=== PATIENT | female | born 1975 | race Caucasian/White ===

== ENCOUNTER → 2018-09-01 15:48 | Outpatient (CLI) | payer BC, SELFPAY ==
--- NOTE | 2018-09-01 15:56 | US_ITS ---
US thyroid HISTORY: ITS.REASON: ELEVATED PARATHYROID HORMONE ORDERING PHYSICIAN: Rober Marshall MD PATIENT AGE: 43 years Comparison: None FINDINGS: The right lobe is 4.5 x 1.5 x 1.7 cm. There is a heterogeneous slightly hypoechoic nodule involving the lower pole the right lobe of the thyroid gland measuring 10 x 9 mm. This is peripheral in nature. This could represent an enlarged parathyroid gland as well. The left lobe is 4.7 x 1.3 x 1.5 cm. A 4 mm cyst is present in the upper pole and a 3 mm cyst is present in the lower pole. A 6 mm mixed nodule is present in the lower pole and an additional 4 mm hypoechoic nodule present in the lower pole as well as an additional 3 mm cyst in the lower pole. IMPRESSION: Mildly enlarged thyroid gland with bilateral nodules. The largest nodule is in the lower pole on the right posteriorly measuring 10 x 9 mm and could represent an enlarged parathyroid gland. However, usually parathyroid glands are somewhat more homogeneous appearance. Six-month Follow-up suggested to confirm stability
== END ==
PROVIDERS: PCP Family Medicine; Visit Provider Family Medicine
DX: E34.9 Endocrine disorder, unspecified (principal)
CPT/HCPCS: 76536

== ENCOUNTER → 2019-10-25 08:09 | Outpatient (CLI) | payer BC, SELFPAY ==
[2019-10-25 08:55] LABS: Basophils % 0.8 % (0.1-2.0); Eosinophils # 0.2 K/mm3 (0.0-0.4); Eosinophils % 4.1 % (0.1-12.0); Hematocrit 45.1 % (37.0-47.0); Hemoglobin 15.5 g/dL (12.2-16.2); Lymphocytes # 1.5 K/mm3 (0.7-4.5); Lymphocytes % 35.9 % (10-50); Mean Corpuscular HGB Conc 34.4 g/dL (31.8-35.4); Mean Corpuscular Hemoglobin 32.4 pg (27.0-31.2); Mean Corpuscular Volume 94.1 fl (81-99); Mean Platelet Volume 8.8 fl (7.4-10.4); Monocytes # 0.2 K/mm3 (0.1-1.0); Monocytes % 3.9 % (1.7-9.3); Neutrophils # 2.3 K/mm3 (1.8-7.8); Neutrophils % 55.3 % (37.0-80.0); Platelet Count 174 K/mm3 (142-424); Red Blood Count 4.79 M/mm3 (4.20-5.40); Red Cell Distribution Width 13.2 % (11.5-17.5); White Blood Count 4.1 K/mm3 (4.8-10.8)
[2019-10-25 09:54] LABS: Chloride 105 mmol/L (98-107); Sodium 141 mmol/L (136-145)
[2019-10-25 09:56] LABS: Alanine Aminotransferase 15 U/L (12-78); Aspartate Amino Transferase 23 U/L (14-36); Bilirubin,Total 0.8 mg/dl (0.2-1.3); Blood Urea Nitrogen 21 mg/dl (7-17); Estimated Glomerular Filt Rate 108 ml/min (>60); GFR (African American) 131 ML/MIN (>60)
[2019-10-25 09:57] LABS: Albumin Level 4.3 g/dl (3.5-5.0); Albumin/Globulin Ratio 1.7 (1.1-1.8); Alkaline Phosphatase 57 U/L (38-126); Calcium 9.1 mg/dl (8.4-10.2); Carbon Dioxide 32 mmol/L (22.0-30.0); Chol/HDL Ratio 2.4 (1-3.5); Cholesterol 166 mg/dl (140-200); Globulin 2.5 g/dL (1.3-3.2); Glucose 82 mg/dl (74-100); HDL Cholesterol 70 mg/dl (40-60); Iron 129 ug/dL (37-170); Total Protein,Serum 6.8 g/dl (6.3-8.2); Triglycerides 67 mg/dl (30-150); VLDL Cholesterol 13 mg/dL (0-40)
[2019-10-25 10:08] LABS: Direct LDL Cholesterol 90.49 mg/dL (100-129)
[2019-10-25 10:12] LABS: T4 (Thyroxine) 10.2 ug/dl (5.53-11.0)
[2019-10-25 10:13] LABS: Total Iron Binding Capacity 367 ug/dL (265-497)
[2019-10-25 10:26] LABS: Thyroid Stimulating Hormone 1.55 uIU/mL (0.465-4.68)
[2019-10-25 10:50] LABS: 25-OH Vitamin D, Total 60.1 ng/mL (30-100)
[2019-10-25 11:02] LABS: Intact Parathyroid Hormone 92.6 pg/mL (7.5-53.5)
[2019-10-26 10:11] LABS: Vitamin B12 604 pg/mL (232-1245)
[2019-10-26 16:14] LABS: Calcium, Ionized 5.2 mg/dL (4.5-5.6)
== END ==
PROVIDERS: Visit Provider Family Medicine
DX: D50.9 Iron deficiency anemia, unspecified (principal); R63.4 Abnormal weight loss; E83.52 Hypercalcemia
CPT/HCPCS: 36415; 80053; 80061; 82306; 82330; 82607; 83540; 83550; 83970; 84436; 84443; 85025

== ENCOUNTER 2019-11-11 19:47 | Emergency (ER) | payer BC, SELFPAY ==
[2019-11-11 19:47] VITALS: BP 102/70; PULSE 73; RESP 20; TEMP 36.7; O2SAT 100; BMI 23.8
[2019-11-11 20:07] LABS: UTC Strep Screen (Rapid) Negative (Negative)
--- NOTE | 2019-11-11 20:15 | HMH.EDUTC ---
[facility] [place]: Otitis media Qualifiers: Otitis media type: unspecified Laterality: right Qualified Code(s): H66.91 - Otitis media, unspecified, right ear Disposition: Home, Self-Care Condition on Discharge: Good Instructions: Middle Ear Infections (Alternative Therapy), Sore Throat, Middle Ear Infection, Amoxicillin Additional Instructions: *Monitor Temp, Over the counter Motrin or Tylenol as directed/as needed Tylenol every 4 hours and Motrin every 6 hours (as long as your family doctor has told you that you can take it) for fever or pain. and straight to ER if unable to lower temp less than 101.0 after medication given *Warm salt water gargles may help to soothe the throat *Throat Lozenges *Warm fluids like tea with honey may help to soothe the throat *Sleep elevated *Humidifier/Vaporizer *Flonase 2 sprays in each nostril daily but be aware that it may take 2-3 days before you notice improvement Take your allergy medication as advised Take antibiotics as prescribed Your throat swab was sent for culture. Those results are typically sent to your primary care. Be sure to follow up in 2-3 days with your family doctor/primary care physician if no improvement so they can review those result and treat if necessary. If you don?t have a primary care doctor, I recommend you get one but in the mean time, you will have to return to a walk in clinic Follow up IMMEDIATELY for new or worsening symptoms or no Noticeable improvement over the next 48-72 hours. 911 for difficulty breathing or swallowing Prescriptions: Amoxicillin [Amoxicillin 500mg Cap] 500 mg PO TID #30 cap [id number] Referrals: Rober Marshall MD [Primary Care Provider] - As needed Time of Disposition: 20:24 Medical Decision Making - Misbah Inquiry Pt receiving controlled substance: No Misbah was queried for this patient: No Vital Signs: 11/11/19 19:47 Temperature 98.0 F Temperature Source Oral Pulse Rate [Radial] 73 Respiratory Rate 20 Blood Pressure [Right Arm] 102/70 L Blood Pressure Mean [Right Arm] 80 Blood Pressure Source [Right Arm] Automatic Cuff Blood Pressure Position [Right Arm] Sitting 02 Sat by Pulse Oximetry 100 Oxygen Delivery Method Room Air - Lab Data Lab results reviewed: Yes: I reviewed the patient's lab results. Lab Results 11/11/19 20:00: Strep Scn Rapid Clinic Negative Orders (Tests/Meds): ED MEDICATIONS Discontinued Medications Generic Name Dose Route Start Last Admin Trade Name Latosha PRN Reason Stop Dose Admin Amoxicillin 500 mg 11/11/19 20:21 Amoxicillin 500mg Capsule PO 11/11/19 20:22 ONCE ONE Protocol Methylprednisolone Sodium Succinate 125 mg 11/11/19 20:21 Solu-Medrol 125mg/2ml Vial IM 11/11/19 20:22 ONCE ONE ORDERS Category Date Time Status Strep Screen Confirmation Stat Micro 11/11/19 20:00 Received - Reevaluation(s) Time: 20:22 Reevaluation #1: Patient states that she has a local reaction to Ceftriaxone but has taken amoxicillin and solumedrol before without reaction or complications [facility] [place] - General Stated complaint: Ear pain Time Seen by Provider: 11/11/19 20:15 Mode of Arrival: Ambulatory Source of Information: Patient Limitations: No Limitations Description of Symptoms (Recalled from Triage Doc. by RN): right ear ache, sore throat x 2 days HEENT Symptoms (Recalled from RN notes): Yes Resp Symptoms (Recalled from RN notes): No Skin Symptoms (Recalled from RN notes): No MS Symptoms (Recalled from RN notes): No Functional Status (Recalled from RN notes): wnl - History of Present Illness Provider Complaint: Patient states that she has been having worsening ear pain in her right ear over the last three days and this evening it was worse States that she feels like it is ready to pop State that she is having pressure like feeling in her ear and it is going down into her j
[2019-11-11 20:34] VITALS: BP 102/70; PULSE 73; RESP 20; TEMP 36.7; O2SAT 100
== END 2019-11-11 20:35 | disposition home or self-care (01) ==
PROVIDERS: Emergency Provider Nurse Practitioner; PCP Family Medicine
DX: H66.91 Otitis media, unspecified, right ear (principal); G43.709 Chronic migraine without aura, not intractable, without status migrainosus
CPT/HCPCS: 87880; 96372; 99202

== ENCOUNTER → 2019-11-15 10:48 | Outpatient (CLI) | payer BC, SELFPAY ==
--- NOTE | 2019-11-15 10:52 | US_ITS ---
PROCEDURE: US KIDNEY CLINICAL INDICATION: PRIMARY HYPERPARATHYROIDISM Low vitamin-D COMPARISON: CT ABDOMEN PELVIS W CON from 06/16/2019 FINDINGS: The right kidney is [id number]. No hydronephrosis, cortical thinning, or renal mass or perinephric fluid collection is evident.. There is mild prominence of right pelvis versus parapelvic cyst The left kidney is [id number]. No hydronephrosis, cortical thinning, or renal mass or perinephric fluid collection is evident. IMPRESSION: Mild prominence of the right renal pelvis versus parapelvic renal cyst otherwise negative bilateral renal ultrasound. Dictated by: Kalpesh Orozco MD 11/15/2019 15:01 Electronically signed by Kalpesh Orozco MD in [place] 11/15/2019 15:01
--- NOTE | 2019-11-15 10:53 | XR_ITS ---
PROCEDURE: XR DEXA AXIAL SKELETON CLINICAL HISTORY: PRIMARY HYPERPARATHYROIDISM COMPARISON: No exams were available for comparison FINDINGS: The right hip BMD is 0.824 with a t-score of -1.0. The left hip BMD is 0.822 with a t-score of -1.0. The lumbar spine BMD is 0.989 with a t-score of -0.5. IMPRESSION: Normal bone density. Recommend follow-up exam in 2 years Dictated by: Kalpesh Orozco MD 11/16/2019 11:20 Electronically signed by Kalpesh Orozco MD in [place] 11/16/2019 11:20
== END ==
PROVIDERS: PCP Family Medicine; Visit Provider Family Medicine
DX: E21.0 Primary hyperparathyroidism (principal)
CPT/HCPCS: 76770; 77080

== ENCOUNTER 2019-12-13 08:00 | Outpatient (RCR) | payer BC, SELFPAY | END 2019-12-13 09:10 | disposition home or self-care (01) | LOC: PT 08:00 | PROVIDERS: PCP Family Medicine; Visit Provider Family Medicine | DX: M54.5 Low back pain (principal) | CPT/HCPCS: 97010; 97014; 97035; 97110; 97140; 97163; 97164; G0283 ==

== ENCOUNTER → 2021-02-07 09:58 | Outpatient (CLI) | payer BC, SELFPAY ==
[2021-02-07 10:14] LABS: Basophils # 0.1 K/mm3 (0-0.2); Basophils % 1.5 % (0.1-2.0); Eosinophils # 0.1 K/mm3 (0.0-0.4); Hematocrit 48.3 % (37.0-47.0); Hemoglobin 15.2 g/dL (12.2-16.2); Lymphocytes # 1.4 K/mm3 (0.7-4.5); Lymphocytes % 41.1 % (10-50); Mean Corpuscular HGB Conc 31.5 g/dL (31.8-35.4); Mean Corpuscular Hemoglobin 31.8 pg (27.0-31.2); Mean Corpuscular Volume 100.9 fl (81-99); Mean Platelet Volume 8.9 fl (7.4-10.4); Monocytes # 0.2 K/mm3 (0.1-1.0); Monocytes % 4.4 % (1.7-9.3); Neutrophils # 1.7 K/mm3 (1.8-7.8); Neutrophils % 48.9 % (37.0-80.0); Platelet Count 180 K/mm3 (142-424); Red Blood Count 4.79 M/mm3 (4.20-5.40); Red Cell Distribution Width 12.5 % (11.5-17.5); White Blood Count 3.4 K/mm3 (4.8-10.8)
[2021-02-07 11:28] LABS: Chloride 104 mmol/L (98-107); Sodium 145 mmol/L (136-145)
[2021-02-07 11:30] LABS: Blood Urea Nitrogen 14 mg/dl (7-17)
[2021-02-07 11:31] LABS: Alanine Aminotransferase 16 U/L (12-78); Albumin Level 4.2 g/dl (3.5-5.0); Albumin/Globulin Ratio 1.8 (1.1-1.8); Alkaline Phosphatase 68 U/L (38-126); Aspartate Amino Transferase 29 U/L (14-36); Bilirubin,Total 0.7 mg/dl (0.2-1.3); Calcium 9.6 mg/dl (8.4-10.2); Carbon Dioxide 33 mmol/L (22.0-30.0); Chol/HDL Ratio 2.2 (1-3.5); Cholesterol 179 mg/dl (140-200); Estimated Glomerular Filt Rate 133 ml/min (>60); GFR (African American) 161 ML/MIN (>60); Globulin 2.3 g/dL (1.3-3.2); Glucose 84 mg/dl (74-100); HDL Cholesterol 81 mg/dl (40-60); Iron 185 ug/dL (37-170); Total Protein,Serum 6.5 g/dl (6.3-8.2); Triglycerides 69 mg/dl (30-150); VLDL Cholesterol 14 mg/dL (0-40)
[2021-02-07 11:42] LABS: Direct LDL Cholesterol 84.63 mg/dL (100-129)
[2021-02-07 12:02] LABS: Thyroid Stimulating Hormone 1.19 uIU/mL (0.465-4.68)
== END ==
PROVIDERS: Visit Provider Family Medicine
DX: F41.9 Anxiety disorder, unspecified (principal); E83.52 Hypercalcemia; D50.9 Iron deficiency anemia, unspecified
CPT/HCPCS: 36415; 80053; 80061; 83540; 84443; 85025

== ENCOUNTER → 2021-05-16 16:23 | Outpatient (CLI) | payer BC, SELFPAY | PROVIDERS: Visit Provider Nurse Practitioner Family | DX: Z20.822 Contact with and (suspected) exposure to COVID-19 (principal) | CPT/HCPCS: C9803; U0003; U0005 ==

== ENCOUNTER → 2021-05-22 15:59 | Outpatient (CLI) | payer BC, SELFPAY | PROVIDERS: Visit Provider Nurse Practitioner | DX: U07.1 COVID-19 (principal) | CPT/HCPCS: C9803; U0003; U0005 ==

== ENCOUNTER 2021-06-07 08:58 | Emergency (ER) | payer BC, SELFPAY ==
[2021-06-07 09:05] VITALS: BP 113/64; PULSE 89; RESP 19; TEMP 37.2; O2SAT 99; BMI 20.3
--- NOTE | 2021-06-07 09:30 | HMH.EDUTC ---
[facility] [place] Clinical Impression: Otitis media Qualifiers: Otitis media type: unspecified Laterality: right Qualified Code(s): H66.91 - Otitis media, unspecified, right ear Disposition: Home, Self-Care Condition on Discharge: Good Instructions: Middle Ear Infection, DI for Sinusitis Additional Instructions: *Monitor Temp, Over the counter Motrin or Tylenol as directed/as needed Tylenol every 4 hours and Motrin every 6 hours (as long as your family doctor has told you that you can take it) for fever or pain. and straight to ER if unable to lower temp less than 101.0 after medication given *Warm salt water gargles may help to soothe the throat *Throat Lozenges *Warm fluids like tea with honey may help to soothe the throat *Sleep elevated *Humidifier/Vaporizer Take medication as prescribed Your throat swab was sent for culture. Those results are typically sent to your primary care. Be sure to follow up in 2-3 days with your family doctor/primary care physician if no improvement so they can review those result and treat if necessary. If you don?t have a primary care doctor, I recommend you get one but in the mean time, you will have to return to a walk in clinic Follow up IMMEDIATELY for new or worsening symptoms or no Noticeable improvement over the next 48-72 hours. 911 for difficulty breathing or swallowing Prescriptions: Amoxicillin [Amoxicillin 875MG Tab] 875 mg PO Q12H #20 tab Transmission Status: Received by [id number] methylPREDNISolone [Medrol 4mg tab] 4 mg PO DIRECTED #21 tab Transmission Status: Received by [id number] Referrals: Rober Marshall MD [Primary Care Provider] - As needed Forms: Work/School Release Time of Disposition: 10:25 Medical Decision Making - Misbah Inquiry Pt receiving controlled substance: No Misbah was queried for this patient: No Vital Signs: 06/07/21 09:05 06/07/21 09:51 Temperature 99.0 F 99.0 F Temperature Source Oral Pulse Rate 89 Pulse Rate [Left Brachial] 89 Respiratory Rate 19 19 Blood Pressure 113/64 Blood Pressure [Left Arm] 113/64 Blood Pressure Mean [Left Arm] 80 Blood Pressure Source [Left Arm] Automatic Cuff Blood Pressure Position [Left Arm] Sitting 02 Sat by Pulse Oximetry 99 Oxygen Delivery Method Room Air - Lab Data Lab results reviewed: Yes: I reviewed the patient's lab results. Lab Results 06/07/21 09:19: Influenza Type A Ag Negative, Influenza Type B Ag Negative 06/07/21 09:20: Group A Strep Rapid Negative Orders (Tests/Meds): ED MEDICATIONS Discontinued Medications Generic Name Dose Route Start Last Admin Trade Name Latosha PRN Reason Stop Dose Admin Methylprednisolone Sodium Succinate 125 mg 06/07/21 10:07 06/07/21 10:20 Methylprednisolone Sod Succ 125mg Vial IM 06/07/21 10:08 125 mg ONCE ONE Administration ORDERS Category Date Time Status Strep Screen Confirmation Stat Micro 06/07/21 09:20 Received Medical Decision Narrative: Patient states that she is allergic to Ceftriaxone but has taken amoxicillin in the past without reactions or complications [facility] [place] - General Stated complaint: sore throat, cough, right ear pain, h/a Time Seen by Provider: 06/07/21 09:30 Mode of Arrival: Ambulatory Source of Information: Patient Limitations: No Limitations Description of Symptoms (Recalled from Triage Doc. by RN): PATIENT C/O RIGHT EAR PAIN, BODY ACHES, HEAD/CHEST CONGESTION, ECZEMA, HEADACHE, AND SORE THROAT SINCE TUESDAY HEENT Symptoms (Recalled from RN notes): Yes Resp Symptoms (Recalled from RN notes): No Skin Symptoms (Recalled from RN notes): No MS Symptoms (Recalled from RN notes): No Functional Status (Recalled from RN notes): WNL - History of Present Illness Provider Complaint: Patient states that she had COVID a couple weeks ago States that since then she has started having sore throat, sinus pain and pressure pain in her right ear, cough and body aches
[2021-06-07 09:50] LABS: UTC Influenza A Antigen Negative (Negative); UTC Influenza B Antigen Negative (Negative)
[2021-06-07 09:51] VITALS: BP 113/64; PULSE 89; RESP 19; TEMP 37.2; O2SAT 99
[2021-06-07 09:54] LABS: Strep Scrn Group A (Rapid) Negative (Negative)
== END 2021-06-07 10:33 | disposition home or self-care (01) ==
PROVIDERS: Emergency Provider Nurse Practitioner; PCP Family Medicine
DX: H66.91 Otitis media, unspecified, right ear (principal); Z88.2 Allergy status to sulfonamides
CPT/HCPCS: 87430; 87804; 96372; 99202; G0463

== ENCOUNTER 2021-09-20 12:00 | Emergency (ER) | payer BC, SELFPAY ==
[2021-09-20 12:11] VITALS: BP 116/68; PULSE 69; RESP 19; TEMP 36.8; O2SAT 100; BMI 21.6
--- NOTE | 2021-09-20 12:51 | PC.NURSE ---
pt was given tdap vaccination. 09/20/21 LOT# [id number] EXP Right deltoid. pt signed paperwork
--- NOTE | 2021-09-20 12:58 | HMH.EDUTC ---
[facility] [place]: Need for Tdap vaccination Laceration of left leg Qualifiers: Encounter type: initial encounter Qualified Code(s): S81.812A - Laceration without foreign body, left lower leg, initial encounter Disposition: Home, Self-Care Condition on Discharge: Good Instructions: DI for Laceration Repair-Skin Closure Strips Additional Instructions: Keep the wound clean and dry. Keep a dressing on it if you are going to be getting it dirty. Watch the for signs of infection, such as redness, swelling, drainage, fever. etc. take tylenol or ibuprofen for pain. Follow up with your regular doctor. GO TO THE ER FOR ANY WORSENING SYMPTOMS OR CONCERNS. Prescriptions: Mupirocin [Bactroban 2% Ointment 22gm tube] 1 applicatio TP TID 7 Days #1 gm Transmission Status: Received by [facility] clindamycin HCL [Cleocin HCl] 300 mg PO Q8H 7 Days #21 cap Transmission Status: Received by [facility] levoFLOXacin [Levaquin 500mg tab] 500 mg PO DAILY 5 Days #5 tab Transmission Status: Received by [facility] Referrals: Rober Marshall MD [Primary Care Provider] - Time of Disposition: 13:05 Medical Decision Making - Medical Records Medical records reviewed: No: I reviewed the patient's medical records. - Misbah Inquiry Pt receiving controlled substance: No Vital Signs: 09/20/21 12:11 09/20/21 13:14 Temperature 98.3 F 98.3 F Temperature Source Oral Pulse Rate 69 Pulse Rate [Left Radial] 69 Respiratory Rate 19 19 Blood Pressure 116/68 Blood Pressure [Right Arm] 116/68 Blood Pressure Mean [Right Arm] 84 02 Sat by Pulse Oximetry 100 Orders (Tests/Meds): ED MEDICATIONS Discontinued Medications Generic Name Dose Route Start Last Admin Trade Name Freq PRN Reason Stop Dose Admin Tetanus/Diphtheria Toxoids 0.5 ml 09/20/21 12:37 09/20/21 12:46 Tetanus-Diphth Toxoid, Adult 0.5ml Syr IM 09/20/21 12:38 Not Given .ONCE ONE Tetanus/Diphtheria Toxoids 0.5 ml 09/20/21 12:50 Tetanus-Diphth Toxoid, Adult 0.5ml Syr IM 09/20/21 12:51 .ONCE ONE [facility] [place] General Stated complaint: AO 09/19 lt leg laceration Time Seen by Provider: 09/20/21 12:25 Mode of Arrival: Ambulatory Source of Information: Patient Limitations: No Limitations Description of Symptoms (Recalled from Triage Doc. by RN): pt here because she got a cut on her foot. she was at the [employer] and unable to get to stitches. her and friends attempted to clean it up. pt would also like a tetanus shot HEENT Symptoms (Recalled from RN notes): No Resp Symptoms (Recalled from RN notes): No Skin Symptoms (Recalled from RN notes): Yes MS Symptoms (Recalled from RN notes): No Functional Status (Recalled from RN notes): wnl - History of Present Illness Provider Complaint: She fell while [place]. She recieved a laceration on her left lower leg. She did not seek medical treatment then. Since then she has got worried about infection so she came in today to be seen. She denies any other injury. - Related Data Home Medications Medication Instructions Recorded Confirmed alprazolam 0.5 mg tablet 0.5 mg PO DAILYP PRN tab 05/16/21 06/07/21 Previous Rx's Medication Instructions Recorded methylPREDNISolone [Medrol 4mg 4 mg PO DIRECTED #21 tab 06/07/21 tab] Mupirocin [Bactroban 2% Ointment 1 applicatio TP TID 7 Days #1 gm 09/20/21 22gm tube] clindamycin HCL [Cleocin HCl] 300 mg PO Q8H 7 Days #21 cap 09/20/21 levoFLOXacin [Levaquin 500mg 500 mg PO DAILY 5 Days #5 tab 09/20/21 tab] Allergies Allergy/AdvReac Type Severity Reaction Status Date / Time ceftriaxone [From ROCEPHIN] Allergy Intermediate Verified 05/16/21 16:41 hydrocodone [HYDROCODONE] Allergy Intermediate Verified 05/16/21 16:41 Sulfa (Sulfonamide Allergy Intermediate Verified 05/16/21 16:41 Antibiotics) [SULFA (SULFONAMIDE
[2021-09-20 13:14] VITALS: BP 116/68; PULSE 69; RESP 19; TEMP 36.8
== END 2021-09-20 13:17 | disposition home or self-care (01) ==
PROVIDERS: Emergency Provider Nurse Practitioner Family; PCP Family Medicine
DX: S81.812A Laceration without foreign body, left lower leg, initial encounter (principal); Z23 Encounter for immunization; Z88.1 Allergy status to other antibiotic agents; Z88.2 Allergy status to sulfonamides; Z88.6 Allergy status to analgesic agent
CPT/HCPCS: 90471; 99212; G0463

== ENCOUNTER 2021-10-28 16:35 | Emergency (ER) | payer BC, SELFPAY ==
[2021-10-28 16:40] VITALS: BP 103/70; PULSE 72; RESP 16; TEMP 37.1; O2SAT 98; BMI 21.4
--- NOTE | 2021-10-28 16:54 | HMH.EDUTC ---
[facility] – [place] Clinical Impression: Otitis media Qualifiers: Otitis media type: unspecified Laterality: right Qualified Code(s): H66.91 - Otitis media, unspecified, right ear Disposition: Home, Self-Care Condition on Discharge: Good Instructions: Middle Ear Infection, Amoxicillin Additional Instructions: *Monitor Temp, Over the counter Motrin or Tylenol as directed/as needed Tylenol every 4 hours and Motrin every 6 hours (as long as your family doctor has told you that you can take it) for fever or pain. and straight to ER if unable to lower temp less than 101.0 after medication given Take medication as prescribed Start oral steriods tomorrow *Sleep elevated *Humidifier/Vaporizer *Flonase 2 sprays in each nostril daily but be aware that it may take 2-3 days before you notice improvement Follow up IMMEDIATELY for new or worsening symptoms or no Noticeable improvement over the next 48-72 hours. 911 for difficulty breathing or swallowing Prescriptions: Amoxicillin [Amoxicillin 875MG Tab] 875 mg PO Q12H #20 tab Transmission Status: Received by [facility] Fluticasone Propionate [Flonase 50mcg nasal spray 16gm] 1 spr NS DAILY #1 each Transmission Status: Received by [facility] methylPREDNISolone [Medrol 4mg tab] 4 mg PO DIRECTED #21 tab Transmission Status: Received by [facility] Referrals: Rober Marshall MD [Primary Care Provider] - As needed Time of Disposition: 17:05 Medical Decision Making - Misbah Inquiry Pt receiving controlled substance: No Misbah was queried for this patient: No Vital Signs: 10/28/21 16:40 10/28/21 17:03 Temperature 98.8 F 98.8 F Temperature Source Oral Pulse Rate 72 Pulse Rate [Right Brachial] 72 Respiratory Rate 16 16 Blood Pressure 103/70 L Blood Pressure [Right Arm] 103/70 L Blood Pressure Mean [Right Arm] 81 Blood Pressure Source [Right Arm] Automatic Cuff Blood Pressure Position [Right Arm] Sitting 02 Sat by Pulse Oximetry 98 Oxygen Delivery Method Room Air Orders (Tests/Meds): ED MEDICATIONS Discontinued Medications Generic Name Dose Route Start Last Admin Trade Name Freq PRN Reason Stop Dose Admin Methylprednisolone Sodium Succinate 125 mg 10/28/21 16:57 10/28/21 17:00 Methylprednisolone Sod Succ 125mg Vial IM 10/28/21 16:58 125 mg ONCE ONE Administration Medical Decision Narrative: Patient states that she is allergic to Ceftriaxone but has taken amoxicillin in the past without reactions or complications [facility] [place] - General Stated complaint: RIGHT EAR PAIN Time Seen by Provider: 10/28/21 16:54 Mode of Arrival: Ambulatory Source of Information: Patient Limitations: No Limitations Description of Symptoms (Recalled from Triage Doc. by RN): PATIENT C/O EAR PAIN AND PRESSURE HEENT Symptoms (Recalled from RN notes): Yes Resp Symptoms (Recalled from RN notes): No Skin Symptoms (Recalled from RN notes): No MS Symptoms (Recalled from RN notes): No Functional Status (Recalled from RN notes): WNL - History of Present Illness Provider Complaint: Patient states that she has been having pain and pressure in her right ear for several days and has continued to get worse States that she feels like she may have an ear infection again so she came in to get it checked - Related Data Home Medications Medication Instructions Recorded Confirmed alprazolam 0.5 mg tablet 0.5 mg PO DAILYP PRN tab 05/16/21 06/07/21 Previous Rx's Medication Instructions Recorded methylPREDNISolone [Medrol 4mg 4 mg PO DIRECTED #21 tab 06/07/21 tab] Mupirocin [Bactroban 2% Ointment 1 applicatio TP TID 7 Days #1 gm 09/20/21 22gm tube] clindamycin HCL [Cleocin HCl] 300 mg PO Q8H 7 Days #21 cap 09/20/21 levoFLOXacin [Levaquin 500mg 500 mg PO DAILY 5 Days #5 tab 09/20/21 tab] Amoxicillin [Amoxicillin 875MG 875 mg PO Q12H #20 tab 10/28/21 Tab] Fluticasone Propionate [Flonase 1 spr NS FARHAN
[2021-10-28 17:03] VITALS: BP 103/70; PULSE 72; RESP 16; TEMP 37.1; O2SAT 98
== END 2021-10-28 17:14 | disposition home or self-care (01) ==
PROVIDERS: Emergency Provider Nurse Practitioner; PCP Family Medicine
DX: H66.91 Otitis media, unspecified, right ear (principal); Z88.2 Allergy status to sulfonamides; Z88.6 Allergy status to analgesic agent
CPT/HCPCS: 96372; 99212; G0463

== ENCOUNTER → 2022-01-09 09:04 | Outpatient (CLI) | payer BC, SELFPAY ==
[2022-01-09 10:15] LABS: Alanine Aminotransferase 16 U/L (12-78); Albumin Level 3.9 g/dl (3.5-5.0); Albumin/Globulin Ratio 1.9 (1.1-1.8); Alkaline Phosphatase 65 U/L (38-126); Anion Gap 7.3 mEq/L (5-15); Aspartate Amino Transferase 29 U/L (14-36); Bilirubin,Total 0.5 mg/dl (0.2-1.3); Blood Urea Nitrogen 17 mg/dl (7-17); Calcium 9.2 mg/dl (8.4-10.2); Carbon Dioxide 34 mmol/L (22.0-30.0); Chloride 106 mmol/L (98-107); Cholesterol 177 mg/dl (140-200); Estimated Glomerular Filt Rate 90 ml/min (>60); GFR (African American) 109 ML/MIN (>60); Globulin 2.1 g/dL (1.3-3.2); Glucose 84 mg/dl (74-100); HDL Cholesterol 59 mg/dl (40-60); Potassium 4.3 mmoL/L (3.5-5.1); Sodium 143 mmol/L (136-145); Triglycerides 65 mg/dl (30-150); VLDL Cholesterol 13 mg/dL (0-40)
[2022-01-09 10:26] LABS: Direct LDL Cholesterol 96.32 mg/dL (100-129)
== END ==
PROVIDERS: PCP Family Medicine; Visit Provider Family Medicine
DX: F32.9 Major depressive disorder, single episode, unspecified (principal); F41.9 Anxiety disorder, unspecified; E78.5 Hyperlipidemia, unspecified
CPT/HCPCS: 36415; 80053; 80061

== ENCOUNTER 2022-03-03 08:17 | Day surgery (SDC) | payer BC, SELFPAY ==
[2022-01-25 12:34] VITALS: BMI 22.1
[2022-03-02 08:33] VITALS: BMI 22.8
[2022-03-03] VITALS (7 sets, daily range): BP systolic 95–115; BP diastolic 60–69; PULSE 57–92; RESP 18; TEMP 36.1–36.3; O2SAT 96–100
[2022-03-03 08:35] LABS: Urine Pregnancy, HCG Qual. Negative (Negative)
--- NOTE | 2022-03-03 09:43 | EXP.ANES.CKL ---
[facility] PFS Medical History (Updated 03/03/22 @ 08:54 by Neyda Pa RN) Allergies Anxiety Gallbladder disease Hemorrhoid History of anemia History of COVID-19 History of gastroesophageal reflux (GERD) Palpitations Polycystic ovarian disease Surgical History H/O gastric sleeve History of appendectomy History of cholecystectomy History of endometrial ablation History of tonsillectomy and adenoidectomy Hx of dilation and curettage Family History (Updated 03/03/22 @ 08:54 by Neyda Pa RN) Other Diabetes Family history of acute heart failure Family history of hypertension Family history of stroke Social History (Updated 03/03/22 @ 08:55 by Neyda Pa RN) Smoking Status: Never smoker alcohol intake: current substance use type: denies use current occupational status: employed and other Travel in the last 8 weeks: None adopted: No caregiver/support person: No household members: family housing: house marital status: education level: high school caffeine: Yes special eva needs: No agree to transfusion: No do you feel safe at home: Yes victim of physical abuse: No victim of emotional abuse: No victim of sexual abuse: No would you like helpful sources: No [facility] Anesthesia Checklist Patient Identification Patient Identification: Arm Band Structural Data Admitted From: Home Planned Operative Procedure/s: colonoscopy Consent for Planned Operative Procedure(s) Verified: Yes Verified Documents: Surgical Consent and History and Physical NPO Status Verified Time NPO: 00:00 Additional verifications Anesthesia Reactions: No Airway Assessment C-Spine Mobility Assessed: Yes TMJ Mobility Assessed: Yes Dentition: Good Dentition Neurological Assessment Level of Consciousness: Awake and Alert Anesthesia Plan Anesthesia Risk discussed: Yes Anesthesia Plan: Verified ASA Class: II Anesthesia Type: MAC
--- NOTE | 2022-03-03 10:01 | HMH.SCOPE ---
Procedure: Date: 03/03/22 Patient Date of :: 1975 Procedure Performed:: Colonoscopy Indications:: Screening colonoscopy Performing Provider:: Robbie Nassar MD Referring Provider:: Rober Marshall MD Sedation:: See RN notes Procedure:: After placing the patient in the left lateral decubitus position, the colonoscopy was gently inserted into the rectum and under direct visualization advanced to the cecum which was identified by transillumination in the right lower quadrant, identification of the ileocecal valve, appendiceal orifice, and cecal strap. Color, texture, mucosa, and anatomy of the colon were carefully examined with the scope. Findings:: Anal canal: normal Rectum: internal hemorrhoids Sigmoid colon: fair bowel preparation Descending colon: fair bowel preparation Splenic flexure: normal Transverse colon: normal without polyps or inflammatory changes Hepatic flexure: normal Ascending colon: fair bowle preparation Cecum: fair bowel preparation Terminal ileum: not visualized Impression: Normal appearing colon Preparation of colon was fair in qaulity Recommendations:: Repeat colonoscopy in 5 years Complications:: none Estimated blood obtained (mL): 0
== END 2022-03-03 11:05 | disposition home or self-care (01) ==
PROVIDERS: PCP Family Medicine; Visit Provider Internal Medicine
PROC: 0DJD8ZZ Inspection of Lower Intestinal Tract, Via Natural or Artificial Opening Endoscopic (ICD-10-PCS; CPT 45378; principal; 2022-03-03 09:30)
DX: Z12.11 Encounter for screening for malignant neoplasm of colon (principal); K64.8 Other hemorrhoids; Z79.899 Other long term (current) drug therapy
CPT/HCPCS: 45378; 81025

== ENCOUNTER 2022-05-29 09:59 | Emergency (ER) | payer BC, SELFPAY ==
--- NOTE | 2022-05-29 10:35 | EXP.UTC ---
Discharge Plan Disposition Patient Disposition: Home, Self-Care Condition: Good Prescriptions Prescriptions: New methylprednisolone 4 mg Tablets,Dose Pack 4 mg PO DIRECTED Qty: 21 0RF amoxicillin-pot clavulanate 500-125 mg tablet 1 tab PO BID Qty: 20 0RF No Action alprazolam 0.5 mg tablet 0.5 mg PO DAILYP PRN (Reason: Anxiety) Label Comments: TAKE ONE TABLET BY MOUTH THREE TIMES DAILY NEEDED MAY CAUSE DROWSINESS Referrals Follow up/Referrals: Rober Marshall MD [Primary Care Provider] - See instructions Activity Restrictions/Add. Instructions Additional Instructions/Restrictions: Drink plenty of fluids. Take tylenol or ibuprofen for pain or fever. Take the medications as directed. Follow up with your regular doctor. GO TO THE ER FOR ANY WORSENING SYMPTOMS Don't start the oral steroids until tomorrow, since you had the shot here today. Go ahead and start the antibitiotics (augmentin) today. Stop the azithromycin pack that you are on. Clinical Impressions Clinical Impression: Otitis media Instructions Patient Instructions: Middle Ear Infection, Methylprednisolone Injection Discharge ED Provider: Chang Celis [facility] General Stated complaint: Ear infection Time Seen by Provider: 05/29/22 10:35 History of Present Illness Provider Complaint: She c/o right ear pain for the past 2 days. She has been having tannish discharge from that ear. She denies fever/chills/body aches. Related Data Home Medications Medication Instructions Recorded Confirmed alprazolam 0.5 mg tablet 0.5 mg PO DAILYP PRN Anxiety 05/16/21 05/29/22 Previous Rx's Medication Instructions Recorded amoxicillin 500 mg-potassium 1 tab PO BID #20 tabs 05/29/22 clavulanate 125 mg tablet methylprednisolone 4 mg tablets in 4 mg PO DIRECTED #21 tabs 05/29/22 a dose pack Allergies Allergy/AdvReac Type Severity Reaction Status Date / Time ceftriaxone [From ROCEPHIN] Allergy Intermediate Rash Verified 05/29/22 10:51 hydrocodone [HYDROCODONE] Allergy Intermediate Rash Verified 05/29/22 10:51 Sulfa (Sulfonamide Allergy Intermediate Other Verified 05/29/22 10:51 Antibiotics) [SULFA (SULFONAMIDE ANTIBIOTICS)] [facility] Disclaimer: The information contained in this section may have been updated after the patient was seen, as this information can be updated by other users. Medical History Allergies Anxiety Gallbladder disease Hemorrhoid History of anemia History of COVID-19 History of gastroesophageal reflux (GERD) Palpitations Polycystic ovarian disease Surgical History H/O gastric sleeve History of appendectomy History of cholecystectomy History of endometrial ablation History of tonsillectomy and adenoidectomy Hx of dilation and curettage Family History Other Diabetes Family history of acute heart failure Family history of hypertension Family history of stroke Social History Smoking Status: Never smoker alcohol intake: current substance use type: denies use current occupational status: employed and other Travel in the last 8 weeks: None adopted: No caregiver/support person: No household members: family housing: house marital status: education level: high school caffeine: Yes special eva needs: No agree to transfusion: No do you feel safe at home: Yes victim of physical abuse: No victim of emotional abuse: No victim of sexual abuse: No would you like helpful sources: No ROS Obtained: Yes All systems reviewed & no additional complaints except as documented Constitutional Constitutional: Denies chills, Reports fever(s) and Reports poor appetite Eyes Eyes: Denies eye discharge EN
[2022-05-29 10:47] VITALS: BP 111/69; PULSE 111; RESP 20; TEMP 36.7; O2SAT 98; BMI 22.3
[2022-05-29 11:22] VITALS: BP 111/69; PULSE 111; RESP 20; TEMP 36.7; O2SAT 98
== END 2022-05-29 11:23 | disposition home or self-care (01) ==
LOC: ER 10:04 → UTC 10:07
PROVIDERS: Emergency Provider Nurse Practitioner Family; PCP Family Medicine
DX: H66.90 Otitis media, unspecified, unspecified ear (principal)
CPT/HCPCS: 96372; 99212; 99213; G0463

== ENCOUNTER 2022-06-01 19:26 | Emergency (ER) | payer BC, SELFPAY ==
[2022-06-01 19:30] VITALS: BP 126/79; PULSE 60; RESP 18; TEMP 36.7; O2SAT 99; BMI 22.6
--- NOTE | 2022-06-01 19:41 | EXP.UTC ---
Discharge Plan Disposition Patient Disposition: Home, Self-Care Condition: Good Prescriptions Prescriptions: New meclizine 25 mg tablet 25 mg PO BID PRN (Reason: dizziness) Qty: 10 0RF No Action alprazolam 0.5 mg tablet 0.5 mg PO DAILYP PRN (Reason: Anxiety) Label Comments: TAKE ONE TABLET BY MOUTH THREE TIMES DAILY NEEDED MAY CAUSE DROWSINESS methylprednisolone 4 mg Tablets,Dose Pack 4 mg PO DIRECTED Qty: 21 0RF amoxicillin-pot clavulanate 500-125 mg tablet 1 tab PO BID Qty: 20 0RF Referrals Follow up/Referrals: Rober Marshall MD [Primary Care Provider] - See instructions Activity Restrictions/Add. Instructions Additional Instructions/Restrictions: Continue Augmentin as prescribed Stop using the Ciprodex drops and make sure to strip picker the Ofloxicin tomorrow at [facility] and use as directed Follow up with ENT if symptoms worsen call office and see if you can get in sooner Follow up with your Family Doctor if no improvement or any worsening of symptoms Straight to ER if any life threatening symptoms Clinical Impressions Clinical Impression: Dizziness Ear problem Qualifiers: Laterality: right Qualified Code(s): H93.91 - Unspecified disorder of right ear Stand Alone Forms Stand Alone Forms: Work/School Release Instructions Patient Instructions: DI for Vertigo, DI for Ear Pain-Adult, Ofloxacin Otic Discharge ED Provider: Alesha Thomas [facility] General Stated complaint: R ear pain Time Seen by Provider: 06/01/22 19:41 History of Present Illness Provider Complaint: Patient States that she has been having ear pain around the and seen someone at the clinic States that they started her on Oral antibiotics and ear drops but she didnt strip picker the drops due to cost States that it wasnt getting any better so she had some left over ear drops CiproDex that she started but her ear kept getting worse so she returned and her oral antibiotic was changed to Augmentin and she has been on it a couple days but she is still having pain in her ear States that she had stuck some cotton in her ear and a piece of it got stuck and she had a friend remove it and since then the pain has got worse and earlier it broke loose and started draining so she was scared and felt a little dizzy but she has vertigo and not sure if it is related Related Data Home Medications Medication Instructions Recorded Confirmed alprazolam 0.5 mg tablet 0.5 mg PO DAILYP PRN Anxiety 05/16/21 05/29/22 Previous Rx's Medication Instructions Recorded amoxicillin 500 mg-potassium 1 tab PO BID #20 tabs 05/29/22 clavulanate 125 mg tablet methylprednisolone 4 mg tablets in 4 mg PO DIRECTED #21 tabs 05/29/22 a dose pack meclizine 25 mg tablet 25 mg PO BID PRN dizziness #10 tabs 06/01/22 Allergies Allergy/AdvReac Type Severity Reaction Status Date / Time ceftriaxone [From ROCEPHIN] Allergy Intermediate Rash Verified 05/29/22 10:51 hydrocodone [HYDROCODONE] Allergy Intermediate Rash Verified 05/29/22 10:51 Sulfa (Sulfonamide Allergy Intermediate Other Verified 05/29/22 10:51 Antibiotics) [SULFA (SULFONAMIDE ANTIBIOTICS)] [facility] Disclaimer: The information contained in this section may have been updated after the patient was seen, as this information can be updated by other users. Medical History Allergies Anxiety Gallbladder disease Hemorrhoid History of anemia History of COVID-19 History of gastroesophageal reflux (GERD) Palpitations Polycystic ovarian disease Surgical History H/O gastric sleeve History of appendectomy History of cholecystectomy History of endometrial ablation History of tonsillectomy and adenoidectomy Hx of dilation and curettage Family History Other Diabetes Family history of acut
[2022-06-01 20:05] VITALS: BP 126/79; PULSE 60; RESP 18; TEMP 36.7; O2SAT 99
== END 2022-06-01 20:21 | disposition home or self-care (01) ==
PROVIDERS: Emergency Provider Nurse Practitioner; PCP Family Medicine
DX: H93.91 Unspecified disorder of right ear (principal); R42 Dizziness and giddiness
CPT/HCPCS: 99212; 99213; G0463

== ENCOUNTER 2022-08-09 18:40 | Emergency (ER) | payer BC, SELFPAY ==
[2022-08-09 19:30] VITALS: BP 0/0; PULSE 0; RESP 0; TEMP -17.7; TEMP 0
== END 2022-08-09 19:32 | disposition left against medical advice (07) ==
LOC: UTC 18:42
PROVIDERS: Emergency Provider Nurse Practitioner; PCP Family Medicine
DX: Z53.21 Procedure and treatment not carried out due to patient leaving prior to being seen by health care provider (principal)

== ENCOUNTER → 2022-08-10 23:35 | Outpatient (CLI) | payer BC, SELFPAY | PROVIDERS: PCP Student in an Organized Health Care Education/Training Program; Visit Provider Student in an Organized Health Care Education/Training Program | DX: R69 Illness, unspecified (principal); J02.9 Acute pharyngitis, unspecified; R51.9 Headache, unspecified; R05.9 Cough, unspecified | CPT/HCPCS: 87070 ==

== ENCOUNTER 2023-03-10 04:13 | Emergency (ER) | payer BC, SELFPAY ==
[2023-03-10 04:14] VITALS: BP 117/76; PULSE 75; RESP 16; TEMP 36.5; O2SAT 99; BMI 25.1
--- NOTE | 2023-03-10 04:43 | XR_ITS ---
PROCEDURE INFORMATION: Exam: XR Abdomen Exam date and time: 03/10/2023 4:49 AM Age: 47 years old Clinical indication: Constipation; Prior surgery; Surgery date: 6+ months; Surgery type: Appendectomy, gastric sleeve; Additional info: Abd pain, constipation TECHNIQUE: Imaging protocol: Radiologic exam of the abdomen. Views: Frontal supine view of the abdomen. 1 View. COMPARISON: CT ABDOMEN PELVIS W CON 06/16/2019 11:30 AM FINDINGS: Gastrointestinal tract: Normal. No bowel dilation. Moderate retained stool throughout the colon. Bones/joints: Unremarkable. IMPRESSION: No acute findings. Moderate retained stool throughout the colon.
[2023-03-10 04:53] LABS: Blood, Urine Negative (Negative); Color,Urine YELLOW (Yellow); Glucose,Urine (UA) Negative (Negative); Ketones,Urine Negative (Negative); Leukocyte Esterase,Urine Negative (Negative); Microscopic, Urine URINE MICROSCOPIC (MICROSCOPIC); Nitrate,Urine Negative (Negative); Protein,Urine Negative (Negative); Specific Gravity, Urine >= 1.030 (1.005-1.030)
[2023-03-10 04:55] LABS: Urine Pregnancy, HCG Qual. Negative (Negative)
[2023-03-10 04:58] LABS: Appearance,Urine Slightly Cloudy (Clear); Bilirubin,Urine Negative (Negative)
--- NOTE | 2023-03-10 05:32 | HMH.EDGENADL ---
Discharge Plan Disposition Patient Disposition: Home, Self-Care Prescriptions Prescriptions: No Action escitalopram oxalate [Lexapro] 5 mg tablet 5 mg PO DAILY methylprednisolone 4 mg tablets,dose pack See Rx Instructions PO PER PKG DIR Qty: 21 0RF Rx Instructions: PO PER PKG DIR amoxicillin-pot clavulanate 875-125 mg tablet 1 tab PO BID 10 Days Qty: 20 0RF fluticasone propionate 50 mcg/actuation spray,suspension 1 spray intranasal DAILY Qty: 16 2RF Rx Instructions: administer into each nostril alprazolam 0.5 mg tablet 0.5 mg PO DAILYP PRN (Reason: Anxiety) Patient Comments: TAKE ONE TABLET BY MOUTH THREE TIMES DAILY NEEDED MAY CAUSE DROWSINESS Referrals Follow up/Referrals: Rober Marshall MD [Primary Care Provider] - See instructions Activity Restrictions/Add. Instructions Additional Instructions/Restrictions: Please use over the counter miralax and enemas as discussed with goal of having daily soft stools. Please follow-up with your primary care provider. Please return to the emergency department if you develop any new or worsening symptoms or become concerned for your health. Clinical Impressions Clinical Impression: Constipation, Abdominal pain Stand Alone Forms Stand Alone Forms: Work/School Release Instructions Patient Instructions: DI for Acute Abdominal Pain Discharge ED Provider: Hipolito Gasca Adult HPI General Chief complaint: Abdominal Pain Stated complaint: constipation, nausea, stomach pain Time Seen by Provider: 03/10/23 04:25 Mode of Arrival: Ambulatory Source of Information: Patient Limitations: No Limitations Description of Symptoms (Recalled from ER Triage Doc. by RN): Pt reports bloating for a week and constipation, states woke up with lower abd pain, urgency with urination with burning. complains of nausea History of Present Illness HPI narrative: 39-year-old female, history of chronic constipation presents with abdominal pain. She reports that she was traveling [place] recently, developed a gastroenteritis and had large-volume diarrhea for a few days. Since that time the diarrhea stopped but she has been constipated. She reports has not had a normal bowel movement for at least 5 days. She has tried some laxatives at home without help. she reports onset of much more significant abdominal pain prompting her presentation to the ER today. She reports nausea without vomiting. Related Data Home Medications Medication Instructions Recorded Confirmed alprazolam 0.5 mg tablet 0.5 mg PO DAILYP PRN Anxiety 05/16/21 08/10/22 escitalopram oxalate 5 mg tablet 5 mg PO DAILY 08/10/22 08/10/22 (Lexapro) Previous Rx's Medication Instructions Recorded amoxicillin 875 mg-potassium 1 tab PO BID 10 days #20 tabs 08/10/22 clavulanate 125 mg tablet fluticasone propionate 50 1 spray intranasal DAILY #16 grams 08/10/22 mcg/actuation nasal spray,suspension methylprednisolone 4 mg tablets in See Rx Instructions PO PER PKG DIR 08/10/22 a dose pack #21 tabs Allergies Allergy/AdvReac Type Severity Reaction Status Date / Time ceftriaxone [From ROCEPHIN] Allergy Intermediate Rash Verified 08/10/22 15:39 hydrocodone [HYDROCODONE] Allergy Intermediate Rash Verified 08/10/22 15:39 Sulfa (Sulfonamide Allergy Intermediate Other Verified 08/10/22 15:39 Antibiotics) [SULFA (SULFONAMIDE ANTIBIOTICS)] [facility] Disclaimer: The information contained in this section may have been updated after the patient was seen, as this information can be updated by other users. Medical History Allergies Anxiety Gallbladder disease Hemorrhoid History of anemia History of COVID-19 History of gastroesophageal reflux (GERD) Palpitations Polycystic ovarian disease Surgical History H/O gastric sleeve History of appendectomy Hist
[2023-03-10 05:34] LABS: Bacteria,Urine 1+ /lpf; Calcium Oxalate Crystals,Urine 1+ /lpf; Mucus,Urine 1+ /lpf
[2023-03-10 05:40] VITALS: BP 104/72; PULSE 62; RESP 16; TEMP 36.6; O2SAT 99
== END 2023-03-10 05:41 | disposition home or self-care (01) ==
PROVIDERS: Emergency Provider Emergency Medicine; PCP Family Medicine
DX: R10.9 Unspecified abdominal pain (principal); K59.00 Constipation, unspecified; R11.0 Nausea; F41.9 Anxiety disorder, unspecified
CPT/HCPCS: 74018; 81001; 81025; 96374; 96375; 99284; J2405

== ENCOUNTER → 2023-03-10 06:56 | Outpatient (CLI) | payer BC, SELFPAY ==
[2023-03-10 07:30] LABS: Basophils % 0.6 % (0.1-2.0); Eosinophils # 0.1 K/mm3 (0.0-0.4); Eosinophils % 3.6 % (0.1-12.0); Hematocrit 38.5 % (37.0-47.0); Hemoglobin 13.2 g/dL (12.2-16.2); Lymphocytes # 1.6 K/mm3 (0.7-4.5); Lymphocytes % 42.5 % (10-50); Mean Corpuscular HGB Conc 34.3 g/dL (31.8-35.4); Mean Corpuscular Hemoglobin 33.3 pg (27.0-31.2); Monocytes # 0.2 K/mm3 (0.1-1.0); Monocytes % 6.2 % (1.7-9.3); Neutrophils # 1.8 K/mm3 (1.8-7.8); Neutrophils % 47.2 % (37.0-80.0); Platelet Count 185 K/mm3 (142-424); Red Blood Count 3.96 M/mm3 (4.20-5.40); Red Cell Distribution Width 13.6 % (11.5-17.5); White Blood Count 3.8 K/mm3 (4.8-10.8)
[2023-03-10 08:21] LABS: Alanine Aminotransferase 19 U/L (12-78); Albumin Level 3.8 g/dl (3.5-5.0); Albumin/Globulin Ratio 1.7 (1.1-1.8); Alkaline Phosphatase 58 U/L (38-126); Anion Gap 10.7 mEq/L (5-15); Aspartate Amino Transferase 30 U/L (14-36); Bilirubin,Total 0.5 mg/dl (0.2-1.3); Blood Urea Nitrogen 15 mg/dl (7-17); Calcium 9.3 mg/dl (8.4-10.2); Carbon Dioxide 31 mmol/L (22.0-30.0); Chloride 105 mmol/L (98-107); Chol/HDL Ratio 2.5 (1-3.5); Cholesterol 152 mg/dl (140-200); Estimated Glomerular Filt Rate 107 ml/min (>60); GFR (African American) 129 ML/MIN (>60); Globulin 2.2 g/dL (1.3-3.2); Glucose 84 mg/dl (74-100); HDL Cholesterol 62 mg/dl (40-60); Potassium 4.7 mmoL/L (3.5-5.1); Sodium 142 mmol/L (136-145); Triglycerides 60 mg/dl (30-150); VLDL Cholesterol 12 mg/dL (0-40)
[2023-03-10 08:37] LABS: 25-OH Vitamin D, Total 39.9 ng/mL (30-100)
[2023-03-10 08:38] LABS: T4 (Thyroxine) 9.1 ug/dl (5.53-11.0)
[2023-03-10 08:52] LABS: Thyroid Stimulating Hormone 2.06 uIU/mL (0.465-4.68)
[2023-03-10 09:11] LABS: Vitamin B12 792 pg/mL (239-931)
[2023-03-10 12:36] LABS: Hemoglobin A1C 4.7 % (4.0-6.0)
[2023-03-11 10:09] LABS: FSH 18.4 mIU/mL (.)
[2023-03-11 16:19] LABS: Deamidated Gliadin Abs, IgA 5 units (0-19); Deamidated Gliadin Abs, IgG 2 units (0-19); Endomysial IgA Antibody Negative (Negative); Tissue Transglutaminase IgA Ab <2 U/mL (0-3); Tissue Transglutaminase IgG Ab <2 U/mL (0-5)
[2023-03-16 03:43] LABS: F001-IgE Egg White <0.10 kU/L (Class 0); F002-IgE Milk <0.10 kU/L (Class 0); F003-IgE Codfish <0.10 kU/L (Class 0); F004-IgE Wheat <0.10 kU/L (Class 0); F010-IgE Sesame Seed <0.10 kU/L (Class 0); F013-IgE Peanut <0.10 kU/L (Class 0); F014-IgE Soybean <0.10 kU/L (Class 0); F024-IgE Shrimp <0.10 kU/L (Class 0); F256-IgE Walnut <0.10 kU/L (Class 0); F338-IgE Scallop <0.10 kU/L (Class 0)
[2023-03-16 13:44] LABS: Reticulin IgA Antibody Negative titer (Neg:<1:2.5)
== END ==
PROVIDERS: Physician Assistant; PCP Family Medicine; Visit Provider Obstetrics & Gynecology Gynecology
DX: Z00.00 Encounter for general adult medical examination without abnormal findings (principal); N95.1 Menopausal and female climacteric states; R53.83 Other fatigue; R14.0 Abdominal distension (gaseous)
CPT/HCPCS: 36415; 80053; 80061; 82306; 82607; 83001; 83036; 83516; 84436; 84443; 85025; 86003; 86008; 86255; 86256

== ENCOUNTER 2023-08-14 13:29 | Emergency (ER) | payer BC, SELFPAY ==
[2023-08-14 14:00] VITALS: BP 0/0; PULSE 0; RESP 0; TEMP -17.7; TEMP 0
== END 2023-08-14 14:02 | disposition home or self-care (01) ==
LOC: UTC 13:30
PROVIDERS: Emergency Provider Nurse Practitioner; PCP Family Medicine
DX: Z53.21 Procedure and treatment not carried out due to patient leaving prior to being seen by health care provider (principal)

== ENCOUNTER 2023-08-16 18:07 | Emergency (ER) | payer BC, SELFPAY ==
--- NOTE | 2023-08-16 18:18 | XR_ITS ---
PROCEDURE INFORMATION: Exam: XR Left Knee Exam date and time: 08/16/2023 6:49 PM Age: 48 years old Clinical indication: Injury or trauma; Blunt trauma; Patient HX: Fall , left knee pain TECHNIQUE: Imaging protocol: Radiologic exam of the left knee. Views: 3 views. COMPARISON: No relevant prior studies available. FINDINGS: Bones/joints: Normal. Soft tissues: Normal. IMPRESSION: No acute findings.
[2023-08-16 18:20] VITALS: BP 110/61; PULSE 70; RESP 18; TEMP 36.6; O2SAT 96; BMI 22.3
--- NOTE | 2023-08-16 18:27 | ED_ITS ---
Discharge Plan Disposition Patient Disposition: Home, Self-Care Condition: Good Prescriptions Prescriptions: New ibuprofen 600 mg tablet 600 mg PO Q6HP PRN (Reason: Mild Pain) Qty: 30 0RF No Action escitalopram oxalate [Lexapro] 5 mg tablet 5 mg PO DAILY alprazolam 0.5 mg tablet 0.5 mg PO DAILYP PRN (Reason: Anxiety) Patient Comments: TAKE ONE TABLET BY MOUTH THREE TIMES DAILY NEEDED MAY CAUSE DROWSINESS Referrals Follow up/Referrals: Franco Hylton DO [Staff Physician] - See instructions Rober Marshall MD [Primary Care Provider] - See instructions Activity Restrictions/Add. Instructions Additional Instructions/Restrictions: Rest the extremity, Wear the chuck wrap for compression, Elevate the extremity as tolerated while you are resting. Take ibuprofen for pain. Follow up with Dr. Hylton (orthopedics). I put in a referral but you need to call his office and schedule an appointment. Follow up with your regular doctor. GO TO THE ER FOR ANY WORSENING SYMPTOMS Clinical Impressions Clinical Impression: Left knee pain Instructions Patient Instructions: DI for Knee Pain, How to Apply an Elastic Wrap on Knee Discharge ED Provider: Chang Celis [facility] General Stated complaint: AO left knee pain swelling Time Seen by Provider: 08/16/23 18:27 History of Present Illness Provider Complaint: She states that for the past 2 weeks she has had left knee pain. Her symptoms began after she fell. She denies other complaints. Related Data Home Medications Medication Instructions Recorded Confirmed alprazolam 0.5 mg tablet 0.5 mg PO DAILYP PRN Anxiety 05/16/21 08/16/23 escitalopram oxalate 5 mg tablet 5 mg PO DAILY 08/10/22 08/16/23 (Lexapro) Previous Rx's Medication Instructions Recorded ibuprofen 600 mg tablet 600 mg PO Q6HP PRN Mild Pain #30 08/16/23 tabs Allergies Allergy/AdvReac Type Severity Reaction Status Date / Time ceftriaxone [From ROCEPHIN] Allergy Intermediate Rash Verified 08/16/23 18:28 hydrocodone [HYDROCODONE] Allergy Intermediate Rash Verified 08/16/23 18:28 Sulfa (Sulfonamide Allergy Intermediate Other Verified 08/16/23 18:28 Antibiotics) [SULFA (SULFONAMIDE ANTIBIOTICS)] [facility] Disclaimer: The information contained in this section may have been updated after the patient was seen, as this information can be updated by other users. Medical History Allergies Anxiety Gallbladder disease Hemorrhoid History of anemia History of COVID-19 History of gastroesophageal reflux (GERD) Palpitations Polycystic ovarian disease Surgical History H/O gastric sleeve History of appendectomy History of cholecystectomy History of endometrial ablation History of tonsillectomy and adenoidectomy Hx of dilation and curettage Family History Other Diabetes Family history of acute heart failure Family history of hypertension Family history of stroke Social History Smoking Status: Never smoker alcohol intake: current substance use type: denies use current occupational status: employed and other Travel in the last 8 weeks: None adopted: No caregiver/support person: No household members: family housing: house marital status: education level: high school caffeine: Yes special eva needs: No agree to transfusion: No do you feel safe at home: Yes victim of physical abuse: No victim of emotional abuse: No victim of sexual abuse: No would you like helpful sources: No ROS Obtained: Yes All systems reviewed & no additional complaints except as documented Constitutional Constitutional: Denies chills and Denies fever(s) Eyes Eyes: Denies eye discharge ENT Ears, Nose, Mouth, and Throat: Denies dizziness, Denies otalgia and Denies sore throat Cardiovascular Cardiovascular: Denies chest pain Respiratory Respiratory: Denies shortness of breath, Denies chest congestion, Denies cough, Denies stridor and Denies wheezing Gastrointestinal Gastrointestingal: Denies nausea or vomiting Musculoskeletal Musculoskeletal: Reports as per HPI Integumentary/Breasts Skin/Breast: Denies rash Neurologic Neurologic: Denies dizziness and Denies paresthesias Allergic/Immunologic Allergic/Immunologic: Denies wheezing Physical Exam General General appearance: alert and in no apparent distress Head Head exam: atraumatic, normocephalic and normal inspection Eye Eye exam: Present normal appearance, PERRL and EOMI ENT ENT exam: Present normal exam, normal oropharynx, mucous membranes moist, TM's normal bilaterally and normal external ear exam Neck Neck exam: Present normal inspection, full ROM and trachea midline; Absent meningismus or lymphadenopathy Chest Chest inspection: Present normal inspection and symmetric chest wall rise; Absent tenderness Respiratory Respiratory exam: Present normal lung sounds bilaterally; Absent respiratory distress Cardiovascular Cardiovascular exam: Present regular rate and normal rhythm; Absent JVD Abdominal Exam Abdominal exam: Present soft and normal bowel sounds; Absent distention, tenderness or guarding Extremities Exam Extremities exam: Present normal capillary refill; Absent calf tenderness Expanded Lower Extremity Exam Left: Hip/Pelvis exam: Present normal inspection and full ROM; Absent tenderness Upper leg exam: Present normal inspection and full ROM; Absent tenderness Knee exam: Present full ROM, tenderness, swelling and knee extension intact; Absent abrasion, laceration, ecchymosis, deformity, crepitus, dislocation, erythema, effusion, anterior drawer sign, posterior draw sign, pain with valgus, laxity with valgus, pain with varus or laxity with varus Lower leg exam: Present normal inspection, full ROM and Achilles tendon intact; Absent tenderness or Homans' sign Ankle exam: Present normal inspection and full ROM; Absent tenderness Foot/toe exam: Present normal inspection and full ROM; Absent tenderness Neurovascular/Tendon exam: Present normal capillary refill and normal 2- point discrimination; Absent pulse deficit, motor deficit, sensory deficit, tendon deficit, extremity cold to touch or pallor Gait: observed and normal Back Exam Back exam: Present normal inspection; Absent tenderness Neurological Exam Neurological exam: Present alert and oriented X3 Psychiatric Psychiatric exam: Present normal affect and normal mood Skin Skin exam: Present warm, dry, intact and normal color Lymphatic Lymphatic Findings: no adenopathy Medical Decision Making Medical Records Medical records reviewed: No I reviewed the patient's medical records. Misbah Inquiry Pt receiving controlled substance: No Orders (Tests/Meds): ORDERS Category Date Time Status Knee XR left 3 views [XR knee LT 3V] Stat Exams 08/16/23 18:18 Ordered Radiology Data #1: Image(s): Knee Image Reviewed: Yes I reviewed the patient's radiology image and Yes I have reviewed radiologist's interpretation Preliminary Findings: No Fracture Seen PROCEDURE INFORMATION: Exam: XR Left Knee Exam date and time: 08/16/2023 6:49 PM Age: 48 years old Clinical indication: Injury or trauma; Blunt trauma; Patient HX: Fall , left knee pain TECHNIQUE: Imaging protocol: Radiologic exam of the left knee. Views: 3 views. COMPARISON: No relevant prior studies available. FINDINGS: Bones/joints: Normal. Soft tissues: Normal. IMPRESSION: No acute findings. Procedures Risk/Benefits of Procedure(s) Were Explained: Yes Orthopedic Splinting/Casting Injury #1: Side: left Lower Extremity Injury Location: knee Lower Extremity Immobilizer: Chuck wrap and applied by nurse/dr sherman Post Cast/Splinting Neuro Status: intact and no change Post Cast/Splinting Vasc Status: intact and no change
[2023-08-16 19:48] VITALS: BP 110/61; PULSE 70; RESP 18; TEMP 36.6; O2SAT 96
== END 2023-08-16 19:48 | disposition home or self-care (01) ==
PROVIDERS: Emergency Provider Nurse Practitioner Family; PCP Family Medicine
DX: M25.562 Pain in left knee (principal); W19.XXXA Unspecified fall, initial encounter
CPT/HCPCS: 73562; 99212; 99214; G0463

== ENCOUNTER 2024-07-29 18:07 | Emergency (ER) | payer BC, SELFPAY ==
[2024-07-29 18:11] VITALS: BP 127/84; PULSE 74; RESP 18; TEMP 36.8; O2SAT 98; BMI 22.6
[2024-07-29 18:30] VITALS: BP 133/75; PULSE 71; RESP 18; O2SAT 100
--- NOTE | 2024-07-29 18:36 | ED_ITS ---
<Statement entered by Tony Hagan MD - 07/29/24 23:18> I was consulted by the SAMARA, and we discussed the complexity of the problems being addressed. I approved the treatment and management plan for this patient's care in the emergency department, thus performing a substantive portion of the medical decision making. Tony Hagan MD Discharge Plan Disposition Patient Disposition: Home, Self-Care Condition: Good Prescriptions Prescriptions: New doxycycline hyclate 100 mg capsule 100 mg PO BID 10 Days Qty: 20 0RF prednisone 50 mg tablet 50 mg PO DAILY 5 Days Qty: 5 0RF qabvymwwgnhiatt-zwneouocp-AT [Bromfed DM] 2-30-10 mg/5 mL syrup 5 ml PO Q4H PRN (Reason: sinus symptoms) Qty: 118 0RF No Action azelastine 137 mcg (0.1 %) spray,non-aerosol 1 spray intranasal BID Qty: 30 2RF Rx Instructions: administer into each nostril alprazolam 0.5 mg tablet 0.5 mg PO DAILYP PRN (Reason: Anxiety) Patient Comments: TAKE ONE TABLET BY MOUTH THREE TIMES DAILY NEEDED MAY CAUSE DROWSINESS methylprednisolone 4 mg tablets,dose pack See Rx Instructions PO PER PKG DIR Qty: 21 0RF Rx Instructions: PO PER PKG DIR ibuprofen 600 mg tablet 600 mg PO Q6HP PRN (Reason: Mild Pain) Qty: 30 0RF Referrals Follow up/Referrals: Rober Marshall MD [Primary Care Provider] - See instructions Activity Restrictions/Add. Instructions Additional Instructions/Restrictions: I have sent in a prescription for a cough medicine steroids and antibiotic to your pharmacy. Please take your antibiotic till it is all gone. If you have continued new or worsening signs or symptoms follow-up with your PCP or return to the ER as needed. Clinical Impressions Clinical Impression: Acute lower respiratory tract infection Stand Alone Forms Stand Alone Forms: Work/School Release Print Language Print Language: Greenlandic Discharge ED Provider: Tony Hagan General Adult HPI General Chief complaint: Upper Respiratory Infection Stated complaint: SOA,weakness,poor apptitie,light headed,cough Time Seen by Provider: 07/29/24 18:36 Mode of Arrival: Ambulatory Source of Information: Patient Description of Symptoms (Recalled from ER Triage Doc. by RN): Pt states she tested + for the flu 1 week ago. Pt is concerned becuase she is having increased fatigue, short of breath walking up steps, and has not been eating/drinking, and coughing up yellow phlem. History of Present Illness HPI narrative: Patient presents for evaluation shortness of breath malaise and persistent cough 8 days after being tested positive for flu A. Patient was diagnosed with flu a on 07/21/2024. Patient felt well enough to go back to work however she has continued to have fatigue malaise dyspnea on exertion with decreased appetite and a persistent cough with yellow productive sputum. She denies chest pain fever chills hemoptysis hematochezia melena nausea vomiting diarrhea. Related Data Home Medications ?Medication ?Instructions ?Recorded ?Confirmed alprazolam 0.5 mg tablet 0.5 mg PO DAILYP PRN Anxiety 05/16/21 07/21/24 Previous Rx's ?Medication ?Instructions ?Recorded ibuprofen 600 mg tablet 600 mg PO Q6HP PRN Mild Pain #30 08/16/23 tabs azelastine 137 mcg (0.1 %) nasal 1 spray intranasal BID #30 mL 05/08/24 spray methylprednisolone 4 mg tablets in See Rx Instructions PO PER PKG DIR 07/21/24 a dose pack #21 tabs khkrdloctpmiwxb-akmxrsdjjeokwlv-CY 5 ml PO Q4H PRN sinus symptoms 07/29/24 2 mg-30 mg-10 mg/5 mL oral syrup #118 mL (Bromfed DM) doxycycline hyclate 100 mg capsule 100 mg PO BID 10 days #20 caps 07/29/24 prednisone 50 mg tablet 50 mg PO DAILY 5 days #5 tabs 07/29/24 Allergies Allergy/AdvReac Type Severity Reaction Status Date / Time ceftriaxone (From ROCEPHIN) Allergy Intermediate Rash Verified 07/21/24 08:07 hydrocodone (HYDROCODONE) Allergy Intermediate Rash Verified 07/21/24 08:07 Sulfa (Sulfonamide Allergy Intermediate Other Verified 07/21/24 08:07 Antibiotics) (SULFA (SULFONAMIDE ANTIBIOTICS)) [facility] Disclaimer: The information contained in this section may have been updated after the patient was seen, as this information can be updated by other users. Medical History External otitis of right ear due to fungus Fluid level behind tympanic membrane of both ears Sinus pain Sinus pressure Ear drainage Otalgia, bilateral History of COVID-19 Polycystic ovarian disease Anxiety History of gastroesophageal reflux (GERD) Hemorrhoid Allergies Palpitations History of anemia Gallbladder disease Surgical History H/O gastric sleeve History of endometrial ablation History of tonsillectomy and adenoidectomy Hx of dilation and curettage History of cholecystectomy History of appendectomy Family History Other Diabetes Family history of acute heart failure Family history of hypertension Family history of stroke Social History Smoking Status: Never smoker alcohol intake: current substance use type: denies use current occupational status: employed and other Travel in the last 8 weeks: None adopted: No caregiver/support person: No household members: family housing: house marital status: education level: high school caffeine: Yes special eva needs: No agree to transfusion: No do you feel safe at home: Yes victim of physical abuse: No victim of emotional abuse: No victim of sexual abuse: No would you like helpful sources: No Have you lived/traveled outside US in past 30 days?: No Contact w/someone who lives/traveled outside US past 30 days?: No Exposure to someone with infectious disease in past 14 days?: No Do you have a fever (greater than 100.4 F or 38 C)?: Yes Have you tested positive for COVID-19: No Exposed to someone with COVID-19 in past 14 days?: No Do you have a sore throat?: Yes Do you have a cough?: Yes Do you have any weakness?: Yes Do you have any diarrhea?: No Are you experiencing any unusual bleeding?: No Do you have any muscle aches/pain?: No Do you have any abdominal pain?: No Are you experiencing loss of taste or smell?: No Other Medical History Have you received the Flu Vaccine for this season: No Have you received the Pneumonia Vaccine: No ROS Obtained: Yes Systems reviewed as appropriate & no additional complaints except as documented Physical Exam General General appearance: alert and in no apparent distress Respiratory Respiratory exam: Present normal lung sounds bilaterally; Absent respiratory distress, wheezes or accessory muscle use Cardiovascular Cardiovascular exam: Present regular rate Neurological Exam Neurological exam: Present alert and oriented X3 Medical Decision Making Medical Records Medical records reviewed: Yes I reviewed the patient's medical records. Screening: Per USPSTF and CDC recommendations, given the prevalence of disease in our region, it is our hospital?s policy to screen for HIV and viral Hepatitis for all patients aged 18 and over and those with ongoing risk factors. Misbah Inquiry Pt receiving controlled substance: No Vital Signs: 07/29/24 18:11 07/29/24 18:30 07/29/24 19:01 Temperature 98.2 F Temperature Source Oral Pulse Rate 71 70 Pulse Rate [Right] 74 Respiratory Rate 18 18 16 Blood Pressure 133/75 124/84 Blood Pressure [Right Arm] 127/84 Blood Pressure Mean 104 95 Blood Pressure Mean [Right Arm] 98 Blood Pressure Source [Right Arm] Automatic Cuff Blood Pressure Position [Right Arm] Sitting 02 Sat by Pulse Oximetry 98 100 98 07/29/24 19:30 07/29/24 20:30 Temperature Temperature Source Pulse Rate 62 72 Pulse Rate [Right] Respiratory Rate Blood Pressure 121/68 111/64 Blood Pressure [Right Arm] Blood Pressure Mean Blood Pressure Mean [Right Arm] Blood Pressure Source [Right Arm] Blood Pressure Position [Right Arm] 02 Sat by Pulse Oximetry 100 97 Lab Data Lab results reviewed: Yes I reviewed the patient's lab results. Lab Results 07/29/24 18:32: WBC 5.0, RBC 4.70, Hgb 14.5, Hct 43.3, MCV 92.1, MCH 30.9, MCHC 33.5, RDW 11.6, Plt Count 232, MPV 9.9, Neut % (Auto) 55.4, Lymph % (Auto) 33.6, [place] % (Auto) 8.0, Eos % (Auto) 2.8, Baso % (Auto) 0.2, Neut # (Auto) 2.8, Lymph # (Auto) 1.7, [place] # (Auto) 0.4, Eos # (Auto) 0.1, Baso # (Auto) 0.0, D-Dimer 0.39, Sodium 141, Potassium 3.5, Chloride 100, Carbon Dioxide 31 H, Anion Gap 13.5, BUN 20 H, Creatinine 0.70, Estimated Creat Clear 91, Estimated GFR 89, Est GFR ( Amer) 107, Glucose 88, Calcium 10.4 H, Magnesium 2.3, Total Bilirubin 0.5, AST 32, ALT 28, Alkaline Phosphatase 67, NT-Pro-B Natriuret Pep 82.4, Total Protein 7.2, Albumin 4.2, Globulin 3.0, Albumin/Globulin Ratio 1.4, Procalcitonin < 0.030, HCV Ab DENI w/Rflx PCR Qn Negative, HIV Ag/Ab Combo Qual Negative 07/29/24 18:32 07/29/24 18:32 Orders (Tests/Meds): ED MEDICATIONS Discontinued Medications Generic Name Dose Route Start Last Admin Trade Name Freq PRN Reason Stop Dose Admin Acetaminophen 1,000 mg 07/29/24 18:59 07/29/24 19:16 Acetaminophen 500mg Tab PO 07/29/24 19:00 1,000 mg ONCE ONE Administration Albuterol/Ipratropium 6 ml 07/29/24 18:59 07/29/24 19:16 Ipratropium/Albuterol 3 Ml Neb IH 07/29/24 19:00 6 ml ONCE ONE Administration Dexamethasone Sodium Phosphate 10 mg 07/29/24 18:59 07/29/24 19:16 Dexamethasone 4mg/Ml 5ml Mdv IV 07/29/24 19:00 10 mg ONCE ONE Administration Ketorolac Tromethamine 15 mg 07/29/24 18:59 07/29/24 19:16 Ketorolac 30mg/Ml Vial IV 07/29/24 19:00 15 mg ONCE ONE Administration ORDERS Category Date Time Status Chest XR 2 view (NOT portable) [XR chest 2V] Stat Exams 07/29/24 18:59 Completed BNP [NT Pro Brain Natriuretic Pep.] Stat Lab 07/29/24 18:32 Completed CBC w/Auto Diff [Complete Blood Count Auto Diff] Stat Lab 07/29/24 18:32 Completed CMP [Comprehensive Metabolic Panel] Stat Lab 07/29/24 18:32 Completed D-Dimer Stat Lab 07/29/24 18:32 Completed HIV Combo Stat Lab 07/29/24 18:32 Completed Hepatitis C Ab Qual. W/ RFX Stat Lab 07/29/24 18:32 Completed Magnesium Stat Lab 07/29/24 18:32 Completed Procalcitonin Stat Lab 07/29/24 18:32 Completed Medical Decision Narrative: In summary patient is a 49-year-old female who presents to the emergency department for evaluation of post influenza cough malaise and dyspnea on exertion. Patient is hemodynamically stable with a blood pressure 127/84 pulse 74 normal sinus rhythm on bedside monitor breathing 18 times a minute satting at 98% on room air upon arrival, with a temperature of 98.2. Physical exam is remarkable for clear breath sounds with no increased work of breathing adventitious sounds or accessory muscle use but she has a coarse wet cough at the time of my exam. There is no chest pain to palpation. Abdomen soft nontender no rebound or guarding or rigidity.. Differential diagnosis includes viral syndrome versus post influenza bacterial pneumonia versus bronchitis etc. Initial workup will be conducted with hematologic labs plain film chest x-ray. Initial interventions include Tylenol Toradol DuoNeb Decadron. Initial workup reviewed by me and her hematologic labs significant for a white count of 5.0 with no shift on differential normal H&H BMP of 82.4 procalcitonin less than 0.030 and my informal interpretation of her plain film chest x-ray shows parabronchial thickening but no acute infiltrates.. Upon repeat evaluation patient reports improvement after initial intervention. Given this patient is appropriate for discharge with prescription for Bromfed steroids and doxycycline to cover atypical infection and close follow-up with her PCP. Critical Care Critical Care Time Critical Care Time: No
--- NOTE | 2024-07-29 18:59 | XR_ITS ---
PROCEDURE INFORMATION: Exam: XR Chest Exam date and time: 07/29/2024 7:51 PM Age: 49 years old Clinical indication: Cough and shortness of breath; Additional info: 2 weeks of cough post flu TECHNIQUE: Imaging protocol: Radiologic exam of the chest. Views: 2 views. COMPARISON: CT ANGIO CHEST 06/16/2019 11:30 AM FINDINGS: Lungs: Unremarkable. No consolidation. Pleural spaces: Unremarkable. No pleural effusion. No pneumothorax. Heart/Mediastinum: Unremarkable. No cardiomegaly. Bones/joints: Unremarkable. IMPRESSION: No acute findings.
[2024-07-29 19:01] VITALS: BP 124/84; PULSE 70; RESP 16; O2SAT 98
[2024-07-29 19:05] LABS: Basophils % 0.2 % (0.1-2.0); Eosinophils # 0.1 K/mm3 (0.0-0.4); Eosinophils % 2.8 % (0.1-12.0); Hematocrit 43.3 % (37.0-47.0); Hemoglobin 14.5 g/dL (12.2-16.2); Lymphocytes # 1.7 K/mm3 (0.7-4.5); Lymphocytes % 33.6 % (10-50); Mean Corpuscular HGB Conc 33.5 g/dL (31.8-35.4); Mean Corpuscular Hemoglobin 30.9 pg (27.0-31.2); Mean Corpuscular Volume 92.1 fl (81-99); Mean Platelet Volume 9.9 fl (7.4-10.4); Monocytes # 0.4 K/mm3 (0.1-1.0); Neutrophils # 2.8 K/mm3 (1.8-7.8); Neutrophils % 55.4 % (37.0-80.0); Platelet Count 232 K/mm3 (142-424); Red Cell Distribution Width 11.6 % (11.5-17.5)
[2024-07-29 19:11] LABS: Alanine Aminotransferase 28 U/L (12-78); Albumin Level 4.2 g/dl (3.5-5.0); Albumin/Globulin Ratio 1.4 (1.1-1.8); Alkaline Phosphatase 67 U/L (38-126); Aspartate Amino Transferase 32 U/L (14-36); Bilirubin,Total 0.5 mg/dl (0.2-1.3); Blood Urea Nitrogen 20 mg/dl (7-17); Calcium 10.4 mg/dl (8.4-10.2); Carbon Dioxide 31 mmol/L (22.0-30.0); Chloride 100 mmol/L (98-107); Creatinine Clearance Estimated 91 mL/min (50-200); Estimated Glomerular Filt Rate 89 ml/min (>60); GFR (African American) 107 ML/MIN (>60); Glucose 88 mg/dl (74-100); Magnesium 2.3 mg/dl (1.6-2.3); Sodium 141 mmol/L (136-145); Total Protein,Serum 7.2 g/dl (6.3-8.2)
[2024-07-29 19:12] LABS: Anion Gap 13.5 mEq/L (5-15); Potassium 3.5 mmoL/L (3.5-5.1)
[2024-07-29 19:15] LABS: D-Dimer 0.39 ug/mL (0.0-0.5)
[2024-07-29] MEDS: IPRATROPIUM/ALBUTEROL 3 ML NEB 6 ML IH (19:16)
[2024-07-29] MEDS: DEXAMETHASONE 4MG/ML 5ML MDV 10 MG IV (19:16)
[2024-07-29] MEDS: KETOROLAC 30MG/ML VIAL 15 MG IV (19:16)
[2024-07-29] MEDS: ACETAMINOPHEN 500MG TAB 1000 MG PO (19:16)
[2024-07-29 19:21] LABS: NT Pro Brain Natriuretic Pep. 82.4 pg/mL (0-125)
[2024-07-29 19:30] VITALS: BP 121/68; PULSE 62; O2SAT 100
[2024-07-29 19:30] LABS: Procalcitonin < 0.030 ng/mL (0.0-2.0)
[2024-07-29 19:39] LABS: Hepatitis C Ab Qual. W/ RFX NEGATIVE (Negative)
[2024-07-29 19:42] LABS: HIV Combo NEGATIVE (Negative)
--- NOTE | 2024-07-29 20:03 | PC.NURSE ---
Pt given a glass of water. Pt denies any other needs at this time
[2024-07-29 20:30] VITALS: BP 111/64; PULSE 72; O2SAT 97
[2024-07-29 21:40] VITALS: BP 108/66; PULSE 66; RESP 16; TEMP 36.7; O2SAT 98
== END 2024-07-29 21:41 | disposition home or self-care (01) ==
PROVIDERS: Physician Assistant; Emergency Provider Emergency Medicine; PCP Family Medicine
DX: J22 Unspecified acute lower respiratory infection (principal); R06.09 Other forms of dyspnea; R53.83 Other fatigue; R09.3 Abnormal sputum; R63.8 Other symptoms and signs concerning food and fluid intake; R42 Dizziness and giddiness
CPT/HCPCS: 71046; 80053; 83735; 83880; 84145; 85025; 85378; 86803; 87389; 96374; 96375; 99283; J1100; J1885; J7620

== ENCOUNTER 2025-03-12 12:10 | Outpatient (CLI) | payer BC, SELFPAY ==
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
--- OUTSIDE RECORDS SUMMARY | 2024-02-08 04:00 | XMS_ITS ---
Author Organization Antonio Address [address]10 [facility] 36 [facility] [address] [place] [phone] Care Team Providers Care Front End Technician Name Role Phone Sumaya Marshall Primary Care Provider [phone] Gagan Andersen [phone] REASON FOR VISIT evaluate medications Encounters Encounter Location Date Provider Diagnosis [facility] [address] [place] [phone] 02/08/2024 Gagan Andersen Plan Of Treatment No Information Progress Notes * RENNY AHNDOB:1975 (49 yo F)Acc No.[id number]:02/08/2024 Progress Notes Patient: RENNY SERNA Provider: Steven Andersen M.D. :1975 A ge:48 Y S ex:Female Date:02/08/2024 Address:[address] [place] [address] [address] [id number] Pcp:Sumaya Marshall Subjective: * Chief Complaints: * 1 . Evaluate medications. * Medical History: Objective: * Vitals: Assessment: Plan: * Treatment: * Images: Billing Information: * Visit Code: * Procedure Codes: * Electronic signature of Maya Andersen MD on 03/13/2025 at 02:12 PM EST Sign off status: Pending * Provider: Steven Andersen M.D. Date: 1 Generated for Vandana ravi/Eulalia/Dellasmitting on: 1 05/13/2024 02:12 PM EST
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
--- OUTSIDE RECORDS SUMMARY | 2024-04-10 11:30 | XMS_ITS ---
Author Organization [place] Address [facility] [facility] [address] [place] [id number] Care Team Providers Care Rn Admit Name Role Phone Sumaya Marshall Primary Care Provider Gagan Andersen Unavailable [phone] Allergies Allergen (clinical drug ingredient) Drug/Non Drug [...] Provider Diagnosis [place] [address] [place] [id number] 04/10/2024 Sumaya Marshall Anxiety disorder, unspecified type [...] Months, Reason: Progress Notes * RENNY AHNDOB:1975 (49 yo F)Acc No.[id number]:04/10/2024 Progress Notes Patient: RENNY SERNA Provider: Sumaya Marshall M.D. :1975 A ge:48 Y S ex:Female Date:04/10/2024 Address:[address] [place], [place] [address] [place], [id number] Subjective: * Chief Complaints: * 1 . [...] Hospitalization/Major Diagno stic Procedure: H ER-anxiety 04/12/2014, [facility] 10/2019. * Family History: F ather: [...] * Images: Billing Information: * Visit Code: 65648 Office Visit, Est Pt., Level 3. * Procedure Codes: * Electronic signature of Sumaya Marshall MD on 03/13/2025 at 02:11 PM EST Sign off status: Pending * Provider: Sumaya Marshall M.D. Date: 06/11/2023 Generated for Vandana ravi/Eulalia/eTransmitting on: 05/13/2024 02:11 PM EST History and Physical Notes * [...]
--- OUTSIDE RECORDS SUMMARY | 2024-06-25 10:45 | XMS_ITS ---
Author Organization [facility] Address [address] [place] [id number] Care Team Providers Care Metallurgy Laboratory Technician Name Role Phone Sumaya Marshall Primary Care Provider Clifton Gagan Unavailable [phone] Allergies Allergen (clinical drug ingredient) Drug/Non Drug [...] 5.4 Performing Lab: Notes/Report: Test performed by [employer] [address] [place] [address] , [address], [place] [address] Jared Lvoe MD, Counter Server CLIA: [id number] Sodium 144 135-145 mmol/L Potassium 5.4 3.5-5.3 mmol/L Chloride 104 97-108 mmol/L CO2 28 22-32 mmol/L Glucose 82 65-99 mg/dL BUN 15 6-20 mg/dL Creatinine 0.65 0.50-1.00 mg/dL Calcium 10.3 8.6-10.4 mg/dL eGFR by Creatinine 107 >59 mL/min/1.73m2 P-Iron Reviewed date:06/28/2024 09:50:20 AM Interpretation:Normal Performing Lab: Notes/Report: Test performed by [employer] [facility] [address] [place] [address] , [place] [address] Jared Love MD, Counter Server CLIA: [id number] Iron 116 37-145 ug/dL P-Parathyroid Hormone (PTH) Intact Reviewed date:06/28/2024 09:50:20 AM Interpretation: Performing Lab: Notes/Report: Test Cancelled Test Cancelled Specimen be yond stability P-TSH reflex to FT4 Reviewed date:06/28/2024 09:50:20 AM Interpretation:Normal Performing Lab: Notes/Report: Test performed by [employer] [address] [place] [address] , [address], [place] [address] Jared Love MD, Counter Server CLIA: [id number] TSH reflex to FT4 1.36 0.43-5.25 mU/L [...] Status Risk Notes Problem Vitamin D deficiency (90980901) Vitamin D deficiency (E55.9) Active confirmed Vital Signs Blood pressure systolic 110 mm Hg 06/25/19 25 Blood pressure diastolic 72 mm Hg 025 Height 64 in 06/25/2024 Weight 145.4 lbs 06/25/2024 BMI 24.96 kg/m2 06/25/2024 Encounters Encounter Location Date Provider Diagnosis [facility] [address] [place], [place] [id number] 06/25/2024 Gagan Andersen Acute UTI N39.0 ; [...] test results, Reason: Progress Notes * RENNY SUGGSDOB:1975 (49 yo F)Acc No.[id number]:06/25/2024 Progress Notes Patient: RENNY SERNA Provider: Steven Andersen M.D. :1975 A ge:49 Y S ex:Female Date:06/25/2024 Address:[address] [place] [address] [address] [place], [id number] Pcp:Sumaya Marshall Subjective: * Chief Complaints: * [...] Hospitalization/Major Diagno stic Procedure: [place]-anxiety 04[place]12/2014, [facility]. * Family History: F ather: [...] T est Cancelled Test Cancelled - * CaterinaVilma morataya 06/28/2024 9:50: 11 AM >See phone encounter [...] Procedure Codes: 8 1002 Urinalysis, no micro, [address] CBC WITH AUTO DIFF, 3074F SYST BP LT 130 MM HG, 3078F DIAST BP < 80 MM HG * Follow Up: v ia phone to report test results * Images: Billing Information: * Visit Code: 57575 Office Visit, Est Pt., Level 4. * Procedure Codes: 05360 Urinalysis, [place] micro. 39510 CBC WITH AUTO DIFF. 3074F SYST BP LT 130 MM HG. 3078F DIAST BP < 80 MM HG. * Electronic signature of Maya Andersen MD on 03/13/2025 at 02:14 PM EST Sign off status: Pending * Provider: Steven Andersen M.D. Date: 0 06/25/2024 Generated for Vandana ravi/Eulalia/Jorge on: 1 05/13/2024 02:14 PM EST History and Physical Notes * [...]
--- OUTSIDE RECORDS SUMMARY | 2024-06-29 05:00 | XMS_ITS ---
Author Organization [facility] Address [address] [facility] [address] [place] [id number] Care Team Providers Care Longwall Shearer Operator Name Role Phone Sumaya Marshall Primary Care Provider Gagan Andersen Unavailable [phone] Results Component Value Reference Range Notes P-Potassium Reviewed date:07/03/2024 12:16:26 PM Interpretation:Normal Performing Lab: Notes/Report: Test performed by [email or web address] [address] [place] [address] , [address], [place] [address] Jared Love MD, Baffle Mounter CLIA: [id number] Potassium 5.0 3.5-5.3 mmol/L P-Magnesium Reviewed date:07/03/2024 12:16:26 PM Interpretation:Normal Performing Lab: Notes/Report: Test performed by [email or web address] [address] [place] [address] [address]on[address], [address], [place] [address] Jared Love MD, Baffle Mounter CLIA: [id number] Magnesium 2.2 1.6-2.4 mg/dL P-Parathyroid Hormone (PTH) Intact Reviewed date:07/03/2024 12:16:26 PM Interpretation:Normal Performing Lab: Notes/Report: Test performed by [email or web address] [address] [place] [address] [address], [address], [place] [address] Jared Love MD, Baffle Mounter CLIA: [id number] Parathyroid Hormone (PTH) Intact 44.1 15.0-65. 0 pg/mL REASON FOR VISIT recollect lab Encounters Encounter Location Date Provider Diagnosis [facility] [address] [place] [id number] 06/29/2024 Gagan Andersen Primary hyperparathy roidism E21.0 and Hyperkalemia E87.5 Assessments Encounter Date Diagnosis (ICD Code) Assessment Notes Treatment Notes Treatment Clinical Notes Section Notes 06/29/2024 Primary hyperparathyroidism (ICD-10 - E21.0) 06/29/2024 Hyperkalemia (ICD-10 - E87.5) Plan Of Treatment No Information Progress Notes * ROHINI AHNGENOVEVADOB:1975 (49 yo F)Acc No.[id number]:06/29/2024 Patient: RENNY SERNA Provider: Steven Andersen M.D. :1975 A ge:49 Y S ex:Female Date:06/29/2024 Address:[address] [place] [address], [place] [facility]AHNOR[facility]RID[facility] WAY [id number] Pcp:Sumaya Marshall Subjective: * Chief Complaints: * [...] message with results on pt's identified voicemail Kasie Villarreal 07/03/2024 12:15:52 PM > Pt informed * Images: Billing Information: * Visit Code: * Procedure Codes: * Electronic signature of Maya Andersen MD on 03/13/2025 at 02:10 PM EST Sign off status: Pending * Provider: Steven Andersen M.D. Date: 0 06/29/2024 Generated for Vandana ravi/Eulalia/Daviditting on: 1 05/13/2024 02:10 PM EST
--- OUTSIDE RECORDS SUMMARY | 2024-07-06 04:00 | XMS_ITS ---
Author Organization [facility] Address [address] [facility] [address] [place] [address] Care Team Providers Care Associate Curator Name Role Phone Lolita Milan Unavailable [phone] Results Component Value Reference Range Notes *US Pelvis Complete Transabd ominal/Vaginal (Non-OB) Reviewed date:07/09/2024 08:56:01 AM Interpretation: Performing Lab: Notes/Report: [facility] Women's Health Transvaginal Pelvic Study Report Name: RENNY AHN Accession/Encounter No:[id number] : 1975 Age: 49 Gender: F Study Date: Jul 06, 2024 Study Time: 09:13 AM Reading Group: Mavis Serrano MD Referring Group: Lolita Milan MD Ordering Phys: Lolita Milan MD Apprentice Jockey: Aniyah Husain RDMS Equipment: Affiniti 30 Study [...] 1 of 1 Imaging Center - , [facility] REASON FOR VISIT aub confirmed 07/05 .. Social History Sex Assigned At : Social History Observation Description Sex Assigned At Female Encounters Encounter Location Date Provider Diagnosis [facility] [address] [facility] [address] [place] [address] 07/06/2024 Lolita Milan Abnormal vaginal bleeding N93.9 Assessments Encounter Date Diagnosis (ICD Code) Assessment Notes Treatment Notes Treatment Clinical Notes Section Notes 07/06/2024 Abnormal vaginal bleeding (ICD-10 - N93.9) Plan Of Treatment Next Appt Details Provider Name:Lolitamelissa BonillaKayli, 11/27/2025 11:00:00 AM, [address], [place], [address], Progress Notes * Renny AHN BDOB: [birth year] (49 yo F)Acc No.[id number]:07/06/2024 Progress Note Patient: Renny Foy Provider: Sumaya Milan MD :1975 A ge:49 Y S ex:Female Date:07/06/2024 Address:[address] [place] [address] Subjective: * Chief Complaints: * A ub confirmed 07/05 .. Assessment: * Assessment: 1. A bnormal vaginal bleeding - N93.9 Plan: * Treatment: Billing Information: * Procedure Codes: * Electronic signature of Lolita Milan MD on 03/13/2025 at 02:12 PM EST Sign off status: Pending Visit Status: C HK (Check Out) * Provider: Sumaya Milan MD Date: 0 07/06/2024 Generated for Vandana ravi/Eulalia/Jorge on: 05/13/2024 02:12 PM EST
--- OUTSIDE RECORDS SUMMARY | 2024-07-11 04:00 | XMS_ITS ---
Author Organization [facility] Address [address] [facility] [address] [place] [address] Care Team Providers Care Crepe Maker Name Role Phone Lolita Milan Unavailable [phone] REASON FOR VISIT aub Social History Sex Assigned At : Social History Observation Description Sex Assigned At Female Encounters Encounter Location Date Provider Diagnosis [facility] [address] [facility] [address] [place] [address] 07/11/2024 Lolita Milan Plan Of Treatment Next Appt Details Provider Name:Lolita Milan, 11/27/2025 11:00:00 AM, [address] [facility] [address], [place], [address], Progress Notes * JIMYHeathercy BDOB: 4 (49 yo F)Acc No.[id number]:07/11/2024 Progress Note Patient: Mayela Foy Provider: Sumaya Milan MD :1975 A ge:49 Y S ex:Female Date:07/11/2024 Address:[address] [place], [place] [id number] Subjective: * Chief Complaints: * A ub * Electronic signature of Lolita Milan MD on 03/13/2025 at 02:13 PM EST Sign off status: Pending Visit Status: R /S (Rescheduled) * Provider: Sumaya Milan MD Date: 0 07/11/2024 Generated for Vandana ravi/Eulalia/Jorge on: 1 05/13/2024 02:13 PM EST
--- OUTSIDE RECORDS SUMMARY | 2024-07-11 04:45 | XMS_ITS ---
Author Organization [facility] [place] Address [address] [facility] [address] [place] [address] Care Team Providers Care Dish Technician Name Role Phone Lolita Milan Unavailable [phone] REASON FOR VISIT aub Social History Sex Assigned At : Social History Observation Description Sex Assigned At Female Encounters Encounter Location Date Provider Diagnosis [facility] [address] [facility] [address] [place] [address] 07/11/2024 Lolita Milan Plan Of Treatment Next Appt Details Provider Name:Lolita Milan, 11/27/2025 11:00:00 AM, [address] [facility] [address], [place], [address], Progress Notes * JIMYHeathercy BDOB: [birth year] (49 yo F)Acc No.[id number]:07/11/2024 Progress Note Patient: Mayela Foy Provider: Sumaya Milan MD :1975 A ge:49 Y S ex:Female Date:07/11/2024 Address:[address] [place], [place] [id number] Subjective: * Chief Complaints: * A ub * Electronic signature of Lolita Milan MD on 03/13/2025 at 02:11 PM EST Sign off status: Pending Visit Status: R /S (Rescheduled) * Provider: Sumaya Milan MD Date: 0 07/11/2024 Generated for Vandana ravi/Eulalia/Jorge on: 1 05/13/2024 02:11 PM EST
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
--- OUTSIDE RECORDS SUMMARY | 2024-09-28 10:00 | XMS_ITS ---
Author Organization [facility] Address [address] [facility] [address] [place] [address] Care Team Providers Care Sewing Supervisor Name Role Phone Lolita Milan Unavailable [phone] REASON FOR VISIT Annual Social History Sex Assigned At : Social History Observation Description Sex Assigned At Female Encounters Encounter Location Date Provider Diagnosis [facility] [address] [facility] [address] [place] [address] 09/28/2024 Lolita Milan Plan Of Treatment Next Appt Details Provider Name:Lolita Milan, 11/27/2025 11:00:00 AM, [address] [facility] [address], [place], [address], Progress Notes * JIMYHeather WYATTcy BDOB: 4 (49 yo F)Acc No.[id number]:09/28/2024 Progress Note Patient: Mayela Foy Provider: Sumaya Milan MD :1975 A ge:49 Y S ex:Female Date:09/28/2024 Address:[address] [place], [place] [phone] Subjective: * Chief Complaints: * A nnual * Electronic signature of Lolita Milan MD on 03/13/2025 at 02:11 PM EST Sign off status: Pending Visit Status: N /S (No-Show) * Provider: Sumaya Milan MD Date: 0 09/28/2024 Generated for Vandana ravi/Eulalia/Jorge on: 1 05/13/2024 02:11 PM EST
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
--- OUTSIDE RECORDS SUMMARY | 2024-11-19 10:15 | XMS_ITS ---
Author Organization [facility] Address [address] [facility] [address] [place] [address] Care Team Providers Care Medical Psychotherapist Name Role Phone Lolita Milan Unavailable [phone] REASON FOR VISIT Annual Social History Sex Assigned At : Social History Observation Description Sex Assigned At Female Encounters Encounter Location Date Provider Diagnosis [facility] [address] [facility] [address] [place] [address] 11/19/2024 Lolita Milan Plan Of Treatment Next Appt Details Provider Name:Lolita Milan, 11/27/2025 11:00:00 AM, [address] [facility] [address], [place], [address], Progress Notes * JIMYHeathercy BDOB: 4 (49 yo F)Acc No.[id number]:11/19/2024 Progress Note Patient: Mayela Foy Provider: Sumaya Milan MD :1975 A ge:49 Y S ex:Female Date:11/19/2024 Address:[address] [place], [place] [phone] Subjective: * Chief Complaints: * A nnual * Electronic signature of Lolita Milan MD on 03/13/2025 at 02:14 PM EST Sign off status: Pending Visit Status: R /S (Rescheduled) * Provider: Sumaya Milan MD Date: 0 11/19/2024 Generated for Vandana ravi/Eulalia/Jorge on: 1 05/13/2024 02:14 PM EST
--- OUTSIDE RECORDS SUMMARY | 2025-02-05 06:00 | XMS_ITS ---
Author Organization [facility] Address [address] [facility] [address] [place] [id number] Care Team Providers Care Valve Lapper Name Role Phone Sumaya Marshall Primary Care Provider Gagan Andersen Unavailable [phone] Sue Quezada Unavailable [phone] Allergies Allergen (clinical drug ingredient) Drug/Non Drug [...] Status W/U Status Risk Notes Problem Anxiety (74576342) Anxiety (F41.9) Active confirmed Vital Signs Blood pressure systolic 120 mm Hg 02/06/20 25 Blood pressure diastolic 70 mm Hg 025 Heart Rate 76 /min 02/05/2025 Height 64 in 02/05/2025 Weight 142.8 lbs 02/05/2025 BMI 24.51 kg/m2 02/05/2025 Encounters Encounter Location Date Provider Diagnosis [place] [address] [facility] [address] [place] [id number] 02/05/2025 Sue Quezada Adult general medica l [...] hormones; has a IUD and sees her VOLTAGE TESTER every year; encouraged her to discuss with [...] hormones; has a IUD and sees her VOLTAGE TESTER every year; encouraged her to discuss with this provider; She is not fasting today and will RTC fasting for the following Labs: CBC, CMP, LIpids, Vit D, Vit B12 Next Appt Details Follow Up: 1 Year,and Sumaya berman: Progress Notes * RENNY AHNDOB:1975 (49 yo F)Acc No.[id number]:02/05/2025 Progress Notes Patient: RENNY SERNA Provider: DARIUSZ Auguste :1975 A ge:49 Y S ex:Female Date:02/05/2025 Address:[address] [place], [id number] Pcp:Sumaya Marshall Subjective: * Chief Complaints: * [...] E NDOCRINOLOGY: Positive for h as 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 ? h as annual VOLTAGE TESTER exam. * Medical History: O besity, Hemorrhoids, [...] stic Procedure: H [facility]12[facility]2014[facility]. * Family History: F ather: [...] Temp: 98.4, BP: 120/70, HR: 76, Nurse: sunny, Ht: 64, BMI:24.51. * Examination: G eneral [...] H ypoglycemia - E16.[address] 24.0-24.9, adult - Z68.24? Plan: * Treatment: [...] hormones; has a IUD and sees her VOLTAGE TESTER every year; encouraged her to discuss with this provider; She is not fasting today and will RTC fasting for the following Labs: CBC, CMP, LIpids, Vit D, Vit B12 * Procedure Codes: 1 036F TOBACCO NON-USER, 3074F SYST BP LT 130 MM HG, 3078F DIAST BP < 80 MM HG * Follow Up: 1 Year,and prn * Images: Billing Information: * Visit Code: 97269 Office Visit, Est Pt., Level 4. * Procedure Codes: 1036F TOBACCO NON-USER. 3074F SYST BP LT 130 MM HG. 3078F DIAST BP < 80 MM HG. * Electronic signature of Regina Quezada APRN on 03/13/2025 at 02:12 PM EST Sign off status: Pending * Provider: DARIUSZ Auguste Date: Generated for Vandana ng/Fahiwotg/eTransmitting on: 05/13/2024 02:12 PM EST History and [...]
[2025-03-12 14:39] LABS: Coronavirus 19, PCR Not Detected (NotDetected); Influenza A, PCR Not Detected (NotDetected); Influenza B, PCR Not Detected (NotDetected)
--- OUTSIDE RECORDS SUMMARY | 2025-03-13 14:10 | XMS_ITS | Encounter Summary ---
Author Organization [employer] ([place], [place], [place], [place], [place]) Address [address] [place] [address] Care Team Providers Care Prior Authorization Nurse Name Role Phone Unavailable Primary Care Provider Unavailabl e Encounter Details Date Type Department Care Team (Late st Contact Info) Description 06/12/2019 Transcribed Document [facility] [place] [facility] [place] [address] ProviderCarmela MD [address] [place] [id number] Social History Tobacco Use Types Packs/Day Years Used Date Smoking Tobacco: Never Assessed Comments Unknown Sex and Gender Information Value Date Recorded Sex Assigned at Not on file Legal Sex Female 1:20 PM CDT Gender Identity Not on file Sexual Orientation Not on file documented as of this encounter Miscellaneous Notes * Cerner Conversion Note - Carmela ProviderMD - 06/12/2019 8:16 AM SKEIN BLEACHER ED Assessment Entered On: 06/12/2019 11:27 EST Performed On: 06/12/2019 11:25 EST by Marti Robb RN ED Quick Look Assessment Level of Consciousness : Alert Affect/Behavior : Appropriate Skin Temperature : Warm Skin Description : Normal for ethnicity, Delmar Marti Robb RN - 06/12/2019 11:25 EST ED General-Functional Assess Preferred Communication Mode : Verbal Communication Barrier : None Primary Language : Dutch Any Spiritual/Cultural Needs or Requests : No Currently in Unsafe Situation : No Marti Robb RN - 06/12/2019 11:42 EST Social Habits Smoking Status : Never (less than 100 in lifetime; none in last 30 days) Smokeless Tobacco Status : Never Desires Tobacco Cessation Calc : 0 Marti Robb RN - 06/12/2019 11:43 EST Social History (As Of: 06/12/2019 11:43:34 EST) Tobacco: Never (less than 100 in lifetime) Smoking Status. Never Smokeless Tobacco Status. (Last Updated: 05/10/2019 08:42:34 EST by RHONDA NEWBY, RN) Alcohol: Alcohol Use History Yes. Use in Last 12 Months: Yes. Alcohol Use Frequency Monthly. (Last Updated: 05/10/2019 08:42:54 EST by RHONDA NEWBY, RN) Substance Abuse: Drug Use Hx: No. Use in Last 12 Months: No. (Last Updated: 11/07/2017 10:38:38 EDT by ANJEL SANTANA RN) Nutrition/Health: Caffeine intake amount: 2 cups a day.. (Last Updated: 05/10/2019 08:43:12 EST by RHONDA NEWBY, ZAHRAA) Gastrointestinal ED Gastrointestinal Assessment WDL : WDL with exceptions Gastrointestinal Symptoms : Abdominal pain, Epigastric Pain Abdomen Description : Tender Stool Description : Formed, Hard Stool Color : Other: Dark Brown Marti Robb RN - 06/12/2019 11:44 EST Bowel Sounds Bowel Sounds All Quadrants : Active Marti Robb RN - 06/12/2019 11:44 EST Passing Flatus : Yes Abdomen Palpation : Tender Abdominal Tenderness Location : Epigastric Marti Robb RN - 06/12/2019 11:44 EST documented in this encounter Plan of Treatment Upcoming Encounters Date Type Department Care Team (Late st Contact Info) Description 03/20/2025 10:45 AM EST Office Visit [facility] Bariatric Services [address] [facility] [address] [place] [address] Stanislav Cruz MD [address] [facility] [address] [place] [address] documented as of this encounter Visit Diagnoses Not on filedocumented in this encounter
--- OUTSIDE RECORDS SUMMARY | 2025-03-13 14:10 | XMS_ITS | Encounter Summary ---
Author Organization [employer] ([place], [place], [place], [place], [place]) Address [address] [place] [address] Care Team Providers Care Cost Clerk Name Role Phone Unavailable Primary Care Provider Unavailabl e Encounter Details Date Type Department Care Team (Late st Contact Info) Description 06/12/2019 Transcribed Document [facility] [place] Family Medicine [address] [place] [address] ProviderCarmela MD [address] [place] [phone] Social History Tobacco Use Types Packs/Day Years Used Date Smoking Tobacco: Never Assessed Comments Unknown Sex and Gender Information Value Date Recorded Sex Assigned at Not on file Legal Sex Female 1:20 PM CDT Gender Identity Not on file Sexual Orientation Not on file documented as of this encounter Miscellaneous Notes * Cerner Conversion Note - Carmela ProviderMD - 06/12/2019 8:16 AM AGRICULTURE TEACHER [place] Suicide Severity Rating Scale (C-SSRS) Entered On: 06/12/2019 11:31 EST Performed On: 06/12/2019 11:29 EST by Marti Robb RN [place] Suicide Severity Rating Scale (C-SSRS) CSSRS Past Month Wish to be : No CSSRS Past Month Suicidal Thoughts : No CSSRS Lifetime Suicide Behavior : No Suicide Severity Rating Score : 0 Suicide Severity Rating : No Additional Care Required at this time Marti Robb RN - 06/12/2019 11:29 EST documented in this encounter Plan of Treatment Upcoming Encounters Date Type Department Care Team (Late st Contact Info) Description 03/20/2025 10:45 AM EST Office [facility] [address] [place] [address] Stanislav Cruz MD [address] [facility] [address] [place] [address] documented as of this encounter Visit Diagnoses Not on filedocumented in this encounter
--- OUTSIDE RECORDS SUMMARY | 2025-03-13 14:10 | XMS_ITS | Encounter Summary ---
Author Organization [employer] ([place], [place], [place], [place], [place]) Address [address] [place] [address] Care Team Providers Care Assistant Director Of Residence Life Name Role Phone Unavailable Primary Care Provider Unavailabl e Encounter Details Date Type Department Care Team (Late st Contact Info) Description 06/12/2019 Transcribed Document [facility] [place] [facility] [place] [address] ProviderCarmela MD [address] [place] [phone] Social History Tobacco Use Types Packs/Day Years Used Date Smoking Tobacco: Never Assessed Comments Unknown Sex and Gender Information Value Date Recorded Sex Assigned at Not on file Legal Sex Female 1:20 PM CDT Gender Identity Not on file Sexual Orientation Not on file documented as of this encounter Miscellaneous Notes * Cerner Conversion Note - Carmela ProviderMD - 06/12/2019 3:09 PM RUBBER TESTER [facility] Main OR PACU Summary Primary Physician: MELNIA JENSEN MD-SUR Finalized Date/Time: 06/14/19 15:02:05 Pt. Name: RENNY AHN/Sex: 1975 Female Med Rec #: [id number] Physician: MELINA JENSEN MD-SUR Financial #: [id number] Pt. Type: O Room/Bed: 506/1 Admit/Disch: 06/12/19 13:55:00 - 06/13/19 09:21:00 [place] [facility] [place] Case Times Entry 1 In PACU I 06/12/19 15:39:00 Ready for PACU 06/12/19 16:40:00 Discharge Discharge from PACU 06/12/19 17:30:00 I Last Modified By: JOSHUA MATHIS RN 06/12/19 17:53:38 [facility] Main OR PACU Acuity Entry 1 Start Time 06/12/19 16:41:00 Stop Time 06/12/19 17:30:00 Acuity Level [facility] PACU Acuity I Last Modified By: JOSHUA MATHIS RN 06/12/19 17:54:08 Finalized By: Danielle Lester, Telegraph Repeater Technician-Nursing Document Signatures Signed By: JOSHUA MATHIS RN 06/12/19 17:54 Danielle Lester, Telegraph Repeater Technician-Nursing 06/14/19 15:02 Unfinalized History Date/Time Username Reason for Unfinalizing Freetext Reason for Unfinalizing 06/14/19 15:01 [id number] Modify Pick List Electronically signed by Samy Freeman [facility] Conversion Syrup Shed Supervisor Cerner at 08/18/2022 11:33 AM CDT documented in this encounter Plan of Treatment Upcoming Encounters Date Type Department Care Team (Late st Contact Info) Description 03/20/2025 10:45 AM EST Office Visit [facility] Bariatric Services [address] [facility] [address] [place] [address] Stanislav Cruz MD [address] [facility] [address] [place] [address] documented as of this encounter Visit Diagnoses Not on filedocumented in this encounter
--- OUTSIDE RECORDS SUMMARY | 2025-03-13 14:10 | XMS_ITS | Encounter Summary ---
Author Organization [employer] ([place], [place], [place], [place], [place]) Address [address] [place] [address] Care Team Providers Care Drawer Upfitter Name Role Phone Unavailable Primary Care Provider Unavailabl e Encounter Details Date Type Department Care Team (Late st Contact Info) Description 06/12/2019 Transcribed Document [facility] [place] [address] [place] [address] ProviderCarmela MD [address] [place] [phone] Social History Tobacco Use Types Packs/Day Years Used Date Smoking Tobacco: Never Assessed Comments Unknown Sex and Gender Information Value Date Recorded Sex Assigned at Not on file Legal Sex Female 1:20 PM CDT Gender Identity Not on file Sexual Orientation Not on file documented as of this encounter Miscellaneous Notes * Cerner Conversion Note - Carmela ProviderMD - 06/12/2019 5:51 PM ASSISTANT PRESSMAN Education-(VTE) / (DVT) Entered On: 06/12/2019 20:54 EST Performed On: 06/12/2019 17:51 EST by JOSHUA BOSWELL RN Teaching/Learning Assessment Barriers To Learning : None evident Learning Style Preferences Patient : Verbal explanation Learning Style Preferences Family : Verbal explanation JOSHUA BOSWELL RN - 06/12/2019 20:54 EST documented in this encounter Plan of Treatment Upcoming Encounters Date Type Department Care Team (Late st Contact Info) Description 03/20/2025 10:45 AM EST Office Visit [facility] [address] [place] [address] Stanislav Cruz MD [address] [facility] [address] [place] [address] documented as of this encounter Visit Diagnoses Not on filedocumented in this encounter
--- OUTSIDE RECORDS SUMMARY | 2025-03-13 14:10 | XMS_ITS | Encounter Summary ---
Author Organization [employer] ([place], [place], [place], [place], [place]) Address [address] [place] [address] Care Team Providers Care Goring Cutter Name Role Phone Unavailable Primary Care Provider Unavailabl e Encounter Details Date Type Department Care Team (Late st Contact Info) Description 06/12/2019 Transcribed Document [facility] [place] Family Medicine [address] [place] [address] ProviderCarmela MD [address] [place] [phone] Social History Tobacco Use Types Packs/Day Years Used Date Smoking Tobacco: Never Assessed Comments Unknown Sex and Gender Information Value Date Recorded Sex Assigned at Not on file Legal Sex Female 1:20 PM CDT Gender Identity Not on file Sexual Orientation Not on file documented as of this encounter Miscellaneous Notes * Cerner Conversion Note - Carmela ProviderMD - 06/12/2019 5:00 PM LETTER SORTING MACHINE OPERATOR Chart Check - Review Order Profile Entered On: 06/12/2019 20:53 EST Performed On: 06/12/2019 17:00 EST by JOSHUA BOSWELL RN Chart Check Powerplans Initiated/Discontinued as Appropriate : Yes All Active Orders Reviewed : Yes JOSHUA BOSWELL RN - 06/12/2019 20:53 EST documented in this encounter Plan of Treatment Upcoming Encounters Date Type Department Care Team (Late st Contact Info) Description 03/20/2025 10:45 AM EST Office Visit [facility]ric Services [address] [facility] [address] [place] [address] Stanislav Cruz MD [address] [place] [address] documented as of this encounter Visit Diagnoses Not on filedocumented in this encounter
--- OUTSIDE RECORDS SUMMARY | 2025-03-13 14:10 | XMS_ITS | Encounter Summary ---
Author Organization [facility] ([place], [place], [place], [place], [place]) Address [address] [place] [address] Care Team Providers Care Partner Manager Name Role Phone Unavailable Primary Care Provider Unavailabl e Encounter Details Date Type Department Care Team (Late st Contact Info) Description 06/12/2019 Transcribed Document [facility] [place] Family Medicine [facility] [place] [address] ProviderCarmela MD [address] [place] [address] [id number] Social History Tobacco Use Types Packs/Day Years Used Date Smoking Tobacco: Never Assessed Comments Unknown Sex and Gender Information Value Date Recorded Sex Assigned at Not on file Legal Sex Female 1:20 PM CDT Gender Identity Not on file Sexual Orientation Not on file documented as of this encounter Miscellaneous Notes * Cerner Conversion Note - Carmela Feliciano MD - 06/12/2019 8:41 AM PELLET PRESS OPERATOR Patient: RENNY AHN Age: 44 years Sex: Female : 1975 Associated Diagnoses: None Author: DRISS GARY MD-EMR Basic Information Additional information: Chief Complaint from Nursing Triage Note : Chief Complaint 06/12/2019 8:19 EST Chief Complaint PT c/o sharp lower abdominal pain with nausea for past 24 hrs, pain rated 9/10, states she feels like she needs to have a bowel movement, has had several but pain is not relieved, resp even and unlabored . Health Status Allergies: Allergic Reactions (Selected) High Rocephin- Rash. Severity Not Documented Sulfa drugs- No reactions were documented.. Past Medical/ Family/ Social History Surgical history: hemorrhoidectomy. Tonsillectomy and adenoidectomy ([id number]). choleycystectomy. colonoscopy. Dilation and curettage ([id number]). cervical ablation. IUD implanted 2016. x 2. EGD. Gastric Sleeve.. Family history: No family history items have been selected or recorded.. Social history: Social & Psychosocial Habits Alcohol 05/10/2019 Alcohol Use History, Social Habits Yes Alcohol Use in Last Twelve Months Yes Alcohol Use Frequency Monthly Nutrition/Health 05/10/2019 Caffeine intake amount: 2 cups a day. Substance Abuse 11/07/2017 Recreational Drug Use History No Recreational Drug Use Last 12 Months No Tobacco 05/10/2019 Smoking Status Never (less than 100 in l Smokeless Tobacco Status Never . Physical Examination Vital Signs Vital Signs/Vital Measures 06/12/2019 8:19 EST Systolic Blood Pressure 130 mmHg Diastolic Blood Pressure 88 mmHg Temperature Source Tympanic Temperature Mode Fahrenheit Temperature, Fahrenheit 96.9 Deg F Clinical Temperature, C 36.1 Deg C Peripheral Pulse Rate 79 bpm Respiratory Rate 18 Breaths/Min Oxygen Saturation 100 % . Measurements 06/12/2019 8:19 EST Height Source Stated Height Entry Format [place] Height/Length, KINYARWANDA (ft) 5 ft Height/Length KINYARWANDA 5 Inch CLINICALHEIGHT 165.1 cm [place] Body Weight 56.59 kg Weight Source, ED Standing scale Weight Entry Format [place] Weight Turkish lb 145 lb CLINICALWEIGHT 65.91 kg Body Surface Area (BSA) 1.73 m2 Body Mass Index 24.2 kg/m2 HI . Oxygen Saturation 06/12/2019 8:19 EST Oxygen Saturation 100 % . Medical Decision Making Documents reviewed: Emergency department nurses' notes. Orders Place New Orders Laboratory: HCG Serum Quantitative (Order): Specimen Type: Blood, Stat collect, 06/12/2019 8:42 EST, 1-Time, Stop: 06/12/2019 8:42 EST, Nurse Collect Urinalysis w Microscopic if Indicated (Order): Specimen Type: Urine, Urine Type: U CleanCatch, Stat collect, 06/12/2019 8:42 EST, 1-Time, Stop: 06/12/2019 8:42 EST, Nurse Collect Lactic Acid Level with Reflex if Indicated (Order): Specimen Type: Blood, Stat collect, 06/12/2019 8:42 EST, 1-Time, Stop: 06/12/2019 8:42 EST, Nurse Collect Magnesium Level (Order): Specimen Type: Blood, Stat collect, 06/12/2019 8:42 EST, 1-Time, Stop: 06/12/2019 8:42 EST, Nurse Collect Lipase Level (Order): Specimen Type: Blood, Stat collect, 06/12/2019 8:42 EST, 1-Time, Stop: 06/12/2019 8:42 EST, Nurse Collect CMP Comprehensive Metabolic Panel (Order): Specimen Type: Blood, Stat collect, 06/12/2019 8:42 EST, 1-Time, Stop: 06/12/2019 8:42 EST, Nurse Collect Pharmacy: Normal Saline 1,000 mL (Order): 125 mL/Hr, IntraVENous. Results review: Lab results : Lab Results 06/12/2019 9:51 EST WBC 8.7 K/uL RBC 4.78 Million/uL Hgb 14.9 Gram/dL Hct 45.0 % HI MCV 94.1 fL MCH 31.2 pg MCHC 33.1 Gram/dL Platelet Count 195 K/uL MPV 10.5 fL RDW 13.0 % Neut % 86.4 % HI Neut # 7.48 K/uL HI Lymph % 8.1 % LOW Lymph # 0.70 K/uL LOW [place] % 4.8 % [place] # 0.42 K/uL Eos % 0.3 % LOW Eos # 0.03 K/uL LOW Baso % 0.2 % Baso # 0.02 K/uL Slide Review No IG# 0 x10(3)/uL IG% 0 % 06/12/2019 8:56 EST Sodium Level 141 mmol/L Potassium Level 4.2 mmol/L Chloride Level 110 mmol/L Carbon Dioxide Level 30 mmol/L Anion Gap 5 LOW Glucose Level 94 mg/dL Blood Urea Nitrogen 10 mg/dL Creatinine Level 0.59 mg/dL eGFR >60 mL/min/1.73m2 eGFR NonAfrican >60 mL/min/1.73m2 Bun/Creatinine 16.9 Calcium Level 9.8 mg/dL Protein Total 7.0 Gram/dL Albumin Level 3.8 Gram/dL Globulin 3.2 Gram/dL A/G Ratio 1.2 Bilirubin Total 0.8 mg/dL Alk Phos 78 Units/Liter AST 12 Units/Liter ALT 14 Units/Liter Magnesium Level 2.3 mg/dL Lipase Level 126 Units/Liter Lactic Acid Level 1.0 mmol/L Urine Type U CleanCatch Urine Color DK YELLOW Urine Appearance Cloudy Urine Specific [place] 1.030 Urine pH Dipstick 7.5 Urine Leukocyte Esterase Negative Urine Nitrite Negative Urine Protein Dipstick Trace Urine Glucose Dipstick Negative Urine Ketones Dipstick >=80 Urine Urobilinogen Dipstick 1.0 EU/dL Urine Bilirubin Dipstick Small Urine Blood Dipstick Negative Ur RBC 0-2 /HPF Ur WBC 2-5 /HPF Ur Bacteria 1+ Ur Mucous 3+ Ur Squamous Epithelial Cells 10-20 /HPF HCG Urine Qualitative Negative HCG Serum Quant <1.0 mIU/mL NA . Radiology results: Radiology Results (Last 48 hours) [id number] -- 06/12/2019 08:16 CT Abdomen Pelvis W (06/12/2019 12:20) Result: CT SCAN OF THE ABDOMEN AND PELVIS WITH CONTRAST. HISTORY: Low abdominal and pelvic pain, nausea.COMPARISON: None .PROCEDURE: The patient was injected with IV contrast. Axial images wereobtained from the lung bases to the pubic symphysis by computedtomography. This study was performed with techniques to keep radiationdoses as low as reasonably achievable, (ALARA). Individualized dosereduction techniques using automated exposure control or adjustment ofmA and/or kV according to the patient size were employed.FINDINGS: ABDOMEN: The lung bases are clear. The heart is normal in size. Theliver is normal. The patient is status post cholecystectomy. There arepostoperative changes of gastric sleeve. The spleen is unremarkable. Noadrenal mass is present. The pancreas is normal. The kidneysdemonstrate a 20 mm hypodense left renal lesion, probably a cyst. Theaorta is normal in caliber. PELVIS: The uterus is midline. There is an intrauterine device. Theurinary bladder is unremarkable. There is moderate free fluid.Mesenteric edema is identified in the pelvis. There is inflammationsurrounding the cecum. The appendix is not identified with certainty,but findings are highly worrisome for acute appendicitis.IMPRESSION: Moderate free fluid, mesenteric edema in the pelvis, andinflammation surrounding the cecum. The appendix is not identified withcertainty, but findings are highly worrisome for acute appendicitis.Films reviewed, interpreted, and dictated by Dr. Carranza.Transcribed by Genoveva Edwards PA-C.I have personally viewed, interpreted and dictated the examination. Prerna read and agree with the above final transcribed report. . Addendum VOID THIS CHART documented in this encounter Plan of Treatment Upcoming Encounters Date Type Department Care Team (Late st Contact Info) Description 03/20/2025 10:45 AM EST Office Visit [facility] Bariatric Services [address] [facility] [address] [place] [address] Stanislav Cruz MD [address] [facility] [address] [place] [address] documented as of this encounter Visit Diagnoses Not on filedocumented in this encounter
--- OUTSIDE RECORDS SUMMARY | 2025-03-13 14:11 | XMS_ITS | Encounter Summary ---
Author Organization [email or web address] ([place], [place], [place], [place], [place]) Address [address] [place] [address] Care Team Providers Care Wire Coating Machine Operator Name Role Phone Unavailable Primary Care Provider Unavailabl e Reason for Visit * Reason Onset Date Comments Nutrition Counseling 03/08/2025 Encounter Details Date Type Department Care Team (Late st Contact Info) Description 03/08/2025 Telephone [facility] Bariatric Services [address] [facility] [address] [place] [address] Stanislav Cruz MD [address] [place] [address] Nutrition Counseling Social History Tobacco Use Types Packs/Day Years Used Date Smoking Tobacco: Never Assessed Food Insecurity Answer Date Recorded Food run out past 12 months Not on file 10/2023 Food did not last past 12 months Not on file 09/06/2023 Employment Answer Date Recorded Help finding and keeping a job Not on file 0 09/06/2023 Family and Community Support Answer Rony e Recorded Help with Day to Day Activities Not on file 09/06/2023 Feeling Lonely or Isolated Not on file 09/05 Educational Attainment Answer Date Romel rded Speak language other than Romanian at home Not on file 09/06/2023 Want help with school or training Not on file 09/06/2023 Substance Use Answer Date Recorded Used prescription meds for non-medical reasons N ot on file 09/06/2023 Used illegal drugs past 12 months Not on file 09/06/2023 Comments Unknown Sex and Gender Information Value Date Recorded Sex Assigned at Not on file Legal Sex Female 1:20 PM CDT Gender Identity Not on file Sexual Orientation Not on file documented as of this encounter Miscellaneous Notes * Telephone Encounter - Lana Dozier RD - 03/08/2025 10:21 AM EST Nutrition Note Assessment DOS: 03/08/2025 Mayelaviri Ahn 49 y.o. 1975 Reason for appointment: Patient is s/p bariatric surgery, interested in making some diet changes. No past medical history on file. There were no vitals filed for this visit. Current weight: 141 lbs Initial Weight (10/20/17): 263.8 lbs Initial BMI: 43.23 kg/m2 EBW: 129.8 lbs TWR: 165-190 lbs Current Diet: Breakfast: 2 handfuls of almonds Lunch: salad or low-carb wrap (with turkey breast) Dinner: salad with chicken and pepperoni Snacks: none Beverages/fluid intake: water (60< oz), diet sodas (3 per week) Intervention Goals as discussed and agreed upon with Mayela Ahn: - Discussed focusing on 60-80 grams of protein and fiber (plant foods) at each meal, and limiting other foods. - Discussed switching to calorie-free beverages. - Discussed ensuring plenty of fluid intake per day, especially water intake. - Discussed benefit of getting in some movement after meals. Monitoring and Evaluation Encouraged her to reach out as needed. Electronically signed by Lana Dozier RD - 03/08/2025 - 10:21 AM EST IOTHERAPIST'S ASSISTANT documented in this encounter Plan of Treatment Upcoming Encounters Date Type Department Care Team (Late st Contact Info) Description 03/20/2025 10:45 AM EST Office Visit [facility] Bariatric Services [address] [place] [address] Stanislav Cruz MD [address] [place] [address] documented as of this encounter Visit Diagnoses Not on filedocumented in this encounter
--- OUTSIDE RECORDS SUMMARY | 2025-03-13 14:11 | XMS_ITS | Encounter Summary ---
Author Organization [employer] ([place], [place], [place], [place], [place]) Address [address] [place] [address] Care Team Providers Care Delivery Person Name Role Phone Unavailable Primary Care Provider Unavailabl e Encounter Details Date Type Department Care Team (Late st Contact Info) Description 07/12/2019 Transcribed Document [facility] [place] Family Medicine [facility] [place] [address] ProviderCarmela MD [address] [place] [address] [id number] Social History Tobacco Use Types Packs/Day Years Used Date Smoking Tobacco: Never Assessed Comments Unknown Sex and Gender Information Value Date Recorded Sex Assigned at Not on file Legal Sex Female 1:20 PM CDT Gender Identity Not on file Sexual Orientation Not on file documented as of this encounter Miscellaneous Notes * Cerner Conversion Note - Carmela Feliciano MD - 07/12/2019 11:06 AM CDT Patient: RENNY AHN Age: 44 years Sex: Female : 1975 Associated Diagnoses: None Author: CLIFF ALVES MD-GAE Basic Information Source of history: Self. Referral source: STAN BUENO MD-DANUTA. Chief Complaint Dysphagia History of Present Illness Patient complains of reflux that has been present for years. She states that one day she will randomly wake up with reflux. She will take her Prilosec that she uses daily plus Tums and her symptoms will not resolve for a few days. She has dysphagia at times with solids. It is described as intermittent. Associated symptoms include epigastric pain. Risk factors include NSAIDS (but only the Motrin liquids gels) , but no ASA or smoking or previous PUD. She did have gastric sleeve per Dr. Bueno in January of 2018. Denies melena, hematemesis, BRBPR. Last EGD was 05/23/[address] Bueno which showed esophagitis and gastritis. 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 Histories Past Medical History: Active Polycystic ovarian syndrome (453326283) Anxiety disorder (404538935) GERD (gastroesophageal reflux disease) (427842531) Resolved Palpitations (232716969): Resolved. Anemia (488055357): Resolved. At risk for sleep apnea (77968270): Resolved. Procedure history: LAPAROSCOPIC APPENDECTOMY ([id number]) on 06/12/2019 at 44 Years. hemorrhoidectomy. Tonsillectomy and adenoidectomy (133180899). choleycystectomy. colonoscopy. Dilation and curettage (00739140). cervical ablation. IUD implanted 2015. x 2. EGD. Gastric Sleeve. Social History Social & Psychosocial Habits Alcohol 05/10/2019 Alcohol Use History, Social Habits Yes Alcohol Use in Last Twelve Months Yes Alcohol Use Frequency Monthly Nutrition/Health 05/10/2019 Caffeine intake amount: 2 cups a day. Substance Abuse 11/07/2017 Recreational Drug Use History No Recreational Drug Use Last 12 Months No Tobacco 05/10/2019 Smoking Status Never (less than 100 in l Smokeless Tobacco Status Never . Family History: No GI cancers Health Status Allergies: Allergic Reactions (All) High Rocephin- Rash. Severity Not Documented HYDROcodone- No reactions were documented. Sulfa drugs- Vomiting and flushed., Allergies (3) Active Reaction Rocephin rash HYDROcodone None Documented sulfa drugs vomiting Current medications: (Selected) Inpatient Medications Ordered Normal Saline 1,000 mL: 20 mL/Hr, IntraVENous Documented Medications Documented Caltrate 600+D oral tablet, chewable: 1 Tab, Chew, BID, 60 Tab, 0 Refill(s) PriLOSEC: Oral, Daily, 0 Refill(s) Xanax 0.5 mg oral tablet: 1 Tab, Oral, Daily, PRN: as needed for anxiety, 0 Refill(s) biotin: Oral, Daily, 0 Refill(s) ibuprofen 100 mg/5 mL oral suspension: mL, Oral, Q6H, 0 Refill(s) multivitamin: Oral, Daily, 0 Refill(s), Medications (1) Active Scheduled: (0) Continuous: (1) NaCl 0.9% 1,000 mL 1,000 mL, IntraVENous, 20 mL/Hr PRN: (0) Problem list: All Problems Polycystic ovarian syndrome / SNOMED CT 531862547 / Confirmed Anxiety disorder / SNOMED CT 293769759 / Confirmed GERD (gastroesophageal reflux disease) / SNOMED CT 759426900 / Confirmed Snores / SNOMED CT 577460923 / Confirmed Eczema / SNOMED CT 65337431 / Confirmed Resolved: Palpitations / SNOMED CT 673670147 Resolved: Anemia / SNOMED CT 183912645 Resolved: At risk for sleep apnea / IMO 77729578, Active Problems (5) Anxiety disorder Eczema GERD (gastroesophageal reflux disease) Polycystic ovarian syndrome Snores Review of Systems Constitutional: No fever, No chills, No weight gain, No weight loss. Eye: No recent visual problem, No blurring. Ear/Nose/Mouth/Throat: Dysphagia, No epistaxis, No hoarse voice, No sore throat. Respiratory: No shortness of breath, No cough, No hemoptysis. Cardiovascular: No chest pain, No palpitations, No claudication. Gastrointestinal: Heartburn, No nausea, No vomiting, No diarrhea, No constipation, No belching, No bloating, No hematemesis, No change in bowel habits, No melena, No rectal bleeding. Abdominal pain: Epigastric area. Genitourinary: No dysuria, No hematuria. Hematology/Lymphatics: No bruising tendency, No bleeding tendency. Endocrine: No excessive thirst, No cold intolerance, No heat intolerance. Musculoskeletal: No joint pain, No muscle pain, No gait disturbance, No joint redness. Integumentary: No rash, No pruritus. Neurologic: No confusion, No dizziness, No headache, No seizure. Psychiatric: No anxiety, No depression. the rest of the 10 system review is negative Physical Examination VS/Measurements Vitals Signs (last 24 hrs) Last Charted Minimum Maximum Temp 98.1 (JUL 11 11:00) 98.1 (JUL 11 11:00) 98.1 (JUL 11:00) Mon HR 69 (JUL 11 11:00) 69 (JUL 11 11:00) 69 (JUL 11 11:00) Resp Rate 20 (JUL 11:00) 20 (JUL 11:00) 20 (JUL 11 11:00) SBP 105 (JUL 11 11:00) 105 (JUL 11 11:00) 105 (JUL 11 11:00) DBP 67 (JUL 11:) 67 (JUL 11 11:00) 67 (JUL 11 11:00) SpO2 99 (JUL 11:) 99 (JUL 11 11:00) 99 (JUL 11:) General: No acute distress. Appearance: Well nourished. Eye: Pupils are equal, round and reactive to light, Extraocular movements are intact, Normal conjunctiva. Sclera: Both eyes, Within normal limits. HENT: Normocephalic, Normal hearing, Oral mucosa is moist. Nose: Both nostrils, Within normal limits, Patent. Mouth: pink. Neck: Supple, Non-tender, No carotid bruit, No jugular venous distention. Respiratory: Lungs are clear to auscultation, Respirations are non-labored, Breath sounds are equal. Pattern: Regular. Cardiovascular: Normal rate, Regular rhythm, No murmur, No gallop, No edema. Arterial pulses: Bilateral, Dorsalis pedis, Within normal limits. Gastrointestinal: Soft, Non-distended, Normal bowel sounds, No organomegaly, mild epigastric pain with palpation. Abdomen: Liver ( Within normal limits ). Lymphatics: Lymphatic exam: Bilateral, Cervical chain, Inguinal, Within normal limits. Musculoskeletal: Normal range of motion, Normal strength, No tenderness, No deformity, Normal gait. Integumentary: Warm, Dry, [place], No rash. Integumentary exam: Face, Chest, Arm, Abdomen, Leg. Neurologic: Alert, Oriented, No focal deficits. Orientation: To person, To place, To time. Psychiatric: Cooperative, Appropriate mood & affect, Normal judgment. Review / Management Results review: No qualifying data available. Impression and Plan Dysphagia. Differential diagnosis includes GERD, candidal esophagitis, or eosinophilic esophagitis. Proceed with EGD with possible dilation for further evaluation. Risks including that of bleeding and perforation have been discussed with the patient who verbalizes understanding and agrees to proceed. Further recommendations will be based on the above findings. I, Olimpia Richard APRN, scribed this note for Dr. Cliff [facility] I Zenobia Alves M.D. have personally interviewed the patient, reviewed the chart, performed the physical exam, and formulated the treatment plan. The patient continues to have difficulty swallowing despite starting PPI. She also has reflux. Will proceed with EGD. Electronically signed by Samy, [facility] Conversion Cnc Manufacturing Engineer Cerner at 08/18/2022 11:26 AM CDT documented in this encounter Plan of Treatment Upcoming Encounters Date Type Department Care Team (Late st Contact Info) Description 03/20/2025 10:45 AM EST Office Visit [facility] Bariatric Services [address] [facility] [address] [place] [address] Stanislav Cruz MD [address] [facility] [address] [place] [address] documented as of this encounter Visit Diagnoses Not on filedocumented in this encounter
--- OUTSIDE RECORDS SUMMARY | 2025-03-13 14:11 | XMS_ITS | Encounter Summary ---
Author Organization [employer] ([place], [place], [place], [place], [place]) Address [address] [place] [address] Care Team Providers Care Wastewater Technician Name Role Phone Unavailable Primary Care Provider Unavailabl e Reason for Visit * Reason Onset Date Comments Status 03/07/2025 Encounter Details Date Type Department Care Team (Late st Contact Info) Description 03/07/2025 Telephone [facility] Bariatric Services [address] [place] [address] Heike Strauss CMA Status Social History Tobacco Use Types Packs/Day Years [...] Date Romel rded Speak language other than Mauritian at home Not on file 09/06/2023 Want [...] encounter Miscellaneous Notes * Telephone Encounter - Heike Strauss CMA - 03/07/2025 3:48 PM EST Patient called in with some questions regarding carbonated beverages. Patient is post op sleeve from 2018, completed by Dr Bueno. Patient would also like to get scheduled for a follow up and has requested 03/20/25, as annual follow up date. Put patient on schedule with Dr Lowery to be seen for yearly follow up. Please advise if this needs to be changed to Dr Cruz. Thanks! Electronically signed by Heike Strauss CMA - 03/07/2025 - 3:49 PM EST AGATOR documented in this encounter Plan of Treatment Upcoming Encounters Date Type Department Care Team (Late st Contact Info) Description 03/20/2025 10:45 AM EST Office Visit [facility]ariat[facility] [address] [facility] [address] [place] [address] Stanislav Cruz MD [address] [facility] [address] [place] [address] documented as of this encounter Visit Diagnoses Not on filedocumented in this encounter
--- OUTSIDE RECORDS SUMMARY | 2025-03-13 14:11 | XMS_ITS | Encounter Summary ---
Author Organization [employer] ([place], [place], [place], [place], [place]) Address [address] [place] [address] Care Team Providers Care Cager Operator Name Role Phone Unavailable Primary Care Provider Unavailabl e Encounter Details Date Type Department Care Team (Late Contact Info) Description 06/12/2019 Transcribed Document [facility] [place] [facility] [place] [address] ProviderCarmela MD [address] [place] [address] [phone] Social History Tobacco Use Types Packs/Day Years Used Date Smoking Tobacco: Never Assessed Comments Unknown Sex and Gender Information Value Date Recorded Sex Assigned at Not on file Legal Sex Female 1:20 PM CDT Gender Identity Not on file Sexual Orientation Not on file documented as of this encounter Miscellaneous Notes * Cerner Conversion Note - Carmela ProviderMD - 06/12/2019 1:59 PM SULPHATE TESTER ED Discharge Entered On: 06/12/2019 14:00 EST Performed On: 06/12/2019 13:59 EST by Marti Robb RN Discharge Process Patient Disposition : Other: Surgery Personal Belongings With Patient : Yes Patient Education Completed : Yes Teaching Evaluation : Verbalizes understanding IV Discontinued : No Nursing Documentation Completed : Yes Marti Robb RN - 06/12/2019 13:59 EST Admission, ED Nurse Report Accepted By : Surgery at bedside Nurse Report Acceptance Time : 06/12/2019 14:00 EST `Nurse Report (Hand Off) : Called Marti Robb RN - 06/12/2019 13:59 EST Electronically signed by Samy [facility] Conversion Mens Locker Room Attendant Cerner at 08/18/2022 11:41 AM CDT documented in this encounter Plan of Treatment Upcoming Encounters Date Type Department Care Team (Late Contact Info) Description 03/20/2025 10:45 AM EST Office Visit [facility] Bariatric Services [address] [facility] [address] [place] [address] Stanislav Cruz MD [address] [facility] [address] [place] [address] documented as of this encounter Visit Diagnoses Not on filedocumented in this encounter
--- OUTSIDE RECORDS SUMMARY | 2025-03-13 14:11 | XMS_ITS | Encounter Summary ---
Author Organization [employer] ([place], [place], [place], [place], [place]) Address [address] [place] [address] Care Team Providers Care Podiatric Medicine Doctor Name Role Phone Unavailable Primary Care Provider Unavailabl e Encounter Details Date Type Department Care Team (Late st Contact Info) Description 06/13/2019 Transcribed Document [facility] Family Medicine [address] [place] [address] ProviderCarmela MD [address] [place] [id number] Social History Tobacco Use Types Packs/Day Years Used Date Smoking Tobacco: Never Assessed Comments Unknown Sex and Gender Information Value Date Recorded Sex Assigned at Not on file Legal Sex Female 1:20 PM CDT Gender Identity Not on file Sexual Orientation Not on file documented as of this encounter Miscellaneous Notes * Cerner Conversion Note - Historical ProviderMD - 06/13/2019 5:00 AM SENIOR CREDIT OFFICER Chart Check - Review Order Profile Entered On: 06/13/2019 6:44 EST Performed On: 06/13/2019 5:00 EST by Kailee Esqueda, Equipment Operat0R-Nursing Chart Check Powerplans Initiated/Discontinued as Appropriate : Yes All Active Orders Reviewed : Yes Kailee Esqueda, Equipment Operat0R-Nursing - 06/13/2019 6:44 EST Electronically signed by Samy [facility] Conversion Card Punching Machine Operator Cerner at 08/18/2022 11:41 AM CDT documented in this encounter Plan of Treatment Upcoming Encounters Date Type Department Care Team (Late st Contact Info) Description 03/20/2025 10:45 AM EST [facility] [address] [facility] [address] [place] [address] Stanislav Cruz MD [address] [place] [address] documented as of this encounter Visit Diagnoses Not on filedocumented in this encounter
--- OUTSIDE RECORDS SUMMARY | 2025-03-13 14:11 | XMS_ITS | Clinical Summary ---
Author Organization [employer] ([place], [place], [place], [place], [place]) Address [address] [place] [address] Care Team Providers Care Flanging Roll Operator Name Role Phone Unavailable Primary Care Provider Unavailabl e Encounters Date Type Department Care Team Description 03/08/2025 Telephone [facility] [address] [address] [place] [address] Stanislav Cruz MD Nutrition Counseling 03/07/2025 Telephone [facility] [address] [facility] [address] [place] [address] Heike Strauss CMA Status 01/29/2025 Telephone [facility] [address] [address] [place] [address] Appointment from Last 3 Months Social History Tobacco Use Types Packs/Day Years [...] Date Romel rded Speak language other than Panamanian at home Not on file 09/06/2023 Want [...] on file Sexual Orientation Not on file Plan of Treatment Upcoming Encounters Date Type Department Care Team (Late st Contact Info) Description 03/20/2025 10:45 AM EST Office Visit [facility] Services [address] [facility] [address] [place] [address] Stanislav Cruz MD [address] [facility] [address] [place] [address] Health Maintenance Due Date Last Done Comments CT Colonography 1975 Colonoscopy 1975 Colorectal Cancer Screening 1974 FOBT/FIT 1974 Fit-DNA (Cologuard) 1974 Sigmoidoscopy 1974 Depression Screening (12+) 1986 Tobacco Cessation Counseling and Screening (12+) 1986 HIV Screening 1989 Hepatitis C Screening 1992 DTAP/TDAP/TD VACCINES (1 - Tdap) 1993 Pap Smear 1995 Lipid Panel 2019 Breast Cancer Screening 12/03/2023 12/03/19, 12/01/2020, 10/08/2019, Additional history exists Pneumococcal 50+ years (1 of 1 - PCV) 2024 Shingles Vaccine (Zoster) (1 of 2) 2024 COVID-19 VACCINE (3 - 2024-2 6 season) 2024 02/14/2021, 01/12/2021 Influenza Vaccine (#1) 2024 Procedures Procedure Name Priority Date/Time Associated Diagnosis Comments MM DIGITAL MAMMO SCREEN WITH LILY BILATERAL Routine 12/02/2021 9:18 AM EDT from Last 3 Months or Most Recently Relevant to Health Maintenance Results * MM digital mammo screen with lily bilateral (12/02/2021 9:18 AM EDT) Anatomical Region Laterality Modality Breast Bilateral Mammography 12/02/2021 9:18 AM EDT Narrative 12/02/2021 5:05 PM EDT PROCEDURE: Digital screening mammogram with Digital Breast Tomosynthesis (DBT). REASON FOR EXAM: Routine screening. FAMILY HISTORY: There is no family history of breast cancer. COMPARISON STUDY: from [facility] FINDINGS: Craniocaudal and mediolateral oblique images of both breasts were obtained in 2D and DBT modes. Synthesized views were reconstructed from DBT data. The breast tissue has pattern b (scattered fibroglandular densities). Benign punctate and round calcifications are present in both breasts, as before. There is no evidence of dominant mass, architectural distortion, or suspicious calcifications. The mammogram was interpreted with the benefit of computer aided detection (CAD). FINAL IMPRESSION: ACR BI-RADS 2: Benign findings. RECOMMENDATIONS: Annual screening mammography. A letter including results and recommendations was sent to the patient. Density notification was included for patients with pattern 3 or 4 breast tissue. Patient information was entered into a reminder system with a target due date for the next mammogram. At our facility, a [place] marker is positioned over a visible skin lesion and a linear marker is used to indicate a scar. A triangular marker is placed on a self reported palpable finding. Procedure Note Tasha Henderson MD - 08/17/2022 PROCEDURE: Digital screening mammogram with Digital Breast Tomosynthesis (DBT). REASON FOR EXAM: Routine screening. FAMILY HISTORY: There is no family history of breast cancer. COMPARISON STUDY: from [facility] FINDINGS: Craniocaudal and mediolateral oblique images of both breasts were obtained in 2D and DBT modes. Synthesized views were reconstructed from DBT data. The breast tissue has pattern b (scattered fibroglandular densities). Benign punctate and round calcifications are present in both breasts, as before. There is no evidence of dominant mass, architectural distortion, or suspicious calcifications. The mammogram was interpreted with the benefit of computer aided detection (CAD). FINAL IMPRESSION: ACR BI-RADS 2: Benign findings. RECOMMENDATIONS: Annual screening mammography. A letter including results and recommendations was sent to the patient. Density notification was included for patients with pattern 3 or 4 breast tissue. Patient information was entered into a reminder system with a target due date for the next mammogram. At our facility, a [place] marker is positioned over a visible skin lesion and a linear marker is used to indicate a scar. A triangular marker is placed on a self reported palpable finding. us Tasha Henderson MD IMG MAMMOGRAPHY ORDERABLES Fin al Result from Last 3 Months or Most Recently Relevant to Health Maintenance
--- OUTSIDE RECORDS SUMMARY | 2025-03-13 14:11 | XMS_ITS | Encounter Summary ---
Author Organization [employer] ([place], [place], [place], [place], [place]) Address [address] [place] [address] Care Team Providers Care Microarray Operations Vice President Name Role Phone Unavailable Primary Care Provider Unavailabl e Reason for Visit * Reason Onset Date Comments Appointment 01/29/2025 Encounter Details Date Type Department Care Team (Late st Contact Info) Description 01/29/2025 Telephone [facility] [address] [facility] [address] [place] [address] Appointment Social History Tobacco Use Types Packs/Day Years [...] Date Romel rded Speak language other than Citizen Of [place] at home Not on file 09/06/2023 Want [...] Telephone Encounter - Lana Dozier RD - 01/29/2025 12:55 PM EDT Nutrition Note Assessment DOS: 01/29/2025 Mayela Ahn 49 y.o. 1975 Reason for appointment: Patient here to meet with provider for post-operative follow-up. Interestedin making some diet changes. No past medical history on file. There were no vitals filed for this visit. Current weight: 138 lbs (per pt) Initial Weight (10/20/17): 263.8 lbs Initial BMI: 43.23 kg/m2 EBW: 129.8 lbs TWR: 165-190 lbs Current Diet: Breakfast: Nuts and flavored water Lunch: cold cuts on low carb bagel thin with lettuce, moreira, green peppers Snack: homemade low-carb pumpkin bread Dinner: hot ham and cheese on low carb hotdog bun with 6 chips Beverages/fluid intake: flavored water, Coke Zero 3-4 times a week. Intervention Goals as discussed and agreed upon with Mayela Ahn: Patient reported concern for 5-7 pound weight gain, discussed TWR with patient. Current weight below TWR. - Switching to a low-sugar/no sugar carbonated beverage instead of the Coke Zero - Educational materials given to patient regarding Quick foods and Back on Track - Discussed focusing on 60-80 grams of protein and fiber (plant foods) at each meal. - Discussed ensuring plenty of fluid intake per day, especially water intake. - Discussed benefit of getting in some movement after meals. Monitoring and Evaluation Encouraged her to reach out as needed. Electronically signed by Federico Cueva - 01/29/2025 - 12:55 PM EDT documented in this encounter Plan of Treatment Upcoming Encounters Date Type Department Care Team (Late st Contact Info) Description 03/20/2025 10:45 AM EST Office Visit [facility] [address] [facility] [address] [place] [address] Stanislav Cruz MD [address] [place] [address] documented as of this encounter Visit Diagnoses Not on filedocumented in this encounter
--- OUTSIDE RECORDS SUMMARY | 2025-03-13 14:11 | XMS_ITS | Encounter Summary ---
Author Organization [employer] ([place], [place], [place], [place], [place]) Address [address] [place] [address] Care Team Providers Care Solar Installer Name Role Phone Unavailable Primary Care Provider Unavailabl e Encounter Details Date Type Department Care Team (Late st Contact Info) Description 05/10/2019 Transcribed Document [facility] Family Medicine [facility] [place] [address] ProviderCarmela MD [address] [place] [id number] Social History Tobacco Use Types Packs/Day Years Used Date Smoking Tobacco: Never Assessed Comments Unknown Sex and Gender Information Value Date Recorded Sex Assigned at Not on file Legal Sex Female 1:20 PM CDT Gender Identity Not on file Sexual Orientation Not on file documented as of this encounter Miscellaneous Notes * Cerner Conversion Note - Carmela ProviderMD - 05/10/2019 9:08 AM PACKING ROOM SUPERVISOR [facility] IntraOp Summary Primary Physician: STAN FAIRCHILD MD-SUR Finalized Date/Time: 05/10/19 09:17:57 Pt. Name: RENNY AHN ARCHANA /Sex: 1975 Female Med Rec #: [id number] Physician: STAN FAIRCHILD MD-SUR Financial #: [id number] Pt. Type: O Room/Bed: [facility]/ Admit/Disch: 05/10/19 07:56:00 - Institution: [facility] - Case Attendance Entry 1 Entry 2 Entry 3 Case Attendee STAN FAIRCHILD MD-SUR Fightmaster, Teresa, RN MCDONALD, ANTON CHINO CRNA Role Performed Surgeon/Proceduralist, Counseling Services Manager, First RUM PROCESSING OPERATOR/Nurse Washroom Attendant First Time In 05/10/19 09:04:00 05/10/19 09:04:00 05/10/19 09:04:00 Time Out 05/10/19 09:15:00 05/10/19 09:15:00 05/10/19 09:15:00 Procedure Esophagogastroduodenosco Esophagogastroduodenosco Esophagogastroduodenosco py, Gastric Biopsy py, Gastric Biopsy py, Gastric Biopsy Other Attendee Superficial Wound Closed By: Last Modified By: Deanne Gibson, Deanne Narayanan, Deanne Narayanan, ZAHRAA 05/10/19 09:17:31 05/10/19 09:17:31 05/10/19 09:17:31 Entry 4 Case Attendee URBANO GONZALEZ Role Performed Scrub, First Time In 05/10/19 09:04:00 Time Out 05/10/19 09:15:00 Procedure Esophagogastroduodenosco py, Gastric Biopsy Other Attendee Superficial Wound Closed By: Last Modified By: Deanne Gibson RN 05/10/19 09:17:53 [facility] - Case Attendance Audit 05/10/19 09:17:53 Clinical Neuropsychologist: [id number] Modifier: [id number] <+> Case Attendee 4 <*> Procedure Esophagogastroduodenoscopy, Gastric Biopsy 05/10/19 09:17:31 Clinical Neuropsychologist: [id number] Modifier: [id number] 1 <+> Time Out 1 <*> Procedure Esophagogastroduodenoscopy, Gastric Biopsy 2 <+> Time Out 2 <*> Procedure Esophagogastroduodenoscopy, Gastric Biopsy 3 <+> Time Out 3 <*> Procedure Esophagogastroduodenoscopy, Gastric Biopsy 4 <+> Time Out 4 <*> Procedure Esophagogastroduodenoscopy, Gastric Biopsy 05/10/19 09:10:43 Clinical Neuropsychologist: [id number] Modifier: [id number] 1 <*> Procedure Esophagogastroduodenoscopy 2 <*> Procedure Esophagogastroduodenoscopy 3 <*> Procedure Esophagogastroduodenoscopy 4 <*> Procedure Esophagogastroduodenoscopy 05/10/19 09:05:40 Clinical Neuropsychologist: [id number] Modifier: [id number] <+> 1 Procedure 2 <*> Procedure Esophagogastroduodenoscopy 3 <*> Procedure Esophagogastroduodenoscopy 4 <*> Procedure Esophagogastroduodenoscopy [facility] - Case Times Entry 1 Patient In Room Time 05/10/19 09:04:00 Out Room Time 05/10/19 09:15:00 Anesthesia Start Time 05/10/19 09:04:00 Stop Time 05/10/19 09:11:00 Surgery / Procedure Times Start Time 05/10/19 09:08:00 Stop Time 05/10/19 09:11:00 Last Modified By: Deanne Gibson RN 05/10/19 09:14:20 [facility] - Case Times Audit 05/10/19 09:14:20 Clinical Neuropsychologist: [id number] Modifier: [id number] <+> 1 Out Room Time 05/10/19 09:14:05 Clinical Neuropsychologist: [id number] Modifier: [id number] <+> 1 Stop Time <+> 1 Stop Time 05/10/19 09:10:05 Clinical Neuropsychologist: [id number] Modifier: [id number] <+> 1 Start Time [facility] - Cultures and Spec Summary Entry 1 Cultrures and Specimens Specimen Ordered: Yes Test(s) Routine/Path-Lab Requested/Final Disposition Last Modified By: Deanne Gibson RN 05/10/19 09:11:56 General Comments: gastric biopsy, esophageal biopsy [facility] - Cultures and Spec Summary Audit 05/10/19 09:11:56 Clinical Neuropsychologist: [id number] Modifier: [id number] 1 <*> Test(s) Requested/Final Disposition [facility] - Delays Entry 1 Delay Reason Other Duration 0 Minute(s) Comment NO DELAY Last Modified By: Deanne Gibson RN 05/10/19 09:05:23 [facility] - Departure from OR Entry 1 Integumentary Assessment Integumentary WDL Assessment WDL Transfer/Handoff Transfer to PACU Phase I Post-op Transport Stretcher/Gurney Via Patient Transport Deanne Gibson, Accompanied by DARREL VITAL LEAH BETH, CRNA Last Modified By: Deanne Gibson RN 05/10/19 09:07:39 [facility] - Endoscopy Details Entry 1 Abdomen Procedure Soft, Non-Tender Assessment Procedure Abdomen 05/10/19 09:05:00 Assessment D/T Radio Frequency Ablation Last Modified By: Deanne Gibson RN 05/10/19 09:05:33 [facility] - Fire Risk Assessment Entry 1 Fire Info Surgical Site or 1- Yes Incision Above the Xyphoid Open O2 Source 1- Yes (Mask or Cannula) Available Ignition 1- Yes (ESU, Laser, Light Source) Fire Risk 3 Assessment Score Fire Score Fire Risk Yes Assessment Complete Fire Risk Deanne Gibson RN Assessment Verified By Fire Risk 05/10/19 09:07:00 Assessment Verified Date/Time Fire Risk High Risk Protocol Yes Implemented Standard Fire Yes Safety Precautions Followed Last Modified By: Deanne Gibson RN 05/10/19 09:07:47 [facility] - General Case Bark Peeler 1 Case Information [place] Endo 01 [facility] Case Level 1 Room Verified Yes Wound Class II - Clean-Contaminated Specialty SN General Anesthesia Type MAC ASA Class 2 Diagnosis Preop Diagnosis dysphagia Postop Same As Preop No Postop Diagnosis esophagitis, gastritis Last Modified By: Deanne Gibson RN 05/10/19 09:13:28 [facility] - General Case Data Audit 05/10/19 09:13:28 Clinical Neuropsychologist: [id number] Modifier: [id number] <+> 1 Postop Diagnosis 05/10/19 09:07:14 Clinical Neuropsychologist: [id number] Modifier: [id number] <+> 1 Postop Same As Preop [facility] - Intraoperative Assessment Entry 1 Valid History / Yes Physical in Chart Preoperative Yes Checklist Reviewed/Evaluated Allergies Reviewed Yes Patient is Latex No Sensitive Level of WDL Consciousness (WDL = Alert, Oriented to Person, Place, and Time) Present Upon IVs, ECG monitored Arrival to OR Last Modified By: Deanne Gibson RN 05/10/19 09:06:07 [facility] - Intraoperative Equipment Entry 1 Type Scope Equipment Intraop Monitoring Electrocardiogram Three lead placement (ECG) Electrode Placement Blood Pressure Arm, left upper Location Pulse Oximeter Hand, right Probe Site Antiembolic Devices Scopes Flexible Endoscopes Gastroscope Used Scope Serial 2544 Number/Identificatio n Number Photo/Video Documentation Photo Yes Video No Last Modified By: Deanne Gibson RN 05/10/19 09:05:55 [facility] - Patient Positioning Entry 1 Procedure Esophagogastroduodenosco py, Gastric Biopsy Body Position Lateral, right side up Left Arm Position Resting at side Right Arm Position Resting at side Left Leg Position Other Right Leg Position Other Position Comments Right leg over left leg uncrossed Feet Uncrossed Yes Pressure Points Yes Checked Positioned By Deanne Gibson RN, ANTON ROJO CRNA Position Verified Positioning Yes Verified by Surgeon Last Modified By: Deanne Gibson RN 05/10/19 09:10:45 [facility] - Patient Positioning Audit 05/10/19 09:10:45 Clinical Neuropsychologist: [id number] Modifier: [id number] 1 <*> Procedure Esophagogastroduodenoscopy [facility] - Sign In Entry 1 Patient, Site, Yes Procedure Identified Surgical Consent Yes Confirmed Surgical Site N/A Marked by person performing procedure Allergies Yes Airway Hypothermia Risk No Warming Measures No Taken Last Modified By: Deanne Gibson RN 05/10/19 09:07:30 [facility] - Sign Out Entry 1 RN Confirmation Surgical Yes Procedure(s) Identified Instrument, Sponge N/A and Sharps Counts Correct/Documented Equipment Problems N/A Documented Specimen Labeled Yes Correctly Urinary Catheter N/A Documented in IView Safety Checklist Yes Elements Complete? RN Sign Out Deanne Gibson RN Signature RN Sign Out 05/10/19 09:12:00 Signature Date/Time Plan of Care Outcome - Fire Risk OUTCOME STATEMENT: Goal met Patient is free from injury related to surgical fire Plan of Care Outcome - Pt Positioning OUTCOME STATEMENT: Goal met Absence of signs and symptoms of positioning injury. Plan of Care Outcome - Skin Prep OUTCOME STATEMENT: Goal met Intraoperative care is consistent with measures to prevent infection Plan of Care Outcome - Xray/Images OUTCOME STATEMENT: N/A Absence of observable signs or symptoms of radiation injury Plan of Care Outcome - Counts OUTCOME STATEMENT: N/A Absence of signs and symptoms of injury related to extraneous objects Last Modified By: Deanne Gibson RN 05/10/19 09:12:34 [facility] - Surgical Procedures Entry 1 Entry 2 Procedure Esophagogastroduodenosco Gastric Biopsy py Modifiers Additional Procedure Description Primary Procedure Yes No Primary Surgeon DEVORAH, STANKATIE CARVALHO JOSHUA, MD-DANUTA Start 05/10/19 09:08:00 05/10/19 09:08:00 Stop 05/10/19 09:11:00 05/10/19 09:11:00 Physician States Cecum Reached Anesthesia Type MAC MAC Specialty SN General SN General Wound Class II - Clean-Contaminated II - Clean-Contaminated Last Modified By: Deanne Gibson RN Fightmaster, Teresa, RN 05/10/19 09:14:39 05/10/19 09:14:39 [facility] - Surgical Procedures Audit 05/10/19 09:14:39 Clinical Neuropsychologist: [id number] Modifier: [id number] <+> 1 Stop <+> 2 Stop 05/10/19 09:10:40 Clinical Neuropsychologist: [id number] Modifier: [id number] <+> 1 Start <+> 2 Procedure <+> 2 Primary Procedure <+> 2 Primary Surgeon <+> 2 Specialty <+> 2 Start <+> 2 Wound Class <+> 2 Anesthesia Type [facility] - Time Out Entry 1 Procedure to be Esophagogastroduodenosco Performed py, Gastric Biopsy Time Out Time Out Pause Time 05/10/19 09:06:00 All activity Yes suspended (unless life threatening emergency) Team Verbally Correct patient Confirms Information identity, Consent form is present and accurate, Agreement on the procedure to be done Antibiotic N/A Prophylaxis Administered Or In Progress Within the Last 60 Minutes Beta Idalia N/A Administered Venous N/A Thromboembolism Prophylaxis Required Anticipated Critical Events Surgeon None expected Last Modified By: Deanne Gibson RN 05/10/19 09:10:45 [facility] - Time Out Audit 05/10/19 09:10:45 Clinical Neuropsychologist: [id number] Modifier: [id number] 1 <*> Procedure to be Performed Esophagogastroduodenoscopy Case Comments <None> Finalized By: Deanne Gibson RN Document Signatures Signed By: Deanne Gibson RN 05/10/19 09:17 documented in this encounter Plan of Treatment Upcoming Encounters Date Type Department Care Team (Late st Contact Info) Description 03/20/2025 10:45 AM EST Office Visit [facility] [address] [place] [address] Stanislav Cruz MD [address] [facility] [address] [place] [address] documented as of this encounter Visit Diagnoses Not on filedocumented in this encounter
--- OUTSIDE RECORDS SUMMARY | 2025-03-13 14:11 | XMS_ITS | Encounter Summary ---
Author Organization [employer] ([place], [place], [place], [place], [place]) Address [address] [place] [address] Care Team Providers Care Cage Cashier Name Role Phone Unavailable Primary Care Provider Unavailabl e Encounter Details Date Type Department Care Team (Late st Contact Info) Description 06/13/2019 Transcribed Document [facility] Family Medicine [address] [place] [address] ProviderCarmela MD [address] [phone] Social History Tobacco Use Types Packs/Day Years Used Date Smoking Tobacco: Never Assessed Comments Unknown Sex and Gender Information Value Date Recorded Sex Assigned at Not on file Legal Sex Female 1:20 PM CDT Gender Identity Not on file Sexual Orientation Not on file documented as of this encounter Miscellaneous Notes * Cerner Conversion Note - Carmela ProviderMD - 06/13/2019 8:51 AM DEHYDRATION PLANT OPERATOR Stroke/Warfarin Instructions Entered On: 06/13/2019 8:51 EST Performed On: 06/13/2019 8:51 EST by Sherry Duffy RN Stroke/Warfarin Instructions Stroke/TIA Discharge Ins : N/A Warfarin Discharge Ins : N/A Sherry Duffy RN - 06/13/2019 8:51 EST Electronically signed by Babatunde Pablo Conversion Disability Services Coordinator Cerner at 08/18/2022 11:48 AM CDT documented in this encounter Plan of Treatment Upcoming Encounters Date Type Department Care Team (Late st Contact Info) Description 03/20/2025 10:45 AM EST Office Visit [facility] [address] [facility] [address] [place] [address] Stanislav Cruz MD [address] [place] [address] documented as of this encounter Visit Diagnoses Not on filedocumented in this encounter
--- OUTSIDE RECORDS SUMMARY | 2025-03-13 14:11 | XMS_ITS | Encounter Summary ---
Author Organization [employer] ([place], [place], [place], [place], [place]) Address [address] [place] [address] Care Team Providers Care Physician Industrial Name Role Phone Unavailable Primary Care Provider Unavailabl e Encounter Details Date Type Department Care Team (Late st Contact Info) Description 07/12/2019 Transcribed Document [facility] [place] [address] ProviderCarmela MD [address] [place] [address] [phone] Social History Tobacco Use Types Packs/Day Years Used Date Smoking Tobacco: Never Assessed Comments Unknown Sex and Gender Information Value Date Recorded Sex Assigned at Not on file Legal Sex Female 1:20 PM CDT Gender Identity Not on file Sexual Orientation Not on file documented as of this encounter Miscellaneous Notes * Cerner Conversion Note - Carmela ProviderMD - 07/12/2019 11:45 AM CDT CHELSEA Lebron PreOp Summary Primary Physician: CLIFF BETH MD-GAE Finalized Date/Time: 07/12/19 11:13:20 Pt. Name: RENNY AHN/Sex: 1975 Female Med Rec #: [id number] Physician: CLIFF BETH MD-GAE Financial #: [id number] Pt. Type: E Room/Bed: EEN/14 Admit/Disch: 07/12/19 10:27:00 - Institution: [facility] PreOp Case Times Entry 1 In Preop 07/12/19 10:47:00 Ready for Holding n/a Room Patient Ready for 07/12/19 11:13:00 Surgery Patient Out of Preop 07/12/19 11:13:00 Patient Out of n/a Holding Room Finalized By: RHONDA NEWBY RN Document Signatures Signed By: RHONDA NEWBY RN 07/12/19 11:13 Electronically signed by Samy [facility] Conversion Warehouse Order Filler Cerner at 08/18/2022 11:26 AM CDT documented in this encounter Plan of Treatment Upcoming Encounters Date Type Department Care Team (Late st Contact Info) Description 03/20/2025 10:45 AM EST Office Visit [facility] Bariatric Services [address] [address] Stanislav Cruz MD [address] [facility] [address] [place] [address] documented as of this encounter Visit Diagnoses Not on filedocumented in this encounter
--- OUTSIDE RECORDS SUMMARY | 2025-03-13 14:11 | XMS_ITS | Referral Summary ---
Author Organization [employer] ([place], [place], [place], [place], [place]) Address [address] [place] [address] Care Team Providers Care Chief Warden Name Role Phone Unavailable Primary Care Provider Unavailabl e Encounters Date Type Department Care Team Description 03/08/2025 Telephone [facility]ariatric [facility] [address] [place] [address] Stanislav Cruz MD Nutrition Counseling 03/07/2025 Telephone [facility] [address] [place] [address] Heike Strauss CMA Status 01/29/2025 Telephone [facility]ariat[facility] Services [facility] [address] [place] [address] Appointment from [...] Date Romel rded Speak language other than [place] Islander at home Not on file 09/06/2023 Want [...] 03/20/2025 10:45 AM EST Office Visit [facility] Bariatric Services [address] [facility] [address] [place] [address] Stanislav Cruz MD [address] [facility] [address] [place] [address] Procedures Procedure Name Priority Date/Time Associated Diagnosis [...] family history of breast cancer. COMPARISON STUDY: [id number] from [facility] FINDINGS: Craniocaudal and mediolateral oblique images [...] the next mammogram. At our facility, a [place] marker is positioned over a visible skin lesion and a linear marker is used to indicate a scar. A triangular marker is placed on a self reported palpable finding. Procedure Note Tasha Henderson MD - 08/17/2022 PROCEDURE: Digital screening mammogram with Digital Breast Tomosynthesis (DBT). REASON FOR EXAM: Routine screening. FAMILY HISTORY: There is no family history of breast cancer. COMPARISON STUDY: from [facility] FINDINGS: Craniocaudal and mediolateral oblique images [...] the next mammogram. At our facility, a [place] marker is positioned over a visible skin lesion and a linear marker is used to indicate a scar. A triangular marker is placed on a self reported palpable finding. us Tasha Henderson MD IMG MAMMOGRAPHY ORDERABLES Fin al Result from Last 3 Months or Most Recently Relevant to Health Maintenance
--- OUTSIDE RECORDS SUMMARY | 2025-03-13 14:11 | XMS_ITS | Encounter Summary ---
Author Organization [employer] ([place], [place], [place], [place], [place]) Address [address] [place] [address] Care Team Providers Care Employee Benefits Administrator Name Role Phone Unavailable Primary Care Provider Unavailabl e Encounter Details Date Type Department Care Team (Late st Contact Info) Description 05/10/2019 Transcribed Document [facility] [place] [facility] [place] [address] ProviderCarmela MD [address] [place], [place] [phone] Social History Tobacco Use Types Packs/Day Years Used Date Smoking Tobacco: Never Assessed Comments Unknown Sex and Gender Information Value Date Recorded Sex Assigned at Not on file Legal Sex Female 1:20 PM CDT Gender Identity Not on file Sexual Orientation Not on file documented as of this encounter Miscellaneous Notes * Cerner Conversion Note - Carmela ProviderMD - 05/10/2019 8:43 AM QUALITY COMPLIANCE CONSULTANT Pre Procedure Adult Entered On: 05/10/2019 8:52 EST Performed On: 05/10/2019 8:43 EST by RHONDA NEWBY RN Height and Weight, Clinical Dosing Height Source : Stated Height Entry Format : Butler Height, Feet : 5 ft(Converted to: 152 cm, 60 Inch) Height, Inches : 5 Inch(Converted to: 0 ft 5 Inch, 12.70 cm) Clinical Height : 165.1 cm Weight Source : Standing scale Weight Entry Format : Butler Clinical Dosing Weight : 67.05 kg Weight, Pounds : 147 lb Weight, Ounces : 8 oz Body Surface Area (BSA) : 1.74 m2 Body Mass Index : 24.6 kg/m2 (HI) [place] Body Weight : 57 kg RHONDA NEWBY RN - 05/10/2019 8:43 EST Health Histories Smoking Status : Never (less than 100 in lifetime; none in last 30 days) Smokeless Tobacco Status : Never RHONDA NEWBY RN - 05/10/2019 8:43 EST Social History (As Of: 05/10/2019 08:52:43 EST) Tobacco: Never (less than 100 in [...] Updated: 05/10/2019 08:43:12 EST by RHONDA NEWBY, RN) Infectious Disease History Infectious Disease History : Chicken pox/Shingles, Influenza, Mononucleosis Isolation Needed : Standard Fever/Chills Last 48 Hours : No Travel To Regions with Travel Advisories : No Travel Outside [place] Within Last 30 Days : No Contact With Traveler to Advisory Region : No Tuberculosis Symptoms : None RHONDA NEWBY RN - 05/10/2019 8:43 EST Anesthesia/Transfusion History Family History of Anesthesia Reaction : Prior transfusion without reaction Transfusion History : Prior anesthesia without reaction Family History of Anesthesia Reaction : Other: mom is hard to wake up after sx RHONDA NEWBY RN - 05/10/2019 8:43 EST Functional Assessment Living Situation : Home Patient Lives With : Spouse Current Home Treatments : None RHONDA NEWBY RN - 05/10/2019 8:43 EST [place] Suicide Severity Rating Scale (C-SSRS) CSSRS Past Month Wish to be : No CSSRS Past Month Suicidal Thoughts : No CSSRS Lifetime Suicide Behavior : No Suicide Severity Rating Score : 0 Suicide Severity Rating : No Additional Care Required at this time RHONDA NEWBY RN - 05/10/2019 8:43 EST Psychosocial History Chronic/Terminal Illness w/Freq Visits : No Currently in Unsafe Situation : No RHONDA NEWBY RN - 05/10/2019 8:43 EST Advance Directive Patient has Advance Directive *Q : No, patient refuses Advance Directive information RHONDA NEWBY RN - 05/10/2019 8:43 EST Teaching/Learning Assessment Barriers To Learning : None evident Individuals Taught : Patient Readiness to Learn : Cooperative Highest Level of Education : Post graduate degree(s) Baseline Knowledge of Topic : Good Readiness to Learn : Explanation Learning Style Preferences Patient : Verbal explanation Learning Style Preferences Family : Verbal explanation RHONDA NEWBY RN - 05/10/2019 8:43 EST General Info Preferred Name : mayela Arrived From : Home Mode of Arrival on Unit : Ambulatory Legal Guardian : Mother Want Family/Rep/Phys Notified of Admit : Yes Name/Contact Info Fam/Rep Notified Adm : Alec Ahn Name/Contact Info Physician Notified Adm : Rober Marshall Emergency Contact #1 : Alec Ahn Emergency Contact #1 Emergency Contact #1 Relationship : Emergency Contact #2 : None Emergency Contact #2 Phone Number : None Emergency Contact #2 Relationship : None Information Obtained From : Patient Primary Language : [place]er Preferred Communication Mode : Verbal Communication Barrier : None Objects to Sharing Info w Family : No RHONDA NEWBY RN - 05/10/2019 8:43 EST Sleep Apnea Risk Assmt Hx of Obstructive Sleep Apnea Diagnosis : No Snore Loudly : No Tired, Fatigued, or Sleepy During Day : No Observed Stopping Breathing During Sleep : No Have/Are Being Treated for Hypertension : No BMI Greater Than 35 kg/m2 : No Age over 50 Years Old : No Neck Circumference Greater Than 40 cm : No Gender Male : No STOP-BANG Sleep Apnea Risk Level Score : 0 RHONDA NEWBY RN - 05/10/2019 8:43 EST [place] Scale [place] Sensory Perception : No impairment [place] Moisture : Rarely moist [place] Activity : Walks frequently [place] Mobility : No limitation [place] Nutrition : Adequate [place] Friction and Shear : No apparent problem [place] Score : 22 RHONDA NEWBY RN - 05/10/2019 8:43 EST Pain Assessment Pain Assessment : Initial assessment Pain Scale Goal : 3 Pain Scale Used : 0-10 Scale RHONDA NEWBY RN - 05/10/2019 8:43 EST Fall Risk Scales ABCs Fall Injury Risk Identification : None FLOWER Hx Falls Immediate/Within 3 Months : No Flower Secondary Diagnosis : No FLOWER Use of Ambulatory Aid : None FLOWER IV Therapy or IV Access : Yes Flower Gait/Transferring : Normal, bedrest, immobile Flower Mental Status : Oriented to own ability FLOWER Fall Scale Risk Level : 0-24 Low Risk [place] Fall Interventions : Adequate lighting, Bed in low position, Call device within reach, Frequent orientation to call device, Frequent orientation to surroundings, Personal items within reach, Reinforced to call for assistance before getting out of bed, Room free of clutter/spills, Upper side-rails up, Wheels locked RHONDA NEWBY RN - 05/10/2019 8:43 EST Valuables and Belongings Valuables and Belongings : Clothing, Personal devices Clothing : Common streetwear Clothing Disposition : Bedside, With family, With patient Personal Device Disposition : Bedside, With family, With patient Personal Devices : Glasses RHONDA NEWBY RN - 05/10/2019 8:43 EST Pain Scale Intensity : 0 RHONDA NEWBY RN - 05/10/2019 8:43 EST Image 4 - Images currently included in the form version of this document have not been included in the text rendition version of the form. documented in this encounter Plan of Treatment Upcoming Encounters Date Type Department Care Team (Late st Contact Info) Description 03/20/2025 10:45 AM EST Office Visit [facility] Bariatric Services [address] [facility] [address] [place] [address] Stanislav Cruz MD [address] [place] [address] documented as of this encounter Visit Diagnoses Not on filedocumented in this encounter
--- OUTSIDE RECORDS SUMMARY | 2025-03-13 14:11 | XMS_ITS | Encounter Summary ---
Author Organization [employer] ([place], [place], [place], [place], [place]) Address [address] [place] [address] Care Team Providers Care Instrument Panel Assembler Name Role Phone Unavailable Primary Care Provider Unavailabl e Encounter Details Date Type Department Care Team (Late st Contact Info) Description 06/13/2019 Transcribed Document [facility] [place] [facility] [place] [address] ProviderCarmela MD [address] [place] [address] [phone] Social History Tobacco Use Types Packs/Day Years Used Date Smoking Tobacco: Never Assessed Comments Unknown Sex and Gender Information Value Date Recorded Sex Assigned at Not on file Legal Sex Female 1:20 PM CDT Gender Identity Not on file Sexual Orientation Not on file documented as of this encounter Miscellaneous Notes * Cerner Conversion Note - Carmela ProviderMD - 06/13/2019 9:15 AM PATIENT MONITOR Final Discharge Planning Entered On: 06/13/2019 9:15 EST Performed On: 06/13/2019 9:15 EST by TODD CAMARENA RN-Chemistry Professor Final Discharge Planning Discharge Arrangements : Patient Post-Acute Information Patient Name: RENNY AHN Gender: Female : [birth year] Age: 44 Years No Post-Acute Placement(s) Listed No Post-Acute Service(s) Listed No [place] Referral(s) Listed Transportation Needs : Family/Friend Follow Up Appointment Scheduled : Yes Is Patient High/Moderate Readmission Risk? : No Patient/Family Notified of Plan : Yes Discharge To Care Management : Home/Residential/Prison or Self Care -01 TODD CAMARENA, RN-Chemistry Professor - 06/13/2019 9:15 EST documented in this encounter Plan of Treatment Upcoming Encounters Date Type Department Care Team (Late st Contact Info) Description 03/20/2025 10:45 AM EST Office Visit [facility] Bariatric Services [address] [facility] [address] [place] [address] Stanislav Cruz MD [address] [facility] [address] [place] [address] documented as of this encounter Visit Diagnoses Not on filedocumented in this encounter
--- OUTSIDE RECORDS SUMMARY | 2025-03-13 14:11 | XMS_ITS | Encounter Summary ---
Author Organization [employer] ([place], [place], [place], [place], [place]) Address [address] [place] [address] Care Team Providers Care Medical Billing Clerk Name Role Phone Unavailable Primary Care Provider Unavailabl e Encounter Details Date Type Department Care Team (Late st Contact Info) Description 05/23/2019 Transcribed Document [facility] [place] [facility] [place] [address] ProviderCarmela MD [address] [place] [phone] Social History Tobacco Use Types Packs/Day Years Used Date Smoking Tobacco: Never Assessed Comments Unknown Sex and Gender Information Value Date Recorded Sex Assigned at Not on file Legal Sex Female 1:20 PM CDT Gender Identity Not on file Sexual Orientation Not on file documented as of this encounter Miscellaneous Notes * Cerner Conversion Note - Carmlea Feliciano MD - 05/23/2019 8:45 AM DEFECT CUTTER DATE OF PROCEDURE: SURGEON: Franklin Bueno MD INDICATIONS: The patient is having dysphagia. She is scheduled for upper endoscopy. OPERATION PROCEDURE DESCRIPTION: After obtaining informed consent, she was taken to the endoscopy suite. IV sedation was administered and a bite block was placed into position. The patient's oropharynx was cannulated under direct vision and advancing distally through the oropharynx revealed a fair amount of esophagitis. Upon entering the sleeve, it was normal anatomy and mild antral gastritis was noted. First and second portions of the duodenum were normal. Gastric biopsies and esophageal biopsies were obtained. Spontaneous hemostasis was noted. The scope was withdrawn. The patient was taken to the recovery area. /[id number] MD FOREST Shannon/AQ / JS / MODL /[id number] Electronically signed by Samy, [facility] Conversion Residential Tech Cerner at 08/18/2022 11:44 AM CDT documented in this encounter Plan of Treatment Upcoming Encounters Date Type Department Care Team (Late st Contact Info) Description 03/20/2025 10:45 AM EST Office Visit Bariatric Services [address] [address] Stanislav Cruz MD [address] [facility] [address] [place] [address] documented as of this encounter Visit Diagnoses Not on filedocumented in this encounter
--- OUTSIDE RECORDS SUMMARY | 2025-03-13 14:11 | XMS_ITS | Encounter Summary ---
Author Organization [employer] ([place], [place], [place], [place], [place]) Address [address] [place] [address] Care Team Providers Care Public Speaking Instructor Name Role Phone Unavailable Primary Care Provider Unavailabl e Encounter Details Date Type Department Care Team (Late st Contact Info) Description 05/10/2019 Transcribed Document [facility] [place] [facility] [place] [address] ProviderCarmela MD [facility] [place] [phone] Social History Tobacco Use Types Packs/Day Years Used Date Smoking Tobacco: Never Assessed Comments Unknown Sex and Gender Information Value Date Recorded Sex Assigned at Not on file Legal Sex Female 1:20 PM CDT Gender Identity Not on file Sexual Orientation Not on file documented as of this encounter Miscellaneous Notes * Cerner Conversion Note - Carmela ProviderMD - 05/10/2019 2:51 AM RAILROAD TRACK REPAIR SUPERVISOR CR Chest 1 Vw Portable Ordered: 05/09/2019 Modified Reason for Exam: chest tightness 05/09/2019 14:17 05/10/2019 02:51 (Vlad Andre, Cold Type Artist) No further action required documented in this encounter Plan of Treatment Upcoming Encounters Date Type Department Care Team (Late st Contact Info) Description 03/20/2025 10:45 AM EST Office Visit [facility] Bariatric Services [address] [facility] [address] [place] [address] Stanislav Cruz MD [address] [facility] [address] [place] [address] (work) documented as of this encounter Visit Diagnoses Not on filedocumented in this encounter
--- OUTSIDE RECORDS SUMMARY | 2025-03-13 14:11 | XMS_ITS | Encounter Summary ---
Author Organization [employer] ([place], [place], [place], [place], [place]) Address [address] [place] [address] Care Team Providers Care It Data Architect Name Role Phone Unavailable Primary Care Provider Unavailabl e Encounter Details Date Type Department Care Team (Late st Contact Info) Description 06/12/2019 Transcribed Document [facility] Surgery - [facility] [address] [place] [id number] Nick Thurman MD [address] [place] [address] Social History Tobacco Use Types Packs/Day Years Used Date Smoking Tobacco: Never Assessed Comments Unknown Sex and Gender Information Value Date Recorded Sex Assigned at Not on file Legal Sex Female 1:20 PM CDT Gender Identity Not on file Sexual Orientation Not on file documented as of this encounter Miscellaneous Notes * Cerner Conversion Note - Nick Thurman MD - 06/12/2019 5:44 PM EST DATE OF PROCEDURE: 06/12/2019 SURGEON: Nick Thurman MD PREOPERATIVE DIAGNOSIS: Acute appendicitis. POSTOPERATIVE DIAGNOSIS: Acute appendicitis. PROCEDURE PERFORMED: Laparoscopic appendectomy. PAPER BOX CUTTER: Cody Mauro PA-C. ANESTHESIA: General. ESTIMATED BLOOD LOSS: Minimal. COMPLICATIONS: None. OPERATIVE INDICATIONS: Ms. Ahn is a 44-year-old female patient, who was seen in the emergency department today for lower abdominal pain. Workup included a CT scan of the abdomen and pelvis, which revealed evidence of acute appendicitis. Laparoscopic appendectomy was offered and recommended and after the risks and benefits of operative interventions were explained to her, she wished to proceed. OPERATIVE FINDINGS: Acute gangrenous appendicitis without perforation. OPERATIVE DESCRIPTION: After obtaining informed consent, Ms. Ahn was taken to the operating room and placed in supine position. General anesthesia was induced. Her abdomen was prepped and draped in the usual sterile fashion. Attention was turned to the umbilicus where a Veress needle was inserted and pneumoperitoneum was established. A 5 mm Optiview trocar was placed and laparoscopic camera was used to inspect the abdominal contents. There was no evidence of Veress needle or trocar trauma. Attention was then turned to the lower abdomen where 2 additional trocars were placed under direct visualization. The right lower quadrant was then inspected. The appendix was readily identified and found to be inflamed and gangrenous. However, there was no evidence of perforation or abscess. The appendix was grasped and elevated. It was divided at its base using an Endo-NANCI stapler with a blue staple load. Next, the mesoappendix was divided using a white staple load. Next, the appendix was removed from the abdomen using an endo specimen bag. Meticulous hemostasis was ensured along both staple lines. The right lower quadrant was then irrigated using sterile saline. Next, the umbilical fascial defect was closed using a 0 Vicryl stitch in the Dieter-Chanel method. The remaining trocars were then removed and pneumoperitoneum was reduced. All 3 skin incisions were then closed followed by sterile dressings. All sponge, needle, and instrument counts were correct at the end of the procedure. There were no complications. Ms. Ahn tolerated the procedure well. Finally, Ms. Ahn was extubated and taken to PACU in stable condition. /[id number] MD DAMIÁN Brink/AQ / DAMIÁN / MODL /[id number] documented in this encounter Plan of Treatment Upcoming Encounters Date Type Department Care Team (Late st Contact Info) Description 03/20/2025 10:45 AM EST Office Visit [facility] Services [address] [place] [address] Stanislav Cruz MD [address] [facility] [address] [place] [address] documented as of this encounter Visit Diagnoses Not on filedocumented in this encounter
--- OUTSIDE RECORDS SUMMARY | 2025-03-13 14:11 | XMS_ITS | Encounter Summary ---
Author Organization [employer] ([place], [place], [place], [place], [place]) Address [address] [place] [address] Care Team Providers Care Senior Climate Advisor Name Role Phone Unavailable Primary Care Provider Unavailabl e Encounter Details Date Type Department Care Team (Late st Contact Info) Description 05/10/2019 Transcribed Document [facility] [place] [facility] [place] [address] ProviderCarmela MD [address] [place] [id number] Social History Tobacco Use Types Packs/Day Years Used Date Smoking Tobacco: Never Assessed Comments Unknown Sex and Gender Information Value Date Recorded Sex Assigned at Not on file Legal Sex Female 1:20 PM CDT Gender Identity Not on file Sexual Orientation Not on file documented as of this encounter Miscellaneous Notes * Cerner Conversion Note - Carmela ProviderMD - 05/10/2019 9:00 AM COTTONSEED MEAT PRESSER CHELSEA Lebron PreOp Summary Primary Physician: STAN FAIRCHILD MD-SUR Finalized Date/Time: 05/10/19 08:57:40 Pt. Name: JIMY RENNYGENOVEVA Morin/Sex: 1975 Female Med Rec #: [id number] Physician: STAN FAIRCHILD MD-SUR Financial #: [id number] Pt. Type: O Room/Bed: N/6 Admit/Disch: 05/10/19 07:56:00 - Institution: [facility] PreOp Case Times Entry 1 In Preop 05/10/19 08:37:00 Ready for Holding n/a Room Patient Ready for 05/10/19 08:57:00 Surgery Patient Out of Preop 05/10/19 08:57:00 Patient Out of n/a Holding Room Finalized By: RHONDA NEWBY, RN Document Signatures Signed By: RHONDA NEWBY RN 05/10/19 08:57 documented in this encounter Plan of Treatment Upcoming Encounters Date Type Department Care Team (Late st Contact Info) Description 03/20/2025 10:45 AM EST Office Visit [facility] Bariatric Services [address] [facility] [address] [place] [address] Stanislav Cruz MD [address] [facility] [address] [place] [address] documented as of this encounter Visit Diagnoses Not on filedocumented in this encounter
--- OUTSIDE RECORDS SUMMARY | 2025-03-13 14:11 | XMS_ITS | Encounter Summary ---
Author Organization [employer] ([place], [place], [place], [place], [place]) Address [address] [place] [address] Care Team Providers Care Account Coordinator Name Role Phone Unavailable Primary Care Provider Unavailabl e Encounter Details Date Type Department Care Team (Late st Contact Info) Description 07/12/2019 Transcribed Document [facility] Family Medicine [facility] [place] [address] ProviderCarmela MD [address], [place] [id number] Social History Tobacco Use Types Packs/Day Years Used Date Smoking Tobacco: Never Assessed Comments Unknown Sex and Gender Information Value Date Recorded Sex Assigned at Not on file Legal Sex Female 1:20 PM CDT Gender Identity Not on file Sexual Orientation Not on file documented as of this encounter Miscellaneous Notes * Cerner Conversion Note - Historical ProviderMD - 07/12/2019 11:00 AM CDT Pre Procedure Adult Entered On: 07/12/2019 11:08 EDT Performed On: 07/12/2019 11:00 EDT by RHONDA NEWBY RN Height and Weight, Clinical Dosing Height Source : Stated Height Entry Format : [place] Height, Feet : 5 ft(Converted to: 152 cm, 60 Inch) Height, Inches : 5 Inch(Converted to: 0 ft 5 Inch, 12.70 cm) Clinical Height : 165.1 cm Weight Source : Standing scale Weight Entry Format : [place] Clinical Dosing Weight : 64.72 kg Weight, Pounds : 142 lb Weight, Ounces : 6 oz Body Surface Area (BSA) : 1.71 m2 Body Mass Index : 23.7 kg/m2 [place] Body Weight : 57 kg RHONDA NEWBY RN - 07/12/2019 11:00 EDT Health Histories Smoking Status : Never (less than 100 in lifetime; none in last 30 days) Smokeless Tobacco Status : Never RHONDA NEWBY RN - 07/12/2019 11:00 EDT Social History (As Of: 07/12/2019 11:08:40 EDT) Tobacco: Never (less than 100 in lifetime) Smoking Status. Never Smokeless Tobacco Status. (Last Updated: 05/10/2019 08:42:34 EST by RHONDA NEWBY, ZAHRAA) Alcohol: Alcohol Use History Yes. Use in Last 12 Months: Yes. Alcohol Use Frequency Monthly. (Last Updated: 05/10/2019 08:42:54 EST by RHONDA NEWBY, ZAHRAA) Substance Abuse: Drug Use Hx: No. Use in Last 12 Months: No. (Last Updated: 11/07/2017 10:38:38 EDT by ANJEL SANTANA RN) Nutrition/Health: Caffeine intake amount: 2 cups a day.. (Last Updated: 05/10/2019 08:43:12 EST by RHONDA NEWBY RN) Infectious Disease History COVID19 Screening : No Physical contact outside US in the last 30 days : No Infectious Disease History : Chicken pox/Shingles, Influenza, Mononucleosis Tuberculosis Symptoms : None RHONDA NEWBY RN - 07/12/2019 11:00 EDT Anesthesia/Transfusion History Family History of Anesthesia Reaction : Prior transfusion without reaction Transfusion History : Prior anesthesia without reaction Family History of Anesthesia Reaction : Other: mom is hard to wake up after sx RHONDA NEWBY RN - 07/12/2019 11:00 EDT Functional Assessment Living Situation : Home Patient Lives With : Dependent Child/Children, Spouse Current Home Treatments : None RHONDA NEWBY RN - 07/12/2019 11:00 EDT [place] Suicide Severity Rating Scale (C-SSRS) CSSRS Past Month Wish to be : No CSSRS Past Month Suicidal Thoughts : No CSSRS Lifetime Suicide Behavior : No Suicide Severity Rating Score : 0 Suicide Severity Rating : No Additional Care Required at this time RHONDA NEWBY RN - 07/12/2019 11:00 EDT Psychosocial History Chronic/Terminal Illness w/Freq Visits : No Currently in Unsafe Situation : No RHONDA NEWBY RN - 07/12/2019 11:00 EDT Advance Directive Patient has Advance Directive *Q : No, patient refuses Advance Directive information RHONDA NEWBY RN - 07/12/2019 11:00 EDT Teaching/Learning Assessment Barriers To Learning : None evident Individuals Taught : Patient Readiness to Learn : Cooperative Highest Level of Education : Post graduate degree(s) Baseline Knowledge of Topic : Good Readiness to Learn : Explanation Learning Style Preferences Patient : Verbal explanation Learning Style Preferences Family : Verbal explanation RHONDA NEWBY RN - 07/12/2019 11:00 EDT General Info Preferred Name : mayela Arrived From : Home Mode of Arrival on Unit : Ambulatory Legal Guardian : Mother Want Family/Rep/Phys Notified of Admit : Yes Name/Contact Info Fam/Rep Notified Adm : Alecyamil Lairdons Name/Contact Info Physician Notified Adm : Rober Marshall Emergency Contact #1 : Alec Ahn Emergency Contact #1 Emergency Contact #1 Relationship : Emergency Contact #2 : None Emergency Contact #2 Phone Number : None Emergency Contact #2 Relationship : None Information Obtained From : Patient Primary Language : Solomon Islander Preferred Communication Mode : Verbal Communication Barrier : None Objects to Sharing Info w Family : No RHONDA NEWBY RN - 07/12/2019 11:00 EDT Sleep Apnea Risk Assmt Hx of Obstructive Sleep Apnea Diagnosis : No Snore Loudly : Yes Tired, Fatigued, or Sleepy During Day : No Observed Stopping Breathing During Sleep : No Have/Are Being Treated for Hypertension : No BMI Greater Than 35 kg/m2 : No Age over 50 Years Old : No Neck Circumference Greater Than 40 cm : No Gender Male : No STOP-BANG Sleep Apnea Risk Level Score : 1 RHONDA NEWBY RN - 07/12/2019 11:00 EDT [place] Scale [place] Sensory Perception : No impairment [place] Moisture : Rarely moist [place] Activity : Walks frequently [place] Mobility : No limitation [place] Nutrition : Adequate [place] Friction and Shear : No apparent problem [place] Score : 22 RHONDA NEWBY RN - 07/12/2019 11:00 EDT Pain Assessment Pain Assessment : Initial assessment Pain Scale Goal : 5 Pain Scale Used : 0-10 Scale RHONDA NEWBY RN - 07/12/2019 11:00 EDT Fall Risk Scales ABCs Fall Injury Risk Identification : None BANKS Hx Falls Immediate/Within 3 Months : No Banks Secondary Diagnosis : No BANKS Use of Ambulatory Aid : None BANKS IV Therapy or IV Access : Yes Banks Gait/Transferring : Normal, bedrest, immobile Banks Mental Status : Oriented to own ability BANKS Fall Scale Risk Level : 0-24 Low Risk [place] Fall Interventions : Adequate lighting, Bed in low position, Call device within reach, Frequent orientation to call device, Frequent orientation to surroundings, Personal items within reach, Reinforced to call for assistance before getting out of bed, Room free of clutter/spills, Upper side-rails up, Wheels locked RHONDA NEWBY RN - 07/12/2019 11:00 EDT Valuables and Belongings Valuables and Belongings : Clothing Clothing : Common streetwear Clothing Disposition : Bedside, With family, With patient RHONDA NEWBY RN - 07/12/2019 11:00 EDT Pain Scale Intensity : 0 RHONDA NEWBY RN - 07/12/2019 11:00 EDT Image 4 - Images currently included in the form version of this document have not been included in the text rendition version of the form. documented in this encounter Plan of Treatment Upcoming Encounters Date Type Department Care Team (Late st Contact Info) Description 03/20/2025 10:45 AM EST Office [facility] [address] [facility] [address] [place] [address] Stanislav Cruz MD [address] [facility] [address] [place] [address] documented as of this encounter Visit Diagnoses Not on filedocumented in this encounter
--- OUTSIDE RECORDS SUMMARY | 2025-03-13 14:11 | XMS_ITS | Encounter Summary ---
Author Organization [employer] ([place], [place], [place], [place], [place]) Address [address] [place] [address] Care Team Providers Care Agricultural Sciences Professor Name Role Phone Unavailable Primary Care Provider Unavailabl e Encounter Details Date Type Department Care Team (Late st Contact Info) Description 06/12/2019 Transcribed Document [facility] [place] [facility] [place] [address] ProviderCarmela MD [address] [place] [phone] Social History Tobacco Use Types Packs/Day Years Used Date Smoking Tobacco: Never Assessed Comments Unknown Sex and Gender Information Value Date Recorded Sex Assigned at Not on file Legal Sex Female 1:20 PM CDT Gender Identity Not on file Sexual Orientation Not on file documented as of this encounter Miscellaneous Notes * Cerner Conversion Note - Carmela ProviderMD - 06/12/2019 3:09 PM [employer] [facility] Main OR IntraOp Summary Primary Physician: MELINA JENSEN MD-SUR Finalized Date/Time: 06/12/19 15:42:41 Pt. Name: RENNY AHN ARCHANA Morin/Sex: 1975 Female Med Rec #: [id number] Physician: MELINA JENSEN MD-SUR Financial #: [id number] Pt. Type: O Room/Bed: [facility]/6 Admit/Disch: 06/12/19 13:55:00 - Institution: [facility] IntraOp Case Attendance Entry 1 Entry 2 Entry 3 Case Attendee MELINA JENSEN GARNER, ANGELA, Sam Mccullough Scrub MD-SUR Tech Role Performed Surgeon/Proceduralist, DIRECTOR OF THE BIOPHYSICS FACILITY/Nurse Brass Molder Scrub, First First Time In 06/12/19 14:48:00 06/12/19 14:48:00 06/12/19 14:48:00 Time Out 06/12/19 15:39:00 06/12/19 15:18:00 06/12/19 14:55:00 Procedure Appendectomy Appendectomy Appendectomy Laparoscopic Laparoscopic Laparoscopic Other Attendee Superficial Wound Closed By: Last Modified By: Celestina Beaulieu RN Dobson, Melissa, Celestina Fernandes, ZAHRAA 06/12/19 15:42:16 06/12/19 15:42:16 06/12/19 15:42:16 Entry 4 Entry 5 Entry 6 Case Attendee Celestina Beaulieu RN PHILLIPS, TIFFANY D., Oziel Romero, REP Cross Country Truck Driver - SSI Role Performed Aircraft Cabin Cleaner, First Scrub, First Silver Wrapper, Ancillary Time In 06/12/19 14:48:00 06/12/19 14:48:00 06/12/19 14:48:00 Time Out 06/12/19 15:39:00 06/12/19 15:39:00 06/12/19 15:39:00 Procedure Appendectomy Appendectomy Appendectomy Laparoscopic Laparoscopic Laparoscopic Other Attendee Superficial Wound Closed By: Last Modified By: Celestina Beaulieu RN Dobson, Melissa, Celestina Fernandes, ZAHRAA 06/12/19 15:42:16 06/12/19 15:42:16 06/12/19 15:42:16 Entry 7 Entry 8 Case Attendee MARGA COTE PA-C WHITAKER, CARLY, DIRECTOR OF THE BIOPHYSICS FACILITY-ANS Role Performed Physician entry level marketing assistant DIRECTOR OF THE BIOPHYSICS FACILITY/Nurse Brass Molder Time In 06/12/19 14:48:00 06/12/19 15:18:00 Time Out 06/12/19 15:39:00 06/12/19 15:39:00 Procedure Appendectomy Appendectomy Laparoscopic Laparoscopic Other Attendee Superficial Wound Closed By: Last Modified By: Celestina Beaulieu RN Dobson, Melissa, ZAHRAA 06/12/19 15:42:16 06/12/19 15:42:16 [facility] IntraOp Case Attendance Audit 06/12/19 15:42:16 Professional Tutor: [id number] Modifier: [id number] 1 <+> Time Out 1 <*> Procedure Appendectomy Laparoscopic 2 <*> Procedure Appendectomy Laparoscopic 3 <*> Procedure Appendectomy Laparoscopic 4 <+> Time Out 4 <*> Procedure Appendectomy Laparoscopic 5 <+> Time Out 5 <*> Procedure Appendectomy Laparoscopic 6 <+> Time Out 6 <*> Procedure Appendectomy Laparoscopic 7 <+> Time Out 7 <*> Procedure Appendectomy Laparoscopic 8 <+> Time Out 8 <*> Procedure Appendectomy Laparoscopic 06/12/19 15:23:21 Professional Tutor: [id number] Modifier: [id number] 2 <+> Time Out 2 <*> Procedure Appendectomy Laparoscopic <+> 8 Case Attendee <+> 8 Role Performed <+> 8 Time In <+> 8 Procedure 06/12/19 15:09:25 Professional Tutor: [id number] Modifier: [id number] <+> 1 Time In <+> 1 Procedure 2 <+> Time In 2 <*> Procedure Appendectomy Laparoscopic 3 <+> Time In 3 <+> Time Out 3 <*> Procedure Appendectomy Laparoscopic 4 <+> Time In 4 <*> Procedure Appendectomy Laparoscopic <+> 5 Case Attendee <+> 5 Role Performed <+> 5 Time In <+> 5 Procedure <+> 6 Case Attendee <+> 6 Role Performed <+> 6 Time In <+> 6 Procedure <+> 7 Case Attendee <+> 7 Role Performed <+> 7 Time In <+> 7 Procedure [facility] IntraOp Case Times Entry 1 Patient In Room Time 06/12/19 14:48:00 Out Room Time 06/12/19 15:39:00 Anesthesia Start Time 06/12/19 14:48:00 Stop Time 06/12/19 15:39:00 Anesthesia Ready 06/12/19 14:48:00 Surgery / Procedure Times Start Time 06/12/19 15:09:00 Stop Time 06/12/19 15:30:00 Last Modified By: Celestina Beaulieu RN 06/12/19 15:42:14 [facility] IntraOp Case Times Audit 06/12/19 15:42:14 Professional Tutor: [id number] Modifier: [id number] <+> 1 Out Room Time <+> 1 Stop Time <+> 1 Stop Time [facility] IntraOp Cautery Entry 1 ESU Identification Cautery Type Monopolar ESU ID Number [id number] ID Type Hospital Number Cautery Settings Cut Setting 0 Coag Setting 30 ESU Grounding Pad Ground Pad Type Adult Grounding Pad Site Left thigh Grounding Pad Celestina Beaulieu RN Applied By Grounding Pad Site Intact Skin Condition Before Cautery Grounding Pad Site Intact Skin Condition After Cautery Last Modified By: Celestina Beaulieu RN 06/12/19 15:11:23 [facility] IntraOp Cautery Audit 06/12/19 15:11:23 Professional Tutor: [id number] Modifier: [id number] <+> 1 Grounding Pad Site <+> 1 ID Number [facility] IntraOp Communication Entry 1 Communication To Family/Significant other Comment START OF PROCEDURE. Communication By Celestina Beaulieu RN Date and Time 06/12/19 15:10:00 Last Modified By: Celestina Beaulieu RN 06/12/19 15:10:38 [facility] IntraOp Counts Verification Entry 1 Procedure Appendectomy Laparoscopic Count Info Count Type Sponge, Sharps, Instrument Counts Verification Baseline/pre-procedure Sequence Counts Performed By Count Performed By Sam Morelos Scrub (Scrub) Tech Count Performed By Celestina Beaulieu RN (RN) Last Modified By: Celestina Beaulieu RN 06/12/19 14:30:49 [facility] IntraOp Counts Final Entry 1 Procedure Appendectomy Laparoscopic Final Count Info Count Type Sponge, Sharps Counts Verification Skin Closure/end of Sequence procedure Count Results Correct, surgeon notified Counts Performed By Count Performed By JOANNE SINGER (Scrub) Cross Country Truck Driver Count Performed By Celestina Beaulieu RN (RN) Last Modified By: Celestina Beaulieu RN 06/12/19 15:10:48 [facility] IntraOp Cultures and Spec Summary Entry 1 Cultrures and Specimens Specimen Ordered: Yes Test(s) Routine/Path-Lab Requested/Final Disposition Last Modified By: Celestina Beaulieu RN 06/12/19 15:17:58 [facility] IntraOp Departure from OR Entry 1 Integumentary Assessment Integumentary WDL Assessment WDL Transfer/Handoff Transfer to PACU Phase I Handoff Method Bedside/Face to face Post-op Transport Stretcher/Gurney Via Patient Transport Celestina Beaulieu RN, Accompanied by JODI FERRELL CRNA Last Modified By: Celestina Beaulieu RN 06/12/19 15:11:49 [facility] IntraOp Dressing and Packing Entry 1 Type Dressing Location abdomen Wound Dressing Item Skin adhesive Last Modified By: Celestina Beaulieu RN 06/12/19 15:36:36 [facility] IntraOp Fire Risk Assessment Entry 1 Fire Info Surgical Site or 0- No Incision Above the Xyphoid Open O2 Source 0- No (Mask or Cannula) Available Ignition 1- Yes (ESU, Laser, Light Source) Fire Risk 1 Assessment Score Fire Score Fire Risk Yes Assessment Complete Fire Risk Celestina Beaulieu RN Assessment Verified By Fire Risk 06/12/19 15:08:00 Assessment Verified Date/Time Fire Risk Standard Fire Yes Safety Precautions Followed Last Modified By: Celestina Beaulieu RN 06/12/19 15:12:02 [facility] IntraOp General Case Mobile Qa Tester 1 Case Information OR OR 06 SJE Case Level 1 Room Verified Yes Wound Class II - Clean-Contaminated Specialty SN General Anesthesia Type General ASA Class 2 Diagnosis Preop Diagnosis LOWER QUADRANT ABDOMINAL PAIN ASSOCIATED WITH NAUSEA Postop Same As Preop Yes Postop Diagnosis LOWER QUADRANT ABDOMINAL PAIN ASSOCIATED WITH NAUSEA Last Modified By: Celestina Beaulieu RN 06/12/19 15:14:41 [facility] IntraOp Intraoperative Assessment Entry 1 Handoff Method Bedside/Face to face Valid History / Yes Physical in Chart Preoperative Yes Checklist Reviewed/Evaluated Allergies Reviewed Yes Patient is Latex No Sensitive Isolation Not applicable Precautions Noted Level of WDL Consciousness (WDL = Alert, Oriented to Person, Place, and Time) Skin Assessment Yes Verified Present Upon IVs Arrival to OR Last Modified By: Celestina Beaulieu RN 06/12/19 15:14:47 [facility] IntraOp Intraoperative Equipment Entry 1 Type Equipment Equipment Intraop Monitoring Electrocardiogram Three lead placement (ECG) Electrode Placement Blood Pressure Non-Invasive BP Device Source Antiembolic Devices Antiembolic Devices Sequential compression device, knee high Antiembolic Device Bilateral Location Scopes Photo/Video Documentation Last Modified By: Celestina Beaulieu RN 06/12/19 15:15:11 [facility] IntraOp Medication Admin Entry 1 Medication/Irrigant lidocaine 1% w/ epinephrine 1:100,000 30ml vial - [id number] Time Administered 06/12/19 15:09:00 Route of LOCAL INJECTION Administration Dose Dose 20 Unit of Measure ml Administered By Celestina Beaulieu RN Procedure Irrigation Last Modified By: Celestina Beaulieu RN 06/12/19 15:16:05 [facility] IntraOp Patient Positioning Entry 1 Procedure Appendectomy Laparoscopic Body Position Supine Left Arm Position Tucked and padded at side Right Arm Position Secured on padded arm board Left Leg Position Uncrossed, parallel Right Leg Position Uncrossed, parallel Feet Uncrossed Yes Pressure Points Yes Checked Positioning Devices Arm Board, Safety Strap, Thighs, Safety Strap, Arm(s), Pillows Positioned By JODI FERRELL CRNA, Celestina Beaulieu, RN, MARGA COTE PA-C Position Verified Positioning Yes Verified by Anesthesia Positioning Yes Verified by Surgeon Last Modified By: Celestina Beaulieu RN 06/12/19 15:16:33 [facility] IntraOp Sign In Entry 1 Patient, Site, Yes Procedure Identified Surgical Consent Yes Confirmed Relevant Surgical Yes Documents Available Surgical Site N/A Marked by person performing procedure Anesthesia Machine Yes Check Completed Medication Checks Yes Completed Allergies Yes Airway Difficult Yes Airway/Aspiration Intervention Equipment Available Blood Loss Risk Yes Blood Loss Yes Intervention Equipment Prepared and Ready Hypothermia Risk Yes Warming Measures Yes Taken Last Modified By: Celestina Beaulieu RN 06/12/19 15:16:39 [facility] Intra Op Sign Out Entry 1 RN Confirmation Surgical Yes Procedure(s) Identified Instrument, Sponge Yes and Sharps Counts Correct/Documented Equipment Problems N/A Documented Specimen Labeled Yes Correctly Urinary Catheter Yes Documented in IView [place] Patient Yes Recovery Concerns Reviewed with Anesthesia Provider, Surgeon and RN [place] Patient Yes Management Concerns Reviewed with Anesthesia Provider, Surgeon and RN Safety Checklist Yes Elements Complete? RN Sign Out Celestina Beaulieu RN Signature RN Sign Out 06/12/19 15:39:00 Signature Date/Time Plan of Care Outcome - [...] of Care Outcome - Counts OUTCOME STATEMENT: Goal met Absence of signs and symptoms of injury related to extraneous objects Last Modified By: Celestina Beaulieu RN 06/12/19 15:42:29 General Comments: 16 JAPANESE BERMUDEZ CATHETER INSERTED WITHOUT INCIDENT PRIOR TO START OF PROCEDURE. CLEAR YELLOW URINE RETURN ON NSERTION [facility] Intra Op Sign Out Audit 06/12/19 15:42:29 Professional Tutor: [id number] Modifier: [id number] <*> RN Sign Out Signature Date/Time [facility] IntraOp Skin Prep Entry 1 Procedure Appendectomy Laparoscopic Prescribed Yes Pre-Surgical Prep Completed Prep Area XIPHOID TO PUBIS; BEDSIDE TO BEDSIDE Intraop Prep Integumentary WDL Assessment WDL Prep Agents Chloraprep Prep by Celestina Beaulieu RN Hair Removal Methods No hair removal performed Last Modified By: Celestina Beaulieu RN 06/12/19 15:17:37 [facility] IntraOp Surgical Procedures Entry 1 Procedure Appendectomy Laparoscopic Additional LAPAROSCOPIC Procedure APPENDECTOMY Description Primary Procedure Yes Primary Surgeon MELINA JENSEN MD-DANUTA Start 06/12/19 15:09:00 Stop 06/12/19 15:30:00 Anesthesia Type General Specialty SN General Wound Class II - Clean-Contaminated Last Modified By: Celestina Beaulieu RN 06/12/19 15:42:34 [facility] IntraOp Surgical Procedures Audit 06/12/19 15:42:34 Professional Tutor: [id number] Modifier: [id number] <+> 1 Stop [facility] IntraOp Time Out Entry 1 Procedure to be Appendectomy Performed Laparoscopic Time Out Time Out Pause Time 06/12/19 15:08:00 All activity Yes suspended (unless life threatening emergency) Team Verbally Correct patient Confirms Information identity, Consent form is present and accurate, Agreement on the procedure to be done, Correct patient position, Relevant images/results properly labeled/appropriately displayed, Confirm antibiotics have been administered, Confirm the skin prep has dried, Confirm prosthesis/implant/devic e is present, Performed in location of procedure after prepped/draped Antibiotic Yes Prophylaxis Administered Or In Progress Within the Last 60 Minutes Beta Idalia N/A Administered Venous Yes Thromboembolism Prophylaxis Required Anticipated Critical Events Surgeon None expected Anesthesia Provider None expected Nursing Assures Sterility of instruments, Equipment concerns or issues Essential Imaging Yes Labeled and Displayed Last Modified By: Celestina Beaulieu RN 06/12/19 15:12:37 Case Comments <None> Finalized By: [place], Celestina, RN Document Signatures Signed By: Celestina Beaulieu RN 06/12/19 15:42 Electronically signed by Babatunde Pablo Conversion Domestic Violence Counselor Cerner at 08/18/2022 11:20 AM CDT documented in this encounter Plan of Treatment Upcoming Encounters Date Type Department Care Team (Late st Contact Info) Description 03/20/2025 10:45 AM EST Office Visit [facility] [address] [facility] [address] [place] [address] Stanislav Cruz MD [address] [facility] [address] [place] [address] documented as of this encounter Visit Diagnoses Not on filedocumented in this encounter
--- OUTSIDE RECORDS SUMMARY | 2025-03-13 14:11 | XMS_ITS | Encounter Summary ---
Author Organization [employer] ([place], [place], [place], [place], [place]) Address [address] [place] [address] Care Team Providers Care Administrative Appeals Tribunal Member Name Role Phone Unavailable Primary Care Provider Unavailabl e Encounter Details Date Type Department Care Team (Late st Contact Info) Description 06/13/2019 Transcribed Document [facility] [place] [facility] [place] [address] ProviderCarmela MD [address] [place] [phone] Social History Tobacco Use Types Packs/Day Years Used Date Smoking Tobacco: Never Assessed Comments Unknown Sex and Gender Information Value Date Recorded Sex Assigned at Not on file Legal Sex Female 1:20 PM CDT Gender Identity Not on file Sexual Orientation Not on file documented as of this encounter Miscellaneous Notes * Cerner Conversion Note - Carmela ProviderMD - 06/13/2019 8:51 AM GUN EXAMINER Nursing Discharge Summary Entered On: 06/13/2019 8:51 EST Performed On: 06/13/2019 8:51 EST by Sherry Duffy RN Discharge Documentation Patient Disposition, General : Discharge Discharge To : Home with ambulatory/outpatient follow-up Mode Of Departure, General Discharge : Private vehicle Accompanied By, Discharge : Spouse IV Discontinued : Yes Personal Belongings With Patient : Yes Prescriptions Given to Patient : Yes Sherry Duffy RN - 06/13/2019 8:51 EST documented in this encounter Plan of Treatment Upcoming Encounters Date Type Department Care Team (Late st Contact Info) Description 03/20/2025 10:45 AM EST Office Visit [facility] [address] [place], [place] [address], [place] [address] Stanislav Cruz MD [address] [address] documented as of this encounter Visit Diagnoses Not on filedocumented in this encounter
--- OUTSIDE RECORDS SUMMARY | 2025-03-13 14:11 | XMS_ITS | Encounter Summary ---
Author Organization [employer] ([place], [place], [place], [place], [place]) Address [address] [place] [address] Care Team Providers Care Account Resolution Expert Name Role Phone Unavailable Primary Care Provider Unavailabl e Encounter Details Date Type Department Care Team (Late st Contact Info) Description 06/12/2019 Transcribed Document [facility] [place] [facility] [place] [address] ProviderCarmela MD [address] [place], [place] [id number] Social History Tobacco Use Types Packs/Day Years Used Date Smoking Tobacco: Never Assessed Comments Unknown Sex and Gender Information Value Date Recorded Sex Assigned at Not on file Legal Sex Female 1:20 PM CDT Gender Identity Not on file Sexual Orientation Not on file documented as of this encounter Miscellaneous Notes * [employer] Conversion Note - Carmela ProviderMD - 06/12/2019 9:04 AM SPARMAKER Pain Assessment Entered On: 06/12/2019 11:29 EST Performed On: 06/12/2019 11:27 EST by Marti Robb RN Intervention Information: HYDROmorphone Performed by ISAEL GREENE RN on 06/12/2019 09:21:00 EST HYDROmorphone,1mg IV Push,Peripheral Line 1 Pain Assessment Pain Assessment : Follow-up assessment Pain Scale Goal : 2 Pain Scale Used : 0-10 Scale Location : Abdominal Marti Robb RN - 06/12/2019 11:27 EST Pain Scale Intensity : 7 Marti Robb RN - 06/12/2019 11:27 EST Image 4 - Images currently included in the form version of this document have not been included in the text rendition version of the form. Electronically signed by Babatunde Pablo Conversion Pediatric Nurse Practitioner [employer] at 08/18/2022 11:28 AM CDT documented in this encounter Plan of Treatment Upcoming Encounters Date Type Department Care Team (Late st Contact Info) Description 03/20/2025 10:45 AM EST Office Visit [facility] Bariatric Services [address] [facility] [address] [place] [address] Stanislav Cruz MD [address] [facility] [address] [place] [address] documented as of this encounter Visit Diagnoses Not on filedocumented in this encounter
--- OUTSIDE RECORDS SUMMARY | 2025-03-13 14:11 | XMS_ITS | Encounter Summary ---
Author Organization [employer] ([place], [place], [place], [place], [place]) Address [address] [place] [address] Care Team Providers Care Drill Grinder Name Role Phone Unavailable Primary Care Provider Unavailabl e Encounter Details Date Type Department Care Team (Late st Contact Info) Description 06/12/2019 Transcribed Document [facility] [place] [facility] [place] [address] ProviderCarmela MD [facility] [place], [place] [address] Social History Tobacco Use Types Packs/Day Years Used Date Smoking Tobacco: Never Assessed Comments Unknown Sex and Gender Information Value Date Recorded Sex Assigned at Not on file Legal Sex Female 1:20 PM CDT Gender Identity Not on file Sexual Orientation Not on file documented as of this encounter Miscellaneous Notes * [employer] Conversion Note - Carmela ProviderMD - 06/12/2019 1:55 PM 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 Admission History, Adult Entered On: 06/12/2019 20:59 EST Performed On: 06/12/2019 13:55 EST by JOSHUA BOSWELL RN Advance Directive Patient has Advance Directive *Q : No, patient refuses Advance Directive information JOSHUA BOSWELL RN - 06/12/2019 20:54 EST Anesthesia/Transfusion History Family History of Anesthesia Reaction : Prior transfusion without reaction Blood Transfusion Acceptable to Patient : Yes Transfusion History : Prior anesthesia without reaction Family History of Anesthesia Reaction : Other: mom is hard to wake up after sx JOSHUA BOSWELL RN - 06/12/2019 20:54 EST Functional Assessment Living Situation : Home Current Home Treatments : None JOSHUA BOSWELL RN - 06/12/2019 20:54 EST General Info Preferred Name : talisha Mode of Arrival on Unit : Ambulatory Legal Guardian : Spouse Want Family/Rep/Phys Notified of Admit : No Emergency Contact #1 : Alec Ahn Emergency Contact #1 Emergency Contact #1 Relationship : Emergency Contact #2 : na Emergency Contact #2 Phone Number : mar Emergency Contact #2 Relationship : na Chief Complaint : PT c/o sharp lower abdominal pain with nausea for past 24 hrs, pain rated 9/10, states she feels like she needs to have a bowel movement, has had several but pain is not relieved, resp even and unlabored Primary Language : Kenyan Preferred Communication Mode : Verbal Communication Barrier : None JOSHUA BOSWELL RN - 06/12/2019 20:54 EST Fall Risk Scales ABCs Fall Injury Risk Identification : None FLOWER Hx Falls Immediate/Within 3 Months : No Flower Secondary Diagnosis : No FLOWER Use of Ambulatory Aid : Bed rest/Nurse assist FLOWER IV Therapy or IV Access : Yes Flower Gait/Transferring : Normal, bedrest, immobile Flower Mental Status : Oriented to own ability Flower Fall Risk Score : 20 FLOWER Fall Scale Risk Level : 0-24 Low Risk Mitchells Fall Interventions : Adequate lighting, Bed in low position, Call device within reach, Fall prevention handout/education per facility policy, Hourly comfort/safety rounds, Non-slip footwear, Personal items within reach, Reinforced to call for assistance before getting out of bed, Room free of clutter/spills, Upper side-rails up, Wheels locked, Wires/Cords secured Barriers to Learning : None evident Learning Style Preferences Family : Verbal explanation Learning Style Preferences Patient : Verbal explanation JOSHUA BOSWELL RN - 06/12/2019 20:54 EST Health Histories Smoking Status : Never (less than 100 in lifetime; none in last 30 days) Smokeless Tobacco Status : Never JOSHUA BOSWELL RN - 06/12/2019 20:54 EST Social History (As Of: 06/12/2019 20:59:08 EST) Tobacco: Never (less than 100 in [...] (Last Updated: 11/07/2017 10:38:38 EDT by ANJEL SANTANA, ZAHRAA) Nutrition/Health: Caffeine intake amount: 2 cups a day.. (Last Updated: 05/10/2019 08:43:12 EST by RHONDA NEWBY, ZAHRAA) Height and Weight, Clinical Dosing Height Source : Stated Height Entry Format : [place] Height, Feet : 5 ft(Converted to: 152 cm, 60 Inch) Height, Inches : 5 Inch(Converted to: 0 ft 5 Inch, 12.70 cm) Clinical Height : 165.1 cm Weight Source : Estimated [place] Body Weight : 57 kg JOSHUA BOSWELL RN - 06/12/2019 20:54 EST Estimated Weight Type of Weight Measurement Est : [place] Weight, est lb : 144 lb(Converted to: 65 kg) Estimated Clinical Dosing Weight : 65.45 kg JOSHUA BOSWELL RN - 06/12/2019 20:54 EST Infectious Disease History Physical contact outside [place] in the last 30 days : No Infectious Disease History : Chicken pox/Shingles, Influenza, Mononucleosis Tuberculosis Symptoms : None JOSHUA BOSWELL RN - 06/12/2019 20:54 EST Influenza Vaccine Asmt, Adult Previous Vaccines from Immunization Schedule : No qualifying data available. Influenza Immunization, Current Season : No Inactivated Flu Vaccine Contraindications : No contraindications to inactivated influenza vaccine Transplant Workup/Recent Transplant : No Order for Influenza Vaccine : Declined Vaccination JOSHUA BOSWELL RN - 06/12/2019 20:54 EST Pneumococcal Vaccine Previous Vaccines from Immunization Schedule : No qualifying data available. Pneumonia Immunization Received : No Pneumococcal Risk Assessment < Age 65 : None JOSHUA BOSWELL RN - 06/12/2019 20:54 EST Order Details Transport Mode Order Detail : Wheelchair Isolation Precautions Order Detail : Standard Precautions Order Detail : 0 IV Order Detail : 1 Oxygen Order Detail : 0 Nurse Collect Order Detail : 0 Lift/Transfer : Minimal Central Line Order Detail : No Room Service : Appropriate Arterial Line : No JOSHUA BOSWELL RN - 06/12/2019 20:54 EST Nutrition History Feeding Ability : Independent Adaptive Feeding Equipment : None Adaptive Feeding Equipment : Other: low carb higjh protein Oral Medication Administration : By mouth Eating Poorly Due to Decreased Appetite : No Unplanned Weight Loss in Past 3-6 Months : No Malnutrition Screening Tool Total(mal) : 0 Malnutrition Screening Tool Risk Level : Patient not at risk JOSHUA BOSWELL RN - 06/12/2019 20:54 EST [place] Suicide Severity Rating Scale (C-SSRS) CSSRS Past Month Wish to be : No CSSRS Past Month Suicidal Thoughts : No CSSRS Lifetime Suicide Behavior : No Suicide Severity Rating Score : 0 Suicide Severity Rating : No Additional Care Required at this time JOSHUA BOSWELL RN - 06/12/2019 20:54 EST Psychosocial History Chronic/Terminal Illness w/Freq Visits : No Currently in Unsafe Situation : No JOSHUA BOSWELL RN - 06/12/2019 20:54 EST Sleep Apnea Risk Assmt Hx of [...] Sleep Apnea Risk Level Score : 0 JOSHUA BOSWELL RN - 06/12/2019 20:54 EST Valuables and Belongings Valuables and Belongings : Clothing Clothing : Common streetwear Clothing Disposition : With family JOSHUA BOSWELL RN - 06/12/2019 20:54 EST Electronically signed by Samy [facility] Conversion [employer] at 08/18/2022 11:35 AM CDT documented in this encounter Plan of Treatment Upcoming Encounters Date Type Department Care Team (Late st Contact Info) Description 03/20/2025 10:45 AM EST Office Visit [facility] Bariatric Services [address] [place] [address] Stanislav Cruz MD [address] [facility] [address] [place] [address] documented as of this encounter Visit Diagnoses Not on filedocumented in this encounter
--- OUTSIDE RECORDS SUMMARY | 2025-03-13 14:11 | XMS_ITS | Encounter Summary ---
Author Organization [employer] ([place], [place], [place], [place], [place]) Address [address] [place] [address] Care Team Providers Care Deep Fat Fry Cook Name Role Phone Unavailable Primary Care Provider Unavailabl e Encounter Details Date Type Department Care Team (Late st Contact Info) Description 07/12/2019 Transcribed Document [facility] Family Medicine [address] [place] [address] ProviderCarmela MD [address] [place], [place] [address] Social History Tobacco Use Types Packs/Day Years Used Date Smoking Tobacco: Never Assessed Comments Unknown Sex and Gender Information Value Date Recorded Sex Assigned at Not on file Legal Sex Female 1:20 PM CDT Gender Identity Not on file Sexual Orientation Not on file documented as of this encounter Miscellaneous Notes * [employer]ner Conversion Note - Carmela ProviderMD - 07/12/2019 1:09 PM CDT Patient Education Materials Follows: Gastritis, Adult Gastritis is inflammation of the stomach. There are two kinds of gastritis: ??? Acute gastritis. This kind develops suddenly. ??? Chronic gastritis. This kind lasts for a long time. Gastritis happens when the lining of the stomach becomes weak or gets damaged. Without treatment, gastritis can lead to stomach bleeding and ulcers. What are the causes? This condition may be caused by: ??? An infection. ??? Drinking too much alcohol. ??? Certain medicines. ??? Having too much acid in the stomach. ??? A disease of the intestines or stomach. ??? Stress. What are the signs or symptoms? Symptoms of this condition include: ??? Pain or a burning in the upper abdomen. ??? Nausea. ??? Vomiting. ??? An uncomfortable feeling of fullness after eating. In some cases, there are no symptoms. How is this diagnosed? This condition may be diagnosed with: ??? A description of your symptoms. ??? A physical exam. ??? Tests. These can include: ? Blood tests. ? Stool tests. ? A test in which a thin, flexible instrument with a light and camera on the end is passed down the esophagus and into the stomach (upper endoscopy). ? A test in which a sample of tissue is taken for testing (biopsy). How is this treated? This condition may be treated with medicines. If the condition is caused by a bacterial infection, you may be given antibiotic medicines. If it is caused by too much acid in the stomach, you may get medicines called H2 blockers, proton pump inhibitors, or antacids. Treatment may also involve stopping the use of certain medicines, such as aspirin, ibuprofen, or other nonsteroidal anti-inflammatory drugs (NSAIDs). Follow these instructions at home: ??? Take [id number] and prescription medicines only as told by your health care provider. ??? If you were prescribed an antibiotic, take it as told by your health care provider. Do not stop taking the antibiotic even if you start to feel better. ??? Drink enough fluid to keep your urine pale yellow. ??? Eat small, frequent meals instead of large meals. ??? Avoid foods and drinks that make your symptoms worse. Contact a health care provider if: ??? Your symptoms get worse. ??? Your symptoms return after treatment. Get help right away if: ??? You vomit blood or material that looks like coffee grounds. ??? You have black or dark red stools. ??? You are unable to keep fluids down. ??? Your abdominal pain gets worse. ??? You have a fever. ??? You do not feel better after 1 week. Summary ??? Gastritis is inflammation of the stomach that happens when the lining of the stomach becomes weak or gets damaged. ??? This condition is diagnosed with a medical history, a physical exam, or tests. ??? This condition may be treated with medicines to treat infection or medicines to reduce the amount of acid in your stomach. ??? If your condition is caused by alcohol, or by irritation from medicines that you are taking, you may be told to stop using alcohol or to stop taking those medicines. This information is not intended to replace advice given to you by your health care provider. Make sure you discuss any questions you have with your health care provider. Document Released: 04/12/2002 Document Revised: 11/29/2017 Document Reviewed: 01/10/2016 [employer] Interactive Patient Education ? 2019 [employer] Esophagogastroduodenoscopy, Care After Refer to this sheet in the next few weeks. These instructions provide you with information about caring for yourself after your procedure. Your health care provider may also give you more specific instructions. Your treatment has been planned according to current medical practices, but problems sometimes occur. Call your health care provider if you have any problems or questions after your procedure. What can I expect after the procedure? After the procedure, it is common to have: ??? A sore throat. ??? Nausea. ??? Bloating. ??? Dizziness. ??? Fatigue. Follow these instructions at home: ??? Do not eat or drink anything until the numbing medicine (local anesthetic) has worn off and your gag reflex has returned. You will know that the local anesthetic has worn off when you can swallow comfortably. ??? Do not drive for 24 hours if you received a medicine to help you relax (sedative). ??? If your health care provider took a tissue sample for testing during the procedure, make sure to get your test results. This is your responsibility. Ask your health care provider or the department performing the test when your results will be ready. ??? Keep all follow-up visits as told by your health care provider. This is important. Contact a health care provider if: ??? You cannot stop coughing. ??? You are not urinating. ??? You are urinating less than usual. Get help right away if: ??? You have trouble swallowing. ??? You cannot eat or drink. ??? You have throat or chest pain that gets worse. ??? You are dizzy or light-headed. ??? You faint. ??? You have nausea or vomiting. ??? You have chills. ??? You have a fever. ??? You have severe abdominal pain. ??? You have black, tarry, or bloody stools. This information is not intended to replace advice given to you by your health care provider. Make sure you discuss any questions you have with your health care provider. Document Released: 04/04/2013 Document Revised: 09/23/2016 Document Reviewed: 03/11/2016 [employer] Interactive Patient Education ? 2019 [employer] Esophagogastroduodenoscopy, Care After Refer to this sheet in the next few weeks. These instructions provide you with information about caring for yourself after your procedure. Your health care provider may also give you more specific instructions. Your treatment has been planned according to current medical practices, but problems sometimes occur. Call your health care provider if you have any problems or questions after your procedure. What can I expect after the procedure? After the procedure, it is common to have: ??? A sore throat. ??? Nausea. ??? Bloating. ??? Dizziness. ??? Fatigue. Follow these instructions at home: ??? Do not eat or drink anything until the numbing medicine (local anesthetic) has worn off and your gag reflex has returned. You will know that the local anesthetic has worn off when you can swallow comfortably. ??? Do not drive for 24 hours if you received a medicine to help you relax (sedative). ??? If your health care provider took a tissue sample for testing during the procedure, make sure to get your test results. This is your responsibility. Ask your health care provider or the department performing the test when your results will be ready. ??? Keep all follow-up visits as told by your health care provider. This is important. Contact a health care provider if: ??? You cannot stop coughing. ??? You are not urinating. ??? You are urinating less than usual. Get help right away if: ??? You have trouble swallowing. ??? You cannot eat or drink. ??? You have throat or chest pain that gets worse. ??? You are dizzy or light-headed. ??? You faint. ??? You have nausea or vomiting. ??? You have chills. ??? You have a fever. ??? You have severe abdominal pain. ??? You have black, tarry, or bloody stools. This information is not intended to replace advice given to you by your health care provider. Make sure you discuss any questions you have with your health care provider. Document Released: 04/04/2013 Document Revised: 09/23/2016 Document Reviewed: 03/11/2016 [employer] Interactive Patient Education ? 2019 [employer] documented in this encounter Plan of Treatment Upcoming Encounters Date Type Department Care Team (Late st Contact Info) Description 03/20/2025 10:45 AM EST Office Visit [facility] Bariatric Services [address] [facility] [address] [place] [address] Stanislav Cruz MD [address] [facility] [address] [place] [address] documented as of this encounter Visit Diagnoses Not on filedocumented in this encounter
--- OUTSIDE RECORDS SUMMARY | 2025-03-13 14:11 | XMS_ITS | Encounter Summary ---
Author Organization [employer] ([place], [place], [place], [place], [place]) Address [address] [place] [address] Care Team Providers Care Cotton Stripper Name Role Phone Unavailable Primary Care Provider Unavailabl e Encounter Details Date Type Department Care Team (Late st Contact Info) Description 06/13/2019 Transcribed Document [facility] [place] Family Medicine [facility] [place] [address] ProviderCarmela MD [address] [place] [address] [id number] Social History Tobacco Use Types Packs/Day Years Used Date Smoking Tobacco: Never Assessed Comments Unknown Sex and Gender Information Value Date Recorded Sex Assigned at Not on file Legal Sex Female 1:20 PM CDT Gender Identity Not on file Sexual Orientation Not on file documented as of this encounter Miscellaneous Notes * Cerner Conversion Note - Carmela Feliciano MD - 06/13/2019 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 - Met Interventions: Assist with ambulation. Discharge Vitals Temperature 36.7 ??C Heart Rate (Monitored) 58 Respiratory Rate 17 Blood Pressure 110/63 What to do next Follow-Up Appointments Follow Up with MELINA JENSEN When Within 1 to 2 weeks Comments Call for follow up appointment Where: [facility] [address] , [address] [place] [address]- Medications What How Much When Instructions Next Dose ALPRAZolam (Xanax 0.5 mg oral tablet) 1 Tablet(s) Oral Every Day as needed for as needed for anxiety biotin Oral Every Day calcium-vitamin D (Caltrate 600+D oral tablet, chewable) 1 Tablet(s) Chew Two Times A Day ibuprofen (ibuprofen 100 mg/ 5 mL oral suspension) Oral Every 6 Hours multivitamin Oral Every Day Take your medications faithfully. Do NOT skip medication. Do NOT stop taking medications without the direction of a physician. Carry a list of your medications with you at all times, and take this medication list with you to your first follow up visit. Report any side effects. Avoid herbal remedies unless discussed with your physician. As part of your treatment plan, your physician may have prescribed a limited course of a controlled substance. This medication may be given to help people with moderate or severe pain or for other medical conditions, but there are risks involved with treatment. Common side effects may include nausea, constipation, drowsiness, sweating, itching, dry mouth, and rash. More serious side effects may include cognitive and motor impairment, like problems with thinking, concentrating, alertness, and movement (e.g. slowed reflexes), and driving and operating heavy machinery can be dangerous. It is important for you to talk to your physician if you have these side effects or questions. These controlled substances can produce physical dependence and be habit-forming if taken for an extended period of time, which means that the body has gotten used to them and may experience withdrawal symptoms if they are abruptly stopped. Withdrawal symptoms can include runny nose, sweating, goose bumps, diarrhea, abdominal cramping, rapid heartbeat, difficulty sleeping, and nervousness. Please dispose of unused and medications per your retail pharmacy guidance. Allergies Rocephin (rash) sulfa drugs (flushed, vomiting) Immunizations This Visit No Immunizations Found Education Materials Appendicitis, Pediatric The appendix is a finger-shaped tube in the body that is attached to the large intestine. Appendicitis is inflammation of the appendix. If appendicitis is not treated, it can cause the appendix to tear (rupture). A ruptured appendix can lead to a life-threatening infection. It can also cause a painful collection of pus (abscess) to form in the appendix. What are the causes? This condition may be caused by a blockage in the appendix that leads to infection. The blockage may be due to: ??? A ball of stool (fecal impaction). ??? Enlarged lymph glands in the intestine. Lymph glands are part of the body's disease-fighting (immune) system. ??? Injury (trauma) to the abdomen. In some cases, the cause may not be known. What increases the risk? This condition is more likely to develop in people who are 10???30 years old. What are the signs or symptoms? Symptoms of this condition include: ??? Pain that starts around the belly button and moves toward the lower right abdomen. The pain may get more severe as time passes. It gets worse with coughing or sudden movements. ??? Tenderness in the lower right abdomen. ??? Nausea. ??? Vomiting. ??? Loss of appetite. ??? Fever. ??? Constipation. ??? Diarrhea. ??? Generally not feeling well (malaise). How is this diagnosed? This condition may be diagnosed with: ??? A physical exam. ??? Blood tests. ??? Urine test. To confirm the diagnosis, your child may have an ultrasound, MRI, or CT scan. How is this treated? This condition can sometimes be treated with medicines, but is usually treated with surgery to remove the appendix (appendectomy). There are two methods for doing an appendectomy: ??? Open appendectomy. For this method, the appendix is removed through a large incision that is made in the lower right abdomen. This procedure may be recommended if: ? Your child has major scarring from a previous surgery. ? Your child has a bleeding disorder. ? Your adolescent child is and is near term. ? Your child has a condition, such as an advanced infection or a ruptured appendix, that makes the laparoscopic procedure impossible. ??? Laparoscopic appendectomy. For this method, the appendix is removed through small incisions. This procedure usually causes less pain and fewer problems than an open appendectomy. It also has a shorter recovery time. If your child's appendix has ruptured and an abscess has formed, a tube (drain) may be placed into the abscess to remove fluid, and antibiotic medicines may be given through an IV. The appendix may or may not need to be removed. Follow these instructions at home: If your child's appendix is not going to be removed and you will be taking him or her home: ??? Give [id number] and prescription medicines only as told by your child's health care provider. Do not give your child aspirin because of the association with Amarjit syndrome. ??? Give antibiotic medicine to your child, if prescribed, as told by his or her health care provider. Do not stop giving the antibiotic even if your child starts to feel better. ??? Follow instructions from your child???s health care provider about eating and drinking restrictions. ??? Have your child return to normal activities as told by his or her health care provider. Ask your child's health care provider what activities are safe for your child. ??? Watch your child's condition for any changes. ??? Keep all follow-up visits as told by your child???s health care provider. This is important. Contact a health care provider if: ??? Pain wakes up your child at night. ??? Your child???s abdomen pain changes or gets worse. ??? Your child had a fever before starting antibiotic medicines, and the fever returns. Get help right away if: ??? Your child who is younger than 3 months has a temperature of 100??F (38??C) or higher. ??? Your child cannot stop vomiting. ??? Your child who is younger than 1 year shows signs of dehydration, such as: ? A sunken soft spot on his or her head. ? No wet diapers in 6 hours. ? Increased fussiness. ? No urine in 8 hours. ? Cracked lips. ? Dry mouth. ? Not making tears while crying. ? Sunken eyes. ? Sleepiness. ??? Your child who is 1 year or older shows signs of dehydration, such as: ? No urine in 8???12 hours. ? Cracked lips. ? Dry mouth. ? Not making tears while crying. ? Sunken eyes. ? Sleepiness. ? Weakness. Summary ??? Appendicitis is inflammation of the appendix, a finger-shaped tube in the body that is attached to the large intestine. ??? Symptoms include pain and tenderness that start around your child's belly button and move toward the lower right abdomen, nausea, vomiting, loss of appetite, fever, constipation, diarrhea, and generally not feeling well. ??? To confirm the diagnosis, an ultrasound, MRI, or CT scan may be ordered for your child. ??? This condition can sometimes be treated with medicines, but is usually treated with surgery to remove the appendix (appendectomy). ??? If your child's appendix is not going to be removed and you will be taking him or her home, follow instructions as told by your child's health care provider about medicines, activities, and eating and drinking restrictions. This information is not intended to replace advice given to you by your health care provider. Make sure you discuss any questions you have with your health care provider. Document Released: 07/14/2017 Document Revised: 07/14/2017 Document Reviewed: 07/14/2017 [employer] Interactive Patient Education ?? 2019 [employer]. acetaminophen and oxycodone (a SEET a MIN oh fen and OX i KOE done) Endocet 10/325, Endocet 2.5/325, Endocet 5/325, Endocet 7.5/325, Nalocet, Percocet 10/325, Percocet 2.5/325, Percocet 5/325, Percocet 7.5/325, Primalev, Primlev, Roxicet, Xartemis XR What is the most important information I should know about acetaminophen and oxycodone? MISUSE OF OPIOID MEDICINE CAN CAUSE ADDICTION, OVERDOSE, OR . Keep the medication in a place where others cannot get to it. An overdose of acetaminophen can damage your liver or cause . Call your doctor at once if you have pain in your upper stomach, loss of appetite, dark urine, or jaundice (yellowing of your skin or eyes). Taking opioid medicine during may cause life-threatening withdrawal symptoms in the . Fatal side effects can occur if you use opioid medicine with alcohol, or with other drugs that cause drowsiness or slow your breathing. Stop taking this medicine and call your doctor right away if you have skin redness or a rash that spreads and causes blistering and peeling. What is acetaminophen and oxycodone? Oxycodone is an opioid pain medication, sometimes called a narcotic. Acetaminophen is a less potent pain reliever that increases the effects of oxycodone. Acetaminophen and oxycodone is a combination medicine used to relieve moderate to severe pain. Acetaminophen and oxycodone may also be used for purposes not listed in this medication guide. What should I discuss with my healthcare provider before taking acetaminophen and oxycodone? You should not use this medicine if you are allergic to acetaminophen or oxycodone, or if you have: ?? severe asthma or breathing problems; or ?? a blockage in your stomach or intestines. Tell your doctor if you have ever had: ?? liver disease; ?? a drug or alcohol addiction; ?? kidney disease; ?? a head injury or seizures; ?? urination problems; or ?? problems with your thyroid, pancreas, or gallbladder. If you use opioid medicine while you are , your baby could become dependent on the drug. This can cause life-threatening withdrawal symptoms in the baby after it is born. Babies born dependent on opioids may need medical treatment for several weeks. Do not breast-feed. This medicine can pass into breast milk and cause drowsiness, breathing problems, or in a nursing baby. How should I take acetaminophen and oxycodone? Follow all directions on your prescription label. Never take this medicine in larger amounts, or for longer than prescribed. An overdose can damage your liver or cause . Tell your doctor if the medicine seems to stop working as well in relieving your pain. Never share this medicine with another person, especially someone with a history of drug abuse or addiction. MISUSE CAN CAUSE ADDICTION, OVERDOSE, OR . Keep the medicine in a place where others cannot get to it. Selling or giving away acetaminophen and oxycodone is against the law. Measure liquid medicine carefully. Use the dosing syringe provided, or use a medicine dose-measuring device (not a kitchen spoon). If you need surgery or medical tests, tell the doctor ahead of time that you are using this medicine. You should not stop using this medicine suddenly. Follow your doctor's instructions about tapering your dose. Store at room temperature away from moisture and heat. Keep track of your medicine. You should be aware if anyone is using it improperly or without a prescription. Do not keep leftover opioid medication. Just one dose can cause in someone using this medicine accidentally or improperly. Ask your pharmacist where to locate a drug take-back disposal program. If there is no take-back program, flush the unused medicine down the toilet. What happens if I miss a dose? Since this medicine is used for pain, you are not likely to miss a dose. Skip any missed dose if it is almost time for your next dose. Do not use two doses at one time. What happens if I overdose? Seek emergency medical attention or call the Poison Help line at . An overdose of acetaminophen and oxycodone can be fatal. The first signs of an acetaminophen overdose include loss of appetite, nausea, vomiting, stomach pain, sweating, and confusion or weakness. Later symptoms may include pain in your upper stomach, dark urine, and yellowing of your skin or the whites of your eyes. Overdose can also cause severe muscle weakness, pinpoint pupils, very slow breathing, extreme drowsiness, or coma. What should I avoid while taking acetaminophen and oxycodone? Avoid driving or operating machinery until you know how this medicine will affect you. Dizziness or drowsiness can cause falls, accidents, or severe injuries. Do not drink alcohol. Dangerous side effects or could occur. Ask a doctor or pharmacist before using any other medicine that may contain acetaminophen (sometimes abbreviated as APAP). Taking certain medications together can lead to a fatal overdose. What are the possible side effects of acetaminophen and oxycodone? Get emergency medical help if you have signs of an allergic reaction: hives; difficulty breathing; swelling of your face, lips, tongue, or throat. Opioid medicine can slow or stop your breathing, and may occur. A person caring for you should seek emergency medical attention if you have slow breathing with long pauses, blue colored lips, or if you are hard to wake up. In rare cases, acetaminophen may cause a severe skin reaction that can be fatal. This could occur even if you have taken acetaminophen in the past and had no reaction. Stop taking this medicine and call your doctor right away if you have skin redness or a rash that spreads and causes blistering and peeling. Call your doctor at once if you have: ?? noisy breathing, sighing, shallow breathing; ?? a light-headed feeling, like you might pass out; ?? weakness, tiredness, fever, unusual bruising or bleeding; ?? confusion, unusual thoughts or behavior; ?? problems with urination; ?? liver problems--nausea, upper stomach pain, tiredness, loss of appetite, dark urine, vlad-colored stools, jaundice (yellowing of the skin or eyes); or ?? low cortisol levels-- nausea, vomiting, loss of appetite, dizziness, worsening tiredness or weakness. Seek medical attention right away if you have symptoms of serotonin syndrome, such as: agitation, hallucinations, fever, sweating, shivering, fast heart rate, muscle stiffness, twitching, loss of coordination, nausea, vomiting, or diarrhea. Serious side effects may be more likely in older adults and those who are overweight, malnourished, or debilitated. Long-term use of opioid medication may affect fertility (ability to have children) in men or women. It is not known whether opioid effects on fertility are permanent. Common side effects include: ?? dizziness, drowsiness, feeling tired; ?? feelings of extreme happiness or sadness; ?? nausea, vomiting, stomach pain; ?? constipation; or ?? headache. This is not a complete list of side effects and others may occur. Call your doctor for medical advice about side effects. You may report side effects to FDA at 0-488-LDK-8047. What other drugs will affect acetaminophen and oxycodone? You may have breathing problems or withdrawal symptoms if you start or stop taking certain other medicines. Tell your doctor if you also use an antibiotic, antifungal medication, heart or blood pressure medication, seizure medication, or medicine to treat HIV or hepatitis C. Opioid medication can interact with many other drugs and cause dangerous side effects or . Be sure your doctor knows if you also use: ?? cold or allergy medicines, bronchodilator asthma/COPD medication, or a diuretic ('water pill'); ?? medicines for motion sickness, irritable bowel syndrome, or overactive bladder; ?? other narcotic medications--opioid pain medicine or prescription cough medicine; ?? a sedative like Valium--diazepam, alprazolam, lorazepam, Xanax, Klonopin, Versed, and others; ?? drugs that make you sleepy or slow your breathing--a sleeping pill, muscle relaxer, medicine to treat mood disorders or mental illness; ?? drugs that affect serotonin levels in your body--a stimulant, or medicine for depression, Parkinson's disease, migraine headaches, serious infections, or nausea and vomiting. This list is not complete. Other drugs may affect acetaminophen and oxycodone, including prescription and vwqq-zcz-zhgvteh medicines, vitamins, and herbal products. Not all possible interactions are listed here. Where can I get more information? Your doctor or pharmacist can provide more information about acetaminophen and oxycodone. Remember, keep this and all other medicines out of the reach of children, never share your medicines with others, and use this medication only for the indication prescribed. Every effort has been made to ensure that the information provided by [employer]. ('[employer]') is accurate, up-to-date, and complete, but no guarantee is made to that effect. Drug information contained herein may be time sensitive. [employer] information has been compiled for use by healthcare practitioners and consumers in the [place] and therefore [employer] does not warrant that uses outside of the [place] are appropriate, unless specifically indicated otherwise. [employer] drug information does not endorse drugs, diagnose patients or recommend therapy. [employer] drug information is an informational resource designed to assist licensed healthcare practitioners in caring for their patients and/or to serve consumers viewing this service as a supplement to, and not a substitute for, the expertise, skill, knowledge and judgment of healthcare practitioners. The absence of a warning for a given drug or drug combination in no way should be construed to indicate that the drug or drug combination is safe, effective or appropriate for any given patient. [employer] does not assume any responsibility for any aspect of healthcare administered with the aid of information [employer] provides. The information contained herein is not intended to cover all possible uses, directions, precautions, warnings, drug interactions, allergic reactions, or adverse effects. If you have questions about the drugs you are taking, check with your doctor, nurse or pharmacist. Copyright 0524-2771 [employer]. Version: 18.02. Revision Date: 03/29/2018. ondansetron (oral) (on CORBIN se ajay) Rashaad Neil [employer] What is the most important information I should know about ondansetron? You should not use ondansetron if you are also using apomorphine (Apokyn). What is ondansetron? Ondansetron blocks the actions of chemicals in the body that can trigger nausea and vomiting. Ondansetron is used to prevent nausea and vomiting that may be caused by surgery, cancer chemotherapy, or radiation treatment. Ondansetron may be used for purposes not listed in this medication guide. What should I discuss with my health care provider before taking ondansetron? You should not use ondansetron if: ?? you are also using apomorphine (Apokyn); or ?? you are allergic to ondansetron or similar medicines (dolasetron, granisetron, palonosetron). To make sure ondansetron is safe for you, tell your doctor if you have: ?? liver disease; ?? an electrolyte imbalance (such as low levels of potassium or magnesium in your blood); ?? congestive heart failure, slow heartbeats; ?? a personal or family history of long QT syndrome; or ?? a blockage in your digestive tract (stomach or intestines). Ondansetron is not expected to harm an unborn baby. Tell your doctor if you are . It is not known whether ondansetron passes into breast milk or if it could harm a nursing baby. Tell your doctor if you are breast-feeding a baby. Ondansetron is not approved for use by anyone younger than 4 years old. Ondansetron orally disintegrating tablets may contain phenylalanine. Tell your doctor if you have phenylketonuria (PKU). How should I take ondansetron? Follow all directions on your prescription label. Do not take this medicine in larger or smaller amounts or for longer than recommended. Ondansetron can be taken with or without food. The first dose of ondansetron is usually taken before the start of your surgery, chemotherapy, or radiation treatment. Follow your doctor's dosing instructions very carefully. Take the ondansetron regular tablet with a full glass of water. To take the orally disintegrating tablet (Zofran ODT): ?? Keep the tablet in its blister pack until you are ready to take it. Open the package and peel back the foil. Do not push a tablet through the foil or you may damage the tablet. ?? Use dry hands to remove the tablet and place it in your mouth. ?? Do not swallow the tablet whole. Allow it to dissolve in your mouth without chewing. ?? Swallow several times as the tablet dissolves. To use ondansetron oral soluble film (strip) (Zuplenz): ?? Keep the strip in the foil pouch until you are ready to use the medicine. ?? Using dry hands, remove the strip and place it on your tongue. It will begin to dissolve right away. ?? Do not swallow the strip whole. Allow it to dissolve in your mouth without chewing. ?? Swallow several times after the strip dissolves. If desired, you may drink liquid to help swallow the dissolved strip. ?? Wash your hands after using Zuplenz. Measure liquid medicine with the dosing syringe provided, or with a special dose-measuring spoon or medicine cup. If you do not have a dose-measuring device, ask your pharmacist for one. Store at room temperature away from moisture, heat, and light. Store liquid medicine in an upright position. What happens if I miss a dose? Take the missed dose as soon as you remember. Skip the missed dose if it is almost time for your next scheduled dose. Do not take extra medicine to make up the missed dose. What happens if I overdose? Seek emergency medical attention or call the Poison Help line at . Overdose symptoms may include sudden loss of vision, severe constipation, feeling light-headed, or fainting. What should I avoid while taking ondansetron? Ondansetron may impair your thinking or reactions. Be careful if you drive or do anything that requires you to be alert. What are the possible side effects of ondansetron? Get emergency medical help if you have signs of an allergic reaction: rash, hives; fever, chills, difficult breathing; swelling of your face, lips, tongue, or throat. Call your doctor at once if you have: ?? severe constipation, stomach pain, or bloating; ?? headache with chest pain and severe dizziness, fainting, fast or pounding heartbeats; ?? fast or pounding heartbeats; ?? jaundice (yellowing of the skin or eyes); ?? blurred vision or temporary vision loss (lasting from only a few minutes to several hours); ?? high levels of serotonin in the body--agitation, hallucinations, fever, fast heart rate, overactive reflexes, nausea, vomiting, diarrhea, loss of coordination, fainting. Common side effects may include: ?? diarrhea or constipation; ?? headache; ?? drowsiness; or ?? tired feeling. This is not a complete list of side effects and others may occur. Call your doctor for medical advice about side effects. You may report side effects to FDA at 5-973-CGM-3640. What other drugs will affect ondansetron? Ondansetron can cause a serious heart problem, especially if you use certain medicines at the same time, including antibiotics, antidepressants, heart rhythm medicine, antipsychotic medicines, and medicines to treat cancer, malaria, HIV or AIDS. Tell your doctor about all medicines you use, and those you start or stop using during your treatment with ondansetron. Taking ondansetron while you are using certain other medicines can cause high levels of serotonin to build up in your body, a condition called 'serotonin syndrome,' which can be fatal. Tell your doctor if you also use: ?? medicine to treat depression; ?? medicine to treat a psychiatric disorder; ?? a narcotic (opioid) medication; or ?? medicine to prevent nausea and vomiting. This list is not complete and many other drugs can interact with ondansetron. This includes prescription and aiww-ovj-nweakgy medicines, vitamins, and herbal products. Give a list of all your medicines to any healthcare provider who treats you. Where can I get more information? Your pharmacist can provide more information about ondansetron. Remember, keep this and all other medicines out of the reach of children, never share your medicines with others, and use this medication only for the indication prescribed. Every effort has been made to ensure that the information provided by [employer]. [employer]') is accurate, up-to-date, and complete, but no guarantee is made to that effect. Drug information contained herein may be time sensitive. [employer] information has been compiled for use by healthcare practitioners and consumers in the [place] and therefore [employer] does not warrant that uses outside of the [place] are appropriate, unless specifically indicated otherwise. [employer] drug information does not endorse drugs, diagnose patients or recommend therapy. [employer] drug information is an informational resource designed to assist licensed healthcare practitioners in caring for their patients and/or to serve consumers viewing this service as a supplement to, and not a substitute for, the expertise, skill, knowledge and judgment of healthcare practitioners. The absence of a warning for a given drug or drug combination in no way should be construed to indicate that the drug or drug combination is safe, effective or appropriate for any given patient. [facility] does not assume any responsibility for any aspect of healthcare administered with the aid of information [facility] provides. The information contained herein is not intended to cover all possible uses, directions, precautions, warnings, drug interactions, allergic reactions, or adverse effects. If you have questions about the drugs you are taking, check with your doctor, nurse or pharmacist. Copyright [id number] [employer]. Version: 13.01. Revision Date: 02/20/2016. amoxicillin and clavulanate potassium (am OK i ANTONI in KLAV ue JOHN ate clarisa TAS ee um) Augmentin, Augmentin ES-600, Augmentin XR What is the most important information I should know about amoxicillin and clavulanate potassium? You should not use this medicine if you have severe kidney disease, if you have had liver problems or jaundice while taking amoxicillin and clavulanate potassium, or if you are allergic to any penicillin or cephalosporin antibiotic, such as Amoxil, Ceftin, Cefzil, Moxatag, Omnicef, and others. What is amoxicillin and clavulanate potassium? Amoxicillin is a penicillin antibiotic that fights bacteria in the body. Clavulanate potassium is a beta-lactamase inhibitor that helps prevent certain bacteria from becoming resistant to amoxicillin. Amoxicillin and clavulanate potassium is a combination medicine used to treat many different infections caused by bacteria, such as sinusitis, pneumonia, ear infections, bronchitis, urinary tract infections, and infections of the skin. Amoxicillin and clavulanate potassium may also be used for purposes not listed in this medication guide. What should I discuss with my healthcare provider before taking amoxicillin and clavulanate potassium? You should not use this medicine if you are allergic to it, or if: ?? you have severe kidney disease (or if you are on dialysis); ?? you have had liver problems or jaundice while taking amoxicillin and clavulanate potassium; or ?? you are allergic to any penicillin or cephalosporin antibiotic, such as Amoxil, Ceftin, Cefzil, Moxatag, Omnicef, and others. To make sure amoxicillin and clavulanate potassium is safe for you, tell your doctor if you have ever had: ?? liver disease (hepatitis or jaundice); ?? kidney disease; or ?? mononucleosis. It is not known whether this medicine will harm an unborn baby. Tell your doctor if you are or plan to become . Amoxicillin and clavulanate potassium can make control pills less effective. Ask your doctor about using a non-hormonal control (condom, diaphragm with spermicide) to prevent . Amoxicillin and clavulanate potassium can pass into breast milk and may affect the nursing baby. Tell your doctor if you are breast-feeding. Do not give this medicine to a child without medical advice. The liquid or chewable tablet may contain phenylalanine. Talk to your doctor before using these forms of this medicine if you have phenylketonuria (PKU). How should I take amoxicillin and clavulanate potassium? Follow all directions on your prescription label. Do not take this medicine in larger or smaller amounts or for longer than recommended. Take the medicine every 12 hours, at the start of a meal to reduce stomach upset. Do not crush or chew the extended-release tablet. Swallow the pill whole, or break the pill in half and take both halves one at a time. If you have trouble swallowing a whole or half pill, talk with your doctor about using another form of amoxicillin and clavulanate potassium. The chewable tablet must be chewed before you swallow it. Shake the liquid medicine well just before you measure a dose. Measure liquid medicine with the dosing syringe provided, or with a special dose-measuring spoon or medicine cup. If you do not have a dose-measuring device, ask your pharmacist for one. Use this medicine for the full prescribed length of time. Your symptoms may improve before the infection is completely cleared. Skipping doses may also increase your risk of further infection that is resistant to antibiotics. Amoxicillin and clavulanate potassium will not treat a viral infection such as the flu or a common cold. This medicine can cause unusual results with certain lab tests for glucose (sugar) in the urine. Tell any doctor who treats you that you are using amoxicillin and clavulanate potassium. Store the tablets at room temperature away from moisture and heat. Store the liquid in the refrigerator. Throw away any unused liquid after 10 days. What happens if I miss a dose? Take the missed dose as soon as you remember. Skip the missed dose if it is almost time for your next scheduled dose. Do not take extra medicine to make up the missed dose. What happens if I overdose? Seek emergency medical attention or call the Poison Help line at . Overdose can cause nausea, vomiting, stomach pain, diarrhea, skin rash, drowsiness, hyperactivity, and decreased urination. What should I avoid while taking amoxicillin and clavulanate potassium? Avoid taking this medicine together with or just after eating a high-fat meal. This will make it harder for your body to absorb the medication. Antibiotic medicines can cause diarrhea, which may be a sign of a new infection. If you have diarrhea that is watery or bloody, call your doctor. Do not use anti-diarrhea medicine unless your doctor tells you to. What are the possible side effects of amoxicillin and clavulanate potassium? Get emergency medical help if you have signs of an allergic reaction: hives; difficult breathing; swelling of your face, lips, tongue, or throat. Call your doctor at once if you have: ?? severe stomach pain, diarrhea that is watery or bloody; ?? pale or yellowed skin, dark colored urine, fever, confusion or weakness; ?? loss of appetite, upper stomach pain, jaundice (yellowing of the skin or eyes); ?? easy bruising or bleeding; ?? little or no urination; or ?? severe skin reaction--fever, sore throat, swelling in your face or tongue, burning in your eyes, skin pain followed by a red or purple skin rash that spreads (especially in the face or upper body) and causes blistering and peeling. Common side effects may include: ?? nausea, diarrhea; or ?? vaginal itching or discharge; This is not a complete list of side effects and others may occur. Call your doctor for medical advice about side effects. You may report side effects to FDA at 2-602-JGA-5204. What other drugs will affect amoxicillin and clavulanate potassium? Tell your doctor about all your current medicines and any you start or stop using, especially: ?? allopurinol; ?? probenecid; or ?? a blood thinner--warfarin, Coumadin, Jantoven. This list is not complete. Other drugs may interact with amoxicillin and clavulanate potassium, including prescription and tqbx-bxr-ljblhrz medicines, vitamins, and herbal products. Not all possible interactions are listed in this medication guide. Where can I get more information? Your pharmacist can provide more information about amoxicillin and clavulanate potassium. Remember, keep this and all other medicines out of the reach of children, never share your medicines with others, and use this medication only for the indication prescribed. Every effort has been made to ensure that the information provided by [employer]. [employer] is accurate, up-to-date, and complete, but no guarantee is made to that effect. Drug information contained herein may be time sensitive. [employer] information has been compiled for use by healthcare practitioners and consumers in the [place] and therefore [employer] does not warrant that uses outside of the [place] are appropriate, unless specifically indicated otherwise. [employer] drug information does not endorse drugs, diagnose patients or recommend therapy. [employer] drug information is an informational resource designed to assist licensed healthcare practitioners in caring for their patients and/or to serve consumers viewing this service as a supplement to, and not a substitute for, the expertise, skill, knowledge and judgment of healthcare practitioners. The absence of a warning for a given drug or drug combination in no way should be construed to indicate that the drug or drug combination is safe, effective or appropriate for any given patient. [employer] does not assume any responsibility for any aspect of healthcare administered with the aid of information [employer] provides. The information contained herein is not intended to cover all possible uses, directions, precautions, warnings, drug interactions, allergic reactions, or adverse effects. If you have questions about the drugs you are taking, check with your doctor, nurse or pharmacist. Copyright [id number] [employer]. Version: 03.03. Revision Date: 05/03/2017. ondansetron (oral) (on CORBIN se ajay) Rashaad Neil Zuplenz What is the most important information I should know about ondansetron? You should not use ondansetron if you are also using apomorphine (Apokyn). What is ondansetron? Ondansetron blocks the actions of chemicals in the body that can trigger nausea and vomiting. Ondansetron is used to prevent nausea and vomiting that may be caused by surgery, cancer chemotherapy, or radiation treatment. Ondansetron may be used for purposes not listed in this medication guide. What should I discuss with my health care provider before taking ondansetron? You should not use ondansetron if: ?? you are also using apomorphine (Apokyn); or ?? you are allergic to ondansetron or similar medicines (dolasetron, granisetron, palonosetron). To make sure ondansetron is safe for you, tell your doctor if you have: ?? liver disease; ?? an electrolyte imbalance (such as low levels of potassium or magnesium in your blood); ?? congestive heart failure, slow heartbeats; ?? a personal or family history of long QT syndrome; or ?? a blockage in your digestive tract (stomach or intestines). Ondansetron is not expected to harm an unborn baby. Tell your doctor if you are . It is not known whether ondansetron passes into breast milk or if it could harm a nursing baby. Tell your doctor if you are breast-feeding a baby. Ondansetron is not approved for use by anyone younger than 4 years old. Ondansetron orally disintegrating tablets may contain phenylalanine. Tell your doctor if you have phenylketonuria (PKU). How should I take ondansetron? Follow all directions on your prescription label. Do not take this medicine in larger or smaller amounts or for longer than recommended. Ondansetron can be taken with or without food. The first dose of ondansetron is usually taken before the start of your surgery, chemotherapy, or radiation treatment. Follow your doctor's dosing instructions very carefully. Take the ondansetron regular tablet with a full glass of water. To take the orally disintegrating tablet (Zofran ODT): ?? Keep the tablet in its blister pack until you are ready to take it. Open the package and peel back the foil. Do not push a tablet through the foil or you may damage the tablet. ?? Use dry hands to remove the tablet and place it in your mouth. ?? Do not swallow the tablet whole. Allow it to dissolve in your mouth without chewing. ?? Swallow several times as the tablet dissolves. To use ondansetron oral soluble film (strip) (Staci): ?? Keep the strip in the foil pouch until you are ready to use the medicine. ?? Using dry hands, remove the strip and place it on your tongue. It will begin to dissolve right away. ?? Do not swallow the strip whole. Allow it to dissolve in your mouth without chewing. ?? Swallow several times after the strip dissolves. If desired, you may drink liquid to help swallow the dissolved strip. ?? Wash your hands after using Zuplenz. Measure liquid medicine with the dosing syringe provided, or with a special dose-measuring spoon or medicine cup. If you do not have a dose-measuring device, ask your pharmacist for one. Store at room temperature away from moisture, heat, and light. Store liquid medicine in an upright position. What happens if I miss a dose? Take the missed dose as soon as you remember. Skip the missed dose if it is almost time for your next scheduled dose. Do not take extra medicine to make up the missed dose. What happens if I overdose? Seek emergency medical attention or call the Poison Help line at . Overdose symptoms may include sudden loss of vision, severe constipation, feeling light-headed, or fainting. What should I avoid while taking ondansetron? Ondansetron may impair your thinking or reactions. Be careful if you drive or do anything that requires you to be alert. What are the possible side effects of ondansetron? Get emergency medical help if you have signs of an allergic reaction: rash, hives; fever, chills, difficult breathing; swelling of your face, lips, tongue, or throat. Call your doctor at once if you have: ?? severe constipation, stomach pain, or bloating; ?? headache with chest pain and severe dizziness, fainting, fast or pounding heartbeats; ?? fast or pounding heartbeats; ?? jaundice (yellowing of the skin or eyes); ?? blurred vision or temporary vision loss (lasting from only a few minutes to several hours); ?? high levels of serotonin in the body--agitation, hallucinations, fever, fast heart rate, overactive reflexes, nausea, vomiting, diarrhea, loss of coordination, fainting. Common side effects may include: ?? diarrhea or constipation; ?? headache; ?? drowsiness; or ?? tired feeling. This is not a complete list of side effects and others may occur. Call your doctor for medical advice about side effects. You may report side effects to FDA at 1-524-EVB-9256. What other drugs will affect ondansetron? Ondansetron can cause a serious heart problem, especially if you use certain medicines at the same time, including antibiotics, antidepressants, heart rhythm medicine, antipsychotic medicines, and medicines to treat cancer, malaria, HIV or AIDS. Tell your doctor about all medicines you use, and those you start or stop using during your treatment with ondansetron. Taking ondansetron while you are using certain other medicines can cause high levels of serotonin to build up in your body, a condition called 'serotonin syndrome,' which can be fatal. Tell your doctor if you also use: ?? medicine to treat depression; ?? medicine to treat a psychiatric disorder; ?? a narcotic (opioid) medication; or ?? medicine to prevent nausea and vomiting. This list is not complete and many other drugs can interact with ondansetron. This includes prescription and jwwg-dyh-eyibvvq medicines, vitamins, and herbal products. Give a list of all your medicines to any healthcare provider who treats you. Where can I get more information? Your pharmacist can provide more information about ondansetron. Remember, keep this and all other medicines out of the reach of children, never share your medicines with others, and use this medication only for the indication prescribed. Every effort has been made to ensure that the information provided by [employer]. [employer] is accurate, up-to-date, and complete, but no guarantee is made to that effect. Drug information contained herein may be time sensitive. [employer] information has been compiled for use by healthcare practitioners and consumers in the [place] and therefore [employer] does not warrant that uses outside of the [place] are appropriate, unless specifically indicated otherwise. [employer]'s drug information does not endorse drugs, diagnose patients or recommend therapy. [employer] drug information is an informational resource designed to assist licensed healthcare practitioners in caring for their patients and/or to serve consumers viewing this service as a supplement to, and not a substitute for, the expertise, skill, knowledge and judgment of healthcare practitioners. The absence of a warning for a given drug or drug combination in no way should be construed to indicate that the drug or drug combination is safe, effective or appropriate for any given patient. [employer] does not assume any responsibility for any aspect of healthcare administered with the aid of information [facility] provides. The information contained herein is not intended to cover all possible uses, directions, precautions, warnings, drug interactions, allergic reactions, or adverse effects. If you have questions about the drugs you are taking, check with your doctor, nurse or pharmacist. Copyright [id number] [facility] [employer]. Version: 13.01. Revision Date: 02/20/2016. Emergency Awareness and Preventative Care STROKE is an EMERGENCY Every Minute Counts Act FAST and Check for these signs: FACE Does the face look uneven? ARM Does one arm drift down? SPEECH Does their speech sound strange? TIME Call at any sign of stroke Stroke Risk Factors Atrial Fibrillation (irregular heartbeat) Diabetes Family history of stroke Heart Disease Heavy alcohol use High Blood Pressure High Cholesterol Physical inactivity and obesity Smoking Cigarette Smoking The facts are clear, cigarette smoking will shorten your life. Smoking can cause many illnesses along the way. As a healthcare provider, we recommend that you stop smoking. Assistance with quitting is available by contacting 8-733-PNSEhikeNOW. This is a free resource providing counseling, support, and referral. Or you may contact your personal physician. National Suicide Prevention Lifeline: The National Suicide Prevention Lifeline is a national network of local crisis centers that provides free and confidential emotional support to people in suicidal crisis or emotional distress 24 hours a day, 7 days a week. Don't Wait! Stop a Heart Attack Before it Starts What is a heart attack? A heart attack is damage or to a part of the heart from severely decreased or lack of blood flow to the heart. Over time, arteries can become narrow from the buildup of fat and cholesterol, which is called plaque. The plaque can rupture causing a blood clot to form. When the blood clot forms, the artery can become severely narrowed or completely blocked, causing a heart attack. Heart attack is the leading cause of in the [place]. 85% of muscle damage occurs within the first 2 hours. Delay in the recognition of heart attack symptoms increases the chances of . Know the early symptoms of a heart attack: Nausea Feeling of fullness in chest Jaw Pain Pain that travels down one or both arms Fatigue/being tired Anxiety Back Pain Chest pressure, squeezing, or discomfort Shortness of breath Sweating, or a cold sweat Feeling of impending doom There are unusual signs of a heart attack, too! Women, the elderly, and diabetics may present with atypical symptoms: Fainting/dizziness Weakness Confusion Risk Factors for a Heart Attack Some heart disease risk factors, such as age and family history, cannot be changed. Others, like smoking and lack of exercise, can be changed. Smoking High Cholesterol High Blood Pressure Family History Obesity Age Gender (Males are at higher risk) Lack of Exercise Diabetes Diet Stress Excessive Alcohol Intake If you or someone you know is experiencing the signs and symptoms of a heart attack, DON???T DELAY. Call immediately and seek help. If someone collapses, perform CPR! Do not attempt to drive if you are having symptoms of heart attack. Hands-Only CPR Why Hands-Only CPR? Hands-Only CPR has been shown to be as effective as conventional CPR for cardiac arrests that occur outside of a hospital. Survival depends on immediately receiving CPR from someone nearby. How do you perform Hands-Only CPR? There are two easy steps: Call if you see a teen or adult collapse Push hard and fast in the center of the chest at a beat of 100 beats per minute. Save a life! 4 WAYS TO GET AHEAD OF SEPSIS SEPSIS is a MEDICAL EMERGENCY. Time matters! Infections put you and your family at risk for a life-threatening condition called sepsis. Sepsis is the body's extreme response to an infection. It is life-threatening, and without timely treatment, sepsis can rapidly lead to tissue damage, organ failure, and . Sepsis happens when an infection you already have-in your skin, lungs, urinary tract or somewhere else-triggers a chain reaction throughout your body. 1 PREVENT INFECTIONS Take good care of chronic conditions. Talk to your doctor about getting the recommended vaccines. 2 PRACTICE GOOD HYGIENE Wash your hands frequently. Keep cuts or open sores clean and covered until they are healed. 3 KNOW THE SYMPTOMS Confusion or disorientation Shortness of breath High heart rate Fever, shivering, or feeling very cold Extreme pain or discomfort Clammy or sweaty skin 4 ACT FAST Get medical care IMMEDIATELY if you suspect sepsis or if you have an infection that is not getting better or is getting worse. To learn more about sepsis and how to prevent infections, visit www.cdc.gov/sepsis. Test Results Laboratory or Other Results This Visit (last charted value for your 06/12/2019 visit) Hematology 06/13/2019 4:26 AM WBC: 8.2 K/uL -- Normal range between ( 3.9 and 10.0 ) RBC: 3.99 Million/uL -- Normal range between ( 3.93 and 5.22 ) Hct: 38.2 % -- Normal range between ( 34.1 and 44.9 ) Hgb: 12.4 Gram/dL -- Normal range between ( 11.2 and 15.7 ) Platelet Count: 180 K/uL -- Normal range between ( 163 and 369 ) MCH: 31.1 pg -- Normal range between ( 25.6 and 32.2 ) MCHC: 32.5 Gram/dL -- Normal range between ( 32.3 and 36.5 ) MCV: 95.7 fL -- Normal range between ( 79.0 and 94.8 ) Slide Review: No RDW: 13.1 % -- Normal range between ( 11.6 and 14.4 ) MPV: 10.3 fL -- Normal range between ( 9.4 and 12.4 ) 06/12/2019 9:51 AM Eos %: 0.3 % -- Normal range between ( 1.0 and 7.0 ) [place] #: 0.42 K/uL -- Normal range between ( 0.24 and 0.82 ) Eos #: 0.03 K/uL -- Normal range between ( 0.04 and 0.54 ) [place] %: 4.8 % -- Normal range between ( 4.7 and 12.5 ) Baso %: 0.2 % -- Normal range between ( 0.0 and 1.0 ) Baso #: 0.02 K/uL -- Normal range between ( 0.01 and 0.08 ) Neut %: 86.4 % -- Normal range between ( 34.0 and 71.0 ) Neut #: 7.48 K/uL -- Normal range between ( 1.56 and 6.13 ) Lymph %: 8.1 % -- Normal range between ( 19.3 and 53.0 ) Lymph #: 0.70 K/uL -- Normal range between ( 1.18 and 3.74 ) IG#: 0 x10(3)/uL IG%: 0 % -- Normal range between ( 0 and 1 ) Urinalysis 06/12/2019 8:56 AM Ur RBC: 0-2 /HPF Urine Nitrite: Negative Urine Leukocyte Esterase: Negative Urine Appearance: Cloudy Urine Glucose Dipstick: Negative Urine Blood Dipstick: Negative Urine Type: U CleanCatch Urine Urobilinogen Dipstick: 1.0 EU/dL -- Normal range between ( 0.2 and 1.0 ) Urine Protein Dipstick: Trace Ur Bacteria: 1+ Ur Squamous Epithelial Cells: 10-20 /HPF Urine Color: DK YELLOW Ur WBC: 2-5 /HPF Urine Ketones Dipstick: >=80 Ur Mucous: 3+ Urine pH Dipstick: 7.5 -- Normal range between ( 6.0 and 8.0 ) Urine Bilirubin Dipstick: Small Urine Specific Gepp: 1.030 -- Normal range between ( 1.005 and 1.030 ) General Chemistry 06/13/2019 4:26 AM Creatinine Level: 0.50 mg/dL -- Normal range between ( 0.55 and 1.02 ) Sodium Level: 142 mmol/L -- Normal range between ( 136 and 146 ) Potassium Level: 4.6 mmol/L -- Normal range between ( 3.5 and 5.1 ) Chloride Level: 110 mmol/L -- Normal range between ( 102 and 112 ) Carbon Dioxide Level: 29 mmol/L -- Normal range between ( 21 and 32 ) Anion Gap: 8 -- Normal range between ( 9 and 20 ) Bun/Creatinine: 16.0 -- Normal range between ( 8.0 and 20.0 ) Calcium Level: 9.0 mg/dL -- Normal range between ( 8.5 and 10.1 ) eGFR : >60 mL/min/1.73m2 eGFR NonAfrican: >60 mL/min/1.73m2 Glucose Level: 101 mg/dL -- Normal range between ( 74 and 106 ) Blood Urea Nitrogen: 8 mg/dL -- Normal range between ( 7 and 22 ) 06/12/2019 8:56 AM Bilirubin Total: 0.8 mg/dL -- Normal range between ( 0.2 and 1.3 ) A/G Ratio: 1.2 -- Normal range between ( 1.1 and 2.5 ) ALT: 14 Units/Liter -- Normal range between ( 12 and 78 ) AST: 12 Units/Liter -- Normal range between ( 5 and 37 ) Globulin: 3.2 Gram/dL -- Normal range between ( 1.5 and 4.5 ) Alk Phos: 78 Units/Liter -- Normal range between ( 27 and 136 ) Magnesium Level: 2.3 mg/dL -- Normal range between ( 1.5 and 2.4 ) Lactic Acid Level: 1.0 mmol/L -- Normal range between ( 0.4 and 2.0 ) Protein Total: 7.0 Gram/dL -- Normal range between ( 6.4 and 8.2 ) Albumin Level: 3.8 Gram/dL -- Normal range between ( 3.4 and 5.0 ) Lipase Level: 126 Units/Liter -- Normal range between ( 73 and 393 ) Endocrinology 06/12/2019 8:56 AM HCG Serum Quant: <1.0 mIU/mL HCG Urine Qualitative: Negative Computed Tomography 06/12/2019 12:[address] Abdomen Pelvis W: CT Abdomen Pelvis W Patient Name:RENNY AHN I have received and understand this information and was given the opportunity to ask questions. Patient/Mechanical Drafter Name: Patient/Mechanical Drafter Signature: Relationship to Patient: Clinician/Hospital Mechanical Drafter Signature: Date: Electronically signed by Interface, [facility] Conversion Veterinary X Ray Operator Cerner at 08/18/2022 11:46 AM CDT documented in this encounter Plan of Treatment Upcoming Encounters Date Type Department Care Team (Late st Contact Info) Description 03/20/2025 10:45 AM EST Office Visit [facility] Bariatric Services [address] [address] [place] [address] Stanislav Cruz MD [address] [facility] [address] [place] [address] documented as of this encounter Visit Diagnoses Not on filedocumented in this encounter
--- OUTSIDE RECORDS SUMMARY | 2025-03-13 14:11 | XMS_ITS | Encounter Summary ---
Author Organization [employer] ([place], [place], [place], [place], [place]) Address [address] [place] [address] Care Team Providers Care Engine Specialist Name Role Phone Unavailable Primary Care Provider Unavailabl e Encounter Details Date Type Department Care Team (Late st Contact Info) Description 06/12/2019 Transcribed Document [facility] [place] [place] [address] [place] [address] ProviderCarmela MD [address] [place] [address] [phone] Social History Tobacco Use Types Packs/Day Years Used Date Smoking Tobacco: Never Assessed Comments Unknown Sex and Gender Information Value Date Recorded Sex Assigned at Not on file Legal Sex Female 1:20 PM CDT Gender Identity Not on file Sexual Orientation Not on file documented as of this encounter Miscellaneous Notes * Cerner Conversion Note - Carmela ProviderMD - 06/12/2019 12:40 PM TRACTOR TRAILER TECHNICIAN CHELSEA Main OR PreOp Summary Primary Physician: MELINA JENSEN MD-SUR Finalized Date/Time: 06/12/19 14:59:02 Pt. Name: RENNY SUGGS/Sex: 1975 Female Med Rec #: [id number] Physician: MELINA JENSEN MD-SUR Financial #: [id number] Pt. Type: O Room/Bed: [facility] Admit/Disch: 06/12/19 13:55:00 - Institution: [facility] [place] Case Times Entry 1 In Preop 06/12/19 14:05:00 Ready for Holding n/a Room Patient Ready for 06/12/19 14:25:00 Surgery Patient Out of Preop 06/12/19 14:45:00 Patient Out of n/a Holding Room Last Modified By: PARDEEP SANTIZO 06/12/19 14:59:01 [facility]HELSEA PreOp Case Times Audit 06/12/19 14:59:01 Group Segment Consultant: [id number] Modifier: [email or web address] <+> 1 Patient Out of Preop Finalized By: PARDEEP SANTIZO Document Signatures Signed By: PARDEEP SANTIZO 06/12/19 14:59 documented in this encounter Plan of Treatment Upcoming Encounters Date Type Department Care Team (Late st Contact Info) Description 03/20/2025 10:45 AM EST Office Visit [facility] Bariatric Services [address] [facility] [address] [place] [address] Stanislav Cruz MD [address] [place] [address] documented as of this encounter Visit Diagnoses Not on filedocumented in this encounter
--- OUTSIDE RECORDS SUMMARY | 2025-03-13 14:12 | XMS_ITS | Encounter Summary ---
Author Organization [employer] ([place], [place], [place], [place], [place]) Address [address] [place] [address] Care Team Providers Care Clinical Editor Name Role Phone Unavailable Primary Care Provider Unavailabl e Encounter Details Date Type Department Care Team (Late st Contact Info) Description 06/13/2019 Transcribed Document [facility] [place] [facility] [place] [address] ProviderCarmela MD [address] [place] [address] [phone] Social History Tobacco Use Types Packs/Day Years Used Date Smoking Tobacco: Never Assessed Comments Unknown Sex and Gender Information Value Date Recorded Sex Assigned at Not on file Legal Sex Female 1:20 PM CDT Gender Identity Not on file Sexual Orientation Not on file documented as of this encounter Miscellaneous Notes * Cerner Conversion Note - Carmela ProviderMD - 06/13/2019 9:12 AM BAKED GOODS STOCK CLERK Initial Discharge Planning Entered On: 06/13/2019 9:15 EST Performed On: 06/13/2019 9:12 EST by TODD CAMARENA RN-Commissioned Sales Associate Initial Assessment I Previously Documented Living Environment : No qualifying data available. Living Situation : Home Patient Lives With : Spouse Emergency Contact #1 : Alec Ahn Emergency Contact #1 Emergency Contact #1 Relationship : Emergency Contact #2 : na Emergency Contact #2 Phone Number : na Emergency Contact #2 Relationship : na Enter Doctors Name : Rober Ceront Does Patient have PCP Listed? : Yes TODD CAMARENA RN-Commissioned Sales Associate - 06/13/2019 9:12 EST Initial Assessment II Sensory and Motor Deficits : None Current Home Treatments and Equipment : None TODD CAMARENA RN-Commissioned Sales Associate - 06/13/2019 9:12 EST Discharge Needs I Anticipated Discharge To, CM : Home with family care Current Home Treatment/Equipment : Current Home Treatment/Equipment No qualifying data available. Post Acute/Home Treatments : None Documentation Status Complete : Yes TODD CAMARENA RN-Commissioned Sales Associate - 06/13/2019 9:12 EST Discharge Needs II Professional Skilled Services : Professional Skilled Services No qualifying data available. Needs Assistance with Transportation : No Discharge Options Discussed with Patient : Discharge transportation, Outpatient services TODD CAMARENA RN-Commissioned Sales Associate - 06/13/2019 9:12 EST Narrative Note Narrative Note : Patient underwent laparoscopic appendectomy. Lives at home with family, I with ADLs, plan is to return home at [place] with family, no services needed..........sds TODD CAMARENA RN-Commissioned Sales Associate - 06/13/2019 9:12 EST Electronically signed by [facility] Conversion Business Development Recruiter Cerner at 08/18/2022 11:26 AM CDT documented in this encounter Plan of Treatment Upcoming Encounters Date Type Department Care Team (Late st Contact Info) Description 03/20/2025 10:45 AM EST Office Visit [facility] Bariatric Services [address] [facility] [address] [place] [address] Stanislav Cruz MD [address] [facility] [address] [place] [address] documented as of this encounter Visit Diagnoses Not on filedocumented in this encounter
--- OUTSIDE RECORDS SUMMARY | 2025-03-13 14:12 | XMS_ITS | Encounter Summary ---
Author Organization [employer] ([place], [place], [place], [place], [place]) Address [address] [place] [address] Care Team Providers Care Maintenance Shop Technician Name Role Phone Unavailable Primary Care Provider Unavailabl e Encounter Details Date Type Department Care Team (Late Contact Info) Description 06/13/2019 Transcribed Document [facility] [place] [facility] [place] [address] ProviderCarmela MD [address] [place] [address] [phone] Social History Tobacco Use Types Packs/Day Years Used Date Smoking Tobacco: Never Assessed Comments Unknown Sex and Gender Information Value Date Recorded Sex Assigned at Not on file Legal Sex Female 1:20 PM CDT Gender Identity Not on file Sexual Orientation Not on file documented as of this encounter Miscellaneous Notes * Cerner Conversion Note - Historical ProviderMD - 06/13/2019 2:00 AM PIN BALL MACHINE MECHANIC Brand Recorder Details Entered On: 06/13/2019 2:21 EST Performed On: 06/13/2019 2:00 EST by Kailee Esqueda, Rn Surgical-Nursing Order Details Transport Mode Order Detail : Wheelchair Isolation Precautions Order Detail : Standard Precautions Order Detail : 0 IV Order Detail : 1 Oxygen Order Detail : 0 Nurse Collect Order Detail : 0 Lift/Transfer : Minimal Central Line Order Detail : No Room Service : Appropriate Arterial Line : No Kailee Esqueda, Rn Surgical-Nursing - 06/13/2019 2:21 EST documented in this encounter Plan of Treatment Upcoming Encounters Date Type Department Care Team (Late st Contact Info) Description 03/20/2025 10:45 AM EST Office Visit [facility] [address] [place] [address] Stanislav Cruz MD [address] [facility] [address] [place] [address] documented as of this encounter Visit Diagnoses Not on filedocumented in this encounter
--- OUTSIDE RECORDS SUMMARY | 2025-03-13 14:12 | XMS_ITS | Encounter Summary ---
Author Organization [employer] ([place], [place], [place], [place], [place]) Address [address] [place] [address] Care Team Providers Care Sound Assistant Name Role Phone Unavailable Primary Care Provider Unavailabl e Encounter Details Date Type Department Care Team (Late st Contact Info) Description 06/13/2019 Transcribed Document [facility] Surgery - [address] [place] [address] Melina Jensen MD [address] [place] [address] Social History Tobacco Use Types Packs/Day Years Used Date Smoking Tobacco: Never Assessed Comments Unknown Sex and Gender Information Value Date Recorded Sex Assigned at Not on file Legal Sex Female 1:20 PM CDT Gender Identity Not on file Sexual Orientation Not on file documented as of this encounter Miscellaneous Notes * Cerner Conversion Note - Melina Jensen MD - 06/13/2019 11:55 AM EST Patient: RENNY AHN Age: 44 Years Sex: Female : 1975 Admit Date 06/12/2019 13:55 Discharge Date 06/13/2019 09:21 Primary Care Provider PARIS BOYD MD Discharge Diagnosis Acute appendicitis 06/12/2019 K35.32 ICD-10-CM Procedures SN - Proc - Procedure: Appendectomy Laparoscopic (06/12/19 15:17:53) Reason for Hospitalization Ms. Ahn is a 44-year-old female patient, who was seen in the emergency department today for lower abdominal pain. Workup included a CT scan of the abdomen and pelvis, which revealed evidence of acute appendicitis. Laparoscopic appendectomy was offered and recommended and after the risks and benefits of operative interventions were explained to her, she wished to proceed Hospital Course On the day of admission the patient was seen and evaluated by Dr. Jensen in the emergency department. She was subsequently taken to the operating room where she underwent surgical procedures outlined above. The procedure was tolerated by the patient without any complications. Postoperatively the patient was taken to the recovery room followed by admission to the medical surgical floor. On the first postoperative day patient was afebrile and her vital signs were stable. She was not having any nausea and vomiting. Her pain was well-controlled. She stated she was feeling much better. On the first postoperative day following evaluation by Dr. Jensen the patient was stable for discharge home. Vital Signs T: 36.7 ??C TMIN: 36.7 ??C TMAX: 37.3 ??C HR: 58(Monitored) RR: 17 BP: 110/63 SpO2: 98% HT: 165.1 cm WT: 65.45 kg Oxygen Settings (Last) Oxygen Therapy Mode: Room air (06/13/19 08:00:00) Oxygen Flow Rate: 2 Liter/Min (06/12/19 15:55:00) Discharge Disposition Home Discharge Follow Up MELINA JENSEN - Within 1 to 2 weeks Discharge Medications (5) Active biotin , Oral, Daily Caltrate 600+D oral tablet, chewable 1 Tab, Chew, BID ibuprofen 100 mg/5 mL oral suspension , Oral, Q6H multivitamin , Oral, Daily Xanax 0.5 mg oral tablet 0.5 mg = 1 Tab, PRN, Oral, Daily Code Status Start: 06/13/19 6:55:00 EST, Full Code, Continuous Order Consulting Physicians MELINA JENSEN MD-DANUTA VARSHA MOY MD-ANS Current Diet Order Diet, Adult - Ordered -- Start: 06/12/19 17:51:00 EST, Clear Liquid Diet, Isolation: Standard Precautions Patient Discharge Summary Orders Patient to continue usual diet as tolerated. Light activity with no lifting tugging or pulling of 10 pounds or more until seen in follow-up Patient to follow-up with Dr. theresa goodrich in 1-2 weeks after discharge. Patient may shower 48 hours after discharge. documented in this encounter Plan of Treatment Upcoming Encounters Date Type Department Care Team (Late st Contact Info) Description 03/20/2025 10:45 AM EST Office Visit [facility] Bariatric Services [address] [facility] [address] [place] [address] Varsha Cruz MD [address] [facility] [address] [place] [address] documented as of this encounter Visit Diagnoses Not on filedocumented in this encounter
--- OUTSIDE RECORDS SUMMARY | 2025-03-13 14:12 | XMS_ITS | Encounter Summary ---
Author Organization [employer] ([place], [place], [place], [place], [place]) Address [address] [place] [address] Care Team Providers Care Calcine Furnace Tender Name Role Phone Unavailable Primary Care Provider Unavailabl e Encounter Details Date Type Department Care Team (Late st Contact Info) Description 06/13/2019 Transcribed Document [facility] Surgery - [employer] [address] [facility] [address] [place] [address] Nick Thurman MD [address] [place] [address] Social History Tobacco Use Types Packs/Day Years Used Date Smoking Tobacco: Never Assessed Comments Unknown Sex and Gender Information Value Date Recorded Sex Assigned at Not on file Legal Sex Female 1:20 PM CDT Gender Identity Not on file Sexual Orientation Not on file documented as of this encounter Miscellaneous Notes * Cerner Conversion Note - Nick Thurman MD - 06/13/2019 9:53 AM EST Patient: RENNY AHN Age: 44 Years Sex: Female : 1975 Subjective Doing very well. Feels much better. Intake & Output Intake & Output Totals Last 24 Hours (7a-7a) Intake (15 Events) Continuous Infusions (2000 mL) Medications (1241.25 mL) Oral Intake (120 mL) Surgical Services Intake (600 mL) Output (2 Events) Urine Voided (Volume) (650 mL) Input Total: 3961.25 mL Output Total: 650 mL Balance: 3311.25 mL Vital Signs T: 36.7 ??C TMIN: 36.7 ??C TMAX: 37.3 ??C HR: 58(Monitored) RR: 17 BP: 110/63 SpO2: 98% HT: 165.1 cm WT: 65.45 kg Physical Exam Abd soft. Incisions good. VTE Risk Total Score VTE Prophylaxis - Surgical Enoxaparin 40 mg, SubCutaneous, Inj, Daily, Routine, Start 06/13/19 9:00:00 EST (MARGA COTE PA-C) Sequential Compression Device Start: 06/12/19 17:51:00 EST, Bilateral, Length: Knee High, While in Bed, to nonoperative leg ONLY, Continuous Order (MARGA COTE PA-C) Assessment/Plan POD #1 s/p lap appy. D/c home today. Augmentin BID for 3 days. Abdominal pain [id number] Acute appendicitis with rupture K35.32 Unspecified appendicitis K37, Unspecified appendicitis K37 Orders: Discharge Pathology Tissue Request Resuscitation Status SENDOUT REPORT Medications Inpatient Colace, 100 mg= 1 Cap, Oral, BID Levaquin, 750 mg= 150 mL, IV Piggyback, [id number] Lopressor, 5 mg= 5 mL, IV Push, 1-Time, PRN Lovenox, 40 mg= 0.4 mL, SubCutaneous, Daily MiraLax, 17 Gram= 1 Packet, Oral, Daily, PRN morphine, 2 mg= 1 mL, IV Push, Q1H, PRN Normal Saline Flush, 10 mL, Flush, Q12H Normal Saline Flush, 10 mL, IntraVENous, See Comment, PRN Percocet 5/325 oral tablet, 1 Tab, Oral, Q4H, PRN Protonix, 40 mg= 1 Tab, Oral, AC Breakfast Sodium Chloride 0.9% intravenous solution 1,000 mL, 1000 mL, IntraVENous Tylenol, 650 mg= 2 Tab, Oral, 1-Time, PRN Zofran, 4 mg= 2 mL, IV Push, Q6H, PRN Home biotin, Oral, Daily Caltrate 600+D oral tablet, chewable, 1 Tab, Chew, BID ibuprofen 100 mg/5 mL oral suspension, Oral, Q6H multivitamin, Oral, Daily Xanax 0.5 mg oral tablet, 0.5 mg= 1 Tab, Oral, Daily, PRN Labs Results JUN 13 04:26 142 110 8 / 101 4.6 29 L 0.50 \ JUN 13 04:26 \ 12.4 / 8.2 180 / 38.2 \ Albumin Level: 3.8 Gram/dL Alk Phos: 78 Units/Liter ALT: 14 Units/Liter Anion Gap: 8 Low AST: 12 Units/Liter Bilirubin Total: 0.8 mg/dL Calcium Level: 9 mg/dL Magnesium Level: 2.3 mg/dL Protein Total: 7 Gram/dL Imaging Results (Last 24 Hours) Radiology Results (Last 48 hours) [id number] -- 06/12/2019 13:55 CT Abdomen Pelvis W (06/12/2019 12:20) Result: [...] agree with the above final transcribed report. Problem List/Past Medical History Ongoing Anemia Anxiety disorder Eczema GERD (gastroesophageal reflux disease) Polycystic ovarian syndrome Snores Historical At risk for sleep apnea Palpitations Procedure/Surgical History LAPAROSCOPIC APPENDECTOMY (06/12/2019), EXCISION OF STOMACH, PERCUTANEOUS ENDOSCOPIC APPROACH, VERT (02/02/2018), cervical ablation, choleycystectomy, colonoscopy, Dilation and curettage, EGD, Gastric Sleeve, hemorrhoidectomy, IUD implanted 2015, x 2, Tonsillectomy and adenoidectomy. Allergies Rocephin (rash) sulfa drugs (flushed, vomiting) documented in this encounter Plan of Treatment Upcoming Encounters Date Type Department Care Team (Late st Contact Info) Description 03/20/2025 10:45 AM EST Office Visit [facility] Bariatric Services [address] [address] Stanislav Cruz MD [address] [facility] [address] [place] [address] documented as of this encounter Visit Diagnoses Not on filedocumented in this encounter
--- OUTSIDE RECORDS SUMMARY | 2025-03-13 14:12 | XMS_ITS | Encounter Summary ---
Author Organization [employer] ([place], [place], [place], [place], [place]) Address [address] [place] [address] Care Team Providers Care Associate Professor Name Role Phone Unavailable Primary Care Provider Unavailabl e Encounter Details Date Type Department Care Team (Late st Contact Info) Description 06/12/2019 Transcribed Document [facility] [place] Family Medicine [facility] [place] [address] ProviderCarmela MD [address] [place] [address] [phone] Social History Tobacco Use Types Packs/Day Years Used Date Smoking Tobacco: Never Assessed Comments Unknown Sex and Gender Information Value Date Recorded Sex Assigned at Not on file Legal Sex Female 1:20 PM CDT Gender Identity Not on file Sexual Orientation Not on file documented as of this encounter Miscellaneous Notes * Cerner Conversion Note - Carmela Feliciano MD - 06/12/2019 1:31 PM MIDDLE CARD TENDER Patient: RENNY AHN Age: 44 years Sex: Female : 1975 Associated Diagnoses: Acute appendicitis with rupture Author: DRISS GARY MD-EMR Basic Information Additional information: Chief Complaint from Nursing Triage Note : Chief Complaint 06/12/2019 8:19 EST Chief Complaint PT c/o sharp lower abdominal pain with nausea for past 24 hrs, pain rated 9/10, states she feels like she needs to have a bowel movement, has had several but pain is not relieved, resp even and unlabored . History of Present Illness The patient presents with abdominal pain. The onset was 1 days ago. The course/duration of symptoms is constant. The character of symptoms is achy, pressure and feels like I have to poop, I pooped and it didn't help . The degree at onset was minimal. The Location of pain at onset was suprapubic. The degree at present is severe. The Location of pain at present is diffuse. Radiating pain: none. The exacerbating factor is not hungry, + thirsty but not eating, changing position, coughing, defecation, movement or urination. The relieving factor is none. Therapy today: took. Additional history: last intake: lizeth stated this did NOT feel like an ovarian cyst. Review of Systems Constitutional symptoms Health Status Allergies: Allergic Reactions (Selected) High Rocephin- Rash. Severity Not Documented Sulfa drugs- No reactions were documented.. Past Medical/ Family/ Social History Medical history Reviewed as documented in chart. See Problem list below. I have reviewed it.. Surgical history: hemorrhoidectomy. Tonsillectomy and adenoidectomy ([id number]). choleycystectomy. colonoscopy. Dilation and curettage ([id number]). cervical ablation. IUD implanted 2015. x 2. EGD. Gastric Sleeve., Reviewed as documented in chart. Family history: No family history items have [...] 100 in l Smokeless Tobacco Status Never , Reviewed as documented in chart. Physical Examination Vital Signs Vital Signs/Vital Measures 06/12/2019 11:22 EST Systolic Blood Pressure 107 mmHg Diastolic Blood Pressure 69 mmHg Heart Rate Monitored 88 bpm Respiratory Rate 17 Breaths/Min Oxygen Saturation 99 % 06/12/2019 8:19 EST Systolic Blood Pressure 130 mmHg Diastolic Blood Pressure 88 mmHg Temperature Source Tympanic Temperature Mode Fahrenheit Temperature, Fahrenheit 96.9 Deg F Clinical Temperature, C 36.1 Deg C Peripheral Pulse Rate 79 bpm Respiratory Rate 18 Breaths/Min Oxygen Saturation 100 % . Measurements 06/12/2019 8:19 EST Height Source Stated Height Entry Format [place] Height/Length, SAMI (ft) 5 ft Height/Length SAMI 5 Inch CLINICALHEIGHT 165.1 cm [place] Body Weight 56.59 kg Weight Source, ED Standing scale Weight Entry Format [place] Weight [place] lb 145 lb CLINICALWEIGHT 65.91 kg Body Surface Area (BSA) 1.73 m2 Body Mass Index 24.2 kg/m2 HI . Oxygen Saturation 06/12/2019 11:22 EST Oxygen Saturation 99 % 06/12/2019 8:19 EST Oxygen Saturation 100 % . General: Alert, moderate distress, anxious. Skin: Warm, dry. Head: Normocephalic, atraumatic. Neck: Supple. Eye: Pupils are equal, round and reactive to light, extraocular movements are intact, normal conjunctiva. Ears, nose, mouth and throat: Oral mucosa moist, no pharyngeal erythema or exudate. Cardiovascular: Regular rate and rhythm. Respiratory: Lungs are clear to auscultation, respirations are non-labored, breath sounds are equal, Symmetrical chest wall expansion. Gastrointestinal: Soft, Tenderness: Moderate, generalized, Guarding: Minimal, Rebound: Negative, Bowel sounds: Normal. Back: Nontender, Normal range of motion. Musculoskeletal: Normal ROM, normal strength, no tenderness, no swelling, no deformity, pulsesx 4. Neurological: Alert and oriented to person, place, time, and situation, No focal neurological deficit observed. Psychiatric: Cooperative. Medical Decision Making Differential Diagnosis: Abdominal pain. Documents reviewed: Emergency department nurses' notes. Results review: Lab results : Lab Results 06/12/2019 9:51 EST WBC 8.7 K/uL RBC 4.78 Million/uL Hgb 14.9 Gram/dL Hct 45.0 % HI MCV 94.1 fL MCH 31.2 pg MCHC 33.1 Gram/dL Platelet Count 195 K/uL MPV 10.5 fL RDW 13.0 % Neut % 86.4 % HI Neut # 7.48 K/uL HI Lymph % 8.1 % LOW Lymph # 0.70 K/uL LOW Mcdonald % 4.8 % Mcdonald # 0.42 K/uL Eos % 0.3 % [...] DK YELLOW Urine Appearance Cloudy Urine Specific Kirk 1.030 Urine pH Dipstick 7.5 Urine Leukocyte [...] Radiology results: Radiology Results (Last 48 hours) [id number] -- 06/12/2019 13:55 CT Abdomen Pelvis W [...] personally viewed, interpreted and dictated the examination. Ihave read and agree with the above final transcribed report. . Reexamination/ Reevaluation patient continued to c/o a feeling that she had to defecate fluid given , labs and CTordered She kept asking for water. We gave her just enough ice chops to wet her mouth pain and nausea meds given CT report delayed. 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 Plan Condition: Unchanged. Disposition: Patient care transitioned to: TO OR Dr Thurman. documented in this encounter Plan of Treatment Upcoming Encounters Date Type Department Care Team (Late st Contact Info) Description 03/20/2025 10:45 AM EST Office Visit [facility] Bariatric Services [address] [place] [address] Stanislav Cruz MD [address] [place] [address] documented as of this encounter Visit Diagnoses Not on filedocumented in this encounter
--- OUTSIDE RECORDS SUMMARY | 2025-03-13 14:12 | XMS_ITS | Encounter Summary ---
Author Organization [employer] ([place], [place], [place], [place], [place]) Address [address] [place] [address] Care Team Providers Care Curtain Fitter Name Role Phone Unavailable Primary Care Provider Unavailabl e Encounter Details Date Type Department Care Team (Late st Contact Info) Description 07/12/2019 Transcribed Document [facility] [place] [facility] [place] [address] ProviderCarmela MD [address] [place] [address] [phone] Social History Tobacco Use Types Packs/Day Years Used Date Smoking Tobacco: Never Assessed Comments Unknown Sex and Gender Information Value Date Recorded Sex Assigned at Not on file Legal Sex Female 1:20 PM CDT Gender Identity Not on file Sexual Orientation Not on file documented as of this encounter Miscellaneous Notes * Cerner Conversion Note - Carmela ProviderMD - 07/12/2019 1:11 PM CDT [address] [address] RENNY SUGGS :1975 Visit Time:07/12/2019 What to do next Your Diagnosis Dysphagia Gastro-esophageal reflux disease without esophagitis, Gastro-esophageal reflux disease without esophagitis Instructions From Your Care Team Diet after Discharge: Resume usual diet as tolerated, Do not drink any alcoholic beverages Fluid Restriction after Discharge: _ Activity after Discharge: _, Rest and relax today, No strenuous activity Lifting Restrictions: _ Weight Bearing: _ Bedrest: _ Driving after Discharge: do not drive today May Return to Work/School: tomorrow Showering/Bathing: May shower, _ Notify Provider of: any problems or concerns Wound/Incision Care after Discharge: _, _ Medical Equipment for Home Use: Home Health Services: Community Services: Follow-Up Appointments Follow Up with CLIFF BETH MD-GAE When Within As needed Comments Follow up with biopsy results. Baclofen 10mg twice a day before meals. Where: [address] [facility] [place] [address]- Follow Up with CLIFF BETH MD-GAE When Within As needed Comments Review recommendations given, call for any questions or concerns. Resume previous diet, continue present medications, await pathology results. Start Baclofen. Where: [address] [facility] [address] [facility] [address] [place] [address]- Medications What How Much When Instructions Next Dose baclofen (baclofen 10 mg oral tablet) 1 Tablet(s) Oral Two Times A Day Duration: 30 Day(s) Refills: 2 Printed Prescription ALPRAZolam (Xanax 0.5 mg oral tablet) 1 Tablet(s) Oral Every Day as needed for as needed for anxiety biotin Oral Every Day calcium-vitamin D (Caltrate 600+D oral tablet, chewable) 1 Tablet(s) Chew Two Times A Day ibuprofen (ibuprofen 100 mg/ 5 mL oral suspension) Oral Every 6 Hours multivitamin Oral Every Day omeprazole (PriLOSEC) Oral Every Day Take your medications faithfully. [...] Please dispose of unused and medications per pharmacy guidance. Education Materials Gastritis, Adult Gastritis is inflammation of the [...] Follow these instructions at home: ??? Take qtyi-byz-weuxnku and prescription medicines only as told by [...] 04/12/2002 Document Revised: 11/29/2017 Document Reviewed: 01/10/2016 [employer] Patient Education ?? 2019 [employer] Esophagogastroduodenoscopy, Care After Refer to this [...] 04/04/2013 Document Revised: 09/23/2016 Document Reviewed: 03/11/2016 [employer] Patient Education ?? 2019 [employer] Esophagogastroduodenoscopy, Care After Refer to this [...] 04/04/2013 Document Revised: 09/23/2016 Document Reviewed: 03/11/2016 [employer] Interactive Patient Education ?? 2019 [employer]. baclofen (VIOLETTA malik fen) FIRST Baclofen What is the most important information I should know about baclofen? Do not use baclofen at a time when you need muscle tone for safe balance and movement during certain activities. Do not stop using baclofen suddenly, or you could have unpleasant withdrawal symptoms. What is baclofen? Baclofen is a muscle relaxer and an antispastic agent. Baclofen is used to treat muscle symptoms caused by multiple sclerosis, including spasm, pain, and stiffness. Baclofen is sometimes used to treat muscle spasms and other symptoms in people with injury or disease of the spinal cord. Baclofen may also be used for purposes not listed in this medication guide. What should I discuss with my healthcare provider before taking baclofen? You should not use baclofen if you are allergic to it. Tell your doctor if you have ever had: ?? kidney disease; ?? epilepsy or other seizure disorder; ?? a stroke or blood clot; or ?? if you also use a narcotic (opioid) medication. Using baclofen may increase your risk of developing an ovarian cyst. Talk with your doctor about your specific risk. In animal studies, baclofen caused low weight and defects. However, it is not known whether these effects would occur in humans. Tell your doctor if you are or if you become while using this medicine. You should not breast-feed while you are using baclofen. Baclofen is not approved for use by anyone younger than 12 years old. How should I take baclofen? Follow all directions on your prescription label and read all medication guides or instruction sheets. Your doctor may occasionally change your dose. Use the medicine exactly as directed. Shake the oral suspension (liquid) before you measure a dose. Use the dosing syringe provided, or use a medicine dose-measuring device (not a kitchen spoon). Call your doctor if your muscle symptoms do not improve, or if they get worse. Do not stop using baclofen suddenly, or you could have unpleasant withdrawal symptoms such as hallucinations or a seizure. Ask your doctor how to safely stop using this medicine. Store at room temperature away from moisture and heat. What happens if I miss a dose? Take the medicine as soon as you can, but skip the missed dose if it is almost time for your next dose. Do not take two doses at one time. What happens if I overdose? Seek emergency medical attention or call the Poison Help line at . Overdose symptoms may include muscle weakness, vomiting, drowsiness, dilated or pinpoint pupils, weak or shallow breathing, seizure, or coma. What should I avoid while taking baclofen? Do not use baclofen at a time when you need muscle tone for safe balance and movement during certain activities. In some situations, it may be dangerous for you to have reduced muscle tone. Drinking alcohol with this medicine can cause side effects. Avoid driving or hazardous activity until you know how this medicine will affect you. Your reactions could be impaired. What are the possible side effects of baclofen? Get emergency medical help if you have signs of an allergic reaction: hives; difficult breathing; swelling of your face, lips, tongue, or throat. Call your doctor at once if you have: ?? weak or shallow breathing; ?? confusion, hallucinations; or ?? a seizure (convulsions). Common side effects may include: ?? drowsiness, dizziness, weakness, tired feeling; ?? headache; ?? sleep problems (insomnia); ?? nausea, constipation; or ?? urinating more often than usual. This is not a complete list of side effects and others may occur. Call your doctor for medical advice about side effects. You may report side effects to FDA at 4-688-UZL-5863. What other drugs will affect baclofen? Taking baclofen with other drugs that make you sleepy or slow your breathing can cause dangerous side effects or . Ask your doctor before using opioid medication, a sleeping pill, a muscle relaxer, or medicine for anxiety or seizures. Other drugs may affect baclofen, including prescription and xadk-itb-axsjbli medicines, vitamins, and herbal products. Tell your doctor about all your current medicines and any medicine you start or stop using. Where can I get more information? Your pharmacist can provide more information about baclofen. Remember, keep this and all other medicines out of the reach of children, never share your medicines with others, and use this medication only for the indication prescribed. Every effort has been made to ensure that the information provided by [employer]. ('[employer]') is accurate, up-to-date, and complete, but no guarantee is made to that effect. Drug information contained herein may be time sensitive. [employer] information has been compiled for use by healthcare practitioners and consumers in the [place] and therefore [employer] does not warrant that uses outside of the [place] are appropriate, unless specifically indicated otherwise. [employer]'s drug information does not endorse drugs, diagnose patients or recommend therapy. [employer] drug information is an informational resource designed [...] effective or appropriate for any given patient. [employer] does not assume any responsibility for any aspect of healthcare administered with the aid of information [employer] provides. The information contained herein is not intended to cover all possible uses, directions, precautions, warnings, drug interactions, allergic reactions, or adverse effects. If you have questions about the drugs you are taking, check with your doctor, nurse or pharmacist. Copyright 1408-8465 [employer]. Version: 7.01. Revision Date: 12/09/2017. Emergency Awareness and Preventative Care STROKE is [...] Assistance with quitting is available by contacting 0-391-TTAEQuincusNOW. This is a free resource providing counseling, [...] This Visit (last charted value for your 07/12/2019 visit) No Laboratory or Other Results This Visit Patient Name:JIMY RENNY NOHEMIGEOFFREY I have received this information and was given the opportunity to ask questions. Patient/Shank Threader Name: Patient/Shank Threader Signature: Relationship to Patient: Clinician/Hospital Shank Threader Signature: Date: documented in this encounter Plan of Treatment Upcoming Encounters Date Type Department Care Team (Late st Contact Info) Description 03/20/2025 10:45 AM EST Office Visit [facility] Bariatric Services [address] [place] [address] [place] [address] Stanislav Cruz MD [address] [facility] [address] [place] [address] documented as of this encounter Visit Diagnoses Not on filedocumented in this encounter
--- OUTSIDE RECORDS SUMMARY | 2025-03-13 14:12 | XMS_ITS | Encounter Summary ---
Author Organization [employer] ([place], [place], [place], [place], [place]) Address [address] [place] [address] Care Team Providers Care Heel Cover Softener Name Role Phone Unavailable Primary Care Provider Unavailabl e Encounter Details Date Type Department Care Team (Late st Contact Info) Description 07/12/2019 Transcribed Document [facility] [place] [facility] [address] ProviderCarmela MD [address] [place] [address] [phone] Social History Tobacco Use Types Packs/Day Years Used Date Smoking Tobacco: Never Assessed Comments Unknown Sex and Gender Information Value Date Recorded Sex Assigned at Not on file Legal Sex Female 1:20 PM CDT Gender Identity Not on file Sexual Orientation Not on file documented as of this encounter Miscellaneous Notes * Cerner Conversion Note - Carmela ProviderMD - 07/12/2019 12:29 PM CDT CHELSEA Lebron PACU Summary Primary Physician: CLIFF BETH MD-GAE Finalized Date/Time: 07/12/19 13:29:27 Pt. Name: RENNY AHN/Sex: 1975 Female Med Rec #: [id number] Physician: CLIFF BETH MD-GAE Financial #: [id number] Pt. Type: E Room/Bed: 14 Admit/Disch: 07/12/19 10:27:00 - Institution: [facility] PACU Case Times Entry 1 In PACU I 07/12/19 12:39:00 Ready for PACU 07/12/19 13:08:00 Discharge Discharge from PACU 07/12/19 13:15:00 I CHELSEA Endo PACU Case Times Audit 07/12/19 13:29:25 Gis Specialist: JOHANNA Modifier: [email or web address] <+> 1 Discharge from PACU I 07/12/19 13:29:14 Gis Specialist: [id number] Modifier: [email or web address] <+> 1 Ready for PACU Discharge Finalized By: CLIFF BAER, RN Document Signatures Signed By: CLIFF BAER RN 07/12/19 13:29 documented in this encounter Plan of Treatment Upcoming Encounters Date Type Department Care Team (Late st Contact Info) Description 03/20/2025 10:45 AM EST Office Visit [facility] Bariatric Services [address] [address] Stanislav Cruz MD [address] [facility] [place] [address] [place] [address] documented as of this encounter Visit Diagnoses Not on filedocumented in this encounter
--- OUTSIDE RECORDS SUMMARY | 2025-03-13 14:12 | XMS_ITS | Encounter Summary ---
Author Organization [employer] ([place], [place], [place], [place], [place]) Address [address] [place] [address] Care Team Providers Care Continuous Absorption Process Operator Name Role Phone Unavailable Primary Care Provider Unavailabl e Encounter Details Date Type Department Care Team (Late st Contact Info) Description 06/12/2019 Transcribed Document [facility] [place] [facility] [place] [address] ProviderCarmela MD [address] [place] [phone] Social History Tobacco Use Types Packs/Day Years Used Date Smoking Tobacco: Never Assessed Comments Unknown Sex and Gender Information Value Date Recorded Sex Assigned at Not on file Legal Sex Female 1:20 PM CDT Gender Identity Not on file Sexual Orientation Not on file documented as of this encounter Miscellaneous Notes * Cerner Conversion Note - Carmela ProviderMD - 06/12/2019 8:16 AM DIRECTOR OF DIGITAL TECHNOLOGY ED Triage Entered On: 06/12/2019 8:21 EST Performed On: 06/12/2019 8:19 EST by ISAEL GREENE RN ED Triage Across the Room Chief Complaint : PT c/o sharp lower abdominal pain with nausea for past 24 hrs, pain rated 9/10, states she feels like she needs to have a bowel movement, has had several but pain is not relieved, resp even and unlabored Triage Date/Time : 06/12/2019 8:19 EST ISAEL GREENE RN - 06/12/2019 8:19 EST DCP GENERIC CODE Tracking Acuity : 3 - Urgent Tracking Group : [facility] ISAEL GREENE RN - 06/12/2019 8:19 EST Mode of Arrival : Ambulatory Transported to ED by : Private vehicle To Room Via : Ambulate Accompanied By : Spouse ED Vital Signs : Document Height & Weight : Document ED Allergies : Document ED Reason for Visit : Document ISAEL GREENE RN - 06/12/2019 8:19 EST Infectious Disease History Physical contact outside [place] in the last 30 days : No Infectious Disease History : Chicken pox/Shingles, Influenza, Mononucleosis Tuberculosis Symptoms : None ISAEL GREENE RN - 06/12/2019 8:19 EST Vital Signs ED Temperature Source : Tympanic Temperature Mode : Fahrenheit Temperature, Fahrenheit : 96.9 Deg F Clinical Temperature, C : 36.1 Deg C Peripheral Pulse Rate : 79 bpm Respiratory Rate : 18 Breaths/Min Systolic Blood Pressure : 130 mmHg Diastolic Blood Pressure : 88 mmHg Oxygen Saturation : 100 % ISAEL GREENE RN - 06/12/2019 8:19 EST Allergy (As Of: 06/12/2019 08:21:36 EST) Allergies (Active) Rocephin Estimated Onset Date: Unspecified ; Reactions: rash ; Comments: Comment 1: Patient can take amoxicillin and cephalexin with no problems. Patient normally gets macrolides when needs antibiotics. ; Created By: Kam Leung, Student-Pharmacist; Reaction Status: Active ; Category: Drug ; Substance: Rocephin ; Type: Allergy ; Severity: High ; Updated By: Kam Leung, Student-Pharmacist; Source: Patient ; Reviewed Date: 06/12/2019 8:21 EST sulfa drugs Estimated Onset Date: Unspecified ; Created By: SILVANO SAENZ RN; Reaction Status: Active ; Category: Drug ; Substance: sulfa drugs ; Type: Allergy ; Updated By: SILVANO SAENZ RN; Reviewed Date: 06/12/2019 8:21 EST Diagnosis Control ED (As Of: 06/12/2019 08:21:36 EST) Problems(Active) Anemia (SNOMED CT :169700999 ) Name of Problem: Anemia ; Recorder: Kindra Garcias Rn; Confirmation: Confirmed ; Classification: Medical ; Code: [id number] ; Contributor System: [employer] ; Last Updated: 01/25/2018 9:58 EDT ; Life Cycle Date: 01/25/2018 ; Life Cycle Status: Active ; Vocabulary: SNOMED CT Anxiety disorder (SNOMED CT :516236816 ) Name of Problem: Anxiety disorder ; Recorder: ANJEL SANTANA RN; Confirmation: Confirmed ; Classification: Medical ; Code: [id number] ; Contributor System: [employer] ; Last Updated: 11/07/2017 10:31 EDT ; Life Cycle Date: 11/07/2017 ; Life Cycle Status: Active ; Vocabulary: SNOMED CT Eczema (SNOMED CT :79124357 ) Name of Problem: Eczema ; Recorder: Cha Rawls RN; Confirmation: Confirmed ; Classification: Medical ; Code: [id number] ; Contributor System: [employer] ; Last Updated: 02/02/2018 6:05 EDT ; Life Cycle Date: 02/02/2018 ; Life Cycle Status: Active ; Vocabulary: SNOMED CT GERD (gastroesophageal reflux disease) (SNOMED CT :531548494 ) Name of Problem: GERD (gastroesophageal reflux disease) ; Recorder: ANJEL SANTANA RN; Confirmation: Confirmed ; Classification: Medical ; Code: [id number] ; Contributor System: [employer] ; Last Updated: 11/07/2017 10:32 EDT ; Life Cycle Date: 11/07/2017 ; Life Cycle Status: Active ; Vocabulary: SNOMED CT Polycystic ovarian syndrome (SNOMED CT :419695066 ) Name of Problem: Polycystic ovarian syndrome ; Recorder: ANJEL SANTANA RN; Confirmation: Confirmed ; Classification: Medical ; Code: [id number] ; Contributor System: [employer] ; Last Updated: 11/07/2017 10:31 EDT ; Life Cycle Date: 11/07/2017 ; Life Cycle Status: Active ; Vocabulary: SNOMED CT Snores (SNOMED CT :801874267 ) Name of Problem: Snores ; Recorder: Kindra Garcias Rn; Confirmation: Confirmed ; Classification: Medical ; Code: [id number] ; Contributor System: [employer] ; Last Updated: 01/25/2018 9:54 EDT ; Life Cycle Date: 01/25/2018 ; Life Cycle Status: Active ; Vocabulary: SNOMED CT Diagnoses(Active) Abdominal pain Date: 06/12/2019 ; Diagnosis Type: Reason For Visit ; Confirmation: Complaint of ; Clinical Dx: Abdominal pain ; Classification: Medical ; Clinical Service: Emergency medicine ; Code: PNED ; Probability: 0 ; Diagnosis Code: [id number] ED Height and Weight Height Source : Stated Height Entry Format : [place] Height, Feet : 5 ft(Converted to: 152 cm, 60 Inch) Height, Inches : 5 Inch(Converted to: 0 ft 5 Inch, 12.70 cm) Clinical Height : 165.1 cm Weight Source, ED : Standing scale Weight Entry Format : [place] Weight, Pounds : 145 lb Clinical Dosing Weight : 65.91 kg Body Surface Area (BSA) : 1.73 m2 Body Mass Index : 24.2 kg/m2 (HI) Rudolph Body Weight (IBW) : 56.59 kg ISAEL GREENE RN - 06/12/2019 8:19 EST ED Influenza/Pneumoccocal Vaccine Influenza Immunization, Current Season : No Previous Vaccines from Immunization Schedule : No qualifying data available. ISAEL GREENE RN - 06/12/2019 8:19 EST Electronically signed by Samy [facility] Conversion Professional Programmer Analyst Cerner at 08/18/2022 11:43 AM CDT documented in this encounter Plan of Treatment Upcoming Encounters Date Type Department Care Team (Late st Contact Info) Description 03/20/2025 10:45 AM EST Office Visit [facility] Bariatric Services [address] [facility] [address] [place] [address] Stanislav Cruz MD [address] [facility] [address] [place] [address] documented as of this encounter Visit Diagnoses Not on filedocumented in this encounter
--- OUTSIDE RECORDS SUMMARY | 2025-03-13 14:12 | XMS_ITS | Encounter Summary ---
Author Organization [employer] ([place], [place], [place], [place], [place]) Address [address] [place] [address] Care Team Providers Care Mechanical Meter Tester Name Role Phone Unavailable Primary Care Provider Unavailabl e Encounter Details Date Type Department Care Team (Late st Contact Info) Description 06/12/2019 Transcribed Document [facility] [place] [facility] [place] [address] ProviderCarmela MD [facility] [place] [id number] Social History Tobacco Use Types Packs/Day Years Used Date Smoking Tobacco: Never Assessed Comments Unknown Sex and Gender Information Value Date Recorded Sex Assigned at Not on file Legal Sex Female 1:20 PM CDT Gender Identity Not on file Sexual Orientation Not on file documented as of this encounter Miscellaneous Notes * Cerner Conversion Note - Carmela ProviderMD - 06/12/2019 5:51 PM CATTLE TRADER Pain Assessment Entered On: 06/13/2019 2:21 EST Performed On: 06/12/2019 20:30 EST by Kailee Esqueda, Music Education Director-Nursing Intervention Information: morphine Performed by Kailee Esqueda, Music Education Director-Nursing on 06/12/2019 20:00:00 EST morphine,2mg IV Push,Left Antecubital [place],Pain (Severe 7-10) Pain Assessment Pain Assessment : Follow-up assessment Pain Scale Goal : 2 Pain Scale Used : 0-10 Scale Kailee Esqueda, Music Education Director-Nursing - 06/13/2019 2:20 EST Pain Scale Intensity : 1 Kailee Esqueda, Music Education Director-Nursing - 06/13/2019 2:20 EST Image 4 - Images currently included in the form version of this document have not been included in the text rendition version of the form. documented in this encounter Plan of Treatment Upcoming Encounters Date Type Department Care Team (Late st Contact Info) Description 03/20/2025 10:45 AM EST Office Visit [facility] [address] [place] [address] Stanislav Cruz MD [address] [facility] [address] [place] [address] documented as of this encounter Visit Diagnoses Not on filedocumented in this encounter
--- OUTSIDE RECORDS SUMMARY | 2025-03-13 14:12 | XMS_ITS | Encounter Summary ---
Author Organization [employer] ([place], [place], [place], [place], [place]) Address [address] [place] [address] Care Team Providers Care Manager Multicultural Name Role Phone Unavailable Primary Care Provider Unavailabl e Encounter Details Date Type Department Care Team (Late st Contact Info) Description 06/13/2019 Transcribed Document [facility] Family Medicine [facility] [place] [address] ProviderCarmela MD [address] [place] [phone] Social History Tobacco Use Types Packs/Day Years Used Date Smoking Tobacco: Never Assessed Comments Unknown Sex and Gender Information Value Date Recorded Sex Assigned at Not on file Legal Sex Female 1:20 PM CDT Gender Identity Not on file Sexual Orientation Not on file documented as of this encounter Miscellaneous Notes * Cerner Conversion Note - Carmela Feliciano MD - 06/13/2019 8:43 AM ENERGY CONTROL OFFICER Patient Education Materials Follows: Appendicitis, Pediatric The appendix is a finger-shaped [...] likely to develop in people who are 10?30 years old. What are the signs or [...] taking him or her home: ??? Give [id number] and prescription medicines only as told by your child's health care provider. Do not give your child aspirin because of the association with Amarjit syndrome. ??? Give antibiotic medicine to your child, if prescribed, as told by his or her health care provider. Do not stop giving the antibiotic even if your child starts to feel better. ??? Follow instructions from your child?s health care provider about eating and drinking restrictions. ??? Have your child return to normal activities as told by his or her health care provider. Ask your child's health care provider what activities are safe for your child. ??? Watch your child's condition for any changes. ??? Keep all follow-up visits as told by your child?s health care provider. This is important. Contact a health care provider if: ??? Pain wakes up your child at night. ??? Your child?s abdomen pain changes or gets worse. ??? Your child had a fever before starting antibiotic medicines, and the fever returns. Get help right away if: ??? Your child who is younger than 3 months has a temperature of 100?F (38?C) or higher. ??? Your child cannot stop [...] dehydration, such as: ? No urine in 8?12 hours. ? Cracked lips. ? Dry mouth. [...] 07/14/2017 Document Revised: 07/14/2017 Document Reviewed: 07/14/2017 Elsevier Interactive Patient Education ? 2019 [employer] documented in this encounter Plan of Treatment Upcoming Encounters Date Type Department Care Team (Late st Contact Info) Description 03/20/2025 10:45 AM EST Office Visit [facility] [address] [place] [address] Stansilav Cruz MD [address] [facility] [address] [place] [address] documented as of this encounter Visit Diagnoses Not on filedocumented in this encounter
--- OUTSIDE RECORDS SUMMARY | 2025-03-13 14:12 | XMS_ITS | Encounter Summary ---
Author Organization [employer] ([place], [place], [place], [place], [place]) Address [address] [place] [address] Care Team Providers Care Client Care Consultant Name Role Phone Unavailable Primary Care Provider Unavailabl e Encounter Details Date Type Department Care Team (Late st Contact Info) Description 06/12/2019 Transcribed Document [facility] [place] [facility] [place] [address] ProviderCarmela MD [address] [place], [place] [id number] Social History Tobacco Use Types Packs/Day Years Used Date Smoking Tobacco: Never Assessed Comments Unknown Sex and Gender Information Value Date Recorded Sex Assigned at Not on file Legal Sex Female 1:20 PM CDT Gender Identity Not on file Sexual Orientation Not on file documented as of this encounter Miscellaneous Notes * Cerner Conversion Note - Carmela ProviderMD - 06/12/2019 5:51 PM UTILITY MANAGER Pain Assessment Entered On: 06/13/2019 6:44 EST Performed On: 06/13/2019 3:57 EST by Kailee Esqueda, Range Examiner-Nursing Intervention Information: acetaminophen-oxyCODONE Performed by Kailee Esqueda, Range Examiner-Nursing on 06/13/2019 02:57:00 EST acetaminophen-oxyCODONE,1Tab Oral,Pain (Moderate 4-6) Pain Assessment Pain Assessment : Follow-up assessment Pain Scale Goal : 2 Pain Scale Used : 0-10 Scale Kailee Esqueda, Range Examiner-Nursing - 06/13/2019 6:43 EST Pain Scale Intensity : 1 Kailee Esqueda, Range Examiner-Nursing - 06/13/2019 6:43 EST Image 4 - Images currently included in the form version of this document have not been included in the text rendition version of the form. documented in this encounter Plan of Treatment Upcoming Encounters Date Type Department Care Team (Late st Contact Info) Description 03/20/2025 10:45 AM EST Office Visit [facility] [address] [place] [address] Stanislav Cruz MD [address] [facility] [address] [place] [address] documented as of this encounter Visit Diagnoses Not on filedocumented in this encounter
--- OUTSIDE RECORDS SUMMARY | 2025-03-13 14:12 | XMS_ITS | Encounter Summary ---
Author Organization [employer] ([place], [place], [place], [place], [place]) Address [address] [place] [address] Care Team Providers Care Clinical Systems Educator Name Role Phone Unavailable Primary Care Provider Unavailabl e Encounter Details Date Type Department Care Team (Late st Contact Info) Description 06/13/2019 Transcribed Document [facility] [place] [facility] [place] [address] ProviderCarmela MD [address] [place] [phone] Social History Tobacco Use Types Packs/Day Years Used Date Smoking Tobacco: Never Assessed Comments Unknown Sex and Gender Information Value Date Recorded Sex Assigned at Not on file Legal Sex Female 1:20 PM CDT Gender Identity Not on file Sexual Orientation Not on file documented as of this encounter Miscellaneous Notes * [employer]ner Conversion Note - Carmela ProviderMD - 06/13/2019 9:21 AM COMMUNITY OUTREACH COORDINATOR Nursing Discharge Summary Entered On: 06/13/2019 9:21 EST Performed On: 06/13/2019 9:21 EST by Sherry Duffy RN Discharge Documentation Discharge Date/Time : 06/13/2019 9:20 EST Patient Disposition, General : Discharge Discharge To : Home with ambulatory/outpatient follow-up Sherry Duffy RN - 06/13/2019 9:21 EST documented in this encounter Plan of Treatment Upcoming Encounters Date Type Department Care Team (Late st Contact Info) Description 03/20/2025 10:45 AM EST Office Visit [facility] Services [address] [place] [address] Stanislav Cruz MD [address] [facility] [address] [place] [address] documented as of this encounter Visit Diagnoses Not on filedocumented in this encounter
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
--- OUTSIDE RECORDS SUMMARY | 2025-03-13 14:13 | XMS_ITS | Encounter Summary ---
Author Organization [facility] ([place], [place], [place], [place], [place]) Address [address] [place] [address] Care Team Providers Care Neon Pumper Name Role Phone Unavailable Primary Care Provider Unavailabl e Encounter Details Date Type Department Care Team (Late st Contact Info) Description 07/12/2019 Transcribed Document [facility] Family Medicine [facility] [place] [address] ProviderCarmela MD [address] [place] [phone] Social History Tobacco Use Types Packs/Day Years [...] - 07/12/2019 12:29 PM CDT CHELSEA Lebron IntraOp Summary Primary Physician: CLIFF BETH MD-GAE Finalized Date/Time: 07/12/19 12:44:03 Pt. Name: IFEANYIRENNY/Sex: 1975 Female Med Rec #: [id number] Physician: CLIFF BETH MD-GAE Financial #: [id number] Pt. Type: E Room/Bed: [facility] Admit/Disch: 07/12/19 10:27:00 - Institution: [facility] Bernardino - Case Attendance Entry 1 Entry 2 Entry 3 Case Attendee Shaista BETH TOBI J, RN CHILDERS, BRIAN, CELINE CORONADO MD-GAE Role Performed Surgeon/Proceduralist, Chief Wharfinger, First Scrub, First First Time In 07/12/19 12:20:00 07/12/19 12:20:00 07/12/19 12:20:00 Time Out 07/12/19 12:42:00 07/12/19 12:25:00 07/12/19 12:29:00 Procedure Esophagogastroduodenosco Esophagogastroduodenosco Esophagogastroduodenosco py, Duodenal Biopsy py, Duodenal Biopsy py, Duodenal Biopsy Other Attendee Superficial Wound Closed By: Last Modified By: JOSE SHORT, JOSE STERN, JOSE STERN RN 07/12/19 12:43:01 07/12/19 12:34:38 07/12/19 12:29:24 Entry 4 Entry 5 Entry 6 Case Attendee PARIS LITTLE SMITH, DOROTHY, URBANO JARA LAMINATING MACHINE OFFBEARER-ANS Role Performed LAMINATING MACHINE OFFBEARER/Nurse Professor Of Communication Arts Chief Wharfinger, First Scrub, First Time In 07/12/19 12:20:00 07/12/19 12:25:00 07/12/19 12:29:00 Time Out 07/12/19 12:42:00 07/12/19 12:42:00 07/12/19 12:42:00 Procedure Esophagogastroduodenosco Esophagogastroduodenosco Esophagogastroduodenosco py, Duodenal Biopsy py, Duodenal Biopsy py, Duodenal Biopsy Other Attendee Superficial Wound Closed By: Last Modified By: OJSE SHORT, JOSE STERN RN SMITH, DOROTHY, RN 07/12/19 12:43:01 07/12/19 12:43:01 07/12/19 12:43:01 [facility] - Case Attendance Audit 07/12/19 12:43:01 Porter Sample Case: AMINAAT Modifier: AMINATA 1 <+> Time Out 1 <*> Procedure Esophagogastroduodenoscopy, Duodenal Biopsy 2 <*> Procedure Esophagogastroduodenoscopy, Duodenal Biopsy 3 <*> Procedure Esophagogastroduodenoscopy, Duodenal Biopsy 4 <+> Time Out 4 <*> Procedure Esophagogastroduodenoscopy, Duodenal Biopsy 5 <+> Time Out 5 <*> Procedure Esophagogastroduodenoscopy, Duodenal Biopsy 6 <+> Time Out 6 <*> Procedure Esophagogastroduodenoscopy, Duodenal Biopsy 07/12/19 12:35:30 Porter Sample Case: AMINATA Modifier: SMITDO 1 <*> Procedure Esophagogastroduodenoscopy 2 <*> Procedure Esophagogastroduodenoscopy 3 <*> Procedure Esophagogastroduodenoscopy 4 <*> Procedure Esophagogastroduodenoscopy 5 <*> Procedure Esophagogastroduodenoscopy 6 <*> Procedure Esophagogastroduodenoscopy 07/12/19 12:34:38 Porter Sample Case: KERRYT Modifier: SMITDO 2 <+> Time Out 2 <*> Procedure Esophagogastroduodenoscopy <+> 5 Case Attendee <+> 5 Role Performed <+> 5 Time In <+> 5 Procedure <+> 6 Case Attendee <+> 6 Role Performed <+> 6 Time In <+> 6 Procedure 07/12/19 12:31:42 Porter Sample Case: KERRYTDO Modifier: SMITDO <+> 1 Procedure 2 <*> Procedure Esophagogastroduodenoscopy 3 <*> Procedure Esophagogastroduodenoscopy 4 <*> Procedure Esophagogastroduodenoscopy 07/12/19 12:29:24 Porter Sample Case: JORJE Modifier: SMITDO 2 <+> Time In 2 <*> Procedure Esophagogastroduodenoscopy 3 <+> Time In 3 <+> Time Out 3 <*> Procedure Esophagogastroduodenoscopy 4 <+> Time In 4 <*> Procedure Esophagogastroduodenoscopy [facility] Endo - Case Times Entry 1 Patient In Room Time 07/12/19 12:20:00 Out Room Time 07/12/19 12:42:00 Anesthesia Start Time 07/12/19 12:20:00 Stop Time 07/12/19 12:34:00 Anesthesia Ready 07/12/19 12:20:00 Surgery / Procedure Times Start Time 07/12/19 12:29:00 Stop Time 07/12/19 12:34:00 Last Modified By: SABRINA Noonan RN 07/12/19 12:22:43 [facility] - Case Times Audit 07/12/19 12:42:29 Porter Sample Case: SMITDO Modifier: SMITDO <+> 1 Out Room Time <+> 1 Stop Time <+> 1 Stop Time 07/12/19 12:29:05 Porter Sample Case: JORJE Modifier: SMITDO <+> 1 Start Time E Endo - Cultures and Spec Summary Entry 1 Cultrures and Specimens Specimen Ordered: Yes Test(s) Routine/Path-Lab Requested/Final Disposition Last Modified By: JOSE SHORT RN 07/12/19 12:35:43 [facility] - Delays Entry 1 Delay Reason Other Duration 0 Minute(s) Comment NO DELAY Last Modified By: SABRINA Noonan RN 07/12/19 12:23:11 [facility] - Departure from OR Entry 1 Integumentary Assessment Integumentary WDL Assessment WDL Transfer/Handoff Transfer to PACU Phase I Post-op Transport Stretcher/Gurney Via Patient Transport SABRINA Noonan RN, Accompanied by PARIS LITTLE CRNA-ANS Last Modified By: JOSE SHORT RN 07/12/19 12:31:18 [facility] - Endoscopy Details Entry 1 Abdomen Procedure Soft, Non-Tender Assessment Procedure Abdomen 07/12/19 12:23:00 Assessment D/T Radio Frequency Ablation Abdominal Pressure Last Modified By: SABRINA Noonan RN 07/12/19 12:23:17 [facility] - Fire Risk Assessment Entry 1 Fire Info Surgical Site or 1- Yes Incision Above the Xyphoid Open O2 Source 1- Yes (Mask or Cannula) Available Ignition 1- Yes (ESU, Laser, Light Source) Fire Risk 3 Assessment Score Fire Score Fire Risk Yes Assessment Complete Fire Risk SABRINA Noonan RN Assessment Verified By Fire Risk 07/12/19 12:24:00 Assessment Verified Date/Time Fire Risk High Risk Protocol Yes Implemented Standard Fire Yes Safety Precautions Followed Last Modified By: SABRINA Noonan RN 07/12/19 12:24:03 [facility] - General Case Teacher Aide 1 Case Information OR Endo 02 [facility] Case Level 1 Room Verified Yes Wound Class II - Clean-Contaminated Specialty SN Gastroenterology Anesthesia Type MAC ASA Class 3 Diagnosis Preop Diagnosis GERD, dysphagia Postop Same As Preop No Postop Diagnosis gastritis, evidence of gastric sleeve Last Modified By: SABRINA Noonan RN 07/12/19 12:24:31 [facility] - General Case Data Audit 07/12/19 12:42:54 Porter Sample Case: JORJE Modifier: SMITDO <+> 1 Postop Diagnosis [facility] - Intraoperative Assessment Entry 1 Valid History / Yes Physical in Chart Preoperative Yes Checklist Reviewed/Evaluated Allergies Reviewed Yes Patient is Latex No Sensitive Level of WDL Consciousness (WDL = Alert, Oriented to Person, Place, and Time) Present Upon IVs, ECG monitored Arrival to OR Last Modified By: SABRINA Noonan RN 07/12/19 12:24:40 [facility] - Intraoperative Equipment Entry 1 Type Scope Equipment Intraop Monitoring Electrocardiogram Three lead placement (ECG) Electrode Placement Blood Pressure Arm, left upper Location Pulse Oximeter Hand, right Probe Site Antiembolic Devices Scopes Flexible Endoscopes Gastroscope Used Scope Serial [id number] Number/Identificatio n Number Photo/Video Documentation Photo Yes Video No Last Modified By: SABRINA Noonan RN 07/12/19 12:24:55 [facility] - Patient Positioning Entry 1 Procedure Esophagogastroduodenosco py, Duodenal Biopsy Body Position Lateral, right side up Left Arm Position Resting at side Right Arm Position Resting at side Left Leg Position Other Right Leg Position Other Position Comments Right leg over left leg uncrossed Feet Uncrossed Yes Pressure Points Yes Checked Positioned By SYLVAIN SELLERS TECH Position Verified Positioning Yes Verified by Surgeon Last Modified By: JOSE SHORT RN 07/12/19 12:31:40 [facility] - Patient Positioning Audit 07/12/19 12:35:32 Porter Sample Case: KERRYDOLLY Modifier: SMITDO 1 <*> Procedure Esophagogastroduodenoscopy [facility] - Sign In Entry 1 Patient, Site, Yes Procedure Identified Surgical Consent Yes Confirmed Surgical Site N/A Marked by person performing procedure Allergies Yes Airway Hypothermia Risk No Warming Measures No Taken Last Modified By: JOSE SHORT RN 07/12/19 12:32:04 [facility] - Sign Out Entry 1 RN Confirmation Surgical Yes Procedure(s) Identified Instrument, Sponge N/A and Sharps Counts Correct/Documented Equipment Problems N/A Documented Specimen Labeled Yes Correctly Urinary Catheter N/A Documented in IView Safety Checklist Yes Elements Complete? RN Sign Out JOSE SHORT RN Signature RN Sign Out 07/12/19 12:43:00 Signature Date/Time Plan of Care Outcome - [...] related to extraneous objects Last Modified By: JOSE SHORT RN 07/12/19 12:43:32 [facility] - Surgical Procedures Entry 1 Entry 2 Procedure Esophagogastroduodenosco Duodenal Biopsy py Modifiers Additional Procedure Description Primary Procedure Yes No Primary Surgeon IGNACIA BETH KAREN, MD-ROS CHRISTINE Start 07/12/19 12:29:00 07/12/19 12:29:00 Stop 07/12/19 12:34:00 07/12/19 12:34:00 Physician States Cecum Reached Anesthesia Type MAC MAC Specialty SN Gastroenterology SN Gastroenterology Wound Class II - Clean-Contaminated II - Clean-Contaminated Last Modified By: JOSE SHORT, JOSE STERN RN 07/12/19 12:31:42 07/12/19 12:35:26 [facility] End[facility] - Surgical Procedures Audit 07/12/19 12:43:16 Porter Sample Case: AMINATA Modifier: SMITDO <+> 1 Stop <+> 2 Stop 07/12/19 12:35:26 Porter Sample Case: AMINATA Modifier: SMITDO 1 <*> Procedure Esophagogastroduodenoscopy 1 <+> Specialty <+> 2 Procedure <+> 2 Primary Procedure <+> 2 Primary Surgeon <+> 2 Specialty <+> 2 Start <+> 2 Wound Class <+> 2 Anesthesia Type [facility] - Time Out Entry 1 Procedure to be Esophagogastroduodenosco Performed py Time Out Time Out Pause Time 07/12/19 12:24:00 All activity Yes suspended (unless life threatening emergency) Team Verbally Correct patient Confirms Information identity, Correct side and site are marked, Consent form is present and accurate, Agreement on the procedure to be done, Correct patient position Antibiotic N/A Prophylaxis Administered Or In Progress Within the Last 60 Minutes Beta Idalia N/A Administered Venous N/A Thromboembolism Prophylaxis Required Anticipated Critical Events Surgeon None expected Last Modified By: SABRINA Noonan RN 07/12/19 12:25:17 Case Comments <None> Finalized By: JOSE SHORT, RN Document Signatures Signed By: JOSE SHORT, ZAHRAA 07/12/19 12:44 Electronically signed by Samy [facility] Conversion Industrial Eng Cerner at 08/18/2022 11:39 AM CDT documented in this encounter Plan of Treatment Upcoming Encounters Date Type Department Care Team (Late st Contact Info) Description 03/20/2025 10:45 AM EST Office Visit [facility] B[facility] Services [address] [facility] [address] [place] [address] Stanislav Cruz MD [address] [facility] [address] [place] [address] documented as of this encounter Visit Diagnoses Not on filedocumented in this encounter
--- OUTSIDE RECORDS SUMMARY | 2025-03-13 14:13 | XMS_ITS | Clinical Summary ---
[facility] Address [address] [place] [address] Care Team Providers Care Time Signal Wirer Name Role Phone Rober Marshall MD Primary Care Provider Allergies Active Allergy Reactions Criticality Noted Date Comments Hydrocodone Rash Low 04/08/2023 PILLS ONLY; PER PT, DOES FINE WITH IV Ceftriaxone Rash Low 04/21/2016 Sulfa Antibiotics Nausea And Vomiting Low 3 Medications escitalopram (LEXAPRO) 10 MG tablet Take 0.5 tablets by mouth Daily. Active linaclotide (Linzess) 72 MCG capsule capsule Take 1 capsule by mouth 2 (Two) Times a Day. Active docusate sodium (COLACE) 100 MG capsule Take 1 capsule by mouth 2 (Two) Times a Day As Needed for Constipation. Active B Complex Vitamins (VITAMIN-B COMPLEX PO) Take 3 capsules by mouth 2 (Two) Times a Day. Active diazePAM (Valium) 5 MG tabletIndicatio ns:S/P cosmetic plastic surgery Take 1 tablet by mouth Every 8 (Eight) Hours As Needed for Anxiety or Muscle Spasms. 25 tablet 04/16/2023 Active docusate sodium (Colace) 100 MG capsule Take 1 capsule by mouth 2 (Two) Times a Day. 30 capsule 2 04/16/2023 Active Active Problems Problem Noted Date Diagnosed Date S/P cosmetic plastic surgery 04/15/2023 Immunizations Immunization Administration Dates Next Due COVID-19 (PFIZER) Purple Cap Monovalent 02/15/20 21,01/12/2021 Family History Medical History Relation Name Comments Colon cancer Paternal Aunt Ovarian cancer Paternal Aunt Breast cancer Neg Hx Relation Name Status Comments Paternal Aunt Social History Tobacco Use Types Packs/Day Years Used Date Smoking Tobacco: Never Passive Smoke Exposure: Past Smokeless Tobacco: Never Tobacco Cessation:Counseling Given: Not Answered Alcohol Use Standard Drinks/Week Comments Yes 0 (1 standard drink = 0.6 oz pur e alcohol) socially AUDIT-C Answer Date Recorded Q1: How often do you have a drink containing alc ohol? 2-4 times a month 04/15/2023 Q2: How many drinks containi ng alcohol do you have on a typical day when you are drinking? 3 or 4 04/15/2023 Q3: How often do you have si x or more drinks on one occasion? Less than monthly 04/15/2023 Abuse Screen Answer Date Recorded Feels Unsafe at Home or Work/School no 04/15/2023 Feels Threatened by Someone no 04/01 Does Anyone Try to Keep You From Having Contact with Others or Doing Things Outside Your Home? no 04/15/2023 Physical Signs of Abuse Present no 04/15/2023 Housing Stability Answer Date Recorded Current Living Arrangements home 04/01 Potentially Unsafe Housing Conditions Not on hien e 04/15/2023 Disabilities Answer Date Recorded Difficulty Concentrating, Remembering or Making Decisions no 04/15/2023 Difficulty Managing Errands Independently no 04/15/2023 Education Answer Date Recorded Help with school or training? Not on file Preferred Language Kenyan 04/08/2023 Comments No Sex and Gender Information Value Date Recorded Sex Assigned at Not on file Legal Sex Female 11:09 AM EDT Gender Identity Not on file Sexual Orientation Not on file Last Filed Vital Signs Vital Sign Reading Time Taken Comments Blood Pressure 106/70 04/16/2023 11:00 AM EST Pulse 93 04/16/2023 11:00 AM EST Temperature 37.1 C (98.7 F) 04/16/2023 11:44 AM EST after incentive spirometry (x10) Respiratory Rate 16 04/16/2023 11:0 0 AM EST Oxygen Saturation 96% 04/16/2023 11: 00 AM EST Inhaled Oxygen Concentration - - Weight 62.6 kg (138 lb) 04/15/2023 9:43 AM EST Height 165.1 cm (5' 5 ) 04/15/2023 9:43 AM EST Body Mass Index 22.96 04/15/2023 9:43 AM EST Plan of Treatment Health Maintenance Due Date Last Done Comments Annual Gynecologic Pelvic an d Breast Exam 1975 TDAP/TD VACCINES (1 - Tdap) 1993 COLOGUARD 2019 COLON CANCER SCREENING 5 YEA R SIGMOIDOSCOPY 2019 COLONOSCOPY [address] CANCER SCREENING 2019 CT COLONOGRAPHY 2019 FECAL OCCULT BLOOD TEST 2019 FIT Testing (1 year) 2019 ANNUAL PHYSICAL 04/08/2023 HEPATITIS C SCREENING 04/08/2023 Pneumococcal Vaccine 50+ (1 of 1 - PCV) 2024 ZOSTER VACCINE (1 of 2) 2024 INFLUENZA VACCINE 11/30/2024 MAMMOGRAM 11/21/2026 11/21/2024, 05/2 01/2024, 12/02/2021, Additional history exists Medical Devices Implanted Type Area Broadcast News Producer Device Identifier Shelf Expiration Date Model / Serial / Lot Dev Contrl Tiss Stratafix Spiral Mncryl Ud 3/0 Pls 60cm - [id number] Implanted:Qty : 1 on 04/15/2023 by Butch Groves MD at [facility] Implant Left: Back [employer] J [employer] J 12/30/2024 [id number] / / TKBBSZ Dev Contrl Tiss Stratafix Spiral Mncryl Ud 3/0 Pls 60cm - [id number] Implanted:Qty : 1 on 04/15/2023 by Butch Groves MD at [facility] Implant Right: Back [employer] J [employer] J 12/30/2024 [id number] / / TKBBSZ Dev Contrl Tiss Stratafix Spiral Mncryl Ud 3/0 Pls 60cm - [id number] Implanted:Qty : 1 on 04/15/2023 by Butch Groves MD at [facility] Implant Left: Abdomen [employer] J 12/30/2024 [id number] / / TKBBSZ Dev Contrl Tiss Stratafix Spiral Mncryl Ud 3/0 Pls 60cm - [id number] Implanted:Qty : 1 on 04/15/2023 by Butch Groves MD at [facility] Implant Right: Abdomen [employer] J [employer] J 12/30/2024 [id number] / / TKBBSZ Procedures Procedure Name Priority Date/Time Associated Diagnosis Comments MAMMO SCREENING DIGITAL TOMOSYNTHESIS BILATERAL W CAD Routine 11/21/2024 12:04 PM EDT Encounter for screening mammogram for malignant neoplasm of breast from Last 3 Months or Most Recently Relevant to Health Maintenance Results * Mammo Screening Digital Tomosynthesis Bilateral With CAD (11/21/2024 12:04 PM EDT) Anatomical Region Laterality Modality Breast N/A Mammography 11/24/2024 3:40 PM EDT Impressions 11/24/2024 3:41 PM EDT Benign screening mammogram. RECOMMENDATION: Continue annual screening mammography. BI-RADS CATEGORY 2, BENIGN. CAD was utilized. The standard false-negative rate of mammography is between 10% and 25%. Complex patterns or increased breast density will markedly elevate the false-negative rate of mammography. A letter, in lay terminology, with the results of this exam will be mailed to the patient. 11/24/2024 3:[address] Thai Canales MD on Narrative 11/24/2024 3:41 PM EDT DIGITAL SCREENING MAMMOGRAM WITH TOMOSYNTHESIS HISTORY: Screening Mammography. Low dose full field digital breast tomosynthesis imaging was performed with 2D and 3D acquisitions consisting of bilateral CC and MLO views. Examination is compared to prior examination dating back to 10/08/2019. Examination is read in conjunction with computer aided detection. FINDINGS: There are scattered areas of fibroglandular density. No suspicious masses, microcalcifications or areas of architectural distortion are identified. Bilateral post reduction mammoplasty changes are stable. Lolita Milan MD IMG MAMMOGRAPHY ORDERABLES Final Result from Last 3 Months or Most Recently Relevant to Health Maintenance Insurance [facility] [employer]EE Advance Directives * CPR (Attempt to Resuscitate) (Latest Code Status on File) Date Activated Date Inactivated Comments 04/15/2023 5:58 PM 04/16/2023 2:23 PM Question Answer Comments Code Status (Patient has no pulse and is not breathing): CPR (Attempt to Resuscitate) Medical Interventions (Patie nt has pulse or is breathing): Full Support Level Of Support Discussed With: Patient Care Teams Time Signal Wirer Relationship Specialty Start Date End Date Rober Marshall MD [address] [facility] [address] [place] [id number] PCP - General Family Medicine 04/08/23
--- OUTSIDE RECORDS SUMMARY | 2025-03-13 14:14 | XMS_ITS | Encounter Summary ---
Author Organization [employer] ([place], [place], [place], [place], [place]) Address [address] [place] [address] Care Team Providers Care Serging Machine Operator Automatic Name Role Phone Unavailable Primary Care Provider Unavailabl e Encounter Details Date Type Department Care Team (Late st Contact Info) Description 05/10/2019 Transcribed Document [facility] [place] [facility] [place] [address] ProviderCarmela MD [address] [place] [phone] Social History Tobacco Use Types Packs/Day Years Used Date Smoking Tobacco: Never Assessed Comments Unknown Sex and Gender Information Value Date Recorded Sex Assigned at Not on file Legal Sex Female 1:20 PM CDT Gender Identity Not on file Sexual Orientation Not on file documented as of this encounter Miscellaneous Notes * Cerner Conversion Note - Carmela ProviderMD - 05/10/2019 9:08 AM ORTHOPEDIC DENTIST [facility] PACU Summary Primary Physician: STAN FAIRCHILD MD-SUR Finalized Date/Time: 05/10/19 09:57:58 Pt. Name: JIMYRENNY/Sex: 1975 Female Med Rec #: [id number] Physician: STAN FAIRCHILD MD-SUR Financial #: [id number] Pt. Type: O [place] [facility] [place] Admit/Disch: 05/10/19 07:56:00 - Institution: [facility] PACU Case Times Entry 1 In PACU I 05/10/19 09:20:00 Ready for PACU 05/10/19 09:51:00 Discharge Discharge from PACU 05/10/19 09:57:00 I [facility] PACU Case Times Audit 05/10/19 09:57:54 Rn Navigator: [email or web address] Modifier: [email or web address] <+> 1 Discharge from PACU I 05/10/19 09:52:11 Rn Navigator: [email or web address] Modifier: [email or web address] <+> 1 Ready for PACU Discharge Finalized By: CLIFF BAER, RN Document Signatures Signed By: CLIFF BAER RN 05/10/19 09:57 documented in this encounter Plan of Treatment Upcoming Encounters Date Type Department Care Team (Late st Contact Info) Description 03/20/2025 10:45 AM EST Office Visit [facility] [address] [facility] [address] [place] [address] Stanislav Cruz MD [address] [facility] [address] [place] [address] documented as of this encounter Visit Diagnoses Not on filedocumented in this encounter
--- OUTSIDE RECORDS SUMMARY | 2025-03-13 14:14 | XMS_ITS | Encounter Summary ---
Author Organization [employer] ([place], [place], [place], [place], [place]) Address [address] [place] [address] Care Team Providers Care Manager Multicultural Name Role Phone Unavailable Primary Care Provider Unavailabl e Encounter Details Date Type Department Care Team (Late st Contact Info) Description 05/10/2019 Transcribed [place] [facility] [place] [facility] [place] [address] ProviderCarmela MD [address] [place] [address] [id number] Social History Tobacco Use Types Packs/Day Years Used Date Smoking Tobacco: Never Assessed Comments Unknown Sex and Gender Information Value Date Recorded Sex Assigned at Not on file Legal Sex Female 1:20 PM CDT Gender Identity Not on file Sexual Orientation Not on file documented as of this encounter Miscellaneous Notes * Cerner Conversion Note - Carmela Feliciano MD - 05/10/2019 9:52 AM CLOTH CUTTING INSPECTOR Patient Education Materials Follows: Monitored Anesthesia Care, Care After These instructions provide you with information about caring for yourself after your procedure. Your health care provider may also give you more specific instructions. Your treatment has been planned according to current medical practices, but problems sometimes occur. Call your health care provider if you have any problems or questions after your procedure. What can I expect after the procedure? After your procedure, you may: ??? Feel sleepy for several hours. ??? Feel clumsy and have poor balance for several hours. ??? Feel forgetful about what happened after the procedure. ??? Have poor judgment for several hours. ??? Feel nauseous or vomit. ??? Have a sore throat if you had a breathing tube during the procedure. Follow these instructions at home: For at least 24 hours after the procedure: ??? Have a responsible adult stay with you. It is important to have someone help care for you until you are awake and alert. ??? Rest as needed. ??? Do not: ? Participate in activities in which you could fall or become injured. ? Drive. ? Use heavy machinery. ? Drink alcohol. ? Take sleeping pills or medicines that cause drowsiness. ? Make important decisions or sign legal documents. ? Take care of children on your own. Eating and drinking ??? Follow the diet that is recommended by your health care provider. ??? If you vomit, drink water, juice, or soup when you can drink without vomiting. ??? Make sure you have little or no nausea before eating solid foods. General instructions ??? Take stej-pjo-etdjebr and prescription medicines only as told by your health care provider. ??? If you have sleep apnea, surgery and certain medicines can increase your risk for breathing problems. Follow instructions from your health care provider about wearing your sleep device: ? Anytime you are sleeping, including during daytime naps. ? While taking prescription pain medicines, sleeping medicines, or medicines that make you drowsy. ??? If you smoke, do not smoke without supervision. ??? Keep all follow-up visits as told by your health care provider. This is important. Contact a health care provider if: ??? You keep feeling nauseous or you keep vomiting. ??? You feel light-headed. ??? You develop a rash. ??? You have a fever. Get help right away if: ??? You have trouble breathing. Summary ??? For several hours after your procedure, you may feel sleepy and have poor judgment. ??? Have a responsible adult stay with you for at least 24 hours or until you are awake and alert. This information is not intended to replace advice given to you by your health care provider. Make sure you discuss any questions you have with your health care provider. Document Released: 08/08/2016 Document Revised: 12/02/2017 Document Reviewed: 08/08/2016 [employer] Interactive Patient Education ? 2019 [employer] Gastritis, Adult Gastritis is inflammation of the [...] Follow these instructions at home: ??? Take knad-ovy-ocdziat and prescription medicines only as told by [...] 04/12/2002 Document Revised: 11/29/2017 Document Reviewed: 01/10/2016 [employer] Interactive Patient Education ? 2019 [employer]. Esophagitis Esophagitis is inflammation of the esophagus. The esophagus is the tube that carries food and liquids from your mouth to your stomach. Esophagitis can cause soreness or pain in the esophagus. This condition can make it difficult and painful to swallow. What are the causes? Most causes of esophagitis are not serious. Common causes of this condition include: ??? Gastroesophageal reflux disease (GERD). This is when stomach contents move back up into the esophagus (reflux). ??? Repeated vomiting. ??? An allergic-type reaction, especially caused by food allergies (eosinophilic esophagitis). ??? Injury to the esophagus by swallowing large pills with or without water, or swallowing certain types of medicines. ??? Swallowing (ingesting) harmful chemicals, such as household cleaning products. ??? Heavy alcohol use. ??? An infection of the esophagus.?This most often occurs in people who have a weakened immune system. ??? Radiation or chemotherapy treatment for cancer. ??? Certain diseases such as sarcoidosis, Crohn disease, and scleroderma. What are the signs or symptoms? Symptoms of this condition include: ??? Difficult or painful swallowing. ??? Pain with swallowing acidic liquids, such as citrus juices. ??? Pain with burping. ??? Chest pain. ??? Difficulty breathing. ??? Nausea. ??? Vomiting. ??? Pain in the abdomen. ??? Weight loss. ??? Ulcers in the mouth. ??? Patches of white material in the mouth (candidiasis). ??? Fever. ??? Coughing up blood or vomiting blood. ??? Stool that is black, tarry, or bright red. How is this diagnosed? Your health care provider will take a medical history and perform a physical exam. You may also have other tests, including: ??? An endoscopy to examine your stomach and esophagus with a small camera. ??? A test that measures the acidity level in your esophagus. ??? A test that measures how much pressure is on your esophagus. ??? A barium swallow or modified barium swallow to show the shape, size, and functioning of your esophagus. ??? Allergy tests. How is this treated? Treatment for this condition depends on the cause of your esophagitis. In some cases, steroids or other medicines may be given to help relieve your symptoms or to treat the underlying cause of your condition. You may have to make some lifestyle changes, such as: ??? Avoiding alcohol. ??? Quitting smoking. ??? Changing your diet. ??? Exercising. ??? Changing your sleep habits and your sleep environment. Follow these instructions at home: Take these actions to decrease your discomfort and to help avoid complications. Diet ??? Follow a diet as recommended by your health care provider. This may involve avoiding foods and drinks such as: ? Coffee and tea (with or without caffeine). ? Drinks that contain alcohol. ? Energy drinks and sports drinks. ? Carbonated drinks or sodas. ? Chocolate and cocoa. ? Peppermint and mint flavorings. ? Garlic and onions. ? Horseradish. ? Spicy and acidic foods, including peppers, chili powder, glass powder, vinegar, hot sauces, and barbecue sauce. ? Lumpkin fruit juices and citrus fruits, such as oranges, hailey, and limes. ? Tomato-based foods, such as red sauce, chili, salsa, and pizza with red sauce. ? Fried and fatty foods, such as donuts, nepalese fries, potato chips, and high-fat dressings. ? High-fat meats, such as hot dogs and fatty cuts of red and white meats, such as rib eye steak, sausage, ham, and holland. ? High-fat dairy items, such as whole milk, butter, and cream cheese. ??? Eat small, frequent meals instead of large meals. ??? Avoid drinking large amounts of liquid with your meals. ??? Avoid eating meals during the 2?3 hours before bedtime. ??? Avoid lying down right after you eat. ??? Do not exercise right after you eat. ??? Avoid foods and drinks that seem to make your symptoms worse. General instructions ??? Pay attention to any changes in your symptoms. ??? Take ficf-aeg-kqspato and prescription medicines only as told by your health care provider. Do not take aspirin, ibuprofen, or other NSAIDs unless your health care provider told you to do so. ??? If you have trouble taking pills, use a pill splitter to decrease the size of the pill. This will decrease the chance of the pill getting stuck or injuring your esophagus on the way down. Also, drink water after you take a pill. ??? Do not use any tobacco products, including cigarettes, chewing tobacco, and e-cigarettes. If you need help quitting, ask your health care provider. ??? Wear loose-fitting clothing. Do not wear anything tight around your waist that causes pressure on your abdomen. ??? Raise (elevate) the head of your bed about 6 inches (15 cm). ??? Try to reduce your stress, such as with yoga or meditation. If you need help reducing stress, ask your health care provider. ??? If you are overweight, reduce your weight to an amount that is healthy for you. Ask your health care provider for guidance about a safe weight loss goal. ??? Keep all follow-up visits as told by your health care provider. This is important. Contact a health care provider if: ??? You have new symptoms. ??? You have unexplained weight loss. ??? You have difficulty swallowing, or it hurts to swallow. ??? You have wheezing or a persistent cough. ??? Your symptoms do not improve with treatment. ??? You have frequent heartburn for more than two weeks. Get help right away if: ??? You have severe pain in your arms, neck, jaw, teeth, or back. ??? You feel sweaty, dizzy, or light-headed. ??? You have chest pain or shortness of breath. ??? You vomit and your vomit looks like blood or coffee grounds. ??? Your stool is bloody or black. ??? You have a fever. ??? You cannot swallow, drink, or eat. This information is not intended to replace advice given to you by your health care provider. Make sure you discuss any questions you have with your health care provider. Document Released: 05/26/2005 Document Revised: 09/23/2016 Document Reviewed: 08/13/2015 [employer] Interactive Patient Education ? 2019 [employer] Esophagogastroduodenoscopy, Care After Refer to this [...] 04/04/2013 Document Revised: 09/23/2016 Document Reviewed: 03/11/2016 [employer] Interactive Patient Education ? 2019 [employer]. documented in this encounter Plan of Treatment Upcoming Encounters Date Type Department Care Team (Late st Contact Info) Description 03/20/2025 10:45 AM EST Office Visit [facility] [address] [facility] [address] [place] [address] Stanislav Cruz MD [address] [facility] [address] [place] [address] documented as of this encounter Visit Diagnoses Not on filedocumented in this encounter
--- OUTSIDE RECORDS SUMMARY | 2025-03-13 14:14 | XMS_ITS | Encounter Summary ---
Author Organization [employer] ([place], [place], [place], [place], [place]) Address [address] [place] [address] Care Team Providers Care Child Welfare Assistant Name Role Phone Unavailable Primary Care Provider Unavailabl e Encounter Details Date Type Department Care Team (Late st Contact Info) Description 05/09/2019 Transcribed Document [facility] [place] [facility] [place] [address] ProviderCarmela MD [address] [place], [place] [id number] Social History Tobacco Use Types Packs/Day Years Used Date Smoking Tobacco: Never Assessed Comments Unknown Sex and Gender Information Value Date Recorded Sex Assigned at Not on file Legal Sex Female 1:20 PM CDT Gender Identity Not on file Sexual Orientation Not on file documented as of this encounter Miscellaneous Notes * Cerner Conversion Note - Carmela ProviderMD - 05/09/2019 11:06 AM INTERNAL COMMUNICATIONS SPECIALIST ED Assessment Entered On: 05/09/2019 11:33 EST Performed On: 05/09/2019 11:25 EST by CLIFF VAN RN ED Quick Look Assessment Level of Consciousness : Alert, Awake Affect/Behavior : Appropriate, Calm, Cooperative Orientation : Oriented x 4 Skin Temperature : Warm Skin Description : Normal for ethnicity CLIFF VAN RN - 05/09/2019 11:25 EST ED General-Functional Assess Preferred Communication Mode : Verbal Communication Barrier : None Primary Language : Kazakh Any Spiritual/Cultural Needs or Requests : No Currently in Unsafe Situation : No CLIFF VAN RN - 05/09/2019 11:25 EST Social Habits Smoking Status : Never (less than 100 in lifetime; none in last 30 days) Smokeless Tobacco Status : Never Desires Tobacco Cessation Calc : 0 CLIFF VAN RN - 05/09/2019 11:25 EST Social History (As Of: 05/09/2019 11:33:49 EST) Tobacco: Use in Last 12 Months: No. (Last Updated: 11/07/2017 10:38:16 EDT by ANJEL SANTANA, RN) Alcohol: Alcohol Use History No. (Last Updated: 11/07/2017 10:38:31 EDT by ANJEL SANTANA, RN) Substance Abuse: Drug Use Hx: No. Use in Last 12 Months: No. (Last Updated: 11/07/2017 10:38:38 EDT by ANJEL SANTANA, RN) Nutrition/Health: Caffeine intake amount: rare. (Last Updated: 11/07/2017 10:38:26 EDT by ANJEL SANTANA, RN) EENT Assessment Oral Assessment, Swallow : Pain with swallow Oral Assessment, Saliva : Normal saliva production Throat : Difficulty swallowing, Foreign body Foreign Body, Throat : Patient stated sensation of CLIFF VAN RN - 05/09/2019 11:25 EST Cardiovascular ASMT, ED Cardiovascular Assessment WDL : CLIFF PIERCE RN - 05/09/2019 11:25 EST Respiratory Respiratory Assessment WDL : CLIFF JUNIOR RN - 05/09/2019 11:25 EST Breath Sounds Assessment Grid All Lobes Breath Sounds : Clear ESPERANZA : Clear LLL : Clear RUL : Clear RML : Clear RLL : Clear CLIFF VAN RN - 05/09/2019 11:25 EST Gastrointestinal ED Gastrointestinal Assessment WDL : CLIFF JUNIOR RN - 05/09/2019 11:25 EST Genitourinary Assessment, ED Genitourinary Assessment WDL : CLIFF JUNIOR RN - 05/09/2019 11:25 EST Musculoskeletal Musculoskeletal Assessment WDL : TIARA CLIFF VAN RN - 05/09/2019 11:25 EST Integumentary Assessment Skin Description : Normal for ethnicity Skin Temperature : Warm Integumentary Assessment WDL : WD Skin Turgor : Elastic, Good Mucous Membrane Assessment : Dry CLIFF VAN RN - 05/09/2019 11:25 EST Electronically signed by Samy [facility] Conversion Field Administrative Assistant Cerner at 08/18/2022 11:33 AM CDT documented in this encounter Plan of Treatment Upcoming Encounters Date Type Department Care Team (Late st Contact Info) Description 03/20/2025 10:45 AM EST Office Visit [facility] Bariatric Services [address] [address] [place] [address] Stanislav Cruz MD [address] [facility] [address] [place] [address] documented as of this encounter Visit Diagnoses Not on filedocumented in this encounter
--- OUTSIDE RECORDS SUMMARY | 2025-03-13 14:14 | XMS_ITS | Encounter Summary ---
Author Organization [employer] ([place], [place], [place], [place], [place]) Address [address] [place] [address] Care Team Providers Care Popcorn Vendor Name Role Phone Unavailable Primary Care Provider Unavailabl e Encounter Details Date Type Department Care Team (Late st Contact Info) Description 05/09/2019 Transcribed Document [facility] [place] [facility] [place] [address] ProviderCarmela MD [address] [place] [address] Social History Tobacco Use Types Packs/Day Years Used Date Smoking Tobacco: Never Assessed Comments Unknown Sex and Gender Information Value Date Recorded Sex Assigned at Not on file Legal Sex Female 1:20 PM CDT Gender Identity Not on file Sexual Orientation Not on file documented as of this encounter Miscellaneous Notes * Cerner Conversion Note - Carmela ProviderMD - 05/09/2019 2:35 PM CLAM PICKER [address] [address] RENNY AHN ARCHANA :1975 Visit Time:05/09/2019 Your Visit Summary Your Care Team Primary Provider: NELL HEATH APRN-EMR Secondary Provider: Your Diagnosis Abdominal pain Chest pain Chest pain Gastric reflux Medical Information You may obtain a copy of your Emergency Department visit from Medical Records by calling the hospital phone number listed above and asking to be directed to the Medical Records Department. If you had special tests, such as EKG???s or X-rays, the interpretation of your tests given to you by the Emergency Department Physician is a preliminary report. Some fractures and illnesses fail to show up on preliminary tests. These will be reviewed again and we will call you if there are any new suggestions. If your symptoms continue notify your physician. After you leave, you should follow the instructions provided. What to do next Follow-Up Appointments Follow Up with ROBER AHUJAFLEET When Within 2 to 3 days Comments Rest, fluids, follow up as needed. Feel better soon.-Nell Where: [address] [place] [address] [place] [place] [phone]- Business (1) Follow Up with [facility] When Within As needed Comments Patient states Rober Marshall is their Primary Care Provider. Please contact the Patient Resource Center at if you need assistance scheduling a Specialist or Primary Care Provider in the future. Allergies Rocephin (rash) sulfa drugs Immunizations This Visit No Immunizations Found Medications What How Much When Instructions Next Dose The home medications listed are only as accurate as the information you provided. Please continue taking all of your medications prescribed by your Primary Care Provider unless specifically told to change or discontinue the medication. Please direct any questions regarding your home medications to your Primary Care Provider. Take your medications faithfully. Do NOT skip [...] of unused and medications per pharmacy guidance. Test Results Laboratory or Other Results This Visit (last charted value for your 05/09/2019 visit) Hematology 05/09/2019 12:06 PM WBC: 7.6 K/uL -- Normal range between ( 3.9 and 10.0 ) RBC: 4.91 Million/uL -- Normal range between ( 3.93 and 5.22 ) Hct: 46.2 % -- Normal range between ( 34.1 and 44.9 ) Hgb: 15.3 Gram/dL -- Normal range between ( 11.2 and 15.7 ) Platelet Count: 199 K/uL -- Normal range between ( 163 and 369 ) MCH: 31.2 pg -- Normal range between ( 25.6 and 32.2 ) MCHC: 33.1 Gram/dL -- Normal range between ( 32.3 and 36.5 ) MCV: 94.1 fL -- Normal range between ( 79.0 and 94.8 ) Slide Review: No Eos %: 2.4 % -- Normal range between ( 1.0 and 7.0 ) Edmonson #: 0.42 K/uL -- Normal range between ( 0.24 and 0.82 ) Eos #: 0.18 K/uL -- Normal range between ( 0.04 and 0.54 ) Edmonson %: 5.5 % -- Normal range between ( 4.7 and 12.5 ) Baso %: 0.3 % -- Normal range between ( 0.0 and 1.0 ) Baso #: 0.02 K/uL -- Normal range between ( 0.01 and 0.08 ) RDW: 12.6 % -- Normal range between ( 11.6 and 14.4 ) Neut %: 69.7 % -- Normal range between ( 34.0 and 71.0 ) Neut #: 5.33 K/uL -- Normal range between ( 1.56 and 6.13 ) Lymph %: 21.8 % -- Normal range between ( 19.3 and 53.0 ) Lymph #: 1.66 K/uL -- Normal range between ( 1.18 and 3.74 ) MPV: 10.7 fL -- Normal range between ( 9.4 and 12.4 ) IG#: 0 x10(3)/uL IG%: 0 % -- Normal range between ( 0 and 1 ) General Chemistry 05/09/2019 12:06 PM Creatinine Level: 0.69 mg/dL -- Normal range between ( 0.55 and 1.02 ) Sodium Level: 142 mmol/L -- Normal range between ( 136 and 146 ) Potassium Level: 4.6 mmol/L -- Normal range between ( 3.5 and 5.1 ) Chloride Level: 107 mmol/L -- Normal range between ( 102 and 112 ) Carbon Dioxide Level: 30 mmol/L -- Normal range between ( 21 and 32 ) Anion Gap: 10 -- Normal range between ( 9 and 20 ) Bilirubin Total: 0.7 mg/dL -- Normal range between ( 0.2 and 1.3 ) A/G Ratio: 1.4 -- Normal range between ( 1.1 and 2.5 ) ALT: 20 Units/Liter -- Normal range between ( 12 and 78 ) AST: 16 Units/Liter -- Normal range between ( 5 and 37 ) Globulin: 3.0 Gram/dL -- Normal range between ( 1.5 and 4.5 ) Alk Phos: 94 Units/Liter -- Normal range between ( 27 and 136 ) Bun/Creatinine: 23.2 -- Normal range between ( 8.0 and 20.0 ) Calcium Level: 10.1 mg/dL -- Normal range between ( 8.5 and 10.1 ) eGFR : >60 mL/min/1.73m2 eGFR NonAfrican: >60 mL/min/1.73m2 Glucose Level: 76 mg/dL -- Normal range between ( 74 and 106 ) Blood Urea Nitrogen: 16 mg/dL -- Normal range between ( 7 and 22 ) Protein Total: 7.3 Gram/dL -- Normal range between ( 6.4 and 8.2 ) Albumin Level: 4.3 Gram/dL -- Normal range between ( 3.4 and 5.0 ) Lipase Level: 221 Units/Liter -- Normal range between ( 73 and 393 ) Cardiac Specific Markers 05/09/2019 12:06 PM Troponin I Ultra: <0.015 ng/mL -- Normal range between ( 0.015 and 0.045 ) Diagnostic Radiology 05/09/2019 11:39 AM CR Chest 1 Vw Portable: CR Chest 1 Vw Portable Education Materials Gastroesophageal Reflux Disease, Adult Normally, food travels down the esophagus and stays in the stomach to be digested. However, when a person has gastroesophageal reflux disease (GERD), food and stomach acid move back up into the esophagus. When this happens, the esophagus becomes sore and inflamed. Over time, GERD can create small holes (ulcers) in the lining of the esophagus. What are the causes? This condition is caused by a problem with the muscle between the esophagus and the stomach (lower esophageal sphincter, or LES). Normally, the LES muscle closes after food passes through the esophagus to the stomach. When the LES is weakened or abnormal, it does not close properly, and that allows food and stomach acid to go back up into the esophagus. The LES can be weakened by certain dietary substances, medicines, and medical conditions, including: ??? Tobacco use. ??? . ??? Having a hiatal hernia. ??? Heavy alcohol use. ??? Certain foods and beverages, such as coffee, chocolate, onions, and peppermint. What increases the risk? This condition is more likely to develop in: ??? People who have an increased body weight. ??? People who have connective tissue disorders. ??? People who use NSAID medicines. What are the signs or symptoms? Symptoms of this condition include: ??? Heartburn. ??? Difficult or painful swallowing. ??? The feeling of having a lump in the throat. ??? A bitter taste in the mouth. ??? Bad breath. ??? Having a large amount of saliva. ??? Having an upset or bloated stomach. ??? Belching. ??? Chest pain. ??? Shortness of breath or wheezing. ??? Ongoing (chronic) cough or a night-time cough. ??? Wearing away of tooth enamel. ??? Weight loss. Different conditions can cause chest pain. Make sure to see your health care provider if you experience chest pain. How is this diagnosed? Your health care provider will take a medical history and perform a physical exam. To determine if you have mild or severe GERD, your health care provider may also monitor how you respond to treatment. You may also have other tests, including: ??? An endoscopy to examine your stomach and esophagus with a small camera. ??? A test that measures the acidity level in your esophagus. ??? A test that measures how much pressure is on your esophagus. ??? A barium swallow or modified barium swallow to show the shape, size, and functioning of your esophagus. How is this treated? The goal of treatment is to help relieve your symptoms and to prevent complications. Treatment for this condition may vary depending on how severe your symptoms are. Your health care provider may recommend: ??? Changes to your diet. ??? Medicine. ??? Surgery. Follow these instructions at home: Diet ??? Follow a diet as recommended [...] vinegar, hot sauces, and barbecue sauce. ? Isanti fruit juices and citrus fruits, such as oranges, ifeanyi, and limes. ? Tomato-based foods, such as red sauce, chili, salsa, and pizza with red sauce. ? Fried and fatty foods, such as donuts, japanese fries, potato chips, and high-fat dressings. ? [...] meals. ??? Avoid eating meals during the 2???3 hours before bedtime. ??? Avoid lying down right after you eat. ??? Do not exercise right after you eat. General instructions ??? Pay attention to any changes in your symptoms. ??? Take vknj-cxb-zutzeos and prescription medicines only as told by your health care provider. Do not take aspirin, ibuprofen, or other NSAIDs unless your health care provider told you to do so. ??? Do not use any tobacco products, including cigarettes, chewing tobacco, and e-cigarettes. If you need help quitting, ask your health care provider. ??? Wear loose-fitting clothing. Do not wear anything tight around your waist that causes pressure on your abdomen. ??? Raise (elevate) the head of your bed 6 inches (15cm). ??? Try to reduce your stress, such [...] not improve with treatment. ??? You have a hoarse voice. Get help right away if: ??? You have pain in your arms, neck, jaw, teeth, or back. ??? You feel sweaty, dizzy, or light-headed. ??? You have chest pain or shortness of breath. ??? You vomit and your vomit looks like blood or coffee grounds. ??? You faint. ??? Your stool is bloody or black. ??? You cannot swallow, drink, or eat. This information is not intended to replace advice given to you by your health care provider. Make sure you discuss any questions you have with your health care provider. Document Released: 01/26/2006 Document Revised: 09/15/2016 Document Reviewed: 08/13/2015 [employer] Interactive Patient Education ?? 2018 [employer] Nonspecific Chest Pain Chest pain can be caused by many different conditions. There is always a chance that your pain could be related to something serious, such as a heart attack or a blood clot in your lungs. Chest pain can also be caused by conditions that are not life-threatening. If you have chest pain, it is very important to follow up with your health care provider. What are the causes? Causes of this condition include: ??? Heartburn. ??? Pneumonia or bronchitis. ??? Anxiety or stress. ??? Inflammation around your heart (pericarditis) or lung (pleuritis or pleurisy). ??? A blood clot in your lung. ??? A collapsed lung (pneumothorax). This can develop suddenly on its own (spontaneous pneumothorax) or from trauma to the chest. ??? Shingles infection (varicella-zoster virus). ??? Heart attack. ??? Damage to the bones, muscles, and cartilage that make up your chest wall. This can include: ? Bruised bones due to injury. ? Strained muscles or cartilage due to frequent or repeated coughing or overwork. ? Fracture to one or more ribs. ? Sore cartilage due to inflammation (costochondritis). What increases the risk? Risk factors for this condition may include: ??? Activities that increase your risk for trauma or injury to your chest. ??? Respiratory infections or conditions that cause frequent coughing. ??? Medical conditions or overeating that can cause heartburn. ??? Heart disease or family history of heart disease. ??? Conditions or health behaviors that increase your risk of developing a blood clot. ??? Having had chicken pox (varicella zoster). What are the signs or symptoms? Chest pain can feel like: ??? Burning or tingling on the surface of your chest or deep in your chest. ??? Crushing, pressure, aching, or squeezing pain. ??? Dull or sharp pain that is worse when you move, cough, or take a deep breath. ??? Pain that is also felt in your back, neck, shoulder, or arm, or pain that spreads to any of these areas. Your chest pain may come and go, or it may stay constant. How is this diagnosed? Lab tests or other studies may be needed to find the cause of your pain. Your health care provider may have you take a test called an ECG (electrocardiogram). An ECG records your heartbeat patterns at the time the test is performed. You may also have other tests, such as: ??? Transthoracic echocardiogram (TTE). In this test, sound waves are used to create a picture of the heart structures and to look at how blood flows through your heart. ??? Transesophageal echocardiogram (ROSETTE). This is a more advanced imaging test that takes images from inside your body. It allows your health care provider to see your heart in finer detail. ??? Cardiac monitoring. This allows your health care provider to monitor your heart rate and rhythm in real time. ??? Holter monitor. This is a portable device that records your heartbeat and can help to diagnose abnormal heartbeats. It allows your health care provider to track your heart activity for several days, if needed. ??? Stress tests. These can be done through exercise or by taking medicine that makes your heart beat more quickly. ??? Blood tests. ??? Other imaging tests. How is this treated? Treatment depends on what is causing your chest pain. Treatment may include: ??? Medicines. These may include: ? Acid blockers for heartburn. ? Anti-inflammatory medicine. ? Pain medicine for inflammatory conditions. ? Antibiotic medicine, if an infection is present. ? Medicines to dissolve blood clots. ? Medicines to treat coronary artery disease (CAD). ??? Supportive care for conditions that do not require medicines. This may include: ? Resting. ? Applying heat or cold packs to injured areas. ? Limiting activities until pain decreases. Follow these instructions at home: Medicines ??? If you were prescribed an antibiotic, take it as told by your health care provider. Do not stop taking the antibiotic even if you start to feel better. ??? Take tonk-dcc-shufeei and prescription medicines only as told by your health care provider. Lifestyle ??? Do not use any products that contain nicotine or tobacco, such as cigarettes and e-cigarettes. If you need help quitting, ask your health care provider. ??? Do not drink alcohol. ??? Make lifestyle changes as directed by your health care provider. These may include: ? Getting regular exercise. Ask your health care provider to suggest some activities that are safe for you. ? Eating a heart-healthy diet. A registered dietitian can help you to learn healthy eating options. ? Maintaining a healthy weight. ? Managing diabetes, if necessary. ? Reducing stress, such as with yoga or relaxation techniques. General instructions ??? Avoid any activities that bring on chest pain. ??? If heartburn is the cause for your chest pain, raise (elevate) the head of your bed about 6 inches (15 cm) by putting blocks under the legs. Sleeping with more pillows does not effectively relieve heartburn because it only changes the position of your head. ??? Keep all follow-up visits as told by your health care provider. This is important. This includes any further testing if your chest pain does not go away. Contact a health care provider if: ??? Your chest pain does not go away. ??? You have a rash with blisters on your chest. ??? You have a fever. ??? You have chills. Get help right away if: ??? Your chest pain is worse. ??? You have a cough that gets worse, or you cough up blood. ??? You have severe pain in your abdomen. ??? You have severe weakness. ??? You faint. ??? You have sudden, unexplained chest discomfort. ??? You have sudden, unexplained discomfort in your arms, back, neck, or jaw. ??? You have shortness of breath at any time. ??? You suddenly start to sweat, or your skin gets clammy. ??? You feel nauseous or you vomit. ??? You suddenly feel light-headed or dizzy. ??? Your heart begins to beat quickly, or it feels like it is skipping beats. These symptoms may represent a serious problem that is an emergency. Do not wait to see if the symptoms will go away. Get medical help right away. Call your local emergency services (911 in the [place] Do not drive yourself to the hospital. This information is not intended to replace advice given to you by your health care provider. Make sure you discuss any questions you have with your health care provider. Document Released: 01/26/2006 Document Revised: 01/10/2017 Document Reviewed: 01/10/2017 [employer] Interactive Patient Education ?? 2019 [employer] Emergency Awareness and Preventative Care STROKE is [...] Assistance with quitting is available by contacting 9-977-QQPR-NOW. This is a free resource providing counseling, [...] and how to prevent infections, visit www.cdc.gov/sepsis. The examination and treatment you have received in the Emergency Department has been done to provide an appropriate evaluation and stabilizing treatment on an emergency basis only. Given the limited resources, it is not meant to be a substitute for complete medical care. The follow-up doctor you named will receive a copy of your records and all test reports. IT IS IMPORTANT THAT YOU SCHEDULE A FOLLOW-UP APPOINTMENT AND ARE RE-EVALUATED. You should report any new complaints, symptoms, or remaining problems at that time. IT IS IMPOSSIBLE FOR THE EMERGENCY DEPARTMENT TO RECOGNIZE AND TREAT ALL ELEMENTS OF INJURY OR ILLNESS IN A SINGLE VISIT. If you have been referred to a specialist physician, it means that we believe you may have a condition that requires the expertise of a specialist. These physicians work in partnership with the hospital and have agreed to see referred patients in their office for further evaluation. KEEP IN MIND THAT THE SPECIALIST HAS HIS/HER OWN OFFICE POLICIES WHICH MAY REQUIRE PROPER INSURANCE OR PAYMENT UP FRONT BEFORE THE SPECIALIST WILL SEE YOU. It is your responsibility to call the specialist physician to make an appointment. We do not have the ability to refer patients to specialists/physicians that work with specific insurance companies. Please be advised that all financial charges or billing practices are determined by that practice, not the hospital. If your insurance company requires that you see a specialist from their approved list, it is your responsibility to contact your insurance company to make those arrangements. It is also your responsibility to follow any other requirements of your insurance company necessary to obtain coverage for claims submitted. We will bill your insurance; however, you are responsible today for any co-pay amounts. You will receive a separate bill for any services you may have received including: emergency, radiology, or pathology physicians. Patient Name:IFEANYI RENNYGENOVEVA MAGAÑA I have received this information and was given the opportunity to ask questions. Patient/Skin Peeling Machine Operator Name: Patient/Skin Peeling Machine Operator Signature: Relationship to Patient: Clinician/Hospital Skin Peeling Machine Operator Signature: Please Provide a Telephone Number Where You Can Be Reached: Is it Permissible To Leave a Message? Date: Electronically signed by Samy, [facility] Conversion Customs Appraiser Cerner at 08/18/2022 11:35 AM CDT documented in this encounter Plan of Treatment Upcoming Encounters Date Type Department Care Team (Late st Contact Info) Description 03/20/2025 10:45 AM EST Office Visit [facility] Bariatric Services [address] [facility] [address] [place] [address] Stanislav Cruz MD [address] [facility] [address] [place] [address] documented as of this encounter Visit Diagnoses Not on filedocumented in this encounter
--- OUTSIDE RECORDS SUMMARY | 2025-03-13 14:14 | XMS_ITS | Encounter Summary ---
Author Organization [facility] Address [address] [place] [address] Care Team Providers Care Pack Room Operator Name Role Phone System, Provider Not In MD Primary Care Provider Unavailable Encounter Details Date Type Department Care Team (Late st Contact Info) Description 08/19/2022 Lab Requisition [facility] [address] [place] [id number] Butch Groves MD [address] [place], [place] [id number] Ptosis of breast Social History Tobacco Use Types Packs/Day Years Used Date Smoking Tobacco: Never Assessed Comments Unknown Sex and Gender Information Value Date Recorded Sex Assigned at Not on file Legal Sex Female 8:28 PM EDT Gender Identity Not on file Sexual Orientation Not on file documented as of this encounter Plan of Treatment Not on file documented as of this encounter Procedures Procedure Name Priority Date/Time Associated Diagnosis Comments SURGICAL PATHOLOGY EXAM Routine 08/18/2022 Ptosis of breast documented in this encounter Results * Surgical Pathology Exam (08/18/2022) Case Report Surgical Pathology Case: [id number] Authorizing Provider: Butch Groves MD Collected: 08/18/2022 Ordering Location: [facility] Received: 08/19/2022 1131 Pathologist: Deloris Groves MD Specimens: A) - Breast, Right, Right Breast Tissue wt- 112 grams B) - Breast, Left, Left Breast Tissue wt- 111 grams 08/23/2022 5:03 PM EDT [facility] Final Diagnosis A. BREAST, RIGHT, RESECTION: - BENIGN BREAST TISSUE (112 GRAMS). - SKIN WITH NO SIGNIFICANT PATHOLOGIC CHANGES. - NEGATIVE FOR ATYPICAL DUCTAL HYPERPLASIA, IN-SITU, OR INVASIVE CARCINOMA. B. BREAST, LEFT, RESECTION: - BENIGN BREAST TISSUE (111 GRAMS). - SKIN WITH NO SIGNIFICANT PATHOLOGIC CHANGES. - NEGATIVE FOR ATYPICAL DUCTAL HYPERPLASIA, IN-SITU, OR INVASIVE CARCINOMA. 08/23/2022 5:03 PM EDT [facility] at 1703 EDT Clinical Information N64.81 - Ptosis of breast [ICD-10-CM] 08/23/2022 5:03 PM EDT [facility] Gross Description A. RIGHT BREAST TISSUE WT- 112 GRAMS Received in formalin labeled right breast tissue are multiple similar appearing irregular pieces of brewer pink wrinkled skin and lobulated yellow fibrofatty tissue measuring 17.5 x 14.0 x 2.0 cm in aggregate. Requisition states that the specimen weighs 112 g. Tissue is serially sectioned revealing gusman yellow fatty tissue with grossly unremarkable strands of brewer-white fibrous tissue intermixed. The fibrous tissue comprises approximately 10% of the parenchyma. The skin is grossly unremarkable. Pattern Gater sections are submitted in cassettes A1 through A [address]. [address] ([facility]) B. LEFT BREAST TISSUE WT- 111 GRAMS Received in formalin labeled left breast tissue are four similar pieces of brewer-barrios grossly unremarkable wrinkled skin with attached lobulated yellow subcutaneous tissue measuring 15.5 x 10.0 x 1.5 cm in loose aggregate. Requisition states that the specimen weighs 111 g. Each piece is serially sectioned revealing lobulated yellow adipose tissue with thin strands of purple brewer fibrous tissue intermixed. No discrete nodules are grossly identified. The fibrous tissue comprises approximately 5% of the parenchyma. Pattern Gater sections are submitted in cassettes B1 through B3. [address] ([facility]) 08/23/2022 5:03 PM EDT [facility] Tissue Left breast structure / Unknown 08/18/2022 08/19/2022 11:31 AM EDT Tissue specimen (specimen) Left breast structure / Unknown 08/18/2022 08/19/2022 11:31 AM EDT us Butch Groves MD LAB PATHOLOGY ORDERABLES [facility] [address] [place] [id number] documented in this encounter Visit Diagnoses Diagnosis Ptosis of breast documented in this encounter Care Teams Pack Room Operator Relationship Specialty Start Date End Date System, Provider Not In, [place] [address] PCP - General Family Medicine 05/02/22 documented as of this encounter
--- OUTSIDE RECORDS SUMMARY | 2025-03-13 14:14 | XMS_ITS | Data Portability ---
Author Organization [facility] CARLOS Cardenas WELLS CLOSED Address [address] [place] [address] [address] Care [address] Worker Name Role Phone JUAN R CONNELL Primary Care Provider SYLVAIN HALL Referring Provider Assessment No assessment recorded. Plan of Treatment Reminders Order Date Submit Date Provider Last Modified By Organization Details Last Modified Time Details Appointments None recorded. Lab glucose, fingerstic k, blood 2024 025 [email or web address] [facility], [address] [place] [address], [address], 13:59:35 insulin, serum 2024 025 [email or web address] [facility], [address] [place] [address], [address], 5 09:02:33 C-peptide, serum 2024 025 [email or web address] [facility], [address] [place] [address], [address], 5 09:02:33 glycohemog lobin, total, blood 2024 025 [email or web address] [facility], [address] [place] [address], [address], 5 09:02:34 glucose, QN [mass/volu me], serum or plasma [email or web address] [place] [address] Laboratory, [address] [place] [address], [address], 5 09:02:34 glucose, fingerstic k, blood [email or web address] [facility], [address] [place] [address], [address], 5 14:09:29 insulin, serum 2024 025 [facility], [address] [place] [address], [address], 5 10:31:08 C-peptide, serum 2024 025 [facility], [address] [place] [address], [address], 5 10:31:07 cortisol, serum or plasma 2024 025 [facility], [address] [place] [address], [address], 5 10:31:10 CMP, serum or plasma 2024 025 [facility], [address] [place] [address], [address], 5 10:25:19 TSH, serum or plasma 2024 025 [facility], [address] [place] [address], [address], 5 10:31:11 CBC w/ auto diff 2024 025 [facility], [address] [place] [address], [address], 5 10:09:50 glycohemog lobin, total, blood 2024 025 [facility], [address] [place], [address], 5 10:08:[address]/dietiti an referral - s/p gastric sleeve, having hypogycemi a now [email or web address], [address] [place], [address], 5 15:25:20 Procedures None recorded. Surgeries None recorded. Imaging None recorded. Medication Orders Gvoke HypoPen 2-Pack 1 mg/0.2 mL subcutaneo us auto-injec tor [address] [facility], [address], [address], 5 14:19:34 mupirocin 2 % topical ointment [address] [facility], [address], [address], 5 13:54:08 betamethas one valerate 0.1 % topical cream [address] [facility], [address], [address], 5 13:54:24 Patient TargetsNo targets recorded. Patient Instructions Encounter Date Encounter Id Patient Instructions Last Modified By Organization Details Last Modified Time 08/03/2022 [id number] 1. Continue to treat ear eczema with Betamethasone cream prn. 2. Migraine management discussed with patient. Such as avoiding fermented foods, getting restful sleep, avoiding amusement rides etc. 3. Suggest patient administer previously prescribed drops into ears with any signs of drainage or infection. 4. f/u prn [email or web address] Not available 08/03/2022 10:20:53 01/20/2023 [id number] 1. Rx- Betamethasone cream ; Mupirocin ointment 2. 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 6 normal Not Available [facility] [address] [place] [address], [address], 08/17/2024 10:08:00 08/18/19 25 08/17/2024 GLYCO HEMOG LOBIN A1C estimated avg. glucose 105 mg/dL _(bonny c) normal A1c value s betwe en 5.7% to 6.4% indic ate predi abete s. Resul ts 6.5% or great er is diagn ostic of diabe gaurav. Ameri can [facility]abe [facility]aurav Ass[facility] iatio n (diab etes. org) Not Available [facility] [address] [place], [address], 08/17/2024 10:08:00 08/18/19 25 08/17/2024 COMPL ETE BLOOD COUNT white blood cells 2.9 10*3/ uL 3.8-10 .8 low Not Available [facility] [address] [place], [address], 08/17/2024 10:09:50 08/18/19 25 08/17/2024 COMPL ETE BLOOD COUNT red blood cells 4.79 10*6/ uL 3.80-5 .20 normal Not Available [facility] [address] [place] [address], [address], 08/17/2024 10:09:50 08/18/19 25 08/17/2024 COMPL ETE BLOOD COUNT hemoglobin 14.4 g/dL 12.0-1 6.0 normal Not Available [facility] [address] [place] [address], [address], 08/17/2024 10:09:50 08/18/19 25 08/17/2024 COMPL ETE BLOOD COUNT hematocrit 44.2 % 35.0-4 7.0 normal Not Available [facility] [address] [place] [address], [address], 08/17/2024 10:09:50 08/18/19 25 08/17/2024 COMPL ETE BLOOD COUNT MCV 92 fL 80-100 normal Not Available [facility] [address] [place] [address], [address], 08/17/2024 10:09:50 08/18/19 25 08/17/2024 COMPL ETE BLOOD COUNT MCH 30 pg 26-35 normal Not Available [facility] [address] [place] [address], [address], 08/17/2024 10:09:50 08/18/19 25 08/17/2024 COMPL ETE BLOOD COUNT MCHC 33 g/dL 32-36 normal Not Available [facility] [address] [place] [address], [address], 08/17/2024 10:09:50 08/18/19 25 08/17/2024 COMPL ETE BLOOD COUNT RDW 13.4 % 11.0-1 5.0 normal Not Available [facility] [address] [place] [address], [address], 08/17/2024 10:09:50 08/18/19 25 08/17/2024 COMPL ETE BLOOD COUNT MPV 8.5 fL 6.2-10 .5 normal Not Available [facility] [address] [place] [address], [address], 08/17/2024 10:09:50 08/18/19 25 08/17/2024 COMPL ETE BLOOD COUNT platelet count 184 10*3/ uL 150-40 0 normal Not Available [facility] [address] [place] [address], [address], 08/17/2024 10:09:50 08/18/19 25 08/17/2024 COMPL ETE BLOOD COUNT neutrophil,a bsolute 1.4 10*3/ uL 1.6-8. 4 low Not Available [facility] [address] [place] [address], [address], 08/17/2024 10:09:50 08/18/19 25 08/17/2024 COMPL ETE BLOOD COUNT lymphocyte,a bsolute 1.1 10*3/ uL 0.4-5. 1 normal Not Available [facility] [address] [place] [address], [address], 08/17/2024 10:09:50 08/18/19 25 08/17/2024 COMPL ETE BLOOD COUNT monocyte,abs olute 0.3 10*3/ uL 0.0-1. 2 normal Not Available [facility] [address] [place] [address], [address], 08/17/2024 10:09:50 08/18/19 25 08/17/2024 COMPL ETE BLOOD COUNT eosinophil,a bsolute 0.1 10*3/ uL 0.0-0. 8 normal Not Available [facility] [address] [place] [address], [address], 08/17/2024 10:09:50 08/18/19 25 08/17/2024 COMPL ETE BLOOD COUNT basophil,abs olute 0.0 10*3/ uL 0.0-0. 3 normal Not Available [facility] [address] [place] [address], [address], 08/17/2024 10:09:50 08/18/19 25 08/17/2024 COMPL ETE BLOOD COUNT % neutrophils 47.9 % 42.0-7 8.0 normal Not Available [facility] [address] [place] [address], [address], 08/17/2024 10:09:50 08/18/19 25 08/17/2024 COMPL ETE BLOOD COUNT % lymphocytes 37.6 % 11.0-4 7.0 normal Not Available [facility] [address] [place] [address], [address], 08/17/2024 10:09:50 08/18/19 25 08/17/2024 COMPL ETE BLOOD COUNT % monocytes 9.8 % 0.0-11 .0 normal Not Available [facility] [address] [place] [address], [address], 08/17/2024 10:09:50 08/18/19 25 08/17/2024 COMPL ETE BLOOD COUNT % eosinophils 3.6 % 0.0-7. 0 normal Not Available [facility] [address] [place] [address], [address], 08/17/2024 10:09:50 08/18/19 25 08/17/2024 COMPL ETE BLOOD COUNT % basophils 1.1 % 0.0-3. 0 normal Not Available [facility] [address] [place] [address], [address], 08/17/2024 10:09:50 08/18/19 25 08/17/2024 COMPL ETE BLOOD COUNT nucleated red cells 0.1 % 0.0-0. 9 normal Not Available [facility] [address] [place] [address], [address], 08/17/2024 10:09:50 08/18/19 25 08/17/2024 COMPL ETE BLOOD COUNT nucleated RBCs, absolute 0.00 10*3/ uL not estab. normal Not Available [facility] [address] [place] [address], [address], 08/17/2024 10:09:50 08/18/19 25 08/17/2024 COMP. METAB OLIC PANEL glucose 73 mg/dL 74-100 low Not Available [facility] [address] [place] [address], [address], 08/17/2024 10:25:19 08/18/19 25 08/17/2024 COMP. METAB OLIC PANEL blood urea nitrogen 17 mg/dL 6-20 normal Not Available [facility] [address] [place] [address], [address], 08/17/2024 10:25:19 08/18/19 25 08/17/2024 COMP. METAB OLIC PANEL creatinine 0.71 mg/dL 0.50-0 .95 normal Not Available [facility] [address] [place] [address], [address], 08/17/2024 10:25:19 08/18/19 25 08/17/2024 COMP. METAB OLIC PANEL BUN/creatini ne ratio 24 (calc ) 10-20 high Not Available [facility] [address] [place] [address], [address], 08/17/2024 10:25:19 08/18/19 25 08/17/2024 COMP. METAB OLIC PANEL sodium 145 mmol/ L 136-14 5 normal Not Available [facility] [address] [place] [address], [address], 08/17/2024 10:25:19 08/18/19 25 08/17/2024 COMP. METAB OLIC PANEL potassium 5.0 mmol/ L 3.4-5. 0 normal Not Available [facility] [address] [place] [address], [address], 08/17/2024 10:25:19 08/18/19 25 08/17/2024 COMP. METAB OLIC PANEL chloride 107 mmol/ L 98-107 normal Not Available [facility] [address] [place] [address], [address], 08/17/2024 10:25:19 08/18/19 25 08/17/2024 COMP. METAB OLIC PANEL carbon dioxide 29 mmol/ L 22-31 normal Not Available [facility] [address] [place] [address], [address], 08/17/2024 10:25:19 08/18/19 25 08/17/2024 COMP. METAB OLIC PANEL anion gap 9 (calc ) 7-25 normal Not Available [facility] [address] [place] [address], [address], 08/17/2024 10:25:19 08/18/19 25 08/17/2024 COMP. METAB OLIC PANEL calcium 10.0 mg/dL 8.6-10 .2 normal Not Available [facility] [address] [place] [address], [address], 08/17/2024 10:25:19 08/18/19 25 08/17/2024 COMP. METAB OLIC PANEL total protein 6.8 g/dL 6.4-8. 3 normal Not Available [facility] [address] [place] [address], [address], 08/17/2024 10:25:19 08/18/19 25 08/17/2024 COMP. METAB OLIC PANEL albumin 4.3 g/dL 3.5-5. 2 normal Not Available [facility] [address] [place] [address], [address], 08/17/2024 10:25:19 08/18/19 25 08/17/2024 COMP. METAB OLIC PANEL globulin 2.5 1.5-4. 5 normal Not Available [facility] [address] [place] [address], [address], 08/17/2024 10:25:19 08/18/19 25 08/17/2024 COMP. METAB OLIC PANEL albumin/glob ulin ratio 1.7 (calc ) 1.1-2. 5 normal Not Available [facility] [address] [place], [address], 08/17/2024 10:25:19 08/18/19 25 08/17/2024 COMP. METAB OLIC PANEL bilirubin, total 0.8 mg/dL 0.1-1. 2 normal Not Available [facility] [address] [place], [address], 08/17/2024 10:25:19 08/18/19 25 08/17/2024 COMP. METAB OLIC PANEL alkaline phosphatase 72 U/L 30-121 normal NOTE: NEW AZIZA L RANGE FOR SUSAN العراقي NTS (<19 YEARS ). Not Available [facility] [address] [place] [address], [address], 08/17/2024 10:25:19 08/18/19 25 08/17/2024 COMP. METAB OLIC PANEL AST 21 U/L 0-32 normal Not Available [facility] [address] [place] [address], [address], 08/17/2024 10:25:19 08/18/19 25 08/17/2024 COMP. METAB OLIC PANEL ALT 13 U/L 0-33 normal Not Available [facility] [address] [place] [address], [address], 08/17/2024 10:25:19 08/18/19 25 08/17/2024 COMP. METAB OLIC PANEL GFR 103 >= 60 normal NOT E New calcu latio n for GFR (CKD- EPI 2020) is formu lated witho ut race adjus tment facto rs at the recom menda tion of the [facility] Pradip manzano and Randy Hollowaye ty of Nephr ology . This calcu latio n has not been valid ated in pregn ant women . For susan العراقي nts refer to https ://ww w.kid soila.o rg/pr ofess ional s/KDO QI/gf r_cal culat orPed Not Available [facility] [address] [place] [address], [address], 08/17/2024 10:25:19 08/18/19 25 08/17/2024 C-PEP TIDE C-peptide 1.46 NG/mL 1.10-4 .40 normal Not Available [facility] [address] [place] [address], [address], 08/17/2024 10:31:07 08/18/19 25 08/17/2024 INSUL IN insulin 4.1 uu/mL 2.6-24 .9 normal Not Available [facility] [address] [place] [address], [address], 08/17/2024 10:31:08 08/18/19 25 08/17/2024 CORTI ARIAS cortisol 6.05 ug/dL 2.68-1 8.40 normal CORTI ARIAS AZIZA L RANGE S: 6 am to 10 am 6.02 - 18.4 ug/dL 4 pm to 8 pm 2.68 - 10.5 ug/dL . Not Available [facility] [address] [place] [address], [address], 08/17/2024 10:31:10 08/18/19 25 08/17/2024 TSH TSH 1.570 u[IU] /mL 0.270- 4.200 normal Not Available [facility] [address] [place] [address], [address], 08/17/2024 10:31:11 08/18/19 25 08/17/2024 GLUCO SE glucose 74 mg/dL 74-100 normal Not Available [facility] [address] [place] [address], [address], 08/17/2024 12:15:06 08/18/19 25 08/17/2024 C-PEP TIDE C-peptide 1.31 NG/mL 1.10-4 .40 normal Not Available [facility] [address] [place], [address], 08/17/2024 13:04:09 08/18/19 25 08/17/2024 INSUL IN insulin 4.6 uu/mL 2.6-24 .9 normal Not Available [facility] [address] [place], [address], 08/17/2024 13:04:11 09/04/19 25 09/03/2024 gluco se, finge rstic k, blood glucose, fingerstick 120 mg/dL 70 - 100 Not Available [facility] [address] [place], [address], 09/03/2024 13:41:54 Result Notes None recorded. Problems No Known Problems Procedures Surgical History Date Name Laterality Status Provider Name and Address Organization Details Recorded Time 10/05/19 25 MNT Initial Visit completed [address]JUA[address], [place] [address] [place], [address], [facility] 10/10/2024 16:23:23 09/04/19 25 MNT Initial Visit cancelled SANJUANA LEVINE [address], [place] [address] [place], [address], [facility] 09/03/2024 08:19:01 06/08/19 23 Binocular Microscopy completed Kerline De Los Santos [facility] 06/08/2022 17:12:50 06/03/19 23 Binocular Microscopy completed Sanjuana Fritz [facility] 06/03/2022 15:55:19 05/02/19 19 appendectomy completed Caryl Becerra [facility] 06/03/2022 14:42:22 05/02/19 18 laparoscopic sleeve gastrectomy completed Caryl Becerra [facility] 06/03/2022 14:40:36 05/02/19 08 cholecystectomy completed Caryl Wells [facility] 06/03/2022 14:44:36 05/02/18 91 Remove tonsils and adenoids completed Caryl [facility] 06/03/2022 14:39:49 Imaging Results None recorded. Procedure Notes None recorded. Medical Equipment None Reported. Allergies Allergen ID Allergen Name Allergen Category Reaction Reaction Severity Criticality Documentation Date Start Date Code Code System Note Provider Name and Address Organization Details Recorded Time [id number] Substance with sulfonami de structure and antibacte rial mechanism of action (substanc e) medicatio n Not available Not available Not available 08/15/2024 82644 8003 SNOMED [facility] 13:52:57 001882 hydrocodo ne Not available Not available Not available [facility] 08/15/2024 5489 RxNorm [facility] 13:53:09 Medications Name Sig Start Date Stop Date Status Note LastModified by Organization Details LastModified Time doxycycline hyclate 100 mg capsule TAKE 1 CAPSULE BY MOUTH TWICE DAILY FOR 10 DAYS 08/15 completed Not Available Not Available Not Available ketoconazol e 2 % shampoo USE ON SCALP 2-3 TIMES A WEEK FOR FLAKING. LET SIT 5 MINUTES BEFORE RINSING. FOLLOW WITH REGULAR SHAMPOO AND CONDITION ER 08/15 completed Not Available Not Available Not Available clindamycin HCl 300 mg capsule TAKE 1 CAPSULE BY MOUTH EVERY 8 HOURS FOR 7 DAYS 06/03 completed Not Available Not Available Not Available azithromyci n 250 mg tablet TAKE 2 TABLETS BY MOUTH ON DAY 1, AND THEN TAKE 1 TABLET BY MOUTH ONCE A DAY ON DAY 2 THROUGH DAY 5 06/03 completed Not Available Not Available Not Available ofloxacin 0.3 % eye drops INSTILL 10 DROPS IN AFFECTED EAR(S) EVERY DAY DIRECTED FOR 7 DAYS 06/08 completed Not Available Not Available Not Available betamethaso ne, augmented 0.05 % topical cream APPLY CREAM TOPICALLY TO AFFECTED AREA TWICE DAILY 06/03 completed Not Available Not Available Not Available Accu-Chek Softclix Lancets USE DIRECTED ONCE DAILY TO TEST BLOOD SUGAR active Not Available Not Available No t Available alprazolam 0.5 mg tablet TAKE 1 TABLET BY MOUTH THREE TIMES DAILY NEEDED active Not Available Not Available No t Available amoxicillin 875 mg tablet TAKE 1 TABLET BY MOUTH TWICE DAILY 08/15 completed Not Available Not Available Not Available betamethaso ne valerate 0.1 % topical cream Apply 1 applicati on twice a day by topical route for 10 days. 08/15 completed Not Available Not Available Not Available meclizine 25 mg tablet TAKE 1 TABLET BY MOUTH THREE TIMES DAILY NEEDED 08/15 completed Not Available Not Available Not Available rizatriptan 10 mg disintegrat ing tablet DISSOLVE 1 TABLET IN MOUTH NEEDED 08/15 completed Not Available Not Available Not Available cephalexin 500 mg capsule TAKE 1 CAPSULE BY MOUTH THREE TIMES A DAY 01/20 completed Not Available Not Available Not Available clotrimazol e-betametha sone 1 %-0.05 % topical cream APPLY TO Right EAR QHS X 3 WEEKS 08/15 completed Not Available Not Available Not Available prednisone 50 mg tablet TAKE 1 TABLET BY MOUTH ONCE DAILY FOR 5 DAYS 08/15 completed Not Available Not Available Not Available clotrimazol e 1 % topical solution 6 DROPS IN RIGHT EAR QAM 08/15 completed Not Available Not Available Not Available docusate sodium 100 mg capsule TAKE 1 CAPSULE BY MOUTH TWICE DAILY NEEDED 08/15 completed Not Available Not Available Not Available mupirocin 2 % topical ointment APPLY A SMALL AMOUNT TO THE AFFECTED AREA BY TOPICAL ROUTE 2 TIMES PER DAY X 10 DAYS 08/15 completed Not Available Not Available Not Available ibuprofen 600 mg tablet TAKE 1 TABLET BY MOUTH EVERY 6 HOURS NEEDED FOR MILD PAIN active Not Available Not Available No t Available levofloxaci n 500 mg tablet TAKE 1 TABLET BY MOUTH ONCE DAILY FOR 5 DAYS 06/03 completed Not Available Not Available Not Available estradiol 0.01% (0.1 mg/gram) vaginal cream USE 1 GRAM VAGINALLY TWICE PER WEEK 06/03 completed Not Available Not Available Not Available methylpredn isolone 4 mg tablets in a dose pack TAKE BY MOUTH DIRECTED ON INSIDE OF PACKAGE 01/20 completed Not Available Not Available Not Available bromphenira mine-pseudo ephedrine-D M 2 mg-30 mg-10 mg/5 mL oral syrup TAKE 5 ML BY MOUTH EVERY 4 HOURS NEEDED FOR SINUS SYMPTOMS 08/15 completed Not Available Not Available Not Available ondansetron 4 mg disintegrat ing tablet DISSOLVE 1 TABLET IN MOUTH EVERY 6 HOURS NEEDED 01/20 completed Not Available Not Available Not Available fluticasone propionate 50 mcg/actuati on nasal spray,suspe nsion USE 1 SPRAY(S) IN EACH NOSTRIL ONCE DAILY 08/15 completed Not Available Not Available Not Available amoxicillin 875 mg-potassiu m clavulanate 125 mg tablet TAKE 1 TABLET BY MOUTH TWICE DAILY 08/15 completed Not Available Not Available Not Available amoxicillin 500 mg-potassiu m clavulanate 125 mg tablet TAKE 1 TABLET BY MOUTH TWICE DAILY 06/08 completed Not Available Not Available Not Available oxycodone 5 mg tablet 01/20 completed Not Available Not Available Not Available escitalopra m 10 mg tablet TAKE 1/2 (ONE-HALF ) TABLET BY MOUTH ONCE DAILY 01/20 completed Not Available Not Available Not Available ciprofloxac in 0.3 %-dexametha sone 0.1 % ear drops,suspe nsion INSTILL 4 DROPS INTO AFFECTED EAR TWICE DAILY 06/03 completed Not Available Not Available Not Available Lexapro 5 mg tablet Take 1 tablet every day by oral route. active Not Available Not Available No t Available nitrofurant oin monohydrate /macrocryst als 100 mg capsule TAKE 1 CAPSULE BY MOUTH EVERY 12 HOURS FOR 5 DAYS WITH FOOD 09/03 completed Not Available Not Available Not Available Constulose 10 gram/15 mL oral solution TAKE 15 ML BY MOUTH TWICE DAILY NEEDED 08/15 completed Not Available Not Available Not Available meclizine 08/15 completed Not Available Not Available Not Available methylpredn isolone 06/08 completed Not Available Not Available Not Available Xanax active PRN Not Available Not Availa ble Not Available levocetiriz ine 5 mg tablet TAKE 1 TABLET BY MOUTH ONCE DAILY NEEDED FOR ALLERGY SYMPTOMS active Not Available Not Available No t Available GaviLyte-G 236 gram-22.74 gram-6.74 gram-5.86 gram oral solution 06/03 completed Not Available Not Available Not Available Linzess 290 mcg capsule TAKE 1 CAPSULE BY MOUTH ONCE DAILY AT LEAST 30 MINUTES BEFORE THE FIRST MEAL OF THE DAY ON AN EMPTY STOMACH ONCE A DAY 08/15 completed Not Available Not Available Not Available Accu-Chek Guide test strips USE ONCE DAILY TO TEST BLOOD SUGAR active Not Available Not Available No t Available Accu-Chek Guide Glucose Meter USE DIRECTED ONCE DAILY TO TEST BLOOD SUGAR active Not Available Not Available No t Available Motrin IB 200 mg capsule Take 1 capsule every 6 hours by oral route. 01/20 completed Not Available Not Available Not Available Gvoke HypoPen 2-Pack 1 mg/0.2 mL subcutaneou s auto-inject or INJECT 1 AUTO INJECTOR SUBCUTANE OUSLY NEEDED active Not Available Not Available No t Available Sutab 1.479-0.188 -0.225 gram tablet TAKE DIRECTED 06/03 completed Not Available Not Available Not Available BinaxNOW COVID-19 Ag Self Test kit Use as Directed on the Package 06/03 completed Not Available Not Available Not Available Vitals Date Recorded Body height Body mass index (BMI) Body weight Body temperature Heart rate Systolic And Diastolic Provider Name and Address Organization Details Last Updated DateTime 162.56 cm 23.5 kg/m2 72133.1 5 g 97.5 [degF] 54 /min 100/72 mm[Hg] Kerline De Los Santos [facility] 3 09:29:29 Date Recorded Body weight Body mass index (BMI) Body height Systolic And Diastolic Provider Name and Address Organization Details Last Updated DateTime 08/15/2024 13401.75 g 23.7 kg/m2 162.56 cm 112/74 mm[Hg] Roxanenahun Headley [facility] 08/15/2024 13:55:36 Date Recorded Body height Body mass index (BMI) Body weight Heart rate Systolic And Diastolic Provider Name and Address Organization Details Last Updated DateTime 09/03/2024 162.56 cm 24.2 kg/m2 95255.52 g 74 /min 116/58 mm[Hg] Breanne Patel [facility] 09/03/2024 13:41:51 Date Recorded Body height Body mass index (BMI) Body weight Provider Name and Address Organization Details Last Updated DateTime 10/04/2024 162.56 cm 24 kg/m2 92908.93 g SANJUANA LEVINE, RD, LD [address] [place], [address], [facility] 10/04/2024 09:59:10 Date Recorded Body height Body mass index (BMI) Body weight Body temperature Provider Name and Address Organization Details Last Updated DateTime 01/20/2023 162.56 cm 23.2 kg/m2 06963.97 g 97.5 [degF] Juan Jose Dozier [facility] 01/20/2023 16:45:22 Date Recorded Heart rate Systolic And Diastolic Provider Name and Address Organization Details Last Updated DateTime 01/20/2023 58 /min 106/73 mm[Hg] Maggie Gaytan [facility] 01/20/2023 17:04:07 Social History None recorded. Functional Status Question Answer Note LastModified by Organizat ion Details LastModified Time What is your level of alcohol consumption? Occasional [email or web address] Information not available 06/03/2022 Mental Status None recorded. Family History Relationship Description Onset Age of this Age Resolved Age Notes LastModified by Organization Details LastModified Time Father Complication of anesthesia [email or web address] Not available 06/03 14:36:47 Father Hypertensive disorder Not available 2022 14:37:19 Father Heart disease [email or web address] Not available 2022 14:37:38 Mother Complication of anesthesia [email or web address] Not available 06/03 14:36:54 Daughter Asthma [email or web address] Not availabl e 06/03/2022 14:37:58 Maternal Grandfather Family history of stroke [email or web address] Not available 2022 14:38:29 Maternal Grandmother Family history of stroke [email or web address] Not available 2022 14:38:41 Medical History Condition Response Anxiety Disorder Y Diabetes N Bleeding Disorder N Cancer N Hypertension N Gynecological HistoryNo gynecological history recorded. 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 Acute shaun al otitis externa 696167850 B36.9 Otalgia of right ear 714 9750405 H92.01 Ear pressu re sensation 620706461 H93.8X9 Anxiety 44724170 F41.9 [id number] ALICE GONZALEZ MD [facility] [address] [place] [address] 06/08/2022 15:55:27 06/09/2022 07:27:00 Dizziness 439293346 R42 Has a sore throat 724202 002 J02.9 Nausea 891315084 R11.0 Aspergillu s otomycosis 577788746 B44.89 -right ear Acute shaun al otitis externa 166092212 B36.9 Otalgia of right ear 432 7995222 H92.01 Ear pressu re sensation 823776221 H93.8X9 Anxiety 87739656 F41.9 Migraine 31453173 G43.90 9 Acute migraine [id number] ALCIE GONZALEZ MD [facility] [address] [place] [address] 08/03/2022 09:19:29 08/03/2022 10:26:52 Otitis externa of right ear 1823673299 589199 H60.91 Aspergillu s otomycosis 433461974 B44.89 -right ear Eczema of external auditory canal 17195372 H60.549 [id number] ALICE GONZALEZ MD [facility] [address] [place] [address] 01/20/2023 16:03:50 01/21/2023 07:55:28 Otitis externa of right ear 1113654852 158916 H60.91 Aspergillu s otomycosis 618886262 B44.89 -right ear Eczema of external auditory canal 31273117 H60.549 Acute shaun al otitis externa 057516449 B36.9 Nasal vestibulitis 28259 000 J34.89 [id number] ELIF OWENS, DEVELOPER [employer] [facility] [address] [place] [address] 08/15/2024 13:38:13 08/15/2024 14:37:55 Hypoglycemia 427768467 E16.2 Patient states she has been experienci ng hypoglycem ic episodes over the last year. Patient states that as time progresses they are worsening. She does report past medical history of gastric sleeve in 2018.Opal nt states she did receive Dexcom per PCP and with the below readings have been reviewed and scanned in chart:Time CGM active: 77%Average glucose: 83GMI: CATRACHITA>250= 0%181-250= 0%70-180= 87%54-69= 12%>54= 0% Recommenda tionWill check the above below labs. Patient educated on needing to have these labs when fasting, and morning and when blood glucose is less than 70. She states understand ing.Will place dietitian consult for stat, patient educated at this appointmen t on the importance of eating small frequent high-prote in meals.Will place order for Gvoke pen. Patient educated on this, how to administer with demo pen in office today, and potential side effects.Co ntinue with DexcomFoll ow-up in office in 2 weeks to review lab work, Dexcom readings, and discuss further actions needed and plan of care. Patient states understand ing of the above plan of care and with no questions or concerns at this time. [id number] ELIF OWENS APRN [address] [place] [address] 09/03/2024 13:25:57 09/03/2024 14:06:40 Hypoglycemia 027391102 E16.2 Patient states she has been experienci ng hypoglycem ic episodes over the last year. Patient states hypoglycem ia has significan tly improved since she started eating high-prote in small frequent meals.She does report past medical history of gastric sleeve in 2018.Dexco m CGM readings reviewed, scanned into chart, and with the below:Time CGM active: 84%Average glucose: 90GMI: 5.5%>250= 0%181-250= 1%70-180= 98%<69= 1% Recommenda tionContin ue with dietitian appointmen t as scheduled today.Lab orders have been placed a again and printed again and given to patient for her to have obtained at the appropriat e time as educated. She states understand ing. [id number] SANJUANA LEVINE, NELLY, LD [facility] [address] [place] [address] 10/04/2024 09:50:18 10/10/2024 16:24:29 Diet education 69231759 Z71.3 [id number] [facility] 433529827 E 16.2 [address] Health Concerns Section Related Observation LastModified by Organization Detai ls LastModified Time None Recorded Concern Status LastModified by Organization Details LastModified Time None Recorded Advance Directives Directive None Recorded Payers Insurance Date Sequence Insurance Name Policy Number Policy Cavazos Covered Member ID Cavazos Member ID Guarantor Name 04/05/2023 PAYMENT PLAN Mayela Ahn 10/11/2024 1 [place] [id number] Mayela Ahn [id number] Mayela Ahn Notes Date Note Type Note Provider Name and Address Organization Details Recorded Time 08/03/2022 text/html Mayela visits us in office today to f/u on right OE. Today Mayela states that she had been feeling sharp otalgia in her right ear for the last couple weeks. She began to treat pain with clotrimazole drops and betamethasone cream, which has resolved all pain and irritation. She does mention that she often has trouble hearing in busy environments, and will frequently have to ask others to repeat themselves.Migraine s have not been common since her last visit, she has had 1 migraine which rizatriptan did help with. She states that at the time she was feeling severe dizziness and light headedness. ALICE GONZALEZ MD [address] [place] [address], [phone], [facility] 08/03/2022 17:54:23 01/20/2023 text/html Mayela visits us in office today to follow up on her fungal otitis externa. She reports an increased in the itchiness of her ear canals. She believes she may have more fungus in her ears. She also is having some irritation in her nose. ALICE GONZALEZ MD [address] [place] [address], [phone], [facility] 01/24/2023 09:29:23 08/15/2024 text/html States he is a 49-year-old female who presents office after referral for management of hypoglycemia. Patient states she has been experiencing hypoglycemic episodes over the last year and they are worsening over time. She does say that episodes quickly resolved after eating, however she has noticed an increase in their frequency. Patient does have a positive history of gastric sleeve placement in 2018. Past medical history also significant for anxiety/depression. ELIF OWENS, DEVELOPER [employer] [address] [place], [address], [facility] 08/15/2024 14:34:30 09/03/2024 text/html ROS as noted in the HPI Mayela is a 49-year-old female presents office today for follow-up on hypoglycemia. Patient is still been unable to obtain labs needed to start treatment with a carbose or obtain radiology exam to rule out insulinoma. Patient does report that hypoglycemia has improved since starting diet of high protein small frequent meals. ELIF OWENS, DEVELOPER [employer] [address] [place], [address], [facility] 09/03/2024 15:07:53 OBGyn Episode No OBEpisode recorded.
--- OUTSIDE RECORDS SUMMARY | 2025-03-13 14:14 | XMS_ITS | Encounter Summary ---
Author Organization [email or web address] ([place], [place], [place], [place], [place]) Address [address] [place] [address] Care Team Providers Care Correctional Program Officer Name Role Phone Unavailable Primary Care Provider Unavailabl e Encounter Details Date Type Department Care Team (Late st Contact Info) Description 05/10/2019 Transcribed Document [facility] Family Medicine [facility] [address] ProviderCarmela MD [address] [place] [phone] Social History Tobacco Use Types Packs/Day Years Used Date Smoking Tobacco: Never Assessed Comments Unknown Sex and Gender Information Value Date Recorded Sex Assigned at Not on file Legal Sex Female 1:20 PM CDT Gender Identity Not on file Sexual Orientation Not on file documented as of this encounter Miscellaneous Notes * [employer]ner Conversion Note - Carmela ProviderMD - 05/10/2019 9:36 AM 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 [address] [address] JIMY RENNYGENOVEVA MAGAÑA :1975 Visit Time:05/10/2019 What to do next Your Diagnosis Dysphagia, unspecified, Dysphagia, unspecified Instructions From Your Care Team Diet after Discharge: Resume usual diet as tolerated, Do not drink any alcoholic beverages, _ Fluid Restriction after Discharge: _ Activity after Discharge: _, Rest and relax today, No strenuous activity Lifting Restrictions: _ Weight Bearing: _ Bedrest: _ Driving after Discharge: Do not drive today May Return to Work/School: tomorrow Showering/Bathing: May shower, _ Notify Provider of: any problems or concerns Wound/Incision Care after Discharge: _, _ Medical Equipment for Home Use: Home Health Services: Community Services: Follow-Up Appointments Follow Up with STAN BUENO MD-DANUTA When Within As needed Comments follow up with biopsy results and Dr Bueno as needed Where: Bariatric Office - PHONE [address] [place] [address]- Medications What How Much When Instructions Next Dose ALPRAZolam (Xanax 0.5 mg oral tablet) 1 Tablet(s) Oral Every Day as needed for as needed for anxiety biotin Oral Every Day ibuprofen (Motrin IB Liquid Gels) Oral As needed for Headache multivitamin Oral Every Day omeprazole (PriLOSEC) Oral [...] and medications per pharmacy guidance. Education Materials Monitored Anesthesia Care, Care After These instructions [...] eating solid foods. General instructions ??? Take ybgv-uqg-wcjqyoi and prescription medicines only as told by [...] 08/08/2016 Document Revised: 12/02/2017 Document Reviewed: 08/08/2016 [employer] Patient Education ?? 2019 [employer] Gastritis, Adult Gastritis is inflammation of [...] Follow these instructions at home: ??? Take fmib-wln-rmcuueq and prescription medicines only as told by [...] 04/12/2002 Document Revised: 11/29/2017 Document Reviewed: 01/10/2016 [employer] Patient Education ?? 2019 [employer] Esophagitis Esophagitis is inflammation of the esophagus. [...] alcohol use. ??? An infection of the esophagus. This most often occurs in people who have [...] vinegar, hot sauces, and barbecue sauce. ? Emerado fruit juices and citrus fruits, such as oranges, jimy, and limes. ? Tomato-based foods, such as red sauce, chili, salsa, and pizza with red sauce. ? Fried and fatty foods, such as donuts, chinese fries, potato chips, and high-fat dressings. ? [...] any changes in your symptoms. ??? Take oenp-ibo-ufhrsyq and prescription medicines only as told by [...] 05/26/2005 Document Revised: 09/23/2016 Document Reviewed: 08/13/2015 [employer] Patient Education ?? 2019 [employer]. Esophagogastroduodenoscopy, Care After Refer to this sheet [...] 04/04/2013 Document Revised: 09/23/2016 Document Reviewed: 03/11/2016 [employer] Patient Education ?? 2019 [employer]. Emergency Awareness and Preventative Care STROKE is [...] Assistance with quitting is available by contacting 9-514-GALW-NOW. This is a free resource providing counseling, [...] This Visit (last charted value for your 05/10/2019 visit) No Laboratory or Other Results This Visit Patient Name:RENNY SUGGS I have received this information and was given the opportunity to ask questions. Patient/Legislative Advocate Name: Patient/Legislative Advocate Signature: Relationship to Patient: Clinician/Hospital Legislative Advocate Signature: Date: documented in this encounter Plan of Treatment Upcoming Encounters Date Type Department Care Team (Late st Contact Info) Description 03/20/2025 10:45 AM EST Office Visit [facility] Bariatric Services [address] [facility] [address] [place] [address] Stanislav Cruz MD [address] [facility] [address] [place] [address] documented as of this encounter Visit Diagnoses Not on filedocumented in this encounter
--- OUTSIDE RECORDS SUMMARY | 2025-03-13 14:14 | XMS_ITS | Encounter Summary ---
Author Organization [employer] ([place], [place], [place], [place], [place]) Address [address] [place] [address] Care Team Providers Care Career Coach Name Role Phone Unavailable Primary Care Provider Unavailabl e Encounter Details Date Type Department Care Team (Late st Contact Info) Description 05/09/2019 Transcribed Document [facility] Family Medicine [address] [place] [address] ProviderCarmela MD [address] [place] [id number] Social History Tobacco Use Types Packs/Day Years Used Date Smoking Tobacco: Never Assessed Comments Unknown Sex and Gender Information Value Date Recorded Sex Assigned at Not on file Legal Sex Female 1:20 PM CDT Gender Identity Not on file Sexual Orientation Not on file documented as of this encounter Miscellaneous Notes * [employer]ner Conversion Note - Historical ProviderMD - 05/09/2019 11:06 AM 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 [employer] Suicide Severity Rating Scale (C-SSRS) Entered On: 05/09/2019 11:19 EST Performed On: 05/09/2019 11:19 EST by SILVANO SAENZ RN [employer] Suicide Severity Rating Scale (C-SSRS) CSSRS Past Month Wish to be : No CSSRS Past Month Suicidal Thoughts : No CSSRS Lifetime Suicide Behavior : No Suicide Severity Rating Score : 0 Suicide Severity Rating : No Additional Care Required at this time SILVANO SAENZ RN - 05/09/2019 11:19 EST Electronically signed by Samy [facility] Conversion Nursing Coordinator Cerner at 08/18/2022 11:31 AM CDT documented in this encounter Plan of Treatment Upcoming Encounters Date Type Department Care Team (Late st Contact Info) Description 03/20/2025 10:45 AM EST Office Visit [facility] [address] [place] [address] Stanislav Cruz MD [address] [facility] [address] [place] [address] documented as of this encounter Visit Diagnoses Not on filedocumented in this encounter
--- OUTSIDE RECORDS SUMMARY | 2025-03-13 14:14 | XMS_ITS | Encounter Summary ---
Author Organization [employer] ([place], [place], [place], [place], [place]) Address [address] [place] [address] Care Team Providers Care Tactical Response Group Officer Name Role Phone Unavailable Primary Care Provider Unavailabl e Encounter Details Date Type Department Care Team (Late st Contact Info) Description 05/09/2019 Transcribed Document [facility] [place] [facility] [place] [address] ProviderCarmela MD [address] [place] [id number] Social History Tobacco Use Types Packs/Day Years Used Date Smoking Tobacco: Never Assessed Comments Unknown Sex and Gender Information Value Date Recorded Sex Assigned at Not on file Legal Sex Female 1:20 PM CDT Gender Identity Not on file Sexual Orientation Not on file documented as of this encounter Miscellaneous Notes * Cerner Conversion Note - Carmela ProviderMD - 05/09/2019 11:41 AM BURN TABLE OPERATOR Patient: RENNY AHN Age: 44 years Sex: Female : 1975 Associated Diagnoses: Chest pain; Gastric reflux Author: NELL HEATH, CAR OILER-EMR Basic Information Time seen: Date & time 05/09/2019 11:22:00. History source: Patient. Arrival mode: Private vehicle. History limitation: None. Additional information: Chief Complaint from Nursing Triage Note : Chief Complaint 05/09/2019 11:15 EST Chief Complaint Pt c/o food stuck in epigastric region, woke up having to spit and mouth faming. resp even & unlabored, pain /10, ate chicken and tortilla chips Tuesday night. . History of Present Illness The patient presents with chest pain, indigestion, heartburn and see note. 44 year old female presents to ED with complaint of PCOS, anxiety, GERD, anemia, palpitations, and gastric sleeve by Dr. Bueno in 2018 presents to ED with complaint of chest tightness since yesterday. patient states it feels like indegestion. Yesterday kept taking prilosec. Today hasnt had any prilosec but feels like has to keep swallowing. feels like food is stuck in esophagus. Denies difficulty swallowing. Denies abdominal pain or discomfort. . Review of Systems Constitutional symptoms: No fever, no chills, no weakness. Skin symptoms: No rash, no breakdown, no lesion. Eye symptoms: no recent vision change, no discharge, no blurred vision. ENMT symptoms: No sore throat, no nasal congestion. Respiratory symptoms: No shortness of breath, no cough. Cardiovascular symptoms: Chest pain, no palpitations, no syncope, no diaphoresis, no peripheral edema. Gastrointestinal symptoms: No abdominal pain, no nausea, no vomiting, no diarrhea, no rectal bleeding. Genitourinary symptoms: No dysuria, Musculoskeletal symptoms: No back pain, no Muscle pain, no Joint pain. Neurologic symptoms: No headache, no dizziness, no altered level of consciousness, no numbness, no tingling, no weakness. Psychiatric symptoms: No anxiety, Endocrine symptoms: No polyuria, no polydipsia. Hematologic/Lymphatic symptoms: Bleeding tendency negative, bruising tendency negative. Allergy/immunologic symptoms: No seasonal allergies, Health Status Allergies: Allergic Reactions (Selected) High Rocephin- Rash. Severity Not Documented Sulfa drugs- No reactions were documented.. Medications: (Selected) Inpatient Medications Ordered Maalox Antacid with Anti-Gas: 30 mL, Oral, 1-Time lido/epi/tetracaine top: 1 Application, Topical, 1-Time Documented Medications Documented Lexapro 10 mg oral tablet: 0.5 Tab, Oral, Daily, 0 Refill(s) NexIUM 24HR 20 mg oral delayed release capsule: 1 Cap, Oral, Daily, 0 Refill(s) Xanax 0.5 mg oral tablet: 1 Tab, Oral, Daily, PRN: as needed for anxiety, 0 Refill(s), per nurse's notes. Immunizations: Per nurse's notes. Menstrual history: Per nurse's notes. Past Medical/ Family/ Social History Medical history Reviewed as documented in chart. Surgical history: hemorrhoidectomy. Tonsillectomy and adenoidectomy ([id number]). choleycystectomy. colonoscopy. Dilation and curettage ([id number]). cervical ablation. IUD implanted 2015. x 2. EGD., Reviewed as documented in chart. Family history: No family history items have been selected or recorded., Reviewed as documented in chart. Social history: Social & Psychosocial Habits Alcohol 11/07/2017 Alcohol Use History, Social Habits No Nutrition/Health 11/07/2017 Caffeine intake amount: rare Substance Abuse 11/07/2017 Recreational Drug Use History No Recreational Drug Use Last 12 Months No Tobacco 11/07/2017 Tobacco Use Within Last Twelve Months No , Reviewed as documented in chart. Problem list: Active Problems (7) Anemia Anxiety disorder At risk for sleep apnea Eczema GERD (gastroesophageal reflux disease) Polycystic ovarian syndrome Snores . Physical Examination Vital Signs Vital Signs/Vital Measures 05/09/2019 11:15 EST Systolic Blood Pressure 114 mmHg Diastolic Blood Pressure 77 mmHg Temperature Source Tympanic Temperature Mode Fahrenheit Temperature, Fahrenheit 97.8 Deg F Clinical Temperature, C 36.6 Deg C Peripheral Pulse Rate 69 bpm Respiratory Rate 18 Breaths/Min Oxygen Saturation 100 % . Measurements 05/09/2019 11:15 EST Height Source Stated Height Entry Format Larue Height/Length, JORDANIAN (ft) 5 ft Height/Length JORDANIAN 5 Inch CLINICALHEIGHT 165.1 cm [place] Body Weight 56.59 kg Weight Source, ED Critical estimated dosing weight Weight Entry Format Larue Weight Bangladeshi lb 69 lb CLINICALWEIGHT 31.36 kg Body Surface Area (BSA) 1.26 m2 Body Mass Index 11.5 kg/m2 <LLOW . Oxygen Saturation 05/09/2019 11:15 EST Oxygen Saturation 100 % . General: Alert, no acute distress. Skin: Warm, intact, no rash. Head: Normocephalic, atraumatic. Neck: Supple, trachea midline. Eye: Pupils are equal, round and reactive to light, vision unchanged. Ears, nose, mouth and throat: Oral mucosa moist, no pharyngeal erythema or exudate. Cardiovascular: Regular rate and rhythm, No murmur, Normal peripheral perfusion, No edema. Respiratory: Lungs are clear to auscultation, respirations are non-labored, breath sounds are equal, Symmetrical chest wall expansion. Chest wall: No deformity. Back: Normal range of motion, Normal alignment. Musculoskeletal: Normal ROM, no swelling, no deformity. Gastrointestinal: Soft, Nontender, Non distended, No organomegaly. Neurological: Alert and oriented to person, place, time, and situation, No focal neurological deficit observed, CN II-XII intact, normal motor observed, normal speech observed. Lymphatics Psychiatric: Cooperative, appropriate mood & affect, normal judgment. Medical Decision Making Differential Diagnosis: Unstable angina, angina, anxiety, atypical chest pain, pneumonia, gastroesophageal reflux disease, pleurisy. Documents reviewed: Emergency department nurses' notes. Electrocardiogram: Time 05/09/2019 11:49:00, rate 67, normal sinus rhythm, No ST changes. Results review: Lab results : Lab Results 05/09/2019 12:06 EST Sodium Level 142 mmol/L Potassium Level 4.6 mmol/L Chloride Level 107 mmol/L Carbon Dioxide Level 30 mmol/L Anion Gap 10 Glucose Level 76 mg/dL Blood Urea Nitrogen 16 mg/dL Creatinine Level 0.69 mg/dL eGFR >60 mL/min/1.73m2 eGFR NonAfrican >60 mL/min/1.73m2 Bun/Creatinine 23.2 HI Calcium Level 10.1 mg/dL Protein Total 7.3 Gram/dL Albumin Level 4.3 Gram/dL Globulin 3.0 Gram/dL A/G Ratio 1.4 Bilirubin Total 0.7 mg/dL Alk Phos 94 Units/Liter AST 16 Units/Liter ALT 20 Units/Liter Lipase Level 221 Units/Liter Troponin I Ultra <0.015 ng/mL WBC 7.6 K/uL RBC 4.91 Million/uL Hgb 15.3 Gram/dL Hct 46.2 % HI MCV 94.1 fL MCH 31.2 pg MCHC 33.1 Gram/dL Platelet Count 199 K/uL MPV 10.7 fL RDW 12.6 % Neut % 69.7 % Neut # 5.33 K/uL Lymph % 21.8 % Lymph # 1.66 K/uL Conway % 5.5 % Conway # 0.42 K/uL Eos % 2.4 % Eos # 0.18 K/uL Baso % 0.3 % Baso # 0.02 K/uL Slide Review No IG# 0 x10(3)/uL IG% 0 % . Radiology results: Radiology Results (Last 48 hours) [id number] -- 05/09/2019 11:06 CR Chest 1 Vw Portable (05/09/2019 11:39) Result: PORTABLE CHEST 05/09/2019 11:28 AM HISTORY: Precordial chest pain.COMPARISON: None.FINDINGS: The heart is normal in size. The mediastinum is unremarkable.The lungs are clear. There is no pneumothorax. The osseous structures are unremarkable. IMPRESSION: No acute cardiopulmonary process.Images reviewed, interpreted, and dictated by Dr. Judah Baeza.Transcribed by Vimal Perkins PA-C, HarriettTNuria (N), Awilda Rios . Reexamination/ Reevaluation Time: 05/09/2019 14:13:00 . Course: resolved. Notes: patient states she feels much better. Denies any pain at this time. swallowing without difficulty. . Impression and Plan Diagnosis Chest pain - Discharge, Emergency medicine, Medical Gastric reflux - Discharge, Emergency medicine, Medical Plan Condition: Stable. Disposition: Medically cleared, Discharged Admit/Transfer/Discharge: Discharge (Order): Start: 05/09/2019 14:14 EST, Discharge to: Home. Patient was given the following educational materials: Nonspecific Chest Pain, Gastroesophageal Reflux Disease, Adult. Follow up with: Patient Resource Center Within As needed Patient states Paris Marshall is their Primary Care Provider. Please contact the Patient Resource Center at if you need assistance scheduling a Specialist or Primary Care Provider in the future.; PARIS MARSHALL Within 2 to 3 days Rest, fluids, follow up as needed. Feel better soon.-Nell. Counseled: Patient, Regarding diagnosis, Regarding diagnostic results, Regarding treatment plan, Regarding prescription, Patient indicated understanding of instructions. documented in this encounter Plan of Treatment Upcoming Encounters Date Type Department Care Team (Late st Contact Info) Description 03/20/2025 10:45 AM EST [facility] [address] [place] [address] Stanislav Cruz MD [address] [facility] [address] [place] [address] documented as of this encounter Visit Diagnoses Not on filedocumented in this encounter
--- OUTSIDE RECORDS SUMMARY | 2025-03-13 14:14 | XMS_ITS | Encounter Summary ---
Author Organization [employer] ([place], [place], [place], [place], [place]) Address [address] [place] [address] Care Team Providers Care Ton Cylinder Inspector Name Role Phone Unavailable Primary Care Provider Unavailabl e Encounter Details Date Type Department Care Team (Late st Contact Info) Description 05/09/2019 Transcribed Document [facility] [place] [address] [place] [address] ProviderCarmela MD [address] [place] [id number] Social History Tobacco Use Types Packs/Day Years Used Date Smoking Tobacco: Never Assessed Comments Unknown Sex and Gender Information Value Date Recorded Sex Assigned at Not on file Legal Sex Female 1:20 PM CDT Gender Identity Not on file Sexual Orientation Not on file documented as of this encounter Miscellaneous Notes * Cerner Conversion Note - Historical ProviderMD - 05/09/2019 2:15 PM CLEANER SIGNS Electronically signed by [facility] Conversion Experimental [employer]board [employer] Mechanic Cerner at 08/18/2022 11:32 AM CDT documented in this encounter Plan of Treatment Upcoming Encounters Date Type Department Care Team (Late st Contact Info) Description 03/20/2025 10:45 AM EST Office Visit [facility] [address] [facility] [address] [place] [address] Stanislav Cruz MD [address] [facility] [address] [place] [address] documented as of this encounter Visit Diagnoses Not on filedocumented in this encounter
--- OUTSIDE RECORDS SUMMARY | 2025-03-13 14:14 | XMS_ITS | Encounter Summary ---
Author Organization [employer] ([place], [place], [place], [place], [place]) Address [address] [place] [address] Care Team Providers Care Home Advisor Name Role Phone Unavailable Primary Care Provider Unavailabl e Encounter Details Date Type Department Care Team (Late st Contact Info) Description 05/09/2019 Transcribed Document [facility] [place] [facility] [place] [address] ProviderCarmela MD [address] [address] [id number] Social History Tobacco Use Types Packs/Day Years Used Date Smoking Tobacco: Never Assessed Comments Unknown Sex and Gender Information Value Date Recorded Sex Assigned at Not on file Legal Sex Female 1:20 PM CDT Gender Identity Not on file Sexual Orientation Not on file documented as of this encounter Miscellaneous Notes * Cerner Conversion Note - Carmela ProviderMD - 05/09/2019 11:54 AM CONDENSER SETTER Pain Assessment Entered On: 05/09/2019 13:56 EST Performed On: 05/09/2019 13:55 EST by CLIFF VAN RN Intervention Information: lidocaine topical Performed by CLIFF VAN RN on 05/09/2019 12:02:00 EST lidocaine topical,15mL Oral Pain Assessment Pain Assessment : Follow-up assessment Pain Scale Used : 0-10 Scale CLIFF VAN RN - 05/09/2019 13:55 EST Pain Scale Intensity : 1 CLIFF VAN RN - 05/09/2019 13:55 EST Image 4 - Images currently included in the form version of this document have not been included in the text rendition version of the form. Electronically signed by Babatunde Pablo Conversion Research Compliance Specialist Alma at 08/18/2022 11:46 AM CDT documented in this encounter Plan of Treatment Upcoming Encounters Date Type Department Care Team (Late st Contact Info) Description 03/20/2025 10:45 AM EST Office Visit [facility] Bariatric Services [address] [facility] [address] [place] [address] Stanislav Cruz MD [address] [facility] [address] [place] [address] documented as of this encounter Visit Diagnoses Not on filedocumented in this encounter
--- OUTSIDE RECORDS SUMMARY | 2025-03-13 14:14 | XMS_ITS | Encounter Summary ---
Author Organization [employer] ([place], [place], [place], [place], [place]) Address [address] [place] [address] Care Team Providers Care Yield Clerk Name Role Phone Unavailable Primary Care Provider Unavailabl e Encounter Details Date Type Department Care Team (Late st Contact Info) Description 05/09/2019 Transcribed Document [facility] [place] [facility] [place] [address] ProviderCarmela MD [address] [place] [id number] Social History Tobacco Use Types Packs/Day Years Used Date Smoking Tobacco: Never Assessed Comments Unknown Sex and Gender Information Value Date Recorded Sex Assigned at Not on file Legal Sex Female 1:20 PM CDT Gender Identity Not on file Sexual Orientation Not on file documented as of this encounter Miscellaneous Notes * Cerner Conversion Note - Historical ProviderMD - 05/09/2019 2:53 PM WORLD GEOGRAPHY TEACHER ED Discharge Entered On: 05/09/2019 14:54 EST Performed On: 05/09/2019 14:53 EST by CLIFF VAN RN Discharge Process Patient Disposition : Discharge Personal Belongings With Patient : Yes Patient Education Completed : Yes Teaching Evaluation : Verbalizes understanding Education Comment : denies questions pt p/w/d resp even and unlabored IV Discontinued : Yes Nursing Documentation Completed : Yes CLIFF VAN RN - 05/09/2019 14:53 EST ED Discharge Discharge To : Home without planned follow-up Mode Of Departure : Ambulatory Accompanied By : Unaccompanied Discharge Instructions Reviewed With, Opportunity For Questions Given : Patient Prescriptions Given to Patient : Yes CLIFF VAN RN - 05/09/2019 14:53 EST Electronically signed by [facility] Conversion Pharmacy Graduate Intern Cerner at 08/18/2022 11:32 AM CDT documented in this encounter Plan of Treatment Upcoming Encounters Date Type Department Care Team (Late st Contact Info) Description 03/20/2025 10:45 AM EST Office Visit [facility] [address] [place] [address] [facility]islav Cruz MD [address] [facility] [address] [place] [address] documented as of this encounter Visit Diagnoses Not on filedocumented in this encounter
--- OUTSIDE RECORDS SUMMARY | 2025-03-13 14:14 | XMS_ITS | Patient Health Record ---
Author Organization [facility] Address [address] [place] [address] Care Team Providers Care [place] Line Attendant Name Role Phone Lolita Milan Unavailable [phone] Allergies Allergen (clinical drug ingredient) Drug/Non Drug Allergy documented on EMR Reaction Allergy Type Onset Date Status LORTAB 7.5 (HYDROCODONE-ACET AMINOPHEN TABS) stomach upset Drug Allergy 11/09/2012 Active sulfamethoxazole / trimethoprim SULFAMETHOXAZOLE- TRIMETHOPRIM nausea and vomiting Drug Allergy 11/09/2012 Active ketorolac Ketorolac nausea and vomiting Drug Allergy Active Results Component Value Reference Range Flag Notes *US Pelvis Complete Transabd ominal/Vaginal (Non-OB) Reviewed date:07/09/2024 08:56:01 AM Interpretation: Performing Lab: Notes/Report: [facility] Transvaginal Pelvic Study Report Name: RENNY AHN Accession/Encounter No:[id number] : 1975 Age: 49 Gender: F Study Date: Jul 06, 2024 Study Time: 09:13 AM Reading Group: Mavis Serrano MD Referring Group: Lolita Milan MD Ordering Phys: Lolita Milan MD Industrial Economist: Aniyah Husain RDMS Equipment: Affiniti 30 Study [...] 1 of 1 Imaging Center - , [facility] [address] Pap w/reflex HPV Reviewed date:11/23/2024 04:24:56 PM Interpretation: Performing Lab:[facility], [facility] [place] CLIA ID [id number], [address], [address], [place] [address], Director - Buddy Wilson MD Notes/Report: Any Nucleic Acid Amplification testing is performed on the [employer] [place]. Diagnosis: Negative for intraepithelial lesion or malignancy. AP results Other Gynecological Patient Information: IUD Date of Last Pap: Not provided Collection Technique: [place]/Spatula Screening note: This specimen has been analyzed by the Punctil Imaging System, an interactive computer system which assists the lab in screening of ThinPrep Pap Test slides. Following imaging, the slide was reviewed by a Manager Employment and/or Pathologist. CPT Codes: 18758 Nora Myles ICD Codes: Z01.419 Recommendation: Follow-up based on current clinical guidelines and/or clinical consideration. Negative Educational Note: The pap screening test aids in the detection of premalignant and malignant states of the cervix. False positive and negative results may occur. It is not a diagnostic test. If abnormal cells are reported, follow-up based on current clinical guidelines and/or clinical consideration is recommended. LMP: IUD Pertinent Clinical History/History of Surgery: Not provided Specimen Type: ThinPrep Manager Employment Specimen Adequacy: Satisfactory for interpretation with endocervical/transfor mation zone component present. DIAGNOSIS: Results of Last Pap: Not provided FINAL ROVING OR YARN COLOR CHECKER CYTOLOGY REPORT Negative for intraepithelial lesion or malignancy. Specimen Source: Cervical FOLLICLE STIMULATING HORMONE Reviewed date:07/09/2024 09:33:04 AM Interpretation:36.7 Performing Lab: Notes/Report: [facility] Reference Ranges: Adult Males: 1.5-12.4 mIU/mL Adult Females: Folicular Phase ?3.5-12.5 mIU/ml Ovulation Phase ?4.7-21.5 mIU/ml Lutal Phase ? ? ?1.7-7.7 mIU/ml Postmenopausal ? 25.8-134.8 mIU/ml FOLLICLE STIMULATING HORMONE 36.70 Lab specimens received at a [facility].?See result details for the performing location information. VITAMIN B12 Reviewed date:07/09/2024 09:32:49 AM Interpretation:1736 Performing Lab: Notes/Report: Results may be falsely increased if patient taking Biotin. VITAMIN B-12 1736 211-946 pg/mL H Lab speci mens received at a [facility].?See result details for the performing location information. VITAMIN D 25 HYDROXY Reviewed date:07/09/2024 08:54:30 AM Interpretation:Normal Performing Lab: Notes/Report: Reference Range for Total Vitamin D 25(OH) Deficiency <20.0 ng/mL Insufficiency 21-29 ng/mL Sufficiency 30-100 ng/mL Toxicity >100 ng/ml VITAMIN D 25-HYDROXY 79.7 30.0-100.0 ng/ml Lab specimens received at a [facility].?See result details for the performing location information. MAMMO SCREENING DIGITAL LILY SYNTHESIS BILATERAL W CAD Reviewed date:11/25/2024 07:14:27 PM Interpretation: Performing Lab: Notes/Report: DIGITAL SCREENING MAMMOGRAM WITH TOMOSYNTHESIS HISTORY: Screening [...] Bilateral post reduction mammoplasty changes are stable. Benign screening mammogram. RECOMMENDATION: Continue annual screening [...] PM by Dr. Thai Canales MD on Workstation: [employer] Signed by: Thai Canales MD on 11/24/2024 3:41 PM Reason for Exam:->SCREENING Reason For Referral No Information Medications Medication SIG (Take, Route, Frequency, Duration) Notes Start Date End Date Status Mirena (52 MG) 20 MCG/DAY Intrauterine Device as directed Intrauterine Active Xanax Active Multiple Vitamin Act taco Estradiol 0.1 MG/GM Cream per vagina Vag inal 2 times per week; Duration: 90 days 11/21/2024 Active Social History Sex Assigned At : Social History Observation Description Sex Assigned At Female Social History Drugs/Alcohol: Social Info Question Answer Notes Drugs Have you used drugs other than those for medical reasons in the past 12 months? No Alcohol Screen Did you have a drink containing alcohol in the past year? Yes How often did you have a drink containing alcohol in the past year? 2 to 4 times a month (2 points) How many drinks did you have on a typical day when you were drinking in the past year? 1 or 2 drinks (0 point) How often did you have 6 or more drinks on one occasion in the past year? Never (0 point) Points 2 Interpretation Negative Problems Problem Type SNOMED Code ICD Code Onset Dates Problem Status W/U Status Risk Notes Problem Menopause (144275818) *Menopausal and female climacteric states (Code also, associated symptoms) (N95.1) Active confirmed Problem Gynecological examination normal (420243940189693 ) Cervical smear, as part of routine gynecological examination (Z01.419) 11/26/19 20 Active confirmed Annual without abnormal findings Problem Abnormal vaginal bleeding (255786478) Abnormal vaginal bleeding (N93.9) Active confirmed Problem Avitaminosis D (17055444) Avitaminosis D (E55.9) Active confirmed Problem Irregular menstrual bleeding (91775257) Irregular menstrual bleeding (N92.6) Active confirmed Vital Signs Blood pressure diastolic 58 mm Hg 11/21/2024 Height 63 in 11/21/2024 Blood pressure systolic 100 mm Hg 11/21/2024 Weight 141.0 lbs 11/21/2024 BMI 24.97 kg/m2 11/21/2024 Encounters Encounter Location Date Provider Diagnosis [facility] [address] [address] 07/02/2024 Lolita Kayli Abnormal vaginal bleeding N93.9 [facility] [address] [address] 07/06/2024 Lolita Kayli Abnormal vaginal bleeding N93.[address] [address] 11/21/2024 Lolita Kayli Cervical smear, as p art of routine gynecological examination Z01.419 and Vaginal dryness N89.8 [facility] [address] [address] 07/06/2024 Lolita Kayli Hair loss L65.9 ; Irregular menstrual bleeding N92.6 ; Avitaminosis D E55.9 and B12 deficiency E53.8 Assessments Encounter Date Diagnosis (ICD Code) Assessment Notes Treatment Notes Treatment Clinical Notes Section Notes 07/02/2024 Abnormal vaginal bleeding (ICD-10 - N93.9) 07/06/2024 Abnormal vaginal bleeding (ICD-10 - N93.9) 07/06/2024 Hair loss (ICD-10 - L65.9) 07/06/2024 Irregular menstrual bleeding (ICD-10 - N92.6) 11/21/2024 Vaginal dryness (ICD-10 - N89.8) 11/21/2024 Cervical smear, as part of routine gynecological examination (ICD-10 - Z01.419) 07/06/2024 Avitaminosis D (ICD-10 - E55.9) 07/06/2024 B12 deficiency (ICD-10 - E53.8) Plan Of Treatment Next Appt Details Provider Name:Lolita Milan, 11/27/2025 11:00:00 AM, [address], [place], [address], Insurance Providers Payer Name Payer Address Payer Phone Subscriber Number Group Number Insured Name Patient Relationship to Insured Coverage Start Date Coverage End Date [place] PPO [address] [place] [address] [phone] [id number] Renny Ahn Self - patient is the insured Medical (General) History Medical History History ICD Code Abnormal Pap Smear Fibrocystic Breasts Yeast Infection Bacterial vaginosis Acid Reflux Urinary tract infections Anxiety Abnormal uterine and vaginal bleeding constipation Surgical History Surgery Date(Month/Year) Tonsilectomy, cholecystectomy hemorrhoidectomy ablation gastric sleeve D&C abdominoplasty, breast reduction and exc ess skin under arms Hospitalization History Reason Date(Month/Year) childbirth
--- OUTSIDE RECORDS SUMMARY | 2025-03-13 14:14 | XMS_ITS | Encounter Summary ---
Author Organization [employer] ([place], [place], [place], [place], [place]) Address [address] [place] [address] Care Team Providers Care Metaphysicist Name Role Phone Unavailable Primary Care Provider Unavailabl e Encounter Details Date Type Department Care Team (Late st Contact Info) Description 05/09/2019 Transcribed Document [facility] Family [facility] [place] [address] ProviderCarmela MD [address] [place] [address] [id number] Social History Tobacco Use Types Packs/Day Years Used Date Smoking Tobacco: Never Assessed Comments Unknown Sex and Gender Information Value Date Recorded Sex Assigned at Not on file Legal Sex Female 1:20 PM CDT Gender Identity Not on file Sexual Orientation Not on file documented as of this encounter Miscellaneous Notes * Cerner Conversion Note - Carmela ProviderMD - 05/09/2019 11:06 AM [facility] ED Triage Entered On: 05/09/2019 11:19 EST Performed On: 05/09/2019 11:15 EST by SILVANO SAENZ RN ED Triage Across the Room ED Vital Signs : Document SILVANO SAENZ RN - 05/09/2019 11:21 EST Chief Complaint : Pt c/o food stuck in epigastric region, woke up having to spit and mouth faming. resp even & unlabored, pain 10/09, ate chicken and tortilla chips Tuesday night. Triage Date/Time : 05/09/2019 11:15 EST SILVANO SAENZ RN - 05/09/2019 11:15 EST DCP GENERIC CODE Tracking Group : [facility] Tracking Acuity : 3 - Urgent SILVANO SAENZ RN - 05/09/2019 11:15 EST Mode of Arrival : Ambulatory Transported to ED by : Private vehicle To Room Via : Ambulate Accompanied By : Mother Height & Weight : Document ED Allergies : Document ED Reason for Visit : Document SILVANO SAENZ RN - 05/09/2019 11:15 EST Infectious Disease History Infectious Disease History : Chicken pox/Shingles, Influenza, Mononucleosis Isolation Needed : Standard Fever/Chills Last 48 Hours : No Travel To Regions with Travel Advisories : No Travel Outside [place] Within Last 30 Days : No Contact With Traveler to Advisory Region : No Tuberculosis Symptoms : None SILVANO SAENZ RN - 05/09/2019 11:15 EST Vital Signs ED Temperature Source : Tympanic Temperature Mode : Fahrenheit Temperature, Fahrenheit : 97.8 Deg F Clinical Temperature, C : 36.6 Deg C Peripheral Pulse Rate : 69 bpm Respiratory Rate : 18 Breaths/Min Systolic Blood Pressure : 114 mmHg Diastolic Blood Pressure : 77 mmHg Oxygen Saturation : 100 % SILVANO SAENZ RN - 05/09/2019 11:21 EST Allergy (As Of: 05/09/2019 11:19:35 EST) Allergies (Active) Rocephin Estimated Onset Date: Unspecified ; Reactions: rash ; Comments: Comment 1: Patient can take amoxicillin and cephalexin with no problems. Patient normally gets macrolides when needs antibiotics. ; Created By: Kam Leung, Student-Pharmacist; Reaction Status: Active ; Category: Drug ; Substance: Rocephin ; Type: Allergy ; Severity: High ; Updated By: Kam Leung, Student-Pharmacist; Source: Patient ; Reviewed Date: 02/03/2018 15:14 EDT sulfa drugs Estimated Onset Date: Unspecified ; Created By: SILVANO SAENZ RN; Reaction Status: Active ; Category: Drug ; Substance: sulfa drugs ; Type: Allergy ; Updated By: SILVANO SAENZ RN; Reviewed Date: 05/09/2019 11:17 EST Diagnosis Control ED (As Of: 05/09/2019 11:19:35 EST) Problems(Active) Anemia (SNOMED CT :067000284 ) Name of Problem: Anemia ; Recorder: Kindra Garcias Rn; Confirmation: Confirmed ; Classification: Medical ; Code: 486002928 ; Contributor System: PowerChart ; Last Updated: 01/25/2018 9:58 EDT ; Life Cycle Date: 01/25/2018 ; Life Cycle Status: Active ; Vocabulary: SNOMED CT Anxiety disorder (SNOMED CT :175525198 ) Name of Problem: Anxiety disorder ; Recorder: ANJEL SANTANA RN; Confirmation: Confirmed ; Classification: Medical ; Code: 762944199 ; Contributor System: PowerChart ; Last Updated: 11/07/2017 10:31 EDT ; Life Cycle Date: 11/07/2017 ; Life Cycle Status: Active ; Vocabulary: SNOMED CT At risk for sleep apnea (IMO :17049970 ) Name of Problem: At risk for sleep apnea ; Recorder: SYSTEM, SYSTEM; Confirmation: Confirmed ; Classification: Medical ; Code: 58154913 ; Last Updated: 02/02/2018 6:10 EDT ; Life Cycle Date: 02/02/2018 ; Life Cycle Status: Active ; Vocabulary: IMO Eczema (SNOMED CT :75289512 ) Name of Problem: Eczema ; Recorder: Cha Rawls RN; Confirmation: Confirmed ; Classification: Medical ; Code: 00910495 ; Contributor System: PowerChart ; Last Updated: 02/02/2018 6:05 EDT ; Life Cycle Date: 02/02/2018 ; Life Cycle Status: Active ; Vocabulary: SNOMED CT GERD (gastroesophageal reflux disease) (SNOMED CT :403627289 ) Name of Problem: GERD (gastroesophageal reflux disease) ; Recorder: ANJEL SANTANA RN; Confirmation: Confirmed ; Classification: Medical ; Code: 259802844 ; Contributor System: PowerChart ; Last Updated: 11/07/2017 10:32 EDT ; Life Cycle Date: 11/07/2017 ; Life Cycle Status: Active ; Vocabulary: SNOMED CT Polycystic ovarian syndrome (SNOMED CT :310321372 ) Name of Problem: Polycystic ovarian syndrome ; Recorder: ANJEL SANTANA RN; Confirmation: Confirmed ; Classification: Medical ; Code: 008139963 ; Contributor System: PowerChart ; Last Updated: 11/07/2017 10:31 EDT ; Life Cycle Date: 11/07/2017 ; Life Cycle Status: Active ; Vocabulary: SNOMED CT Snores (SNOMED CT :763023289 ) Name of Problem: Snores ; Recorder: Kindra Garcias Rn; Confirmation: Confirmed ; Classification: Medical ; Code: 322592531 ; Contributor System: Nautit ; Last Updated: 01/25/2018 9:54 EDT ; Life Cycle Date: 01/25/2018 ; Life Cycle Status: Active ; Vocabulary: SNOMED CT Diagnoses(Active) Abdominal pain Date: 05/09/2019 ; Diagnosis Type: Reason For Visit ; Confirmation: Complaint of ; Clinical Dx: Abdominal pain ; Classification: Medical ; Clinical Service: Emergency medicine ; Code: PNED ; Probability: 0 ; Diagnosis Code: [id number] ED Height and Weight Height Source : Stated Height Entry Format : Green Height, Feet : 5 ft(Converted to: 152 cm, 60 Inch) Height, Inches : 5 Inch(Converted to: 0 ft 5 Inch, 12.70 cm) Clinical Height : 165.1 cm Weight Source, ED : Critical estimated dosing weight Weight Entry Format : Green Weight, Pounds : 69 lb Clinical Dosing Weight : 31.36 kg Body Surface Area (BSA) : 1.26 m2 Body Mass Index : 11.5 kg/m2 (<LLOW) [place] Body Weight (IBW) : 56.59 kg SILVANO SAENZ RN - 05/09/2019 11:15 EST Electronically signed by Samy [facility] Conversion Outcomes Analyst Cerner at 08/18/2022 11:46 AM CDT documented in this encounter Plan of Treatment Upcoming Encounters Date Type Department Care Team (Late st Contact Info) Description 03/20/2025 10:45 AM EST Office Visit [facility] Services [address] [address] Stanislav Cruz MD [address] [facility] [address] [place] [address] documented as of this encounter Visit Diagnoses Not on filedocumented in this encounter
--- OUTSIDE RECORDS SUMMARY | 2025-03-13 14:14 | XMS_ITS | Clinical Summary ---
Author Organization [facility] Address [address] [place] [address] Care Team Providers Care Hydropulper Name Role Phone System, Provider Not In MD Primary Care Provider Unavailable Social History Tobacco Use Types Packs/Day Years Used Date Smoking Tobacco: Never Assessed Comments Unknown Sex and Gender Information Value Date Recorded Sex Assigned at Not on file Legal Sex Female 8:28 PM EDT Gender Identity Not on file Sexual Orientation Not on file Plan of Treatment Not on file Insurance ANTHEM Care Teams Hydropulper Relationship Specialty Start Date End Date System, Provider Not In, [place] [address] PCP - General Family Medicine 05/02/22
== END 2025-03-12 23:59 | disposition home or self-care (01) ==
LOC: LAB.DROPOF 03-13 13:54
PROVIDERS: PCP Family Medicine; Visit Provider Student in an Organized Health Care Education/Training Program
DX: J32.9 Chronic sinusitis, unspecified (principal)
CPT/HCPCS: 87631

== ENCOUNTER 2025-04-29 07:43 | Day surgery (SDC) | payer BC, SELFPAY ==
--- OUTSIDE RECORDS SUMMARY | 2024-02-08 04:00 | XMS_ITS ---
Author Organization Antonio Address [address] [facility] 36 [facility] [address] [place] [phone] Care Team Providers Care Forensic Structural Engineer Name Role Phone Sumaya Marshall Primary Care Provider [phone] Gagan Andersen [phone] REASON FOR VISIT evaluate medications Encounters Encounter Location Date Provider Diagnosis [facility] [address] [place] [phone] 02/08/2024 Gagan Andersen Plan Of Treatment No Information Progress Notes * RENNY AHNDOB:1975 (50 yo F)Acc No.[id number]:02/08/2024 Progress Notes Patient: RENNY SERNA Provider: Steven Andersen M.D. :1975 A ge:48 Y S ex:Female Date:02/08/2024 Address:[address] [place] [address] [id number] Pcp:Sumaya Marshall Subjective: * Chief Complaints: * 1 . Evaluate medications. * Medical History: Objective: * Vitals: Assessment: Plan: * Treatment: * Images: Billing Information: * Visit Code: * Procedure Codes: * Electronic signature of Maya Andersen MD on 04/29/2025 at 07:46 AM EST Sign off status: Pending * Provider: Steven Andersen M.D. Date: 1 Generated for Vandana ravi/Eulalia/eTransmitting on: 1 07:46 AM EST
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
--- OUTSIDE RECORDS SUMMARY | 2024-06-29 05:00 | XMS_ITS ---
Author Organization [facility] Address [address] [place] [id number] Care Team Providers Care Electromedical Equipment Repairer Name Role Phone Sumaya Marshall Primary Care Provider [phone] Gagan Andersen Unavailable [phone] Results Component Value Reference Range Notes P-Potassium Reviewed date:07/03/2024 12:16:26 PM Interpretation:Normal Performing Lab: Notes/Report: CLIA: [id number] Jared Love MD, Search Coordinator [address] [place] [address] [place] [address] Test performed by [facility] [facility] Potassium 5.0 3.5-5.3 mmol/L P-Magnesium Reviewed date:07/03/2024 12:16:26 PM Interpretation:Normal Performing Lab: Notes/Report: CLIA: [id number] Jared Love MD, Search Coordinator [address] [place] [address] [place] [address] Test performed by [employer] [facility] Magnesium 2.2 1.6-2.4 mg/dL P-Parathyroid Hormone (PTH) Intact Reviewed date:07/03/2024 12:16:26 PM Interpretation:Normal Performing Lab: Notes/Report: Test performed by [facility] [facility] [address] [place] [address] [place] [address] Jared Love MD, Search Coordinator CLIA: [id number] Parathyroid Hormone (PTH) Intact 44.1 15.0-65. 0 pg/mL REASON FOR VISIT recollect lab Encounters Encounter Location Date Provider Diagnosis [facility] [address] [place] [id number] 06/29/2024 Gagan Andersen Primary hyperparathy roidism E21.0 and Hyperkalemia E87.5 Assessments Encounter Date Diagnosis (ICD Code) Assessment Notes Treatment Notes Treatment Clinical Notes Section Notes 06/29/2024 Primary hyperparathyroidism (ICD-10 - E21.0) 06/29/2024 Hyperkalemia (ICD-10 - E87.5) Plan Of Treatment No Information Progress Notes * RENNY AHNDOB:1975 (50 yo F)Acc No.[id number]:06/29/2024 Patient: RENNY SERNA Provider: Steven Andersen M.D. :1975 A ge:49 Y S ex:Female Date:06/29/2024 Address:[address] [place] [address], [place] [facility]AHM[facility] [id number] Pcp:Sumaya Marshall Subjective: * Chief Complaints: * 1 . Recollect lab. * Medical History: Objective: * Vitals: Assessment: * Assessment: 1. P rimary hyperparathyroidism - E21.0 2 . H yperkalemia - E87.5 ? Plan: * Treatment: Value Reference Range P arathyroid Hormone (PTH) Intact 44.1 15.0-65. 0 - pg/mL * Yanet Villarrealira 07/02/2024 1:15:25 PM > Left detailed message with results on pt's identified voicemail [email or web address] 07/03/2024 12:15:52 PM > Pt informed 2.?Hyperkalemia?LAB: P-Potassium (Collection Date & Time - 06/29/2024 09:29 AM)?Normal* Value Reference Range P otassium 5.0 3.5-5.3 - mmol/L * Yanet Villarrealira 07/03/2024 12:15:52 PM > Pt informed ?LAB: P-Magnesium (Collection Date & Time - 06/29/2024 09:29 AM)?Normal* Value Reference Range M agnesium 2.2 1.6-2.4 - mg/dL * Kasie Villarreal 07/02/2024 1:15:25 PM > Left detailed message with results on pt's identified voicemail [email or web address] 07/03/2024 12:15:52 PM > Pt informed * Images: Billing Information: * Visit Code: * Procedure Codes: * Electronic signature of Maya Andersen MD on 04/29/2025 at 07:44 AM EST Sign off status: Pending * Provider: Steven Andersen M.D. Date: 0 06/29/2024 Generated for Vandana ravi/Eulalia/Daviditting on: 1 07:44 AM EST
--- OUTSIDE RECORDS SUMMARY | 2024-07-06 04:00 | XMS_ITS ---
Author Organization [facility] Address [address] [facility] [address] [place] [address] Care Team Providers Care Servicer Travel Trailers Name Role Phone Lolita Milan Unavailable [phone] Results Component Value Reference Range Notes *US Pelvis Complete Transabd ominal/Vaginal (Non-OB) Reviewed date:07/09/2024 08:56:01 AM Interpretation: Performing Lab: Notes/Report: [facility] Women's Health Transvaginal Pelvic Study Report Name: RENNY AHN Accession/Encounter No:[id number] : 1975 Age: 49 Gender: F Study Date: Jul 06, 2024 Study Time: 09:13 AM Reading Group: Mavis Serrano MD Referring Group: Lolita Milan MD Ordering Phys: Lolita Milan MD Platemaker: Aniyah Husain RDMS Equipment: Affiniti 30 Study Quality: Good Procedure Code: [id number] - *US Pelvis Complete Transabdominal /Vaginal (Non-OB) Indications: Abnormal vaginal bleeding Risk Factors: IUCD A complete pelvic transvaginal ultrasound was performed. Sag AP Trans Volume cm cm cm ml Uterus 5.64 4.13 4.23 51.59 Right ovary: 1.6 1.3 1.07 1.17 Left ovary: 2.29 1.32 1.47 2.33 Endometrium thickness: 8.5 mm Findings: A transvaginal exam was performed. The uterus is anteverted. The uterus is 5.64 x 4.13 x 4.23 cm, with volume of 51.59 ml. The endometrium measures 8.5 mm. The endometrium appears WNL and normal. The myometrium appears heterogeneous. IUD is visualized. Centrally located IUD. The right ovary measures 1.6 x 1.3 x 1.07 cm, volume 1.17 ml. The left ovary measures 2.29 x 1.32 x 1.47 cm, volume 2.33 ml. The cervix is 1.36 cm long. Conclusions: Inhomogeneous uterus without and definite lesions. Ovaries appear normal. No free fluid or adnexal masses noted. IUCD in situ. Approved By: Mavis Serrano MD Approved at: July 08, 2024 07:42 PM EDT Electronically Signed on Studycast RENNY AHN 2024-07-06 Page 1 of 1 Imaging Center - , [facility] REASON FOR VISIT aub confirmed 07/05 .. Social History Sex Assigned At : Social History Observation Description Sex Assigned At Female Encounters Encounter Location Date Provider Diagnosis [facility] [address] [facility] [address] [place] [address] 07/06/2024 Lolita Milan Abnormal vaginal bleeding N93.9 Assessments Encounter Date Diagnosis (ICD Code) Assessment Notes Treatment Notes Treatment Clinical Notes Section Notes 07/06/2024 Abnormal vaginal bleeding (ICD-10 - N93.9) Plan Of Treatment Next Appt Details Provider Name:Lolitamelissa BonillaKayli, 11/27/2025 11:00:00 AM, [address], [place], [address], Progress Notes * Renny AHN BDOB: 4 (50 yo F)Acc No.[id number]:07/06/2024 Progress Note Patient: Renny Foy Provider: Sumaya Milan MD :1975 A ge:49 Y S ex:Female Date:07/06/2024 Address:[address] [place] [address] Subjective: * Chief Complaints: * A ub confirmed 07/05 .. Assessment: * Assessment: 1. A bnormal vaginal bleeding - N93.9 Plan: * Treatment: Billing Information: * Procedure Codes: * Electronic signature of Lolita Milan MD on 04/29/2025 at 07:46 AM EST Sign off status: Pending Visit Status: C HK (Check Out) * Provider: Sumaya Milan MD Date: 0 07/06/2024 Generated for Vandana ravi/Eulalia/Jorge on: 07:46 AM EST
--- OUTSIDE RECORDS SUMMARY | 2024-07-11 04:00 | XMS_ITS ---
Author Organization [facility] Address [address] [facility] [address] [place] [address] Care Team Providers Care Hydroelectric Systems Technician Name Role Phone Lolita Milan Unavailable [phone] REASON FOR VISIT aub Social History Sex Assigned At : Social History Observation Description Sex Assigned At Female Encounters Encounter Location Date Provider Diagnosis [facility] [address] [facility] [address] [place] [address] 07/11/2024 Lolita Milan Plan Of Treatment Next Appt Details Provider Name:Lolita Milan, 11/27/2025 11:00:00 AM, [address] [facility] [address], [place], [address], Progress Notes * JIMYHeather WYATTcy BDOB: 4 (50 yo F)Acc No.[id number]:07/11/2024 Progress Note Patient: Mayela Foy Provider: Sumaya Milan MD :1975 A ge:49 Y S ex:Female Date:07/11/2024 Address:[address] [place], [place] [id number] Subjective: * Chief Complaints: * A ub * Electronic signature of Lolita Milan MD on 04/29/2025 at 07:47 AM EST Sign off status: Pending Visit Status: R /S (Rescheduled) * Provider: Sumaya Milan MD Date: 0 07/11/2024 Generated for Vandana ravi/Eulalia/Jorge on: 1 07:47 AM EST
--- OUTSIDE RECORDS SUMMARY | 2024-07-11 04:45 | XMS_ITS ---
Author Organization [facility] Address [address] [facility] [address] [place] [address] Care Team Providers Care Family Centered Specialist Name Role Phone Lolita Milan Unavailable [phone] REASON FOR VISIT aub Social History Sex Assigned At : Social History Observation Description Sex Assigned At Female Encounters Encounter Location Date Provider Diagnosis [facility] [address] [facility] [address] [place] [address] 07/11/2024 Lolita Milan Plan Of Treatment Next Appt Details Provider Name:Lolita Milan, 11/27/2025 11:00:00 AM, [address] [facility] [address], [place], [address], Progress Notes * JIMYHeather WYATTcy BDOB: 4 (50 yo F)Acc No.[id number]:07/11/2024 Progress Note Patient: Mayela Foy Provider: Sumaya Milan MD :1975 A ge:49 Y S ex:Female Date:07/11/2024 Address:[address] [place], [place] [phone] Subjective: * Chief Complaints: * A ub * Electronic signature of Lolita Milan MD on 04/29/2025 at 07:45 AM EST Sign off status: Pending Visit Status: R /S (Rescheduled) * Provider: Sumaya Milan MD Date: 0 07/11/2024 Generated for Vandana ravi/Eulalia/Jorge on: 1 07:45 AM EST
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
--- OUTSIDE RECORDS SUMMARY | 2024-09-28 10:00 | XMS_ITS ---
Author Organization [facility] Address [address] [facility] [address] [place] [address] Care Team Providers Care Near East Archeology Professor Name Role Phone Lolita Milan Unavailable [phone] REASON FOR VISIT Annual Social History Sex Assigned At : Social History Observation Description Sex Assigned At Female Encounters Encounter Location Date Provider Diagnosis [facility] [address] [facility] [address] [place] [address] 09/28/2024 Lolita Milan Plan Of Treatment Next Appt Details Provider Name:Lolita Milan, 11/27/2025 11:00:00 AM, [address] [facility] [address], [place], [address], Progress Notes * JIMYHeather [place] BDOB: 4 (50 yo F)Acc No.[id number]:09/28/2024 Progress Note Patient: Mayela Foy Provider: Sumaya Milan MD :1975 A ge:49 Y S ex:Female Date:09/28/2024 Address:[address] [place], [place] [phone] Subjective: * Chief Complaints: * A nnual * Electronic signature of Lolita Milan MD on 04/29/2025 at 07:45 AM EST Sign off status: Pending Visit Status: N /S (No-Show) * Provider: Sumaya Milan MD Date: 0 09/28/2024 Generated for Vandana ravi/Eulalia/Jorge on: 1 07:45 AM EST
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
--- OUTSIDE RECORDS SUMMARY | 2024-11-19 10:15 | XMS_ITS ---
Author Organization [facility] Address [address] [facility] [address] [place] [address] Care Team Providers Care Hack Driver Name Role Phone Lolita Milan Unavailable [phone] REASON FOR VISIT Annual Social History Sex Assigned At : Social History Observation Description Sex Assigned At Female Encounters Encounter Location Date Provider Diagnosis [facility] [address] [facility] [address] [place] [address] 11/19/2024 Lolita Milan Plan Of Treatment Next Appt Details Provider Name:Lolita Milan, 11/27/2025 11:00:00 AM, [address] [facility] [address], [place], [address], Progress Notes * JIMYHeather [place]YATTcy BDOB: 4 (50 yo F)Acc No.[id number]:11/19/2024 Progress Note Patient: Mayela Foy Provider: Sumaya Milan MD :1975 A ge:49 Y S ex:Female Date:11/19/2024 Address:[address] [place], [place] [phone] Subjective: * Chief Complaints: * A nnual * Electronic signature of Lolita Milan MD on 04/29/2025 at 07:48 AM EST Sign off status: Pending Visit Status: R /S (Rescheduled) * Provider: Sumaya Milan MD Date: 0 11/19/2024 Generated for Vandana ravi/Eulalia/Jorge on: 1 07:48 AM EST
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
--- OUTSIDE RECORDS SUMMARY | 2025-04-15 11:55 | XMS_ITS | Encounter Summary ---
Author Organization [employer] ([place], [place], [place], [place], [place]) Address [address] [place] [address] Care Team Providers Care Management Advisor Name Role Phone Unavailable Primary Care Provider Unavailabl e Reason for Referral * CAT Scan (Routine) - New Request Specialty Diagnoses / Procedures Referred By Lilian evans Referred To Contact Radiology Diagnoses Chronic sinusitis, unspecified location Dizziness and giddiness Deviated nasal septum Procedures CT sinus without iv contrast Lukas Regalado MD [address] [facility] [address] [place] [address] Phone: tel: fax: Referral ID Status Reason Start Date Expiration Date V isits Requested Visits Authorized [id number] New Request 04/15/2025 04/15/2026 1 1 Reason for Visit * CAT Scan (Routine) - New Request Specialty Diagnoses / Procedures Referred By Lilian evans Referred To Contact Radiology Diagnoses Chronic sinusitis, unspecified location Dizziness and giddiness Deviated nasal septum Procedures CT sinus without iv contrast Lukas Regalado MD [facility] [address] [place] [address] Phone: tel: fax: Referral ID Status Reason Start Date Expiration Date V isits Requested Visits Authorized [id number] New Request 04/15/2025 04/15/2026 1 1 Encounter Details Date Type Department Care Team (Late st Contact Info) Description 04/15/2025 11:55 AM EST - 04/15/2025 11:59 PM EST Hospital Encounter [facility] [address] [facility] [address] [place] [id number] Lukas Regalado MD [address] [facility] [address] [place] [address] Chronic sinusitis, unspecified location; Dizziness and giddiness; Deviated nasal septum Discharge Disposition: Home or Self Care Social History Tobacco Use Types Packs/Day Years [...] Procedure Name Priority Date/Time Associated Diagnosis Comments CT SINUS WITHOUT IV CONTRAST Routine 04/15/2025 12:05 PM EST Chronic sinusitis, unspecified location Dizziness and giddiness Deviated nasal septum documented in this encounter Results * CT sinus without iv contrast (04/15/2025 12:05 PM EST) Anatomical Region Laterality Modality Sinus, Head, Brain Computed Rafiq graphy (CT) 04/16/2025 10:4 5 AM EST Impressions 04/16/2025 10:54 AM EST Moderate changes of chronic right maxillary sinusitis. Anatomic variants as described. Images reviewed, interpreted, and dictated by Piyush Vincent MD Narrative 04/16/2025 10:54 AM EST Name: RENNY AHN : 1975 CT SCAN OF THE PARANASAL SINUSES 04/15/2025 12:05 PM HISTORY: Deviated septum. Ear drainage. Dizziness PROCEDURE: Axial and coronal images through the paranasal sinuses were obtained by computed tomography. This study was performed with techniques to keep radiation doses as low as reasonably achievable, (ALARA). Individualized dose reduction techniques using automated exposure control or adjustment of mA and/or kV according to the patient size were employed. FINDINGS: Moderate lobular mucoperiosteal thickening is noted in the right maxillary sinus, consistent with chronic sinusitis. No air-fluid levels are seen. Small amount of soft tissues seen bridging the right ostiomeatal unit. Left ostiomeatal unit appears adequately patent. No air-fluid levels are seen. Procedure Note Piyush Vincent MD - 04/16/2025 Name: RENNY AHN : 1975 CT SCAN OF THE PARANASAL SINUSES 04/15/2025 12:05 PM HISTORY: Deviated septum. Ear drainage. Dizziness PROCEDURE: Axial and coronal images through the paranasal sinuses were obtained by computed tomography. This study was performed with techniques to keep radiation doses as low as reasonably achievable, (ALARA). Individualized dose reduction techniques using automated exposure control or adjustment of mA and/or kV according to the patient size were employed. FINDINGS: Moderate lobular mucoperiosteal thickening is noted in the right maxillary sinus, consistent with chronic sinusitis. No air-fluid levels are seen. Small amount of soft tissues seen bridging the right ostiomeatal unit. Left ostiomeatal unit appears adequately patent. No air-fluid levels are seen. IMPRESSION: Moderate changes of chronic right maxillary sinusitis. Anatomic variants as described. Images reviewed, interpreted, and dictated by Piyush Vincent MD Lukas Abdul MD IMG CT ORDERABLES Final Res ult documented in this encounter Visit Diagnoses Diagnosis Chronic sinusitis, unspecified location Dizziness and giddiness Deviated nasal septum documented in this encounter
--- OUTSIDE RECORDS SUMMARY | 2025-04-29 07:45 | XMS_ITS | Encounter Summary ---
Author Organization [employer] ([place], [place], [place], [place], [place]) Address [address] [place] [address] Care Team Providers Care Logistics Specialist Name Role Phone Unavailable Primary Care Provider Unavailabl e Reason for Visit * Reason Onset Date Comments Status 03/07/2025 Encounter Details Date Type Department Care Team (Late st Contact Info) Description 03/07/2025 Telephone [facility] [address] [place] [address] Heike Strauss CMA Status Social [...] Date Romel rded Speak language other than Mongolian at home Not on file 09/06/2023 Want [...] CMA - 03/07/2025 - 3:49 PM EST ERY BUYER documented in this encounter Plan of Treatment Not on file documented as of this encounter Visit Diagnoses Not on filedocumented in this encounter
--- OUTSIDE RECORDS SUMMARY | 2025-04-29 07:45 | XMS_ITS | Encounter Summary ---
Author Organization [employer] ([place], [place], [place], [place], [place]) Address [address] [place] [address] Care Team Providers Care Disposal Man Name Role Phone Unavailable Primary Care Provider Unavailabl e Encounter Details Date Type Department Care Team (Late st Contact Info) Description 06/12/2019 Transcribed Document [facility] [place] [address] ProviderCarmela MD [address] [place] [address] [phone] Social History Tobacco Use Types Packs/Day Years Used Date Smoking Tobacco: Never Assessed Comments Unknown Sex and Gender Information Value Date Recorded Sex Assigned at Not on file Legal Sex Female 1:20 PM CDT Gender Identity Not on file Sexual Orientation Not on file documented as of this encounter Miscellaneous Notes * Cerner Conversion Note - Carmela ProviderMD - 06/12/2019 3:09 PM YOGA INSTRUCTOR [facility] Main OR IntraOp Summary Primary Physician: MELINA JENSEN MD-SUR Finalized Date/Time: 06/12/19 15:42:41 Pt. Name: RENNY AHN ARCHANA Morin/Sex: 1975 Female Med Rec #: [id number] Physician: MELINA JENSEN MD-SUR Financial #: [id number] Pt. Type: O Room/Bed: [facility]/6 Admit/Disch: 06/12/19 13:55:00 - Institution: [facility] [place] Case Attendance Entry 1 Entry 2 Entry 3 Case Attendee MELINA JENSEN GARNER, ANGELA, Sam Mccullough Scrub MD-SUR Tech Role Performed Surgeon/Proceduralist, SAP SD ANALYST/Nurse Support Staff Scrub, First First Time In 06/12/19 14:48:00 [...] RN PHILLIPS, TIFFANY D., Oziel Romero, REP Monologist - SSI Role Performed Senior Climate Advisor, First Scrub, First Manager Residential, Ancillary Time In 06/12/19 14:48:00 06/12/19 14:48:00 06/12/19 14:48:00 Time Out 06/12/19 15:39:00 06/12/19 15:39:00 06/12/19 15:39:00 Procedure Appendectomy Appendectomy Appendectomy Laparoscopic Laparoscopic Laparoscopic Other Attendee Superficial Wound Closed By: Last Modified By: Celestina Beaulieu RN Dobson, Melissa, Celestina Fernandes, ZAHRAA 06/12/19 15:42:16 06/12/19 15:42:16 06/12/19 15:42:16 Entry 7 Entry 8 Case Attendee MARGA COTE PA-C WHITAKER, CARLY, SAP SD ANALYST-ANS Role Performed Physician administrative support assistant SAP SD ANALYST/Nurse Support Staff Time In 06/12/19 14:48:00 06/12/19 15:18:00 Time Out 06/12/19 15:39:00 06/12/19 15:39:00 Procedure Appendectomy Appendectomy Laparoscopic Laparoscopic Other Attendee Superficial Wound Closed By: Last Modified By: Celestina Beaulieu RN Dobson, Melissa, ZAHRAA 06/12/19 15:42:16 06/12/19 15:42:16 [facility] IntraOp Case Attendance Audit 06/12/19 15:42:16 Log Feeder: [id number] Modifier: [id number] <+> Time Out 1 <*> Procedure [...] 8 <*> Procedure Appendectomy Laparoscopic 06/12/19 15:23:21 Log Feeder: [id number] Modifier: [id number] <+> Time Out 2 <*> Procedure Appendectomy Laparoscopic <+> 8 Case Attendee <+> 8 Role Performed <+> 8 Time In <+> 8 Procedure 06/12/19 15:09:25 Log Feeder: [id number] Modifier: [id number] <+> 1 Time In <+> 1 Procedure [...] [facility] IntraOp Case Times Audit 06/12/19 15:42:14 Log Feeder: [id number] Modifier: [id number] <+> 1 Out Room Time <+> 1 [...] 15:11:23 [facility] IntraOp Cautery Audit 06/12/19 15:11:23 Log Feeder: [id number] Modifier: [id number] <+> 1 Grounding Pad Site <+> 1 [...] By Count Performed By JOANNE SINGER (Scrub) Monologist Count Performed By Celestina Beaulieu RN (RN) [...] RN 06/12/19 15:12:02 [facility] IntraOp General Case [facility] Owner 1 Case Information OR OR 06 [facility] [...] 1% w/ epinephrine 1:100,000 30ml vial - [id number] Time Administered 06/12/19 15:09:00 Route of LOCAL [...] Beaulieu RN 06/12/19 15:42:29 General Comments: 16 SAMMARINESE BERMUDEZ CATHETER INSERTED WITHOUT INCIDENT PRIOR TO START OF PROCEDURE. CLEAR YELLOW URINE RETURN ON NSERTION [facility] Intra Op Sign Out Audit 06/12/19 15:42:29 Log Feeder: [id number] Modifier: [id number] 1 <*> RN Sign Out Signature Date/Time [...] [facility] IntraOp Surgical Procedures Audit 06/12/19 15:42:34 Log Feeder: [id number] Modifier: [id number] <+> 1 Stop [facility] IntraOp Time Out [...] 06/12/19 15:12:37 Case Comments <None> Finalized By: [place], Celestina, RN Document Signatures Signed By: Celestina Beaulieu RN 06/12/19 15:42 Electronically signed by Samy [facility] Conversion Advertising Copywriter Cerner at 08/18/2022 11:20 AM CDT documented in this encounter Plan of Treatment Not on file documented as of this encounter Visit Diagnoses Not on filedocumented in this encounter
--- OUTSIDE RECORDS SUMMARY | 2025-04-29 07:45 | XMS_ITS | Encounter Summary ---
Author Organization [employer] ([place], [place], [place], [place], [place]) Address [address] [place] [address] Care Team Providers Care Automatic Spinning Lathe Operator Name Role Phone Unavailable Primary Care Provider Unavailabl e Encounter Details Date Type Department Care Team (Late st Contact Info) Description 06/12/2019 Transcribed Document [facility] [address] [place] [id number] Nick Thurman MD [address] [place] [address] Social History Tobacco Use Types Packs/Day Years [...] DIAGNOSIS: Acute appendicitis. PROCEDURE PERFORMED: Laparoscopic appendectomy. MODELING AND SIMULATION ANALYST: Cody Mauro PA-C. ANESTHESIA: General. ESTIMATED BLOOD [...] and taken to PACU in stable condition. /[id number] MD DAMIÁN Brink/AQ / DAMIÁN / MODL /[id number] documented in this encounter Plan of Treatment Not on file documented as of this encounter Visit Diagnoses Not on filedocumented in this encounter
--- OUTSIDE RECORDS SUMMARY | 2025-04-29 07:45 | XMS_ITS | Encounter Summary ---
Author Organization [employer] ([place], [place], [place], [place], [place]) Address [address] [place] [address] Care Team Providers Care Partner Alliance Manager Name Role Phone Unavailable Primary Care Provider Unavailabl e Encounter Details Date Type Department Care Team (Late st Contact Info) Description 06/12/2019 Transcribed Document [facility] [place] Family Medicine [address] [place] [address] ProviderCarmela MD [address] [place] [address] [phone] Social History Tobacco Use Types Packs/Day Years Used Date Smoking Tobacco: Never Assessed Comments Unknown Sex and Gender Information Value Date Recorded Sex Assigned at Not on file Legal Sex Female 1:20 PM CDT Gender Identity Not on file Sexual Orientation Not on file documented as of this encounter Miscellaneous Notes * Cerner Conversion Note - Carmela ProviderMD - 06/12/2019 12:40 PM VARNISH MELTER [facility] Main OR PreOp Summary Primary Physician: MELINA JENSEN MD-SUR Finalized Date/Time: 06/12/19 14:59:02 Pt. Name: RENNY SUGGS/Sex: 1975 Female Med Rec #: [id number] Physician: MELINA JENSEN MD-SUR Financial #: [id number] Pt. Type: O Room/Bed: [facility]/6 Admit/Disch: 06/12/19 13:55:00 - [place]: [facility] [place] PreOp Case Times Entry 1 In Preop 06/12/19 14:05:00 Ready for Holding n/a Room Patient Ready for 06/12/19 14:25:00 Surgery Patient Out of Preop 06/12/19 14:45:00 Patient Out of n/a Holding Room Last Modified By: PARDEEP SANTIZO 06/12/19 14:59:01 SJHoda PreOp Case Times Audit 06/12/19 14:59:01 Data Engineer: [id number] Modifier: [email or web address] <+> 1 Patient Out of Preop Finalized By: PARDEEP SANTIZO Document Signatures Signed By: PARDEEP SANTIZO 06/12/19 14:59 documented in this encounter Plan of Treatment Not on file documented as of this encounter Visit Diagnoses Not on filedocumented in this encounter
--- OUTSIDE RECORDS SUMMARY | 2025-04-29 07:45 | XMS_ITS | Encounter Summary ---
Author Organization [employer] ([place], [place], [place], [place], [place]) Address [address] [place] [address] Care Team Providers Care Complaint Clerk Name Role Phone Unavailable Primary Care Provider Unavailabl e Encounter Details Date Type Department Care Team (Late st Contact Info) Description 07/12/2019 Transcribed Document [facility] [place] [facility] [place] [address] ProviderCarmela MD [address] [place] [address] [phone] Social History Tobacco Use Types Packs/Day Years [...] RENNY AHN/Sex: 1975 Female Med Rec #: [id number] Physician: CLIFF BETH MD-GAE Financial #: [id number] Pt. Type: E Room/Bed: EEN/14 Admit/Disch: 07/12/19 10:27:00 - Institution: [facility] PreOp Case Times Entry 1 In Preop 07/12/19 10:47:00 Ready for Holding n/a Room Patient Ready for 07/12/19 11:13:00 Surgery Patient Out of Preop 07/12/19 11:13:00 Patient Out of n/a Holding Room Finalized By: RHONDA NEWBY RN Document Signatures Signed By: RHONDA NEWBY RN 07/12/19 11:13 documented in this encounter Plan of Treatment Not on file documented as of this encounter Visit Diagnoses Not on filedocumented in this encounter
--- OUTSIDE RECORDS SUMMARY | 2025-04-29 07:45 | XMS_ITS | Encounter Summary ---
Author Organization [employer] ([place], [place], [place], [place], [place]) Address [address] [place] [address] Care Team Providers Care Bus Escort Name Role Phone Unavailable Primary Care Provider Unavailabl e Encounter Details Date Type Department Care Team (Late st Contact Info) Description 06/12/2019 Transcribed Document [facility] [place] [facility] [place] [address] ProviderCarmela MD [address] [place] [address] [phone] Social History Tobacco Use Types Packs/Day Years Used Date Smoking Tobacco: Never Assessed Comments Unknown Sex and Gender Information Value Date Recorded Sex Assigned at Not on file Legal Sex Female 1:20 PM CDT Gender Identity Not on file Sexual Orientation Not on file documented as of this encounter Miscellaneous Notes * Cerner Conversion Note - Carmela ProviderMD - 06/12/2019 3:09 PM SCIENTIFIC AFFAIRS MANAGER [facility] Main OR PACU Summary Primary Physician: MELINA JENSEN MD-SUR Finalized Date/Time: 06/14/19 15:02:05 Pt. Name: RENNY AHN/Sex: 1975 Female Med Rec #: [id number] Physician: MELINA JENSEN MD-SUR Financial #: [id number] Pt. Type: O Room/Bed: 506/1 Admit/Disch: 06/12/19 13:55:00 - 06/13/19 09:21:00 [place] [facility] [place] PACU Case Times Entry 1 [...] RN 06/12/19 17:54:08 Finalized By: Danielle Lester, Sales Professional-Nursing Document Signatures Signed By: JOSHUA MATHIS RN 06/12/19 17:54 Danielle Lester, Sales Professional-Nursing 06/14/19 15:02 Unfinalized History Date/Time Username Reason for Unfinalizing Freetext Reason for Unfinalizing 06/14/19 15:01 [id number] Modify Pick List documented in this encounter Plan of Treatment Not on file documented as of this encounter Visit Diagnoses Not on filedocumented in this encounter
--- OUTSIDE RECORDS SUMMARY | 2025-04-29 07:45 | XMS_ITS | Encounter Summary ---
Author Organization [facility] ([place], [place], [place], [place], [place]) Address [address] [place] [address] Care Team Providers Care Gauge And Instrument Inspector Name Role Phone Unavailable Primary Care Provider Unavailabl e Encounter Details Date Type Department Care Team (Late st Contact Info) Description 06/12/2019 Transcribed Document [facility] [place] [facility] [place] [address] ProviderCarmela MD [facility] [place], [place] [id number] Social History Tobacco Use Types Packs/Day Years Used Date Smoking Tobacco: Never Assessed Comments Unknown Sex and Gender Information Value Date Recorded Sex Assigned at Not on file Legal Sex Female 1:20 PM CDT Gender Identity Not on file Sexual Orientation Not on file documented as of this encounter Miscellaneous Notes * Cerner Conversion Note - Carmela ProviderMD - 06/12/2019 1:55 PM DIRECTOR OF MANAGED SERVICES Admission History, Adult Entered On: 06/12/2019 20:59 [...] resp even and unlabored Primary Language : Japanese Preferred Communication Mode : Verbal Communication Barrier [...] Scale Risk Level : 0-24 Low Risk [place] Fall Interventions : Adequate lighting, Bed in [...] Source : Stated Height Entry Format : [place] Height, Feet : 5 ft(Converted to: 152 cm, 60 Inch) Height, Inches : 5 Inch(Converted to: 0 ft 5 Inch, 12.70 cm) Clinical Height : 165.1 cm Weight Source : Estimated [place] Body Weight : 57 kg JOSHUA BOSWELL RN - 06/12/2019 20:54 EST Estimated Weight Type of Weight Measurement Est : [place] Weight, est lb : 144 lb(Converted to: [...] JOSHUA BOSWELL RN - 06/12/2019 20:54 EST [place] Suicide Severity Rating Scale (C-SSRS) CSSRS Past [...]
--- OUTSIDE RECORDS SUMMARY | 2025-04-29 07:45 | XMS_ITS | Encounter Summary ---
Author Organization [employer] ([place], [place], [place], [place], [place]) Address [address] [place] [address] Care Team Providers Care Parts Picker Name Role Phone Unavailable Primary Care Provider Unavailabl e Encounter Details Date Type Department Care Team (Late st Contact Info) Description 06/13/2019 Transcribed Document [facility] [place] [facility] [place] [address] ProviderCarmela MD [address] [place] [address] [phone] Social History Tobacco Use Types Packs/Day Years Used Date Smoking Tobacco: Never Assessed Comments Unknown Sex and Gender Information Value Date Recorded Sex Assigned at Not on file Legal Sex Female 1:20 PM CDT Gender Identity Not on file Sexual Orientation Not on file documented as of this encounter Miscellaneous Notes * Cerner Conversion Note - Carmela Feliciano MD - 06/13/2019 8:52 AM AUTOMATIC PRESSER [address] [address] RENNY ANH :1975 Visit Time:06/12/2019 Your Visit Summary Your [...] Call for follow up appointment Where: [facility] [address] [place] [address]- Medications What How Much When Instructions Next [...] taking him or her home: ??? Give osct-drr-omvftvy and prescription medicines only as told by [...] 07/14/2017 Document Revised: 07/14/2017 Document Reviewed: 07/14/2017 [employer] Interactive Patient Education ?? 2019 [employer]. acetaminophen and oxycodone (a SEET a MIN [...] may report side effects to FDA at 7-015-LMN-2238. What other drugs will affect acetaminophen and [...] affect acetaminophen and oxycodone, including prescription and tkkp-iuk-yqzdjow medicines, vitamins, and herbal products. Not all [...] to ensure that the information provided by [employer]. ('[employer]') is accurate, up-to-date, and complete, but no guarantee is made to that effect. Drug information contained herein may be time sensitive. [employer] information has been compiled for use by healthcare practitioners and consumers in the [place] and therefore [employer] does not warrant that uses outside of the [place] are appropriate, unless specifically indicated otherwise. [employer]os drug information does not endorse drugs, diagnose patients or recommend therapy. [employer] drug information is an informational resource designed [...] effective or appropriate for any given patient. [employer] does not assume any responsibility for any aspect of healthcare administered with the aid of information [employer] provides. The information contained herein is not intended to cover all possible uses, directions, precautions, warnings, drug interactions, allergic reactions, or adverse effects. If you have questions about the drugs you are taking, check with your doctor, nurse or pharmacist. Copyright 2245-9237 [employer]. Version: 18.02. Revision Date: 03/29/2018. ondansetron (oral) [...] may report side effects to FDA at 6-978-GDP-2974. What other drugs will affect ondansetron? Ondansetron [...] interact with ondansetron. This includes prescription and rpua-yxh-xgoembr medicines, vitamins, and herbal products. Give a [...] to ensure that the information provided by [employer]. ('[employer]') is accurate, up-to-date, and complete, but no guarantee is made to that effect. Drug information contained herein may be time sensitive. [employer] information has been compiled for use by healthcare practitioners and consumers in the [place] and therefore [employer] does not warrant that uses outside of the [place] are appropriate, unless specifically indicated otherwise. [employer] drug information does not endorse drugs, diagnose patients or recommend therapy. [employer]os drug information is an informational resource designed [...] effective or appropriate for any given patient. [facility] does not assume any responsibility for any aspect of healthcare administered with the aid of information [facility] provides. The information contained herein is not intended to cover all possible uses, directions, precautions, warnings, drug interactions, allergic reactions, or adverse effects. If you have questions about the drugs you are taking, check with your doctor, nurse or pharmacist. Copyright 5803-0831 [employer]. Version: 13.01. Revision Date: 02/20/2016. amoxicillin and [...] may report side effects to FDA at 3-024-RLT-9666. What other drugs will affect amoxicillin and clavulanate potassium? Tell your doctor about all your current medicines and any you start or stop using, especially: ?? allopurinol; ?? probenecid; or ?? a blood thinner--warfarin, Coumadin, Jantoven. This list is not complete. Other drugs may interact with amoxicillin and clavulanate potassium, including prescription and vrqd-xkg-mekeauk medicines, vitamins, and herbal products. Not all [...] to ensure that the information provided by [employer]. ('[employer]') is accurate, up-to-date, and complete, but no guarantee is made to that effect. Drug information contained herein may be time sensitive. [employer] information has been compiled for use by healthcare practitioners and consumers in the [place] and therefore [employer] does not warrant that uses outside of the [place] are appropriate, unless specifically indicated otherwise. [employer]os drug information does not endorse drugs, diagnose patients or recommend therapy. [employer]os drug information is an informational resource designed [...] effective or appropriate for any given patient. [employer] does not assume any responsibility for any aspect of healthcare administered with the aid of information [employer] provides. The information contained herein is not intended to cover all possible uses, directions, precautions, warnings, drug interactions, allergic reactions, or adverse effects. If you have questions about the drugs you are taking, check with your doctor, nurse or pharmacist. Copyright 4898-8063 [employer]. Version: 03.03. Revision Date: 05/03/2017. ondansetron (oral) [...] may report side effects to FDA at 2-186-FTQ-4179. What other drugs will affect ondansetron? Ondansetron [...] interact with ondansetron. This includes prescription and atki-kcu-mcarysx medicines, vitamins, and herbal products. Give a [...] to ensure that the information provided by [employer]. ('[employer]') is accurate, up-to-date, and complete, but no guarantee is made to that effect. Drug information contained herein may be time sensitive. [employer] information has been compiled for use by healthcare practitioners and consumers in the [place] and therefore [employer] does not warrant that uses outside of the [place] are appropriate, unless specifically indicated otherwise. [employer]'s drug information does not endorse drugs, diagnose patients or recommend therapy. [employer]os drug information is an informational resource designed [...] healthcare administered with the aid of information [facility] provides. The information contained herein is not intended to cover all possible uses, directions, precautions, warnings, drug interactions, allergic reactions, or adverse effects. If you have questions about the drugs you are taking, check with your doctor, nurse or pharmacist. Copyright 5297-3450 [facility] [employer]. Version: 13.01. Revision Date: 02/20/2016. Emergency Awareness [...] Assistance with quitting is available by contacting 0-164-TRSDCompany Data TreesNOW. This is a free resource providing counseling, [...] range between ( 1.0 and 7.0 ) Vernon #: 0.42 K/uL -- Normal range between ( 0.24 and 0.82 ) Eos #: 0.03 K/uL -- Normal range between ( 0.04 and 0.54 ) Vernon %: 4.8 % -- Normal range between [...] ) Urine Bilirubin Dipstick: Small Urine Specific Lovilia: 1.030 -- Normal range between ( 1.005 [...] was given the opportunity to ask questions. Patient/Communications Tower Technician Name: Patient/Communications Tower Technician Signature: Relationship to Patient: Clinician/Hospital Communications Tower Technician Signature: Date: Electronically signed by Interface, [facility] Conversion Intake Clinician Cerner at 08/18/2022 11:46 AM CDT documented in this encounter Plan of Treatment Not on file documented as of this encounter Visit Diagnoses Not on filedocumented in this encounter
--- OUTSIDE RECORDS SUMMARY | 2025-04-29 07:45 | XMS_ITS | Encounter Summary ---
Author Organization [employer] ([place], [place], [place], [place], [place]) Address [address] [place] [address] Care Team Providers Care Direct Care Worker Name Role Phone Unavailable Primary Care Provider Unavailabl e Encounter Details Date Type Department Care Team (Late st Contact Info) Description 05/10/2019 Transcribed Document [facility] [place] [facility] [address] ProviderCarmela MD [address] [place] [phone] Social History Tobacco Use Types Packs/Day Years Used Date Smoking Tobacco: Never Assessed Comments Unknown Sex and Gender Information Value Date Recorded Sex Assigned at Not on file Legal Sex Female 1:20 PM CDT Gender Identity Not on file Sexual Orientation Not on file documented as of this encounter Miscellaneous Notes * Cerner Conversion Note - Carmela ProviderMD - 05/10/2019 9:00 AM ACQUISITION MARKETING MANAGER [facility] PreOp Summary Primary Physician: STAN FAIRCHILD MD-SUR Finalized Date/Time: 05/10/19 08:57:40 Pt. Name: JIMY RENNYGENOVEVA Morin/Sex: 1975 Female Med Rec #: [id number] Physician: STAN FAIRCHILD MD-SUR Financial #: [id number] Pt. Type: O Room/Bed: N/6 Admit/Disch: 05/10/19 07:56:00 - Institution: [facility] PreOp Case Times Entry 1 In Preop 05/10/19 08:37:00 Ready for Holding n/a Room Patient Ready for 05/10/19 08:57:00 Surgery Patient Out of Preop 05/10/19 08:57:00 Patient Out of n/a Holding Room Finalized By: RHONDA NEWBY, ZAHRAA Document Signatures Signed By: RHONDA NEWBY RN 05/10/19 08:57 Electronically signed by Samy [facility] Conversion Manufacturing Technician Cerner at 08/18/2022 11:43 AM CDT documented in this encounter Plan of Treatment Not on file documented as of this encounter Visit Diagnoses Not on filedocumented in this encounter
--- OUTSIDE RECORDS SUMMARY | 2025-04-29 07:45 | XMS_ITS | Encounter Summary ---
Author Organization [employer] ([place], [place], [place], [place], [place]) Address [address] [place] [address] Care Team Providers Care Medical Services Manager Name Role Phone Unavailable Primary Care Provider Unavailabl e Encounter Details Date Type Department Care Team (Late st Contact Info) Description 06/13/2019 Transcribed Document [facility] [place] Family Medicine [address] [place] [address] ProviderCarmela MD [address] [place] [address] Social History Tobacco Use Types Packs/Day Years Used Date Smoking Tobacco: Never Assessed Comments Unknown Sex and Gender Information Value Date Recorded Sex Assigned at Not on file Legal Sex Female 1:20 PM CDT Gender Identity Not on file Sexual Orientation Not on file documented as of this encounter Miscellaneous Notes * Cerner Conversion Note - Carmela ProviderMD - 06/13/2019 8:51 AM AIR QUALITY MANAGER Nursing Discharge Summary Entered On: 06/13/2019 8:51 [...]
--- OUTSIDE RECORDS SUMMARY | 2025-04-29 07:45 | XMS_ITS | Encounter Summary ---
Author Organization [employer] ([place], [place], [place], [place], [place]) Address [address] [place] [address] Care Team Providers Care Customer Acquisition Manager Name Role Phone Unavailable Primary Care Provider Unavailabl e Encounter Details Date Type Department Care Team (Late st Contact Info) Description 06/12/2019 Transcribed Document [facility] [place] [address] ProviderCarmela MD [address] [place] [address] [phone] Social History Tobacco Use Types Packs/Day Years Used Date Smoking Tobacco: Never Assessed Comments Unknown Sex and Gender Information Value Date Recorded Sex Assigned at Not on file Legal Sex Female 1:20 PM CDT Gender Identity Not on file Sexual Orientation Not on file documented as of this encounter Miscellaneous Notes * Cerner Conversion Note - Carmela ProviderMD - 06/12/2019 8:16 AM VEGETABLE FARMER ED Assessment Entered On: 06/12/2019 11:27 EST Performed On: 06/12/2019 11:25 EST by Marti Robb RN ED Quick Look Assessment Level of Consciousness : Alert Affect/Behavior : Appropriate Skin Temperature : Warm Skin Description : Normal for ethnicity, [place] Marti Robb RN - 06/12/2019 11:25 EST ED General-Functional Assess Preferred Communication Mode : Verbal Communication Barrier : None Primary Language : Cook Islander Any Spiritual/Cultural Needs or Requests : No [...]
--- OUTSIDE RECORDS SUMMARY | 2025-04-29 07:45 | XMS_ITS | Encounter Summary ---
Author Organization [employer] ([place], [place], [place], [place], [place]) Address [address] [place] [address] Care Team Providers Care Greeter Guest Services Name Role Phone Unavailable Primary Care Provider Unavailabl e Encounter Details Date Type Department Care Team (Late st Contact Info) Description 06/12/2019 Transcribed Document [facility] [place] [address] [place] [address] ProviderCarmela MD [address] [place], [place] [id number] Social History Tobacco Use Types Packs/Day Years Used Date Smoking Tobacco: Never Assessed Comments Unknown Sex and Gender Information Value Date Recorded Sex Assigned at Not on file Legal Sex Female 1:20 PM CDT Gender Identity Not on file Sexual Orientation Not on file documented as of this encounter Miscellaneous Notes * Cerner Conversion Note - Carmela ProviderMD - 06/12/2019 8:16 AM BUSINESS EXECUTIVE [place] Suicide Severity Rating Scale (C-SSRS) Entered On: 06/12/2019 11:31 EST Performed On: 06/12/2019 11:29 EST by Marti Robb RN [place] Suicide Severity Rating Scale (C-SSRS) CSSRS Past Month Wish to be : No CSSRS Past Month Suicidal Thoughts : No CSSRS Lifetime Suicide Behavior : No Suicide Severity Rating Score : 0 Suicide Severity Rating : No Additional Care Required at this time Marti Robb RN - 06/12/2019 11:29 EST Electronically signed by Samy [facility] Conversion Shot Coat Tender Cerner at 08/18/2022 11:30 AM CDT documented in this encounter Plan of Treatment Not on file documented as of this encounter Visit Diagnoses Not on filedocumented in this encounter
--- OUTSIDE RECORDS SUMMARY | 2025-04-29 07:45 | XMS_ITS | Encounter Summary ---
Author Organization [email or web address] ([place], [place], [place], [place], [place]) Address [address] [place] [address] Care Team Providers Care Wood Heel Attacher Name Role Phone Unavailable Primary Care Provider Unavailabl e Encounter Details Date Type Department Care Team (Late st Contact Info) Description 06/12/[address] [facility] [place] [address] [place] [address] ProviderCarmela MD [address] [place], [place] [id number] Social History Tobacco Use Types Packs/Day Years Used Date Smoking Tobacco: Never Assessed Comments Unknown Sex and Gender Information Value Date Recorded Sex Assigned at Not on file Legal Sex Female 1:20 PM CDT Gender Identity Not on file Sexual Orientation Not on file documented as of this encounter Miscellaneous Notes * Cerner Conversion Note - Historical ProviderMD - 06/12/2019 5:51 PM MUSIC THEORY PROFESSOR Education-(VTE) / (DVT) Entered On: 06/12/2019 20:54 EST Performed On: 06/12/2019 17:51 EST by JOSHUA BOSWELL RN Teaching/Learning Assessment Barriers To Learning : None evident Learning Style Preferences Patient : Verbal explanation Learning Style Preferences Family : Verbal explanation JOSHUA BOSWELL RN - 06/12/2019 20:54 EST Electronically signed by Babatunde Pablo Conversion Resource Center Teacher Cersamantha at 08/18/2022 11:38 AM CDT documented in this encounter Plan of Treatment Not on file documented as of this encounter Visit Diagnoses Not on filedocumented in this encounter
--- OUTSIDE RECORDS SUMMARY | 2025-04-29 07:45 | XMS_ITS | Encounter Summary ---
Author Organization [employer] ([place], [place], [place], [place], [place]) Address [address] [place] [address] Care Team Providers Care Mending Carrier Name Role Phone Unavailable Primary Care Provider Unavailabl e Encounter Details Date Type Department Care Team (Late st Contact Info) Description 05/10/2019 Transcribed Document [facility] [place] [facility] [place] [address] ProviderCarmela MD [address] [place] [address] [phone] Social History Tobacco Use Types Packs/Day Years Used Date Smoking Tobacco: Never Assessed Comments Unknown Sex and Gender Information Value Date Recorded Sex Assigned at Not on file Legal Sex Female 1:20 PM CDT Gender Identity Not on file Sexual Orientation Not on file documented as of this encounter Miscellaneous Notes * Cerner Conversion Note - Carmela ProviderMD - 05/10/2019 9:08 AM GRAVITY PROSPECTING SUPERVISOR [facility] IntraOp Summary Primary Physician: STAN FAIRCHILD MD-SUR Finalized Date/Time: 05/10/19 09:17:57 Pt. Name: RENNY AHN ARCHANA /Sex: 1975 Female Med Rec #: [id number] Physician: STAN FAIRCHILD MD-SUR Financial #: [id number] Pt. Type: O Room/Bed: [facility] [place]/ Admit/Disch: 05/10/19 07:56:00 - Institution: [facility] - Case Attendance Entry 1 Entry 2 Entry 3 Case Attendee STAN FAIRCHILD MD-SUR Fightmaster, Teresa, RN MCDONALD, ANTON CHINO CRNA Role Performed Surgeon/Proceduralist, Freelance Recruiter, First INSTITUTIONAL COMMODITY ANALYST/Nurse Direct Marketing Representative First Time In 05/10/19 09:04:00 05/10/19 09:04:00 [...] Endo - Case Attendance Audit 05/10/19 09:17:53 Gore Stitcher: [id number] Modifier: [id number] <+> Case Attendee 4 <*> Procedure Esophagogastroduodenoscopy, Gastric Biopsy 05/10/19 09:17:31 Gore Stitcher: [id number] Modifier: [id number] <+> Time Out 1 <*> Procedure Esophagogastroduodenoscopy, Gastric Biopsy 2 <+> Time Out 2 <*> Procedure Esophagogastroduodenoscopy, Gastric Biopsy 3 <+> Time Out 3 <*> Procedure Esophagogastroduodenoscopy, Gastric Biopsy 4 <+> Time Out 4 <*> Procedure Esophagogastroduodenoscopy, Gastric Biopsy 05/10/19 09:10:43 Gore Stitcher: [id number] Modifier: [id number] <*> Procedure Esophagogastroduodenoscopy 2 <*> Procedure Esophagogastroduodenoscopy 3 <*> Procedure Esophagogastroduodenoscopy 4 <*> Procedure Esophagogastroduodenoscopy 05/10/19 09:05:40 Gore Stitcher: [id number] Modifier: [id number] <+> 1 Procedure 2 <*> Procedure Esophagogastroduodenoscopy [...] Endo - Case Times Audit 05/10/19 09:14:20 Gore Stitcher: [id number] Modifier: [id number] <+> 1 Out Room Time 05/10/19 09:14:05 Gore Stitcher: [id number] Modifier: [id number] <+> 1 Stop Time <+> 1 Stop Time 05/10/19 09:10:05 Gore Stitcher: [id number] Modifier: [id number] <+> 1 Start Time [facility] - Cultures and Spec Summary Entry 1 Cultrures and Specimens Specimen Ordered: Yes Test(s) Routine/Path-Lab Requested/Final Disposition Last Modified By: Deanne Gibson RN 05/10/19 09:11:56 General Comments: gastric biopsy, esophageal biopsy [facility] - Cultures and Spec Summary Audit 05/10/19 09:11:56 Gore Stitcher: [id number] Modifier: [id number] 1 <*> Test(s) Requested/Final Disposition [facility] [...] Modified By: Deanne Gibson RN 05/10/19 09:05:33 [facility] [place] Endo - Fire Risk Assessment Entry 1 [...] Modified By: Deanne Gibson RN 05/10/19 09:07:47 [facility] [place] Endo - General Case Structural Metal Worker 1 Case Information OR Endo 01 [facility] [place] Case Level 1 Room Verified Yes Wound Class II - Clean-Contaminated Specialty SN General Anesthesia Type MAC ASA Class 2 Diagnosis Preop Diagnosis dysphagia Postop Same As Preop No Postop Diagnosis esophagitis, gastritis Last Modified By: Deanne Gibson RN 05/10/19 09:13:28 [facility] [place] Endo - General Case Data Audit 05/10/19 09:13:28 Gore Stitcher: [id number] Modifier: [id number] <+> 1 Postop Diagnosis 05/10/19 09:07:14 Gore Stitcher: [id number] Modifier: [id number] <+> [address] Preop [facility] [place] Endo - Intraoperative Assessment Entry 1 Valid [...] Endo - Patient Positioning Audit 05/10/19 09:10:45 Gore Stitcher: [id number] Modifier: [id number] 1 <*> Procedure Esophagogastroduodenoscopy [facility] - [...] Endo - Surgical Procedures Audit 05/10/19 09:14:39 Gore Stitcher: [id number] Modifier: [id number] <+> 1 Stop <+> 2 Stop 05/10/19 09:10:40 Gore Stitcher: [id number] Modifier: [id number] <+> 1 Start <+> 2 Procedure <+> [...] Modified By: Deanne Gibson RN 05/10/19 09:10:45 [facility] - Time Out Audit 05/10/19 09:10:45 Gore Stitcher: [id number] Modifier: [id number] 1 <*> Procedure to be Performed Esophagogastroduodenoscopy Case Comments <None> Finalized By: Deanne Gibson RN Document Signatures Signed By: Deanne Gibson RN 05/10/19 09:17 documented in this encounter Plan of Treatment Not on file documented as of this encounter Visit Diagnoses Not on filedocumented in this encounter
--- OUTSIDE RECORDS SUMMARY | 2025-04-29 07:45 | XMS_ITS | Encounter Summary ---
Author Organization [employer] ([place], [place], [place], [place], [place]) Address [address] [place] [address] Care Team Providers Care Petroleum Refining Equipment Operator Name Role Phone Unavailable Primary Care Provider Unavailabl e Encounter Details Date Type Department Care Team (Late st Contact Info) Description 07/12/2019 Transcribed Document [facility] [place] [address] [place] [address] ProviderCarmela MD [address] [place], [place] [address] Social History Tobacco Use Types Packs/Day Years [...] Follow these instructions at home: ??? Take mdbs-uvf-dhmyxdi and prescription medicines only as told by [...] 04/12/2002 Document Revised: 11/29/2017 Document Reviewed: 01/10/2016 [employer] Interactive Patient Education ? 2019 [employer] Esophagogastroduodenoscopy, Care After Refer to this [...] 04/04/2013 Document Revised: 09/23/2016 Document Reviewed: 03/11/2016 [employer] Interactive Patient Education ? 2019 [employer] Esophagogastroduodenoscopy, Care After Refer to this [...] 03/11/2016 [employer] Interactive Patient Education ? 2019 [employer] documented in this encounter Plan of Treatment Not on file documented as of this encounter Visit Diagnoses Not on filedocumented in this encounter
--- OUTSIDE RECORDS SUMMARY | 2025-04-29 07:45 | XMS_ITS | Encounter Summary ---
Author Organization [employer] ([place], [place], [place], [place], [place]) Address [address] [place] [address] Care Team Providers Care Watershed Engineer Name Role Phone Unavailable Primary Care Provider Unavailabl e Encounter Details Date Type Department Care Team (Late st Contact Info) Description 05/10/2019 Transcribed Document [facility] [place] Family Medicine Counts include [address] beds at the [facility] [place] [address] ProviderCarmela MD [address] [place], [place] [phone] Social History Tobacco Use Types Packs/Day Years Used Date Smoking Tobacco: Never Assessed Comments Unknown Sex and Gender Information Value Date Recorded Sex Assigned at Not on file Legal Sex Female 1:20 PM CDT Gender Identity Not on file Sexual Orientation Not on file documented as of this encounter Miscellaneous Notes * Cerner Conversion Note - Carmela ProviderMD - 05/10/2019 8:43 AM STATE WILDLIFE OFFICER Pre Procedure Adult Entered On: 05/10/2019 8:52 EST Performed On: 05/10/2019 8:43 EST by RHONDA NEWBY RN Height and Weight, Clinical Dosing Height Source : Stated Height Entry Format : [place] Height, Feet : 5 ft(Converted to: 152 cm, 60 Inch) Height, Inches : 5 Inch(Converted to: 0 ft 5 Inch, 12.70 cm) Clinical Height : 165.1 cm Weight Source : Standing scale Weight Entry Format : [place] Clinical Dosing Weight : 67.05 kg Weight, Pounds : 147 lb Weight, Ounces : 8 oz Body Surface Area (BSA) : 1.74 m2 Body Mass Index : 24.6 kg/m2 (HI) [place] Body Weight : 57 kg RHONDA NEWBY [...] RHONDA NEWBY RN - 05/10/2019 8:43 EST [place] Suicide Severity Rating Scale (C-SSRS) CSSRS Past [...] Obtained From : Patient Primary Language : Macanese Preferred Communication Mode : Verbal Communication Barrier [...] RHONDA NEWBY RN - 05/10/2019 8:43 EST [place] Scale [place] Sensory Perception : No [...] Scale Risk Level : 0-24 Low Risk [place] Fall Interventions : Adequate lighting, Bed in [...]
--- OUTSIDE RECORDS SUMMARY | 2025-04-29 07:45 | XMS_ITS | Encounter Summary ---
Author Organization [employer] ([place], [place], [place], [place], [place]) Address [address] [place] [address] Care Team Providers Care Quality Control Tester Name Role Phone Unavailable Primary Care Provider Unavailabl e Encounter Details Date Type Department Care Team (Late st Contact Info) Description 06/13/2019 Transcribed Document [facility] [place] [address] [place] [address] ProviderCarmela MD [address] [place] [address] Social History Tobacco Use Types Packs/Day Years Used Date Smoking Tobacco: Never Assessed Comments Unknown Sex and Gender Information Value Date Recorded Sex Assigned at Not on file Legal Sex Female 1:20 PM CDT Gender Identity Not on file Sexual Orientation Not on file documented as of this encounter Miscellaneous Notes * Cerner Conversion Note - Carmela ProviderMD - 06/13/2019 8:[address] TECHNOLOGIST Stroke/Warfarin Instructions Entered On: 06/13/2019 8:51 EST [...]
--- OUTSIDE RECORDS SUMMARY | 2025-04-29 07:45 | XMS_ITS | Clinical Summary ---
Author Organization [employer] ([place], [place], [place], [place], [place]) Address [address] [place] [address] Care Team Providers Care Under Presser Name Role Phone Unavailable Primary Care Provider Unavailabl e Encounters Date Type Department Care Team Description 04/15/2025 11:55 AM EST - 04/15/2025 11:59 PM EST Hospital Encounter [facility] [address] [place] [address] Lukas Regalado MD Chronic sinusitis, unspecified location; Dizziness and giddiness; Deviated nasal septum Discharge Disposition: Home or Self Care 03/08/2025 Telephone [facility] [address] [facility] [address] [place] [address] Stanislav Cruz MD Nutrition Counseling 03/07/2025 Telephone [facility] [address] [facility] [address] [place] [address] Heike Strauss, PHOTOGRAPHIC DEVELOPER AND PRINTER Status 01/29/2025 Telephone [facility] [address] [facility] [address] [place] [address] Appointment from [...] Date Romel rded Speak language other than Bermudian at home Not on file 09/06/2023 Want [...] Orientation Not on file Plan of Treatment Health Maintenance Due Date Last Done Comments CT Colonography 1975 Colonoscopy 1975 Colorectal Cancer Screening 1975 FOBT/FIT 1975 Fit-DNA (Cologuard) 1975 Sigmoidoscopy 1975 Depression Screening (12+) 1986 Tobacco Cessation Counseling and Screening (12+) 1986 HIV Screening 1989 Hepatitis C Screening 1992 DTAP/TDAP/TD VACCINES (1 - Tdap) 1993 Pap Smear 1995 Lipid Panel 2019 Pneumococcal 50+ years (1 of 1 - PCV) 2024 Shingles Vaccine (Zoster) (1 of 2) 2024 COVID-19 VACCINE (3 - 2024-2 6 season) 2024 02/14/2021, 01/12/2021 Influenza Vaccine (#1) 2024 Breast Cancer Screening 11/21/2026 11/22/19 25, 12/02/2021, 12/01/2020, Additional history exists Procedures Procedure Name Priority Date/Time Associated Diagnosis Comments CT SINUS WITHOUT IV CONTRAST Routine 04/15/2025 12:05 PM EST Chronic sinusitis, unspecified location Dizziness and giddiness Deviated nasal septum MM DIGITAL MAMMO SCREEN WITH LILY BILATERAL Routine 12/02/2021 9:18 AM EDT from Last 3 Months or Most Recently Relevant to Health Maintenance Results * CT sinus without iv contrast (04/15/2025 12:05 PM EST) Anatomical Region Laterality Modality Sinus, Head, Brain Computed Lily graphy (CT) 04/16/2025 10:4 5 AM EST [...] interpreted, and dictated by Piyush Vincent MD us Lukas Abdul MD IMG CT ORDERABLES Final Res ult * MM digital mammo screen with lily bilateral (12/02/2021 9:18 AM EDT) Anatomical Region Laterality Modality Breast Bilateral Mammography 12/02/2021 9:18 AM EDT Narrative 12/02/2021 5:05 PM EDT PROCEDURE: Digital screening mammogram with Digital Breast Tomosynthesis (DBT). REASON FOR EXAM: Routine screening. FAMILY HISTORY: There is no family history of breast cancer. COMPARISON STUDY: from [facility] FINDINGS: Craniocaudal and mediolateral oblique images of [...] the next mammogram. At our facility, a [place] marker is positioned over a visible skin lesion and a linear marker is used to indicate a scar. A triangular marker is placed on a self reported palpable finding. Procedure Note Tasha Henderson MD - 08/17/2022 PROCEDURE: Digital screening mammogram with Digital Breast Tomosynthesis (DBT). REASON FOR EXAM: Routine screening. FAMILY HISTORY: There is no family history of breast cancer. COMPARISON STUDY: from [facility] FINDINGS: Craniocaudal and mediolateral oblique images of [...] the next mammogram. At our facility, a [place] chapter marker is positioned over a visible skin lesion and a linear marker is used to indicate a scar. A triangular marker is placed on a self reported palpable finding. Tasha Henderson MD IMG MAMMOGRAPHY ORDERABLES Fin al Result from Last 3 Months or Most Recently Relevant to Health Maintenance [place] [phone] BLUE CROSS/BLUE SHIELD
--- OUTSIDE RECORDS SUMMARY | 2025-04-29 07:45 | XMS_ITS | Encounter Summary ---
Author Organization [employer] ([place], [place], [place], [place], [place]) Address [address] [place] [address] Care Team Providers Care Network Engineering Advisor Name Role Phone Unavailable Primary Care Provider Unavailabl e Encounter Details Date Type Department Care Team (Late st Contact Info) Description 05/10/2019 Transcribed Document [facility] [place] [facility] [place] [address] ProviderCarmela MD [facility] [place], [place] [address] Social History Tobacco Use Types Packs/Day Years Used Date Smoking Tobacco: Never Assessed Comments Unknown Sex and Gender Information Value Date Recorded Sex Assigned at Not on file Legal Sex Female 1:20 PM CDT Gender Identity Not on file Sexual Orientation Not on file documented as of this encounter Miscellaneous Notes * [employer]ner Conversion Note - Historical ProviderMD - 05/10/2019 2:51 AM HAND ROLLER ENGRAVER CR Chest 1 Vw Portable Ordered: 05/09/2019 Modified Reason for Exam: chest tightness 05/09/2019 14:17 05/10/2019 02:51 (Vlad Andre, Christmas Tree Farm Worker) No further action required Electronically signed by Babatunde Pablo Conversion Production Control Scheduler Cerner at 08/18/2022 11:40 AM CDT documented in this encounter Plan of Treatment Not on file documented as of this encounter Visit Diagnoses Not on filedocumented in this encounter
--- OUTSIDE RECORDS SUMMARY | 2025-04-29 07:45 | XMS_ITS | Encounter Summary ---
Author Organization [employer] ([place], [place], [place], [place], [place]) Address [address] [place] [address] Care Team Providers Care Woodworking Machinist Name Role Phone Unavailable Primary Care Provider Unavailabl e Reason for Visit * Reason Onset Date Comments Nutrition Counseling 03/08/2025 Encounter Details Date Type Department Care Team (Late st Contact Info) Description 03/08/2025 Telephone [facility] [address] [facility] [address] [place] [address] Stanislav Cruz MD [address] [place] [address] Nutrition Counseling Social History Tobacco [...] Date Romel rded Speak language other than Cypriot at home Not on file 09/06/2023 Want [...] AM EST Nutrition Note Assessment DOS: 03/08/2025 Mayela Ahn 49 y.o. 1975 Reason for [...] RD - 03/08/2025 - 10:21 AM EST TY SITTER documented in this encounter Plan of Treatment Not on file documented as of this encounter Visit Diagnoses Not on filedocumented in this encounter
--- OUTSIDE RECORDS SUMMARY | 2025-04-29 07:45 | XMS_ITS | Encounter Summary ---
Author Organization [employer] ([place], [place], [place], [place], [place]) Address [address] [place] [address] Care Team Providers Care Canal Structure Operator Name Role Phone Unavailable Primary Care Provider Unavailabl e Encounter Details Date Type Department Care Team (Late st Contact Info) Description 05/23/2019 Transcribed Document [facility] [place] Medicine [facility] [place] [address] ProviderCarmela MD [address] [place] [id number] Social History Tobacco Use Types Packs/Day Years Used Date Smoking Tobacco: Never Assessed Comments Unknown Sex and Gender Information Value Date Recorded Sex Assigned at Not on file Legal Sex Female 1:20 PM CDT Gender Identity Not on file Sexual Orientation Not on file documented as of this encounter Miscellaneous Notes * Cerner Conversion Note - Carmela Feliciano MD - 05/23/2019 8:[address] CONTROLLER DATE OF PROCEDURE: SURGEON: Franklin Bueno MD [...] patient was taken to the recovery area. /[id number] MD FOREST Shannon/MARBELLA / FOREST / ENIO /[id number] Electronically signed by Samy, [facility] Conversion Flattening Press Operator Cerner at 08/18/2022 11:44 AM CDT documented in this encounter Plan of Treatment Not on file documented as of this encounter Visit Diagnoses Not on filedocumented in this encounter
--- OUTSIDE RECORDS SUMMARY | 2025-04-29 07:45 | XMS_ITS | Referral Summary ---
Author Organization [employer] ([place], [place], [place], [place], [place]) Address [address] [place] [address] Care Team Providers Care Bilingual Teacher Aide Name Role Phone Unavailable Primary Care Provider Unavailabl e Encounters Date Type Department Care Team Description 04/15/2025 11:55 AM EST - 04/15/2025 11:59 PM EST Hospital Encounter [facility] [address] [facility] [address] [place] [address] Lukas Regalado MD Chronic sinusitis, unspecified location; Dizziness and giddiness; Deviated nasal septum Discharge Disposition: Home or Self Care 03/08/2025 Telephone [facility] [address] [facility] [address] [place] [address] Stanislav Cruz MD Nutrition Counseling 03/07/2025 Telephone [facility] [address] [facility] [address] [place] [address] Heike Strauss, BILLET GRINDER Status 01/29/2025 Telephone [facility] [address] [facility] [address] [place] [address] Appointment from [...] rded Speak language other than Citizen [place] at home Not on file 09/06/2023 Want [...] file Plan of Treatment Not on file Procedures Procedure Name Priority Date/Time Associated Diagnosis [...] family history of breast cancer. COMPARISON STUDY: [phone] from [facility] FINDINGS: Craniocaudal and mediolateral oblique images [...] the next mammogram. At our facility, a qagan tayagungin marker is positioned over a visible skin lesion and a linear marker is used to indicate a scar. A triangular marker is placed on a self reported palpable finding. Procedure Note Tasha Henderson MD - 08/17/2022 PROCEDURE: Digital screening mammogram with Digital Breast Tomosynthesis (DBT). REASON FOR EXAM: Routine screening. FAMILY HISTORY: There is no family history of breast cancer. COMPARISON STUDY: [phone] from [facility] FINDINGS: Craniocaudal and mediolateral oblique images [...] the next mammogram. At our facility, a qagan tayagungin marker is positioned over a visible skin lesion and a linear marker is used to indicate a scar. A triangular marker is placed on a self reported palpable finding. Tasha Henderson MD [facility] MAMMOGRAPHY ORDERABLES Fin al Result from Last 3 Months or Most Recently Relevant to Health Maintenance Insurance * Guarantor: Renny Ahn Account Type Relation to Patient Date of Phone Billing Address Personal/Family Self 1975 [address] [facility] [address] [place] [address] BLUE CROSS/BLUE SHIELD
--- OUTSIDE RECORDS SUMMARY | 2025-04-29 07:45 | XMS_ITS | Encounter Summary ---
Author Organization [employer] ([place], [place], [place], [place], [place]) Address [address] [place] [address] Care Team Providers Care Finishing Powder Press Operator Name Role Phone Unavailable Primary Care Provider Unavailabl e Encounter Details Date Type Department Care Team (Late st Contact Info) Description 07/12/2019 Transcribed Document [facility] Family Medicine [facility] [place] [address] ProviderCarmela MD [address] [place], [place] [phone] Social History Tobacco Use Types Packs/Day Years [...] Source : Stated Height Entry Format : [place] Height, Feet : 5 ft(Converted to: 152 cm, 60 Inch) Height, Inches : 5 Inch(Converted to: 0 ft 5 Inch, 12.70 cm) Clinical Height : 165.1 cm Weight Source : Standing scale Weight Entry Format : [place] Clinical Dosing Weight : 64.72 kg Weight, Pounds : 142 lb Weight, Ounces : 6 oz Body Surface Area (BSA) : 1.71 m2 Body Mass Index : 23.7 kg/m2 [place] Body Weight : 57 kg RHONDA NEWBY [...] RHONDA NEWBY RN - 07/12/2019 11:00 EDT [place] Suicide Severity Rating Scale (C-SSRS) CSSRS Past [...] Obtained From : Patient Primary Language : Sammarinese Preferred Communication Mode : Verbal Communication Barrier [...] : No Banks Secondary Diagnosis : No BAKNS Use of Ambulatory Aid : None BANKS IV Therapy or IV Access : Yes Banks Gait/Transferring : Normal, bedrest, immobile Banks Mental Status : Oriented to own ability BANKS Fall Scale Risk Level : 0-24 Low Risk [place] Fall Interventions : Adequate lighting, Bed in [...]
--- OUTSIDE RECORDS SUMMARY | 2025-04-29 07:45 | XMS_ITS | Encounter Summary ---
Author Organization [employer] ([place], [place], [place], [place], [place]) Address [address] [place] [address] Care Team Providers Care Transitions Rn Care Coordinator Name Role Phone Unavailable Primary Care Provider Unavailabl e Encounter Details Date Type Department Care Team (Late st Contact Info) Description 06/12/2019 Transcribed Document [facility] [place] [address] [place] [address] ProviderCarmela MD [address] [place] [address] Social History Tobacco Use Types Packs/Day Years Used Date Smoking Tobacco: Never Assessed Comments Unknown Sex and Gender Information Value Date Recorded Sex Assigned at Not on file Legal Sex Female 1:20 PM CDT Gender Identity Not on file Sexual Orientation Not on file documented as of this encounter Miscellaneous Notes * [employer]ner Conversion Note - Historical ProviderMD - 06/12/2019 5:00 PM FIELD CREW CHIEF Chart Check - Review Order Profile Entered [...]
--- OUTSIDE RECORDS SUMMARY | 2025-04-29 07:45 | XMS_ITS | Encounter Summary ---
Author Organization [employer] ([place], [place], [place], [place], [place]) Address [address] [place] [address] Care Team Providers Care Plant Technician/Control Room Operator Name Role Phone Unavailable Primary Care Provider Unavailabl e Encounter Details Date Type Department Care Team (Late st Contact Info) Description 06/12/2019 Transcribed Document [facility] Family Medicine [facility] [place] [address] ProviderCarmela MD [facility] [place] [phone] Social History Tobacco Use Types Packs/Day Years Used Date Smoking Tobacco: Never Assessed Comments Unknown Sex and Gender Information Value Date Recorded Sex Assigned at Not on file Legal Sex Female 1:20 PM CDT Gender Identity Not on file Sexual Orientation Not on file documented as of this encounter Miscellaneous Notes * Cerner Conversion Note - Carmela ProviderMD - 06/12/2019 1:59 PM TELEMARKETING MANAGER ED Discharge Entered On: 06/12/2019 14:00 EST [...] 06/12/2019 13:59 EST Electronically signed by Samy [facility] Conversion Sales Associate Cashier Cerner at 08/18/2022 11:41 AM CDT documented in this encounter Plan of Treatment Not on file documented as of this encounter Visit Diagnoses Not on filedocumented in this encounter
--- OUTSIDE RECORDS SUMMARY | 2025-04-29 07:45 | XMS_ITS | Encounter Summary ---
Author Organization [employer] ([place], [place], [place], [place], [place]) Address [address] [place] [address] Care Team Providers Care Corporate Director Of Pharmacy Name Role Phone Unavailable Primary Care Provider Unavailabl e Encounter Details Date Type Department Care Team (Late st Contact Info) Description 06/12/2019 Transcribed Document [facility] [place] [place] Medicine [facility] [place] [address] ProviderCarmela MD [address] [place], [place] [phone] Social History Tobacco Use Types Packs/Day Years Used Date Smoking Tobacco: Never Assessed Comments Unknown Sex and Gender Information Value Date Recorded Sex Assigned at Not on file Legal Sex Female 1:20 PM CDT Gender Identity Not on file Sexual Orientation Not on file documented as of this encounter Miscellaneous Notes * Cerner Conversion Note - Carmela ProviderMD - 06/12/2019 9:04 AM PHYS THER Pain Assessment Entered On: 06/12/2019 11:29 EST [...]
--- OUTSIDE RECORDS SUMMARY | 2025-04-29 07:45 | XMS_ITS | Encounter Summary ---
Author Organization [employer] ([place], [place], [place], [place], [place]) Address [address] [place] [address] Care Team Providers Care Race Starter Name Role Phone Unavailable Primary Care Provider Unavailabl e Encounter Details Date Type Department Care Team (Late st Contact Info) Description 07/12/2019 Transcribed Document [facility] Family Medicine [facility] [place] [address] ProviderCarmela MD [address] [place] [phone] Social History Tobacco Use Types Packs/Day Years [...] Past Medical History: Active Polycystic ovarian syndrome (492125022) Anxiety disorder (426426631) GERD (gastroesophageal reflux disease) (143443799) Resolved Palpitations (604152064): Resolved. Anemia (742348670): Resolved. At risk for sleep apnea (99810803): Resolved. Procedure history: LAPAROSCOPIC APPENDECTOMY (89889) on 06/12/2019 at 44 Years. hemorrhoidectomy. Tonsillectomy and adenoidectomy (660212296). choleycystectomy. colonoscopy. Dilation and curettage (72155426). cervical ablation. IUD implanted 2015. x 2. [...] Problems Polycystic ovarian syndrome / SNOMED CT 642104347 / Confirmed Anxiety disorder / SNOMED CT 341723505 / Confirmed GERD (gastroesophageal reflux disease) / SNOMED CT 738819392 / Confirmed Snores / SNOMED CT 822145383 / Confirmed Eczema / SNOMED CT 38579418 / Confirmed Resolved: Palpitations / SNOMED CT 657507341 Resolved: Anemia / SNOMED CT 229757333 Resolved: At risk for sleep apnea / IMO 37341953, Active Problems (5) Anxiety disorder Eczema GERD [...] No deformity, Normal gait. Integumentary: Warm, Dry, [place], No rash. Integumentary exam: Face, Chest, Arm, [...] also has reflux. Will proceed with EGD. documented in this encounter Plan of Treatment Not on file documented as of this encounter Visit Diagnoses Not on filedocumented in this encounter
--- OUTSIDE RECORDS SUMMARY | 2025-04-29 07:45 | XMS_ITS | Encounter Summary ---
Author Organization [employer] ([place], [place], [place], [place], [place]) Address [address] [place] [address] Care Team Providers Care Journalists And Other Writers Name Role Phone Unavailable Primary Care Provider Unavailabl e Encounter Details Date Type Department Care Team (Late st Contact Info) Description 06/13/2019 Transcribed Document [facility] [place] [address] ProviderCarmela MD [address] [place] [phone] Social History Tobacco Use Types Packs/Day Years Used Date Smoking Tobacco: Never Assessed Comments Unknown Sex and Gender Information Value Date Recorded Sex Assigned at Not on file Legal Sex Female 1:20 PM CDT Gender Identity Not on file Sexual Orientation Not on file documented as of this encounter Miscellaneous Notes * Cerner Conversion Note - Carmela ProviderMD - 06/13/2019 9:15 AM CONCRETING SUPERVISOR Final Discharge Planning Entered On: 06/13/2019 9:15 EST Performed On: 06/13/2019 9:15 EST by TODD CAMARENA RN-Head Up Operator Helper Final Discharge Planning Discharge Arrangements : Patient Post-Acute Information Patient Name: RENNY SUGGS Gender: Female : [birth year] Age: 44 Years No Post-Acute Placement(s) Listed No Post-Acute Service(s) Listed No [place] Referral(s) Listed Transportation Needs : Family/Friend Follow Up Appointment Scheduled : Yes Is Patient High/Moderate Readmission Risk? : No Patient/Family Notified of Plan : Yes Discharge To Care Management : Home/Residential/Detention or Self Care -01 TODD CAMARENA, RN-Head Up Operator Helper - 06/13/2019 9:15 EST Electronically signed by Samy [facility] Conversion Fire Protection Fabricator Cerner at 08/18/2022 11:41 AM CDT documented in this encounter Plan of Treatment Not on file documented as of this encounter Visit Diagnoses Not on filedocumented in this encounter
--- OUTSIDE RECORDS SUMMARY | 2025-04-29 07:45 | XMS_ITS | Encounter Summary ---
Author Organization [employer] ([place], [place], [place], [place], [place]) Address [address] [place] [address] Care Team Providers Care Pacs Specialist Name Role Phone Unavailable Primary Care Provider Unavailabl e Encounter Details Date Type Department Care Team (Late st Contact Info) Description 06/13/2019 Transcribed Document [facility] [address] [place] [address] ProviderCarmela MD [address] [place], [place] [address] Social History Tobacco Use Types Packs/Day Years Used Date Smoking Tobacco: Never Assessed Comments Unknown Sex and Gender Information Value Date Recorded Sex Assigned at Not on file Legal Sex Female 1:20 PM CDT Gender Identity Not on file Sexual Orientation Not on file documented as of this encounter Miscellaneous Notes * Cerner Conversion Note - Historical ProviderMD - 06/13/2019 5:00 AM SALESPERSON WOMEN'S DRESSES Chart Check - Review Order Profile Entered On: 06/13/2019 6:44 EST Performed On: 06/13/2019 5:00 EST by Kailee Esqueda, Audit Consultant-Nursing Chart Check Powerplans Initiated/Discontinued as Appropriate : Yes All Active Orders Reviewed : Yes Kailee Esqueda, Audit Consultant-Nursing - 06/13/2019 6:44 EST Electronically signed by [facility] Conversion Equalizing Saw Operator Cerner at 08/18/2022 11:41 AM CDT documented in this encounter Plan of Treatment Not on file documented as of this encounter Visit Diagnoses Not on filedocumented in this encounter
--- OUTSIDE RECORDS SUMMARY | 2025-04-29 07:45 | XMS_ITS | Encounter Summary ---
Author Organization [employer] ([place], [place], [place], [place], [place]) Address [address] [place] [address] Care Team Providers Care Skilled Trades Teacher Name Role Phone Unavailable Primary Care Provider Unavailabl e Encounter Details Date Type Department Care Team (Late st Contact Info) Description 06/12/2019 Transcribed Document [facility] [place] [facility] [place] [address] ProviderCarmela MD [address] [place] [phone] Social History Tobacco Use Types Packs/Day Years Used Date Smoking Tobacco: Never Assessed Comments Unknown Sex and Gender Information Value Date Recorded Sex Assigned at Not on file Legal Sex Female 1:20 PM CDT Gender Identity Not on file Sexual Orientation Not on file documented as of this encounter Miscellaneous Notes * Cerner Conversion Note - Carmela Feliciano MD - 06/12/2019 8:41 AM TERRAZZO SUPERVISOR Patient: RENNY AHN Age: 44 years Sex: [...] History Surgical history: hemorrhoidectomy. Tonsillectomy and adenoidectomy (657176898). choleycystectomy. colonoscopy. Dilation and curettage (94261681). cervical ablation. IUD implanted 2016. x 2. [...] EST Height Source Stated Height Entry Format [place] Height/Length, JAPANESE (ft) 5 ft Height/Length JAPANESE 5 Inch CLINICALHEIGHT 165.1 cm [place] Body Weight 56.59 kg Weight Source, ED Standing scale Weight Entry Format [place] Weight Vietnamese lb 145 lb CLINICALWEIGHT 65.91 kg Body [...] % LOW Lymph # 0.70 K/uL LOW [place] % 4.8 % [place] # 0.42 K/uL Eos % 0.3 % [...] DK YELLOW Urine Appearance Cloudy Urine Specific [place] 1.030 Urine pH Dipstick 7.5 Urine Leukocyte [...] Radiology results: Radiology Results (Last 48 hours) [id number] -- 06/12/2019 08:16 CT Abdomen Pelvis W [...]
--- OUTSIDE RECORDS SUMMARY | 2025-04-29 07:46 | XMS_ITS | Encounter Summary ---
Author Organization [employer] ([place], [place], [place], [place], [place]) Address [address] [place] [address] Care Team Providers Care Water Hauler Name Role Phone Unavailable Primary Care Provider Unavailabl e Encounter Details Date Type Department Care Team (Late st Contact Info) Description 06/12/2019 Transcribed Document [facility] [place] [facility] [address] ProviderCarmela MD [address] [place], [place] [address] Social History Tobacco Use Types Packs/Day Years Used Date Smoking Tobacco: Never Assessed Comments Unknown Sex and Gender Information Value Date Recorded Sex Assigned at Not on file Legal Sex Female 1:20 PM CDT Gender Identity Not on file Sexual Orientation Not on file documented as of this encounter Miscellaneous Notes * Cerner Conversion Note - Carmela ProviderMD - 06/12/2019 5:51 PM INTERPRETER FOR THE DEAF Pain Assessment Entered On: 06/13/2019 6:44 EST Performed On: 06/13/2019 3:57 EST by Kailee Esqueda, Percussion Welding Machine Operator-Nursing Intervention Information: acetaminophen-oxyCODONE Performed by Kailee Esqueda, Percussion Welding Machine Operator-Nursing on 06/13/2019 02:57:00 EST acetaminophen-oxyCODONE,1Tab Oral,Pain (Moderate 4-6) Pain Assessment Pain Assessment : Follow-up assessment Pain Scale Goal : 2 Pain Scale Used : 0-10 Scale Kailee Esqueda, Percussion Welding Machine Operator-Nursing - 06/13/2019 6:43 EST Pain Scale Intensity : 1 Kailee Esqueda, Percussion Welding Machine Operator-Nursing - 06/13/2019 6:43 EST Image 4 - Images currently included in the form version of this document have not been included in the text rendition version of the form. documented in this encounter Plan of Treatment Not on file documented as of this encounter Visit Diagnoses Not on filedocumented in this encounter
--- OUTSIDE RECORDS SUMMARY | 2025-04-29 07:46 | XMS_ITS | Encounter Summary ---
Author Organization [employer] ([place], [place], [place], [place], [place]) Address [address] [place] [address] Care Team Providers Care Public Relations Writer Name Role Phone Unavailable Primary Care Provider Unavailabl e Encounter Details Date Type Department Care Team (Late st Contact Info) Description 06/13/2019 Transcribed Document [facility] [place] Family [place] [facility] [place] [address] ProviderCarmela MD [address] [place], [place] [phone] Social History Tobacco Use Types Packs/Day Years Used Date Smoking Tobacco: Never Assessed Comments Unknown Sex and Gender Information Value Date Recorded Sex Assigned at Not on file Legal Sex Female 1:20 PM CDT Gender Identity Not on file Sexual Orientation Not on file documented as of this encounter Miscellaneous Notes * Cerner Conversion Note - Carmela ProviderMD - 06/13/2019 9:21 AM JAILKEEPER Nursing Discharge Summary Entered On: 06/13/2019 9:21 EST Performed On: 06/13/2019 9:21 EST by Sherry Duffy RN Discharge Documentation Discharge Date/Time : 06/13/2019 9:20 EST Patient Disposition, General : Discharge Discharge To : Home with ambulatory/outpatient follow-up Sherry Duffy RN - 06/13/2019 9:21 EST Electronically signed by Babatunde Pablo Conversion Food Checkers And Cashiers Supervisor Cerner at 08/18/2022 11:21 AM CDT documented in this encounter Plan of Treatment Not on file documented as of this encounter Visit Diagnoses Not on filedocumented in this encounter
--- OUTSIDE RECORDS SUMMARY | 2025-04-29 07:46 | XMS_ITS | Encounter Summary ---
Author Organization [employer] ([place], [place], [place], [place], [place]) Address [address] [place] [address] Care Team Providers Care Ore Fielder Name Role Phone Unavailable Primary Care Provider Unavailabl e Encounter Details Date Type Department Care Team (Late st Contact Info) Description 06/12/2019 Transcribed Document [facility] [place] [address] ProviderCarmela MD [address] [place] [phone] Social History Tobacco Use Types Packs/Day Years Used Date Smoking Tobacco: Never Assessed Comments Unknown Sex and Gender Information Value Date Recorded Sex Assigned at Not on file Legal Sex Female 1:20 PM CDT Gender Identity Not on file Sexual Orientation Not on file documented as of this encounter Miscellaneous Notes * Cerner Conversion Note - Carmela ProviderMD - 06/12/2019 8:16 AM LION TAMER ED Triage Entered On: 06/12/2019 8:21 EST [...] : 3 - Urgent Tracking Group : [facility] ED [place] ISAEL GREENE RN - 06/12/2019 [...] 06/12/2019 08:21:36 EST) Problems(Active) Anemia (SNOMED CT :018156075 ) Name of Problem: Anemia ; Recorder: Kindra Garcias Rn; Confirmation: Confirmed ; Classification: Medical ; Code: [id number] ; Contributor System: [employer] ; Last Updated: 01/25/2018 9:58 EDT ; Life Cycle Date: 01/25/2018 ; Life Cycle Status: Active ; Vocabulary: SNOMED CT Anxiety disorder (SNOMED CT :010740310 ) Name of Problem: Anxiety disorder ; Recorder: ANJEL SANTANA RN; Confirmation: Confirmed ; Classification: Medical ; Code: 550887240 ; Contributor System: [employer] ; Last Updated: 11/07/2017 10:31 EDT ; Life Cycle Date: 11/07/2017 ; Life Cycle Status: Active ; Vocabulary: SNOMED CT Eczema (SNOMED CT :87107510 ) Name of Problem: Eczema ; Recorder: Cha Rawls RN; Confirmation: Confirmed ; Classification: Medical ; Code: [id number] ; Contributor System: [employer] ; Last Updated: 02/02/2018 6:05 EDT ; Life Cycle Date: 02/02/2018 ; Life Cycle Status: Active ; Vocabulary: SNOMED CT GERD (gastroesophageal reflux disease) (SNOMED CT :939907320 ) Name of Problem: GERD (gastroesophageal reflux disease) ; Recorder: ANJEL SANTANA RN; Confirmation: Confirmed ; Classification: Medical ; Code: [id number] ; Contributor System: [employer] ; Last Updated: 11/07/2017 10:32 EDT ; Life Cycle Date: 11/07/2017 ; Life Cycle Status: Active ; Vocabulary: SNOMED CT Polycystic ovarian syndrome (SNOMED CT :509794106 ) Name of Problem: Polycystic ovarian syndrome ; Recorder: ANJEL SANTANA RN; Confirmation: Confirmed ; Classification: Medical ; Code: [id number] ; Contributor System: [employer] ; Last Updated: 11/07/2017 10:31 EDT ; Life Cycle Date: 11/07/2017 ; Life Cycle Status: Active ; Vocabulary: SNOMED CT Snores (SNOMED CT :637793776 ) Name of Problem: Snores ; Recorder: Kindra Garcias Rn; Confirmation: Confirmed ; Classification: Medical ; Code: [id number] ; Contributor System: [employer] ; Last Updated: 01/25/2018 9:54 EDT ; Life Cycle Date: 01/25/2018 ; Life Cycle Status: Active ; Vocabulary: SNOMED CT Diagnoses(Active) Abdominal pain Date: 06/12/2019 ; Diagnosis Type: Reason For Visit ; Confirmation: Complaint of ; Clinical Dx: Abdominal pain ; Classification: Medical ; Clinical Service: Emergency medicine ; Code: PNED ; Probability: 0 ; Diagnosis Code: [id number] ED Height and Weight Height Source : Stated Height Entry Format : [place] Height, Feet : 5 ft(Converted to: 152 cm, 60 Inch) Height, Inches : 5 Inch(Converted to: 0 ft 5 Inch, 12.70 cm) Clinical Height : 165.1 cm Weight Source, ED : Standing scale Weight Entry Format : [place] Weight, Pounds : 145 lb Clinical Dosing Weight : 65.91 kg Body Surface Area (BSA) : 1.73 m2 Body Mass Index : 24.2 kg/m2 (HI) [place] Body Weight (IBW) : 56.59 kg ISAEL GREENE RN - 06/12/2019 8:19 EST ED Influenza/Pneumoccocal Vaccine Influenza Immunization, Current Season : No Previous Vaccines from Immunization Schedule : No qualifying data available. ISAEL GREENE RN - 06/12/2019 8:19 EST documented in this encounter Plan of Treatment Not on file documented as of this encounter Visit Diagnoses Not on filedocumented in this encounter
--- OUTSIDE RECORDS SUMMARY | 2025-04-29 07:46 | XMS_ITS | Encounter Summary ---
Author Organization [employer] ([place], [place], [place], [place], [place]) Address [address] [place] [address] Care Team Providers Care Psychologist Name Role Phone Unavailable Primary Care Provider Unavailabl e Encounter Details Date Type Department Care Team (Late st Contact Info) Description 06/13/2019 Transcribed Document [facility] - [address] [facility] [address] [place] [address] Nick Thurman MD [address] [place] [address] Social History Tobacco Use Types Packs/Day Years [...] Augmentin BID for 3 days. Abdominal pain [id number] Acute appendicitis with rupture K35.32 Unspecified appendicitis K37, Unspecified appendicitis K37 Orders: Discharge Pathology Tissue Request Resuscitation Status SENDOUT REPORT Medications Inpatient Colace, 100 mg= 1 Cap, Oral, BID Levaquin, 750 mg= 150 mL, IV Piggyback, [id number] Lopressor, 5 mg= 5 mL, IV Push, [...] 24 Hours) Radiology Results (Last 48 hours) [id number] -- 06/12/2019 13:55 CT Abdomen Pelvis W [...]
--- OUTSIDE RECORDS SUMMARY | 2025-04-29 07:46 | XMS_ITS | Encounter Summary ---
Author Organization [employer] ([place], [place], [place], [place], [place]) Address [address] [place] [address] Care Team Providers Care Dyeing Machine Back Tender Name Role Phone Unavailable Primary Care Provider Unavailabl e Encounter Details Date Type Department Care Team (Late st Contact Info) Description 06/13/2019 Transcribed Document [facility] [place] [address] [place] [address] Melina Jensen MD [address] [place] [address] Social History Tobacco Use Types Packs/Day Years [...]
--- OUTSIDE RECORDS SUMMARY | 2025-04-29 07:46 | XMS_ITS | Encounter Summary ---
Author Organization [employer] ([place], [place], [place], [place], [place]) Address [address] [place] [address] Care Team Providers Care Medical Underwriter Name Role Phone Unavailable Primary Care Provider Unavailabl e Encounter Details Date Type Department Care Team (Late st Contact Info) Description 06/13/2019 Transcribed Document [facility] [place] [facility] [place] [address] ProviderCarmela MD [address] [place] [address] [phone] Social History Tobacco Use Types Packs/Day Years Used Date Smoking Tobacco: Never Assessed Comments Unknown Sex and Gender Information Value Date Recorded Sex Assigned at Not on file Legal Sex Female 1:20 PM CDT Gender Identity Not on file Sexual Orientation Not on file documented as of this encounter Miscellaneous Notes * Cerner Conversion Note - Carmela Feliciano MD - 06/13/2019 8:43 AM OUTREACH ANALYST Patient Education Materials Follows: Appendicitis, Pediatric The [...] taking him or her home: ??? Give ywev-ubq-icusmld and prescription medicines only as told by [...] 07/14/2017 Elsevier Interactive Patient Education ? 2019 [employer] Electronically signed by Babatunde Pablo Conversion Detective Automobile Section Cerner at 08/18/2022 11:29 AM CDT documented in this encounter Plan of Treatment Not on file documented as of this encounter Visit Diagnoses Not on filedocumented in this encounter
--- OUTSIDE RECORDS SUMMARY | 2025-04-29 07:46 | XMS_ITS | Encounter Summary ---
Author Organization [email or web address] ([place], [place], [place], [place], [place]) Address [address] [place] [address] Care Team Providers Care Vice President Integrated Name Role Phone Unavailable Primary Care Provider Unavailabl e Encounter Details Date Type Department Care Team (Late st Contact Info) Description 06/12/2019 Transcribed Document [facility] [place] [facility] [place] [address] ProviderCarmela MD [address] [place] [phone] Social History Tobacco Use Types Packs/Day Years Used Date Smoking Tobacco: Never Assessed Comments Unknown Sex and Gender Information Value Date Recorded Sex Assigned at Not on file Legal Sex Female 1:20 PM CDT Gender Identity Not on file Sexual Orientation Not on file documented as of this encounter Miscellaneous Notes * Cerner Conversion Note - Carmela Feliciano MD - 06/12/2019 1:31 PM CONSULTING SOLUTION DIRECTOR Patient: RENNY AHN Age: 44 years Sex: [...] it.. Surgical history: hemorrhoidectomy. Tonsillectomy and adenoidectomy ([id number]). choleycystectomy. colonoscopy. Dilation and curettage ([id number]). cervical ablation. IUD implanted 2015. x 2. [...] EST Height Source Stated Height Entry Format [place] Height/Length, ESTONIAN (ft) 5 ft Height/Length ESTONIAN 5 Inch CLINICALHEIGHT 165.1 cm [place] Body Weight 56.59 kg Weight Source, ED Standing scale Weight Entry Format [place] Weight Wallisian lb 145 lb CLINICALWEIGHT 65.91 kg Body [...] % LOW Lymph # 0.70 K/uL LOW Butts % 4.8 % Butts # 0.42 K/uL Eos % 0.3 % [...] DK YELLOW Urine Appearance Cloudy Urine Specific [place] 1.030 Urine pH Dipstick 7.5 Urine Leukocyte [...] Radiology results: Radiology Results (Last 48 hours) [id number] -- 06/12/2019 13:55 CT Abdomen Pelvis W [...] report delayed. I called CT recheck abd roll tender CT recults noted and worrisome for a [...] care transitioned to: TO OR Dr Thurman. Electronically signed by Babatunde Pablo Conversion Color Checker Roving Or Yarn Cerner at 08/18/2022 11:46 AM CDT documented in this encounter Plan of Treatment Not on file documented as of this encounter Visit Diagnoses Not on filedocumented in this encounter
--- OUTSIDE RECORDS SUMMARY | 2025-04-29 07:46 | XMS_ITS | Encounter Summary ---
Author Organization [employer] ([place], [place], [place], [place], [place]) Address [address] [place] [address] Care Team Providers Care Cable Ferryboat Operator Name Role Phone Unavailable Primary Care Provider Unavailabl e Encounter Details Date Type Department Care Team (Late st Contact Info) Description 06/13/2019 Transcribed Document [facility] [place] [facility] [place] [address] ProviderCarmela MD [address] [place], [place] [address] Social History Tobacco Use Types Packs/Day Years Used Date Smoking Tobacco: Never Assessed Comments Unknown Sex and Gender Information Value Date Recorded Sex Assigned at Not on file Legal Sex Female 1:20 PM CDT Gender Identity Not on file Sexual Orientation Not on file documented as of this encounter Miscellaneous Notes * Cerner Conversion Note - Historical ProviderMD - 06/13/2019 2:00 AM LEAD SPRINKLER Roller Repairer Details Entered On: 06/13/2019 2:21 EST Performed On: 06/13/2019 2:00 EST by Kailee Esqueda, Loan Expeditor-Nursing Order Details Transport Mode Order Detail : Wheelchair Isolation Precautions Order Detail : Standard Precautions Order Detail : 0 IV Order Detail : 1 Oxygen Order Detail : 0 Nurse Collect Order Detail : 0 Lift/Transfer : Minimal Central Line Order Detail : No Room Service : Appropriate Arterial Line : No Kailee Esqueda, Loan Expeditor-Nursing - 06/13/2019 2:21 EST documented in this encounter Plan of Treatment Not on file documented as of this encounter Visit Diagnoses Not on filedocumented in this encounter
--- OUTSIDE RECORDS SUMMARY | 2025-04-29 07:46 | XMS_ITS | Encounter Summary ---
Author Organization [employer] ([place], [place], [place], [place], [place]) Address [address] [place] [address] Care Team Providers Care Product Engineering Manager Name Role Phone Unavailable Primary Care Provider Unavailabl e Encounter Details Date Type Department Care Team (Late st Contact Info) Description 06/12/2019 Transcribed Document [facility] [place] Medicine [facility] [address] ProviderCarmela MD [facility] [place] [phone] Social History Tobacco Use Types Packs/Day Years Used Date Smoking Tobacco: Never Assessed Comments Unknown Sex and Gender Information Value Date Recorded Sex Assigned at Not on file Legal Sex Female 1:20 PM CDT Gender Identity Not on file Sexual Orientation Not on file documented as of this encounter Miscellaneous Notes * Cerner Conversion Note - Carmela ProviderMD - 06/12/2019 5:51 PM BOOK REVIEWER Pain Assessment Entered On: 06/13/2019 2:21 EST Performed On: 06/12/2019 20:30 EST by Kailee Esqueda, Television Camera Operator-Nursing Intervention Information: morphine Performed by Kailee Esqueda, Television Camera Operator-Nursing on 06/12/2019 20:00:00 EST morphine,2mg IV Push,Left Antecubital Silt,Pain (Severe 7-10) Pain Assessment Pain Assessment : Follow-up assessment Pain Scale Goal : 2 Pain Scale Used : 0-10 Scale Kailee Esqueda, Television Camera Operator-Nursing - 06/13/2019 2:20 EST Pain Scale Intensity : 1 Kailee Esqueda, Television Camera Operator-Nursing - 06/13/2019 2:20 EST Image 4 - Images currently included in the form version of this document have not been included in the text rendition version of the form. documented in this encounter Plan of Treatment Not on file documented as of this encounter Visit Diagnoses Not on filedocumented in this encounter
--- OUTSIDE RECORDS SUMMARY | 2025-04-29 07:46 | XMS_ITS | Encounter Summary ---
Author Organization [employer] ([place], [place], [place], [place], [place]) Address [address] [place] [address] Care Team Providers Care Gauger Delivery Name Role Phone Unavailable Primary Care Provider Unavailabl e Encounter Details Date Type Department Care Team (Late st Contact Info) Description 06/13/2019 Transcribed Document [facility] [place] [facility] [place] [address] ProviderCarmela MD [address] [place] [phone] Social History Tobacco Use Types Packs/Day Years Used Date Smoking Tobacco: Never Assessed Comments Unknown Sex and Gender Information Value Date Recorded Sex Assigned at Not on file Legal Sex Female 1:20 PM CDT Gender Identity Not on file Sexual Orientation Not on file documented as of this encounter Miscellaneous Notes * Cerner Conversion Note - Carmela ProviderMD - 06/13/2019 9:12 AM COMPUTER NETWORKING INSTRUCTOR ADJUNCT Initial Discharge Planning Entered On: 06/13/2019 9:15 EST Performed On: 06/13/2019 9:12 EST by TODD CAMARENA RN-Trauma Doctor Initial Assessment I Previously Documented Living Environment [...] have PCP Listed? : Yes TODD CAMARENA RN-Trauma Doctor - 06/13/2019 9:12 EST Initial Assessment II Sensory and Motor Deficits : None Current Home Treatments and Equipment : None TODD CAMARENA RN-Trauma Doctor - 06/13/2019 9:12 EST Discharge Needs I Anticipated Discharge To, CM : Home with family care Current Home Treatment/Equipment : Current Home Treatment/Equipment No qualifying data available. Post Acute/Home Treatments : None Documentation Status Complete : Yes TODD CAMARENA RN-Trauma Doctor - 06/13/2019 9:12 EST Discharge Needs II Professional Skilled Services : Professional Skilled Services No qualifying data available. Needs Assistance with Transportation : No Discharge Options Discussed with Patient : Discharge transportation, Outpatient services TODD CAMARENA RN-Trauma Doctor - 06/13/2019 9:12 EST Narrative Note Narrative Note : Patient underwent laparoscopic appendectomy. Lives at home with family, I with ADLs, plan is to return home at [place] with family, no services needed..........sds TODD CAMARENA RN-Trauma Doctor - 06/13/2019 9:12 EST documented in this encounter Plan of Treatment Not on file documented as of this encounter Visit Diagnoses Not on filedocumented in this encounter
--- OUTSIDE RECORDS SUMMARY | 2025-04-29 07:47 | XMS_ITS | Encounter Summary ---
Author Organization [employer] ([place], [place], [place], [place], [place]) Address [address] [place] [address] Care Team Providers Care Strategic Planning Consultant Name Role Phone Unavailable Primary Care Provider Unavailabl e Encounter Details Date Type Department Care Team (Late st Contact Info) Description 07/12/2019 Transcribed Document [facility] [place] [facility] [place] [address] ProviderCarmela MD [address] [place] [address] [phone] Social History Tobacco Use Types Packs/Day Years Used Date Smoking Tobacco: Never Assessed Comments Unknown Sex and Gender Information Value Date Recorded Sex Assigned at Not on file Legal Sex Female 1:20 PM CDT Gender Identity Not on file Sexual Orientation Not on file documented as of this encounter Miscellaneous Notes * Cerner Conversion Note - Carmela ProviderMD - 07/12/2019 1:11 PM CDT [address] [address] RENNY SUGGS :1975 Visit Time:07/12/2019 [...] twice a day before meals. Where: [address] [place] [address]- Follow Up with CLIFF BETH MD-GAE When Within As needed Comments Review recommendations given, call for any questions or concerns. Resume previous diet, continue present medications, await pathology results. Start Baclofen. Where: [address] [facility] [address] [place] [address]- Medications What How Much When [...] Follow these instructions at home: ??? Take zsnb-ipk-hpbbgfl and prescription medicines only as told by [...] 04/12/2002 Document Revised: 11/29/2017 Document Reviewed: 01/10/2016 [employer] Interactive Patient Education ?? 2019 [employer] Esophagogastroduodenoscopy, Care After Refer to this [...] 04/04/2013 Document Revised: 09/23/2016 Document Reviewed: 03/11/2016 [employer] Interactive Patient Education ?? 2019 [employer] Esophagogastroduodenoscopy, Care After Refer to this [...] 04/04/2013 Document Revised: 09/23/2016 Document Reviewed: 03/11/2016 [employer] Interactive Patient Education ?? 2019 [employer]. baclofen (VIOLETTA malik fen) FIRST Baclofen What [...] may report side effects to FDA at 9-879-LNJ-3184. What other drugs will affect baclofen? Taking baclofen with other drugs that make you sleepy or slow your breathing can cause dangerous side effects or . Ask your doctor before using opioid medication, a sleeping pill, a muscle relaxer, or medicine for anxiety or seizures. Other drugs may affect baclofen, including prescription and ihqq-hmq-oetgygh medicines, vitamins, and herbal products. Tell your [...] to ensure that the information provided by [employer]. ('[employer]') is accurate, up-to-date, and complete, but no guarantee is made to that effect. Drug information contained herein may be time sensitive. [employer] information has been compiled for use by healthcare practitioners and consumers in the [place] and therefore [employer] does not warrant that uses outside of the [place] are appropriate, unless specifically indicated otherwise. [employer]'s drug information does not endorse drugs, diagnose patients or recommend therapy. [employer] drug information is an informational resource designed [...] effective or appropriate for any given patient. [employer] does not assume any responsibility for any aspect of healthcare administered with the aid of information [employer] provides. The information contained herein is not intended to cover all possible uses, directions, precautions, warnings, drug interactions, allergic reactions, or adverse effects. If you have questions about the drugs you are taking, check with your doctor, nurse or pharmacist. Copyright 2003-7439 [employer]. Version: 7.01. Revision Date: 12/09/2017. Emergency Awareness [...] Assistance with quitting is available by contacting 8-518-WSDNOakmonkeyNOW. This is a free resource providing counseling, [...] was given the opportunity to ask questions. Patient/Doctor Chiropractic Name: Patient/Doctor Chiropractic Signature: Relationship to Patient: Clinician/Hospital Doctor Chiropractic Signature: Date: Electronically signed by Samy, [facility] Conversion Theatre Manager Alma at 08/18/2022 11:33 AM CDT documented in this encounter Plan of Treatment Not on file documented as of this encounter Visit Diagnoses Not on filedocumented in this encounter
--- OUTSIDE RECORDS SUMMARY | 2025-04-29 07:47 | XMS_ITS | Encounter Summary ---
Author Organization [employer] ([place], [place], [place], [place], [place]) Address [address] [place] [address] Care Team Providers Care Urinalysis Technician Name Role Phone Unavailable Primary Care Provider Unavailabl e Encounter Details Date Type Department Care Team (Late st Contact Info) Description 07/12/2019 Transcribed Document [facility] [place] [facility] [place] [address] ProviderCarmela MD [address] [place] [phone] Social History Tobacco Use Types Packs/Day Years [...] RENNY AHN/Sex: 1975 Female Med Rec #: [id number] Physician: CLIFF BETH MD-GAE Financial #: [id number] Pt. Type: E Room/Bed: 14 Admit/Disch: 07/12/19 10:27:00 - Institution: [facility] PACU Case Times Entry 1 In PACU I 07/12/19 12:39:00 Ready for PACU 07/12/19 13:08:00 Discharge Discharge from PACU 07/12/19 13:15:00 I CHELSEA Lebron PACU Case Times Audit 07/12/19 13:29:25 Correspondence Review Clerk: JOHANNA Modifier: [email or web address] <+> 1 Discharge from PACU I 07/12/19 13:29:14 Correspondence Review Clerk: [id number] Modifier: [email or web address] <+> 1 Ready for PACU Discharge Finalized By: CLIFF BAER RN Document Signatures Signed By: CLIFF BAER RN 07/12/19 13:29 documented in this encounter Plan of Treatment Not on file documented as of this encounter Visit Diagnoses Not on filedocumented in this encounter
--- OUTSIDE RECORDS SUMMARY | 2025-04-29 07:47 | XMS_ITS | Encounter Summary ---
Author Organization [employer] ([place], [place], [place], [place], [place]) Address [address] [place] [address] Care Team Providers Care Teletypewriter Installer Name Role Phone Unavailable Primary Care Provider Unavailabl e Encounter Details Date Type Department Care Team (Late st Contact Info) Description 07/12/2019 Transcribed Document [facility] [place] [facility] [place] [address] ProviderCarmela MD [address] [place] [phone] Social History Tobacco Use Types Packs/Day Years [...] MD-GAE Finalized Date/Time: 07/12/19 12:44:03 Pt. Name: IFEANYI RENNYGENOVEVA Morin/Sex: 1975 Female Med Rec #: [id number] Physician: CLIFF BETH MD-GAE Financial #: [id number] Pt. Type: E [place] [facility] [place]mit/Disch: 07/12/19 10:27:00 - [place] [facility] [place] - Case Attendance Entry 1 Entry 2 Entry 3 Case Attendee Shaista BETH TOBI J, RN CHILDERS, BRIAN, CELINE CORONADO MD-GAE Role Performed Surgeon/Proceduralist, Senior Graduate Advisor, First Scrub, First First Time In 07/12/19 [...] Attendee PARIS LITTLE SMITH, DOROTHY, URBANO JARA IMPROVEMENT LEADER-ANS Role Performed IMPROVEMENT LEADER/Nurse Cuffing Machine Operator Senior Graduate Advisor, First Scrub, First Time In 07/12/19 12:20:00 07/12/19 12:25:00 07/12/19 12:29:00 Time Out 07/12/19 12:42:00 07/12/19 12:42:00 07/12/19 12:42:00 Procedure Esophagogastroduodenosco Esophagogastroduodenosco Esophagogastroduodenosco py, Duodenal Biopsy py, Duodenal Biopsy py, Duodenal Biopsy Other Attendee Superficial Wound Closed By: Last Modified By: JOSE SHORT, JOSE STERN RN SMITH, DOROTHY, RN 07/12/19 12:43:01 07/12/19 12:43:01 07/12/19 12:43:01 [facility] - Case Attendance Audit 07/12/19 12:43:01 Composition Teacher: AMINATA Modifier: AMINATA 1 <+> Time Out 1 <*> Procedure Esophagogastroduodenoscopy, Duodenal Biopsy 2 <*> Procedure Esophagogastroduodenoscopy, Duodenal Biopsy 3 <*> Procedure Esophagogastroduodenoscopy, Duodenal Biopsy 4 <+> Time Out 4 <*> Procedure Esophagogastroduodenoscopy, Duodenal Biopsy 5 <+> Time Out 5 <*> Procedure Esophagogastroduodenoscopy, Duodenal Biopsy 6 <+> Time Out 6 <*> Procedure Esophagogastroduodenoscopy, Duodenal Biopsy 07/12/19 12:35:30 Composition Teacher: AMINATA Modifier: SMITDO 1 <*> Procedure Esophagogastroduodenoscopy 2 <*> Procedure Esophagogastroduodenoscopy 3 <*> Procedure Esophagogastroduodenoscopy 4 <*> Procedure Esophagogastroduodenoscopy 5 <*> Procedure Esophagogastroduodenoscopy 6 <*> Procedure Esophagogastroduodenoscopy 07/12/19 12:34:38 Composition Teacher: KERRYT Modifier: SMITDO 2 <+> Time Out 2 <*> Procedure Esophagogastroduodenoscopy <+> 5 Case Attendee <+> 5 Role Performed <+> 5 Time In <+> 5 Procedure <+> 6 Case Attendee <+> 6 Role Performed <+> 6 Time In <+> 6 Procedure 07/12/19 12:31:42 Composition Teacher: KERRYTDO Modifier: SMITDO <+> 1 Procedure 2 <*> Procedure Esophagogastroduodenoscopy 3 <*> Procedure Esophagogastroduodenoscopy 4 <*> Procedure Esophagogastroduodenoscopy 07/12/19 12:29:24 Composition Teacher: JORJE Modifier: SMITDO 2 <+> Time In 2 <*> Procedure Esophagogastroduodenoscopy 3 <+> Time In 3 <+> Time Out 3 <*> Procedure Esophagogastroduodenoscopy 4 <+> Time In 4 <*> Procedure Esophagogastroduodenoscopy [facility] [place] - Case Times Entry 1 Patient In Room Time 07/12/19 12:20:00 Out Room Time 07/12/19 12:42:00 Anesthesia Start Time 07/12/19 12:20:00 Stop Time 07/12/19 12:34:00 Anesthesia Ready 07/12/19 12:20:00 Surgery / Procedure Times Start Time 07/12/19 12:29:00 Stop Time 07/12/19 12:34:00 Last Modified By: SABRINA Noonan RN 07/12/19 12:22:43 [facility] - Case Times Audit 07/12/19 12:42:29 Composition Teacher: SMITDO Modifier: SMITDO <+> 1 Out Room Time <+> 1 Stop Time <+> 1 Stop Time 07/12/19 12:29:05 Composition Teacher: JORJE Modifier: SMITDO <+> 1 Start Time [...] 07/12/19 12:24:03 [facility] - General Case Family Intervention Specialist 1 Case Information [facility] End[facility] 02 [facility] Case Level 1 Room Verified Yes Wound Class II - Clean-Contaminated Specialty SN Gastroenterology Anesthesia Type MAC ASA Class 3 Diagnosis Preop Diagnosis GERD, dysphagia Postop Same As Preop No Postop Diagnosis gastritis, evidence of gastric sleeve Last Modified By: SABRINA Noonan RN 07/12/19 12:24:31 [facility] - General Case Data Audit 07/12/19 12:42:54 Composition Teacher: JORJE Modifier: SMITDO <+> 1 Postop Diagnosis [...] Endo - Patient Positioning Audit 07/12/19 12:35:32 Composition Teacher: KERRYDOLLY Modifier: SMITDO 1 <*> Procedure Esophagogastroduodenoscopy [...] Endo - Surgical Procedures Audit 07/12/19 12:43:16 Composition Teacher: AMINATA Modifier: SMITDO <+> 1 Stop <+> 2 Stop 07/12/19 12:35:26 Composition Teacher: AMINATA Modifier: SMITDO 1 <*> Procedure Esophagogastroduodenoscopy [...] SHORT, RN Document Signatures Signed By: JOSE SHORT RN 07/12/19 12:44 Electronically signed by Samy [facility] Conversion Organization Development Consultant Cerner at 08/18/2022 11:39 AM CDT documented in this encounter Plan of Treatment Not on file documented as of this encounter Visit Diagnoses Not on filedocumented in this encounter
--- OUTSIDE RECORDS SUMMARY | 2025-04-29 07:48 | XMS_ITS | Encounter Summary ---
Author Organization [employer] ([place], [place], [place], [place], [place]) Address [address] [place] [address] Care Team Providers Care Inside Sales Name Role Phone Unavailable Primary Care Provider Unavailabl e Encounter Details Date Type Department Care Team (Late st Contact Info) Description 05/09/2019 Transcribed Document [facility] [place] [address] [place] [address] ProviderCarmela MD [address] [place] [address] Social History Tobacco Use Types Packs/Day Years Used Date Smoking Tobacco: Never Assessed Comments Unknown Sex and Gender Information Value Date Recorded Sex Assigned at Not on file Legal Sex Female 1:20 PM CDT Gender Identity Not on file Sexual Orientation Not on file documented as of this encounter Miscellaneous Notes * Cerner Conversion Note - Historical ProviderMD - 05/09/2019 11:06 AM ANGIOGRAPHER [place] Suicide Severity Rating Scale (C-SSRS) Entered On: 05/09/2019 11:19 EST Performed On: 05/09/2019 11:19 EST by SILVANO SAENZ RN [place] Suicide Severity Rating Scale (C-SSRS) CSSRS Past Month Wish to be : No CSSRS Past Month Suicidal Thoughts : No CSSRS Lifetime Suicide Behavior : No Suicide Severity Rating Score : 0 Suicide Severity Rating : No Additional Care Required at this time SILVANO SAENZ RN - 05/09/2019 11:19 EST Electronically signed by Samy [facility] Conversion Driller Multiple Spindle Cerner at 08/18/2022 11:31 AM CDT documented in this encounter Plan of Treatment Not on file documented as of this encounter Visit Diagnoses Not on filedocumented in this encounter
--- OUTSIDE RECORDS SUMMARY | 2025-04-29 07:48 | XMS_ITS | Encounter Summary ---
Author Organization [employer] ([place], [place], [place], [place], [place]) Address [address] [place] [address] Care Team Providers Care Residential Sales Representative Name Role Phone Unavailable Primary Care Provider Unavailabl e Encounter Details Date Type Department Care Team (Late st Contact Info) Description 05/09/2019 Transcribed Document [facility] [place] [facility] [place] [address] ProviderCarmela MD [address] [place], [place] [address] Social History Tobacco Use Types Packs/Day Years Used Date Smoking Tobacco: Never Assessed Comments Unknown Sex and Gender Information Value Date Recorded Sex Assigned at Not on file Legal Sex Female 1:20 PM CDT Gender Identity Not on file Sexual Orientation Not on file documented as of this encounter Miscellaneous Notes * Cerner Conversion Note - Carmela ProviderMD - 05/09/2019 11:06 AM AIRPLANE WOODWORKER ED Assessment Entered On: 05/09/2019 11:33 EST [...] Communication Barrier : None Primary Language : Angolan Any Spiritual/Cultural Needs or Requests : No [...] 05/09/2019 11:25 EST Electronically signed by Sam[facility] Conversion Mud Car Worker Cerner at 08/18/2022 11:33 AM CDT documented in this encounter Plan of Treatment Not on file documented as of this encounter Visit Diagnoses Not on filedocumented in this encounter
--- OUTSIDE RECORDS SUMMARY | 2025-04-29 07:48 | XMS_ITS | Encounter Summary ---
Author Organization [employer] ([place], [place], [place], [place], [place]) Address [address] [place] [address] Care Team Providers Care Mushroom Laborer Name Role Phone Unavailable Primary Care Provider Unavailabl e Encounter Details Date Type Department Care Team (Late st Contact Info) Description 05/09/2019 Transcribed Document [facility] [place] Family Medicine [facility] [place] [address] ProviderCarmela MD [address] [place] [address] Social History Tobacco Use Types Packs/Day Years Used Date Smoking Tobacco: Never Assessed Comments Unknown Sex and Gender Information Value Date Recorded Sex Assigned at Not on file Legal Sex Female 1:20 PM CDT Gender Identity Not on file Sexual Orientation Not on file documented as of this encounter Miscellaneous Notes * Cerner Conversion Note - Historical ProviderMD - 05/09/2019 2:53 PM BEHAVIORAL HEALTH CARE MANAGER ED Discharge Entered On: 05/09/2019 14:54 EST [...] - 05/09/2019 14:53 EST Electronically signed by [facility] Conversion Mannequin Decorator Cerner at 08/18/2022 11:32 AM CDT documented in this encounter Plan of Treatment Not on file documented as of this encounter Visit Diagnoses Not on filedocumented in this encounter
--- OUTSIDE RECORDS SUMMARY | 2025-04-29 07:48 | XMS_ITS | Clinical Summary ---
Author Organization [facility] Address [address] [place] [address] Care Team Providers Care Rectification Printer Name Role Phone Rober Marshall MD Primary [...] or training? Not on file Preferred Language South Korean 04/08/2023 Comments No Sex and Gender Information [...] history exists Medical Devices Implanted Type Area Search Lead Device Identifier Shelf Expiration Date Model / Serial / Lot Dev Contrl Tiss Stratafix Spiral Mncryl Ud 3/0 Pls 60cm - [id number] Implanted:Qty : 1 on 04/15/2023 by Butch Groves MD at [facility] Implant Left: Back [employer] J AND J 12/30/2024 [id number] / / [id number] Dev Contrl Tiss Stratafix Spiral Mncryl Ud 3/0 Pls 60cm - [id number] Implanted:Qty : 1 on 04/15/2023 by Butch Groves MD at [facility] Implant Right: Back [employer] J AND J 12/30/2024 [id number] / / [id number] Dev Contrl Tiss Stratafix Spiral Mncryl Ud 3/0 Pls 60cm - [id number] Implanted:Qty : 1 on 04/15/2023 by Butch Groves MD at [facility] Implant Left: Abdomen [employer] J AND J 12/30/2024 [id number] / / [id number] Dev Contrl Tiss Stratafix Spiral Mncryl Ud 3/0 Pls 60cm - [id number] Implanted:Qty : 1 on 04/15/2023 by Butch Groves MD at [facility] Implant Right: Abdomen [employer] DIV OF J AND J 12/30/2024 [id number] / / [id number] Procedures Procedure Name Priority [...] Most Recently Relevant to Health Maintenance Insurance [facility] [employer] Advance Directives * CPR (Attempt to Resuscitate) (Latest Code Status on File) Date Activated Date Inactivated Comments 04/15/2023 5:58 PM 04/16/2023 2:23 PM Question Answer Comments Code Status (Patient has no pulse and is not breathing): CPR (Attempt to Resuscitate) Medical Interventions (Patie nt has pulse or is breathing): Full Support Level Of Support Discussed With: Patient Care Teams Rectification Printer Relationship Specialty Start Date End Date Rober Marshall MD [address] [facility] [address] [place] [address] PCP - General Family Medicine 04/08/23
--- OUTSIDE RECORDS SUMMARY | 2025-04-29 07:48 | XMS_ITS | Encounter Summary ---
Author Organization [employer] ([place], [place], [place], [place], [place]) Address [address] [place] [address] Care Team Providers Care Solar Energy Systems Engineer Name Role Phone Unavailable Primary Care Provider Unavailabl e Encounter Details Date Type Department Care Team (Late st Contact Info) Description 05/09/2019 Transcribed Document [facility] [place] Family Medicine [facility] [place] [address] ProviderCarmela MD [address] [place] [address] Social History Tobacco Use Types [...] - Carmela ProviderMD - 05/09/2019 2:35 PM PRODUCT REPRESENTATIVE [address] [address] RENNY AHN ARCHANA :1975 Visit [...] do next Follow-Up Appointments Follow Up with [facility] When Within 2 to 3 days Comments Rest, fluids, follow up as needed. Feel better soon.-Nell Where: [address] [place] [address]- Business (1) Follow Up with [facility] When Within As needed Comments Patient states Paris Marshall is their Primary [...] range between ( 1.0 and 7.0 ) Lea #: 0.42 K/uL -- Normal range between ( 0.24 and 0.82 ) Eos #: 0.18 K/uL -- Normal range between ( 0.04 and 0.54 ) Lea %: 5.5 % -- Normal range between [...] vinegar, hot sauces, and barbecue sauce. ? [place] fruit juices and citrus fruits, such as oranges, hailey, and limes. ? Tomato-based foods, such as red sauce, chili, salsa, and pizza with red sauce. ? Fried and fatty foods, such as donuts, sinhala fries, potato chips, and high-fat dressings. ? [...] any changes in your symptoms. ??? Take hbsc-qsh-drqjwcu and prescription medicines only as told by [...] 01/26/2006 Document Revised: 09/15/2016 Document Reviewed: 08/13/2015 [employer] Interactive Patient Education ?? 2018 [employer] Nonspecific Chest Pain Chest pain can [...] you start to feel better. ??? Take itod-kug-givbvgd and prescription medicines only as told by [...] 01/26/2006 Document Revised: 01/10/2017 Document Reviewed: 01/10/2017 [employer] Interactive Patient Education ?? 2019 [employer]. Emergency Awareness and Preventative Care STROKE [...] Assistance with quitting is available by contacting 7-348-VYKA-NOW. This is a free resource providing counseling, [...] including: emergency, radiology, or pathology physicians. Patient Name:HAILEY RENNYGENOVEVA MAGAÑA I have received this information and was given the opportunity to ask questions. Patient/Dot Compliance Coordinator Name: Patient/Dot Compliance Coordinator Signature: Relationship to Patient: Clinician/Hospital Dot Compliance Coordinator Signature: Please Provide a Telephone Number Where You Can Be Reached: Is it Permissible To Leave a Message? Date: Electronically signed by Samy, [facility] Conversion Motor Tune Up Specialist Cerner at 08/18/2022 11:35 AM CDT documented in this encounter Plan of Treatment Not on file documented as of this encounter Visit Diagnoses Not on filedocumented in this encounter
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
--- OUTSIDE RECORDS SUMMARY | 2025-04-29 07:48 | XMS_ITS | Patient Health Record ---
Author Organization [facility] Address [address] [facility] [address] [place] [address] Care Team Providers Care Lumber Grader Name Role Phone Lolita Milan Unavailable [phone] Allergies Allergen (clinical drug ingredient) Drug/Non Drug [...] date:07/09/2024 08:56:01 AM Interpretation: Performing Lab: Notes/Report: [facility] Transvaginal Pelvic Study Report Name: RENNY AHN Accession/Encounter No:[id number] : 1975 Age: 49 Gender: F Study Date: Jul 06, 2024 Study Time: 09:13 AM Reading Group: Mavis Serrano MD Referring Group: Lolita Milan MD Ordering Phys: Lolita Milan MD Stacking Machine Operator: Aniyah Husain RDMS Equipment: Affiniti 30 Study [...] 1 of 1 Imaging Center - , [facility] [address] Pap w/reflex HPV Reviewed date:11/23/2024 04:24:56 PM Interpretation: Performing Lab:[facility], [facility] [place] CLIA ID [id number], [address] [facility], [address], [place] [address], Director - Buddy Wilson MD Notes/Report: Any Nucleic Acid Amplification testing is performed on the [employer] Far[place]. Diagnosis: Negative for intraepithelial lesion or malignancy. AP results Other Gynecological Patient Information: IUD Date of Last Pap: Not provided Collection Technique: Hallie/Spatula CPT Codes: 83259 Screening note: This specimen has been analyzed by the [employer] Imaging System, an interactive computer system which assists the lab in screening of ThinPrep Pap Test slides. Following imaging, the slide was reviewed by a Box Machine Operator and/or Pathologist. Recommendation: Follow-up based on current clinical guidelines and/or clinical consideration. Nora Myles ICD Codes: Z01.419 Negative Educational Note: The pap screening test aids in the detection of premalignant and malignant states of the cervix. False positive and negative results may occur. It is not a diagnostic test. If abnormal cells are reported, follow-up based on current clinical guidelines and/or clinical consideration is recommended. LMP: IUD Pertinent Clinical History/History of Surgery: Not provided Specimen Type: ThinPrep Box Machine Operator Specimen Adequacy: Satisfactory for interpretation with endocervical/transfor mation zone component present. DIAGNOSIS: Negative for intraepithelial lesion or malignancy. Specimen Source: Cervical Results of Last Pap: Not provided FINAL PIPE TURNER CYTOLOGY REPORT VITAMIN D 25 HYDROXY Reviewed date:07/09/2024 08:54:30 AM Interpretation:Normal Performing Lab: Notes/Report: Reference Range for Total Vitamin D 25(OH) Deficiency <20.0 ng/mL Insufficiency 21-29 ng/mL Sufficiency 30-100 ng/mL Toxicity >100 ng/ml VITAMIN D 25-HYDROXY 79.7 30.0-100.0 ng/ml Lab specimens [facility] at a [facility]See result details for the performing location information. VITAMIN B12 Reviewed date:07/09/2024 09:32:49 AM Interpretation:1736 Performing Lab: Notes/Report: Results may be falsely increased if patient taking Biotin. VITAMIN B-12 1736 211-946 pg/mL H Lab speci mens received at a [facility].?See result details for the performing location information. FOLLICLE STIMULATING HORMONE Reviewed date:07/09/2024 09:33:04 AM Interpretation:36.7 Performing Lab: Notes/Report: FSH Reference Ranges: Adult Males: 1.5-12.4 mIU/mL Adult Females: Folicular Phase ?3.5-12.5 mIU/ml Ovulation Phase ?4.7-21.5 mIU/ml Lutal Phase ? ? ?1.7-7.7 mIU/ml Postmenopausal ? 25.8-134.8 mIU/ml FOLLICLE STIMULATING HORMONE 36.70 Lab specimens received at a [facility].?See result details for the performing location information. [...] by Dr. Thai Canales MD on Workstation: [employer] Signed by: Thai Canales MD on 11/24/2024 [...] Status W/U Status Risk Notes Problem Menopause (305854704) *Menopausal and female climacteric states (Code also, associated symptoms) (N95.1) Active confirmed Problem Gynecological examination normal (767571655946635 ) Cervical smear, as part of routine gynecological examination (Z01.419) 11/26/19 20 Active confirmed Annual without abnormal findings Problem Abnormal vaginal bleeding (459334934) Abnormal vaginal bleeding (N93.9) Active confirmed Problem Avitaminosis D (68736109) Avitaminosis D (E55.9) Active confirmed Problem Irregular menstrual bleeding (24202459) Irregular menstrual bleeding (N92.6) Active confirmed Vital Signs Blood pressure diastolic 58 mm Hg 11/21/2024 Height 63 in 11/21/2024 Blood pressure systolic 100 mm Hg 11/21/2024 Weight 141.0 lbs 11/21/2024 BMI 24.97 kg/m2 11/21/2024 Encounters Encounter Location Date Provider Diagnosis [address] [phone] 07/02/2024 Lolita Kayli Abnormal vaginal bleeding N93.[address] [phone] 07/06/2024 Lolita Kayli Hair loss L65.9 ; Irregular menstrual bleeding N92.6 ; Avitaminosis D E55.9 and B12 deficiency E53.[address] [address] 11/21/2024 Lolita Kayli Cervical smear, as p art of routine gynecological examination Z01.419 and Vaginal dryness N89.[address] [address] 07/06/2024 Lolita Kayli Abnormal vaginal bleeding N93.9 Assessments Encounter Date [...] 11/27/2025 11:00:00 AM, [address], [place], [address], Insurance Providers Payer Name Payer Address Payer Phone Subscriber Number Group Number Insured Name Patient Relationship to Insured Coverage Start Date Coverage End Date [place] PPO [address] [place] [address] [phone] [id number] Renny Ahn Self - patient is the [...]
--- OUTSIDE RECORDS SUMMARY | 2025-04-29 07:48 | XMS_ITS | Encounter Summary ---
Author Organization [employer] ([place], [place], [place], [place], [place]) Address [address] [place] [address] Care Team Providers Care Revenue Enforcement Agent Name Role Phone Unavailable Primary Care Provider Unavailabl e Encounter Details Date Type Department Care Team (Late st Contact Info) Description 05/10/2019 Transcribed Document [facility] [place] Family Medicine [facility] [place] [address] ProviderCarmela MD [address] [place] [id number] Social History Tobacco Use Types Packs/Day Years Used Date Smoking Tobacco: Never Assessed Comments Unknown Sex and Gender Information Value Date Recorded Sex Assigned at Not on file Legal Sex Female 1:20 PM CDT Gender Identity Not on file Sexual Orientation Not on file documented as of this encounter Miscellaneous Notes * [employer]ner Conversion Note - Carmela Feliciano MD - 05/10/2019 9:52 AM ADMINISTRATIVE OFFICE CLERK Patient Education Materials Follows: Monitored Anesthesia Care, [...] eating solid foods. General instructions ??? Take ikdt-yjh-kqpvidp and prescription medicines only as told by [...] 08/08/2016 Document Revised: 12/02/2017 Document Reviewed: 08/08/2016 [employer] Interactive Patient Education ? 2019 [employer] Gastritis, Adult Gastritis is inflammation of [...] Follow these instructions at home: ??? Take msdw-frz-odiwvye and prescription medicines only as told by [...] 04/12/2002 Document Revised: 11/29/2017 Document Reviewed: 01/10/2016 [employer] Patient Education ? 2019 [employer]. Esophagitis Esophagitis is inflammation of the esophagus. [...] vinegar, hot sauces, and barbecue sauce. ? [place] fruit juices and citrus fruits, such as oranges, hailey, and limes. ? Tomato-based foods, such as red sauce, chili, salsa, and pizza with red sauce. ? Fried and fatty foods, such as donuts, [place] fries, potato chips, and high-fat dressings. ? [...] any changes in your symptoms. ??? Take ydnj-qlg-tkqykha and prescription medicines only as told by [...] 05/26/2005 Document Revised: 09/23/2016 Document Reviewed: 08/13/2015 [employer] Patient Education ? 2019 [employer] Esophagogastroduodenoscopy, Care After Refer to this [...] 04/04/2013 Document Revised: 09/23/2016 Document Reviewed: 03/11/2016 [employer] Patient Education ? 2019 [employer]. documented in this encounter Plan of Treatment Not on file documented as of this encounter Visit Diagnoses Not on filedocumented in this encounter
--- OUTSIDE RECORDS SUMMARY | 2025-04-29 07:48 | XMS_ITS | Encounter Summary ---
Author Organization [facility] Address [address] [place] [address] Care Team Providers Care Networker Name Role Phone System, Provider Not In MD Primary Care Provider Unavailable Encounter Details Date Type Department Care Team (Late st Contact Info) Description 08/19/2022 Lab Requisition [facility] [address] [place] [address] Butch Groves [address] Ptosis of breast Social History Tobacco Use [...] Exam (08/18/2022) Case Report Surgical Pathology Case: [id number] Authorizing Provider: Butch Groves MD Collected: 08/18/2022 Ordering Location: [facility] Received: 08/19/2022 1131 Pathologist: Deloris Groves MD Specimens: A) - Breast, Right, Right Breast Tissue wt- 112 grams B) - Breast, Left, Left Breast Tissue wt- 111 grams 08/23/2022 5:03 PM EDT [facility] Final Diagnosis A. BREAST, RIGHT, RESECTION: - BENIGN BREAST TISSUE (112 GRAMS). - SKIN WITH NO SIGNIFICANT PATHOLOGIC CHANGES. - NEGATIVE FOR ATYPICAL DUCTAL HYPERPLASIA, IN-SITU, OR INVASIVE CARCINOMA. B. BREAST, LEFT, RESECTION: - BENIGN BREAST TISSUE (111 GRAMS). - SKIN WITH NO SIGNIFICANT PATHOLOGIC CHANGES. - NEGATIVE FOR ATYPICAL DUCTAL HYPERPLASIA, IN-SITU, OR INVASIVE CARCINOMA. 08/23/2022 5:03 PM EDT [facility] at 1703 EDT Clinical Information N64.81 - Ptosis of breast [ICD-10-CM] 08/23/2022 5:03 PM EDT [facility] Gross Description A. RIGHT BREAST [...] the parenchyma. The skin is grossly unremarkable. Electrolog Operator sections are submitted in cassettes A1 through A [address]. [address] ([facility]) B. LEFT BREAST TISSUE WT- 111 [...] tissue comprises approximately 5% of the parenchyma. Electrolog Operator sections are submitted in cassettes B1 through B3. [address] ([facility]) 08/23/2022 5:03 PM EDT [email or web address] Tissue Left breast structure / Unknown 08/18/2022 08/19/2022 11:31 AM EDT Tissue specimen (specimen) Left breast structure / Unknown 08/18/2022 08/19/2022 11:31 AM EDT [facility] PATHOLOGY ORDERABLES Final R esult [email or web address] [address] [place] [address] documented in this encounter Visit Diagnoses Diagnosis Ptosis of breast documented in this encounter Care Teams Networker Relationship Specialty Start Date End Date System, Provider Not In, [place] [address] PCP - General Family Medicine 05/02/22 documented as of this encounter
--- OUTSIDE RECORDS SUMMARY | 2025-04-29 07:48 | XMS_ITS | Encounter Summary ---
Author Organization [employer] ([place], [place], [place], [place], [place]) Address [address] [place] [address] Care Team Providers Care Air Plant Engineer Name Role Phone Unavailable Primary Care Provider Unavailabl e Encounter Details Date Type Department Care Team (Late st Contact Info) Description 05/09/2019 Transcribed Document [facility] [place] [facility] [place] [address] ProviderCarmela MD [address] [place] [address] [phone] Social History Tobacco Use Types Packs/Day Years Used Date Smoking Tobacco: Never Assessed Comments Unknown Sex and Gender Information Value Date Recorded Sex Assigned at Not on file Legal Sex Female 1:20 PM CDT Gender Identity Not on file Sexual Orientation Not on file documented as of this encounter Miscellaneous Notes * Cerner Conversion Note - Carmela ProviderMD - 05/09/2019 11:54 AM CHIEF CONSTRUCTION INSPECTOR Pain Assessment Entered On: 05/09/2019 13:56 EST [...]
--- OUTSIDE RECORDS SUMMARY | 2025-04-29 07:48 | XMS_ITS | Encounter Summary ---
Author Organization [employer] ([place], [place], [place], [place], [place]) Address [address] [place] [address] Care Team Providers Care Power Plant Operator Name Role Phone Unavailable Primary Care Provider Unavailabl e Encounter Details Date Type Department Care Team (Late st Contact Info) Description 05/09/2019 Transcribed Document [facility] [place] Family Medicine [place] [address] ProviderCarmela MD [address] [place] [address] [phone] Social History Tobacco Use Types Packs/Day Years Used Date Smoking Tobacco: Never Assessed Comments Unknown Sex and Gender Information Value Date Recorded Sex Assigned at Not on file Legal Sex Female 1:20 PM CDT Gender Identity Not on file Sexual Orientation Not on file documented as of this encounter Miscellaneous Notes * Cerner Conversion Note - Historical ProviderMD - 05/09/2019 2:15 PM MANAGER TRAINING AND DEVELOPMENT Electronically signed by [facility] Conversion Clinical Analyst Cerner at 08/18/2022 11:32 AM CDT documented in this encounter Plan of Treatment Not on file documented as of this encounter Visit Diagnoses Not on filedocumented in this encounter
--- OUTSIDE RECORDS SUMMARY | 2025-04-29 07:48 | XMS_ITS | Clinical Summary ---
Author Organization [facility] Address [address] [place] [address] Care Team Providers Care Jewel Hole Finish Opener Name Role Phone System, Provider Not In [...] Not on file Insurance ANTHEM Care Teams Jewel Hole Finish Opener Relationship Specialty Start Date End Date System, Provider Not In, [place] [address] PCP - General Family Medicine 05/02/22
--- OUTSIDE RECORDS SUMMARY | 2025-04-29 07:48 | XMS_ITS | Encounter Summary ---
Author Organization [employer] ([place], [place], [place], [place]) Address [address] [place] [address] Care Team Providers Care Seam Hammerer Name Role Phone Unavailable Primary Care Provider Unavailabl e Encounter Details Date Type Department Care Team (Late st Contact Info) Description 05/09/2019 Transcribed Document [facility] [place] Family Medicine [facility] [place] [address] ProviderCarmela MD [address] [place] [phone] Social History Tobacco Use Types Packs/Day Years Used Date Smoking Tobacco: Never Assessed Comments Unknown Sex and Gender Information Value Date Recorded Sex Assigned at Not on file Legal Sex Female 1:20 PM CDT Gender Identity Not on file Sexual Orientation Not on file documented as of this encounter Miscellaneous Notes * Cerner Conversion Note - Carmela ProviderMD - 05/09/2019 11:41 AM SPRAY TECHNICIAN Patient: RENNY AHN Age: 44 years Sex: Female : 1975 Associated Diagnoses: Chest pain; Gastric reflux Author: WANDA HEATH, CAR MANAGER-EMR Basic Information Time seen: Date & time [...] chart. Surgical history: hemorrhoidectomy. Tonsillectomy and adenoidectomy ([id number]). choleycystectomy. colonoscopy. Dilation and curettage ([id number]). cervical ablation. IUD implanted 2015. x 2. [...] EST Height Source Stated Height Entry Format [place] Height/Length, TRISTANIAN (ft) 5 ft Height/Length TRISTANIAN 5 Inch CLINICALHEIGHT 165.1 cm [place] Body Weight 56.59 kg Weight Source, ED Critical estimated dosing weight Weight Entry Format [place] Weight Serbian lb 69 lb CLINICALWEIGHT 31.36 kg Body [...] % 21.8 % Lymph # 1.66 K/uL [place] % 5.5 % [place] # 0.42 K/uL Eos % 2.4 % Eos # 0.18 K/uL Baso % 0.3 % Baso # 0.02 K/uL Slide Review No IG# 0 x10(3)/uL IG% 0 % . Radiology results: Radiology Results (Last 48 hours) [id number] -- 05/09/2019 11:06 CR Chest 1 Vw Portable (05/09/2019 11:39) Result: PORTABLE CHEST 05/09/2019 11:28 AM HISTORY: Precordial chest pain.COMPARISON: None.FINDINGS: The heart is normal in size. The mediastinum is unremarkable.The lungs are clear. There is no pneumothorax. The osseous structures are unremarkable. IMPRESSION: No acute cardiopulmonary process.Images reviewed, interpreted, and dictated by Dr. Judah Baeza.Transcribed by Vimal Perkins PA-C, Deniz (N), Awilda Rios . Reexamination/ Reevaluation Time: [...] Center Within As needed Patient states Paris Espinaleet is their Primary Care Provider. Please contact the Patient Resource Center at if you need assistance scheduling a Specialist or Primary Care Provider in the future.; PARIS ESPINALEET Within 2 to 3 days Rest, fluids, follow up as needed. Feel better soon.Val. Counseled: Patient, Regarding diagnosis, Regarding diagnostic results, Regarding treatment plan, Regarding prescription, Patient indicated understanding of instructions. documented in this encounter Plan of Treatment Not on file documented as of this encounter Visit Diagnoses Not on filedocumented in this encounter
--- OUTSIDE RECORDS SUMMARY | 2025-04-29 07:48 | XMS_ITS | Encounter Summary ---
Author Organization [facility] ([place], [place], [place], [place], [place]) Address [address] [place] [address] Care Team Providers Care Client Associate Name Role Phone Unavailable Primary Care Provider Unavailabl e Encounter Details Date Type Department Care Team (Late st Contact Info) Description 05/10/2019 Transcribed Document [facility] [place] Family Medicine [facility] [place] [address] ProviderCarmela MD [address] [place] [address] [phone] Social History Tobacco Use Types Packs/Day Years Used Date Smoking Tobacco: Never Assessed Comments Unknown Sex and Gender Information Value Date Recorded Sex Assigned at Not on file Legal Sex Female 1:20 PM CDT Gender Identity Not on file Sexual Orientation Not on file documented as of this encounter Miscellaneous Notes * Cerner Conversion Note - Carmela ProviderMD - 05/10/2019 9:08 AM [facility] PACU Summary Primary Physician: STAN FAIRCHILD MD-SUR Finalized Date/Time: 05/10/19 09:57:58 Pt. Name: JIMYRENNY/Sex: 1975 Female Med Rec #: [id number] Physician: STAN FAIRCHILD MD-SUR Financial #: [id number] Pt. Type: O Room/Bed: [facility] [place] Admit/Disch: 05/10/19 07:56:00 - Institution: [facility] PACU Case Times Entry 1 In PACU I 05/10/19 09:20:00 Ready for PACU 05/10/19 09:51:00 Discharge Discharge from PACU 05/10/19 09:57:00 I [facility] PACU Case Times Audit 05/10/19 09:57:54 Oil Burner Repairer: JOHANNA Modifier: JOHANNA <+> 1 Discharge from PACU I 05/10/19 09:52:11 Oil Burner Repairer: JOHANNA Modifier: [email or web address] <+> 1 Ready for PACU Discharge Finalized By: CLIFF BAER RN Document Signatures Signed By: CLIFF BAER RN 05/10/19 09:57 documented in this encounter Plan of Treatment Not on file documented as of this encounter Visit Diagnoses Not on filedocumented in this encounter
--- OUTSIDE RECORDS SUMMARY | 2025-04-29 07:48 | XMS_ITS | Encounter Summary ---
Author Organization [employer] ([place], [place], [place], [place], [place]) Address [address] [place] [address] Care Team Providers Care Crossband Layer Name Role Phone Unavailable Primary Care Provider Unavailabl e Encounter Details Date Type Department Care Team (Late st Contact Info) Description 05/09/2019 Transcribed Document [facility] [place] Family Medicine [facility] [place] [address] ProviderCarmela MD [address] [place] [address] [phone] Social History Tobacco Use Types Packs/Day Years Used Date Smoking Tobacco: Never Assessed Comments Unknown Sex and Gender Information Value Date Recorded Sex Assigned at Not on file Legal Sex Female 1:20 PM CDT Gender Identity Not on file Sexual Orientation Not on file documented as of this encounter Miscellaneous Notes * Cerner Conversion Note - Carmela ProviderMD - 05/09/2019 11:06 AM GUIDE PLANT ED Triage Entered On: 05/09/2019 11:19 EST [...] EST DCP GENERIC CODE Tracking Group : [facility] Tracking Acuity : 3 [...] 05/09/2019 11:19:35 EST) Problems(Active) Anemia (SNOMED CT :054037740 ) Name of Problem: Anemia ; Recorder: Kindra Garcias Rn; Confirmation: Confirmed ; Classification: Medical ; Code: [id number] ; Contributor System: PowerChart ; Last Updated: 01/25/2018 9:58 EDT ; Life Cycle Date: 01/25/2018 ; Life Cycle Status: Active ; Vocabulary: SNOMED CT Anxiety disorder (SNOMED CT :631943649 ) Name of Problem: Anxiety disorder ; Recorder: ANJEL SANTANA RN; Confirmation: Confirmed ; Classification: Medical ; Code: [id number] ; Contributor System: PowerChart ; Last Updated: 11/07/2017 10:31 EDT ; Life Cycle Date: 11/07/2017 ; Life Cycle Status: Active ; Vocabulary: SNOMED CT At risk for sleep apnea (IMO :82415257 ) Name of Problem: At risk for sleep apnea ; Recorder: SYSTEM, SYSTEM; Confirmation: Confirmed ; Classification: Medical ; Code: 19168846 ; Last Updated: 02/02/2018 6:10 EDT ; Life Cycle Date: 02/02/2018 ; Life Cycle Status: Active ; Vocabulary: IMO Eczema (SNOMED CT :94108782 ) Name of Problem: Eczema ; Recorder: Cha Rawls RN; Confirmation: Confirmed ; Classification: Medical ; Code: 90768394 ; Contributor System: PowerChart ; Last Updated: 02/02/2018 6:05 EDT ; Life Cycle Date: 02/02/2018 ; Life Cycle Status: Active ; Vocabulary: SNOMED CT GERD (gastroesophageal reflux disease) (SNOMED CT :237856704 ) Name of Problem: GERD (gastroesophageal reflux disease) ; Recorder: ANJEL SANTANA RN; Confirmation: Confirmed ; Classification: Medical ; Code: [id number] ; Contributor System: PowerChart ; Last Updated: 11/07/2017 10:32 EDT ; Life Cycle Date: 11/07/2017 ; Life Cycle Status: Active ; Vocabulary: SNOMED CT Polycystic ovarian syndrome (SNOMED CT :544414380 ) Name of Problem: Polycystic ovarian syndrome ; Recorder: ANJEL SANTANA RN; Confirmation: Confirmed ; Classification: Medical ; Code: 972056138 ; Contributor System: PowerChart ; Last Updated: 11/07/2017 10:31 EDT ; Life Cycle Date: 11/07/2017 ; Life Cycle Status: Active ; Vocabulary: SNOMED CT Snores (SNOMED CT :845498060 ) Name of Problem: Snores ; Recorder: Kindra Garcias Rn; Confirmation: Confirmed ; Classification: Medical ; Code: 374485940 ; Contributor System: [employer] ; Last Updated: 01/25/2018 9:54 EDT ; Life Cycle Date: 01/25/2018 ; Life Cycle Status: Active ; Vocabulary: SNOMED CT Diagnoses(Active) Abdominal pain Date: 05/09/2019 ; Diagnosis Type: Reason For Visit ; Confirmation: Complaint of ; Clinical Dx: Abdominal pain ; Classification: Medical ; Clinical Service: Emergency medicine ; Code: PNED ; Probability: 0 ; Diagnosis Code: [id number] ED Height and Weight Height Source : Stated Height Entry Format : [place] Height, Feet : 5 ft(Converted to: 152 cm, 60 Inch) Height, Inches : 5 Inch(Converted to: 0 ft 5 Inch, 12.70 cm) Clinical Height : 165.1 cm Weight Source, ED : Critical estimated dosing weight Weight Entry Format : [place] Weight, Pounds : 69 lb Clinical Dosing Weight : 31.36 kg Body Surface Area (BSA) : 1.26 m2 Body Mass Index : 11.5 kg/m2 (<LLOW) [place] Body Weight (IBW) : 56.59 kg SILVANO SAENZ RN - 05/09/2019 11:15 EST documented in this encounter Plan of Treatment Not on file documented as of this encounter Visit Diagnoses Not on filedocumented in this encounter
--- OUTSIDE RECORDS SUMMARY | 2025-04-29 07:48 | XMS_ITS | Encounter Summary ---
Author Organization [employer] ([place], [place], [place], [place], [place]) Address [address] [place] [address] Care Team Providers Care Nursery Attendant Name Role Phone Unavailable Primary Care Provider Unavailabl e Encounter Details Date Type Department Care Team (Late st Contact Info) Description 05/10/2019 Transcribed Document [facility] [place] Family Medicine [facility] [address] ProviderCarmela MD [address] [place] [address] Social History Tobacco Use Types Packs/Day Years Used Date Smoking Tobacco: Never Assessed Comments Unknown Sex and Gender Information Value Date Recorded Sex Assigned at Not on file Legal Sex Female 1:20 PM CDT Gender Identity Not on file Sexual Orientation Not on file documented as of this encounter Miscellaneous Notes * Cerner Conversion Note - Carmela ProviderMD - 05/10/2019 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 General instructions ??? Take wvhx-dqh-vussjir and prescription medicines only as told by [...] 08/08/2016 Document Revised: 12/02/2017 Document Reviewed: 08/08/2016 [employer] Patient Education ?? 2019 [employer] Gastritis, Adult Gastritis is inflammation of [...] Follow these instructions at home: ??? Take kfff-hdq-mcxlewu and prescription medicines only as told by [...] 04/12/2002 Document Revised: 11/29/2017 Document Reviewed: 01/10/2016 [employer] Patient Education ?? 2019 [employer] Esophagitis Esophagitis is inflammation of the [...] vinegar, hot sauces, and barbecue sauce. ? Wolverine fruit juices and citrus fruits, such as [...] any changes in your symptoms. ??? Take cvui-apm-dlwhugv and prescription medicines only as told by [...] 05/26/2005 Document Revised: 09/23/2016 Document Reviewed: 08/13/2015 [employer] Patient Education ?? 2019 [employer]. Esophagogastroduodenoscopy, Care After Refer to this sheet [...] 04/04/2013 Document Revised: 09/23/2016 Document Reviewed: 03/11/2016 [employer] Patient Education ?? 2019 [employer]. Emergency Awareness and Preventative Care STROKE is [...] Assistance with quitting is available by contacting 0-246-OLOW-NOW. This is a free resource providing counseling, [...] was given the opportunity to ask questions. Patient/Vmware Architect Name: Patient/Vmware Architect Signature: Relationship to Patient: Clinician/Hospital Vmware Architect Signature: Date: documented in this encounter Plan of Treatment Not on file documented as of this encounter Visit Diagnoses Not on filedocumented in this encounter
--- OUTSIDE RECORDS SUMMARY | 2025-04-29 07:48 | XMS_ITS | Data Portability ---
Author Organization [facility] CARLOS Cardenas [place] CLOS[place] Address [address] [facility] [facility] [address] [place] [address] Care Team Providers Care Combat Control Manager Name Role Phone JUAN R CONNELL Primary Care Provider SYLVAIN HALL Referring Provider Assessment No assessment recorded. Plan of Treatment Reminders Order Date Submit Date Provider Last Modified By Organization Details Last Modified Time Details Appointments None recorded. Lab glucose, fingerstic k, blood 2024 025 [email or web address] [facility], [address] [place] [address], [address], 13:59:35 insulin, serum 2024 025 [email or web address] [facility], [address] [place] [address], [address], 5 09:02:33 C-peptide, serum 2024 025 [email or web address] [facility], [address] [place] [address], [address], 5 09:02:33 glycohemog lobin, total, blood 2024 025 [facility], [address] [place] [address], [address], 5 09:02:34 glucose, QN [mass/volu me], serum or plasma [email or web address] [place] [address] Laboratory, [address] [place] [address], [address], 5 09:02:34 glucose, fingerstic k, blood [email or web address] [facility], [address] [place] [address], [address], 5 14:09:29 insulin, serum 2024 025 [facility], [address] [place] [address], [address], 5 10:31:08 C-peptide, serum 2024 025 [facility], [address] [place] [address], [address], 5 10:31:07 cortisol, serum or plasma 2024 025 [facility], [address] [place] [address], [address], 5 10:31:10 CMP, serum or plasma 2024 025 [facility], [address] [place] [address], [address], 5 10:25:19 TSH, serum or plasma 2024 025 [facility], [address] [place] [address], [address], 5 10:31:11 CBC w/ auto diff 2024 025 [facility], [address] [place] [address], [address], 5 10:09:50 glycohemog lobin, total, blood 2024 025 [facility], [address] [place], [address], 5 10:08:[address]/dietiti an referral - s/p gastric sleeve, having hypogycemi a now [email or web address], [address] [place], [address], 5 15:25:20 Procedures None recorded. Surgeries None recorded. Imaging None recorded. Medication Orders Gvoke HypoPen 2-Pack 1 mg/0.2 mL subcutaneo us auto-injec tor [address] [facility], [address], [address], 5 14:19:34 mupirocin 2 % topical ointment [address] [facility], [address], [address], 5 13:54:08 betamethas one valerate 0.1 % topical cream [address] [facility], [address], [address], 5 13:54:24 Patient TargetsNo targets recorded. Patient Instructions Encounter Date Encounter Id Patient Instructions Last Modified By Organization Details Last Modified Time 08/03/2022 [id number] 1. Continue to treat ear eczema with Betamethasone cream prn. 2. Migraine management discussed with patient. Such as avoiding fermented foods, getting restful sleep, avoiding amusement rides etc. 3. Suggest patient administer previously prescribed drops into ears with any signs of drainage or infection. 4. f/u prn [email or web address] Not available 08/03/2022 10:20:53 01/20/2023 [id number] 1. Rx- Betamethasone cream ; Mupirocin ointment 2. 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 6 normal Not Available [facility] [address] [place] [address], [address], 08/17/2024 10:08:00 08/18/19 25 08/17/2024 GLYCO HEMOG LOBIN A1C estimated avg. glucose 105 mg/dL _(bonny c) normal A1c value s betwe en 5.7% to 6.4% indic ate predi abete s. Resul ts 6.5% or great er is diagn ostic of diabe gaurav. Ameri can Diabe gaurav Assoc iatio n (diab etes. org) Not Available [facility] [address] [place], [address], 08/17/2024 10:08:00 08/18/19 25 08/17/2024 COMPL ETE BLOOD COUNT white blood cells 2.9 10*3/ uL 3.8-10 .8 low Not Available [facility] [address] [place], [address], 08/17/2024 10:09:50 08/18/19 25 08/17/2024 COMPL ETE BLOOD COUNT red blood cells 4.79 10*6/ uL 3.80-5 .20 normal Not Available [facility] [address] [place] [address], [address], 08/17/2024 10:09:50 08/18/19 25 08/17/2024 COMPL ETE BLOOD COUNT hemoglobin 14.4 g/dL 12.0-1 6.0 normal Not Available [facility] [address] [place] [address], [address], 08/17/2024 10:09:50 08/18/19 25 08/17/2024 COMPL ETE BLOOD COUNT hematocrit 44.2 % 35.0-4 7.0 normal Not Available [facility] [address] [place] [address], [address], 08/17/2024 10:09:50 08/18/19 25 08/17/2024 COMPL ETE BLOOD COUNT MCV 92 fL 80-100 normal Not Available [facility] [address] [place] [address], [address], 08/17/2024 10:09:50 08/18/19 25 08/17/2024 COMPL ETE BLOOD COUNT MCH 30 pg 26-35 normal Not Available [facility] [address] [place] [address], [address], 08/17/2024 10:09:50 08/18/19 25 08/17/2024 COMPL ETE BLOOD COUNT MCHC 33 g/dL 32-36 normal Not Available [facility] [address] [place] [address], [address], 08/17/2024 10:09:50 08/18/19 25 08/17/2024 COMPL ETE BLOOD COUNT RDW 13.4 % 11.0-1 5.0 normal Not Available [facility] [address] [place] [address], [address], 08/17/2024 10:09:50 08/18/19 25 08/17/2024 COMPL ETE BLOOD COUNT MPV 8.5 fL 6.2-10 .5 normal Not Available [facility] [address] [place] [address], [address], 08/17/2024 10:09:50 08/18/19 25 08/17/2024 COMPL ETE BLOOD COUNT platelet count 184 10*3/ uL 150-40 0 normal Not Available [facility] [address] [place] [address], [address], 08/17/2024 10:09:50 08/18/19 25 08/17/2024 COMPL ETE BLOOD COUNT neutrophil,a bsolute 1.4 10*3/ uL 1.6-8. 4 low Not Available [facility] [address] [place] [address], [address], 08/17/2024 10:09:50 08/18/19 25 08/17/2024 COMPL ETE BLOOD COUNT lymphocyte,a bsolute 1.1 10*3/ uL 0.4-5. 1 normal Not Available [facility] [address] [place] [address], [address], 08/17/2024 10:09:50 08/18/19 25 08/17/2024 COMPL ETE BLOOD COUNT monocyte,abs olute 0.3 10*3/ uL 0.0-1. 2 normal Not Available [facility] [address] [place] [address], [address], 08/17/2024 10:09:50 08/18/19 25 08/17/2024 COMPL ETE BLOOD COUNT eosinophil,a bsolute 0.1 10*3/ uL 0.0-0. 8 normal Not Available [facility] [address] [place] [address], [address], 08/17/2024 10:09:50 08/18/19 25 08/17/2024 COMPL ETE BLOOD COUNT basophil,abs olute 0.0 10*3/ uL 0.0-0. 3 normal Not Available [facility] [address] [place] [address], [address], 08/17/2024 10:09:50 08/18/19 25 08/17/2024 COMPL ETE BLOOD COUNT % neutrophils 47.9 % 42.0-7 8.0 normal Not Available [facility] [address] [place] [address], [address], 08/17/2024 10:09:50 08/18/19 25 08/17/2024 COMPL ETE BLOOD COUNT % lymphocytes 37.6 % 11.0-4 7.0 normal Not Available [facility] [address] [place] [address], [address], 08/17/2024 10:09:50 08/18/19 25 08/17/2024 COMPL ETE BLOOD COUNT % monocytes 9.8 % 0.0-11 .0 normal Not Available [facility] [address] [place] [address], [address], 08/17/2024 10:09:50 08/18/19 25 08/17/2024 COMPL ETE BLOOD COUNT % eosinophils 3.6 % 0.0-7. 0 normal Not Available [facility] [address] [place] [address], [address], 08/17/2024 10:09:50 08/18/19 25 08/17/2024 COMPL ETE BLOOD COUNT % basophils 1.1 % 0.0-3. 0 normal Not Available [facility] [address] [place] [address], [address], 08/17/2024 10:09:50 08/18/19 25 08/17/2024 COMPL ETE BLOOD COUNT nucleated red cells 0.1 % 0.0-0. 9 normal Not Available [facility] [address] [place] [address], [address], 08/17/2024 10:09:50 08/18/19 25 08/17/2024 COMPL ETE BLOOD COUNT nucleated RBCs, absolute 0.00 10*3/ uL not estab. normal Not Available [facility] [address] [place] [address], [address], 08/17/2024 10:09:50 08/18/19 25 08/17/2024 COMP. METAB OLIC PANEL glucose 73 mg/dL 74-100 low Not Available [facility] [address] [place] [address], [address], 08/17/2024 10:25:19 08/18/19 25 08/17/2024 COMP. METAB OLIC PANEL blood urea nitrogen 17 mg/dL 6-20 normal Not Available [facility] [address] [place] [address], [address], 08/17/2024 10:25:19 08/18/19 25 08/17/2024 COMP. METAB OLIC PANEL creatinine 0.71 mg/dL 0.50-0 .95 normal Not Available [facility] [address] [place] [address], [address], 08/17/2024 10:25:19 08/18/19 25 08/17/2024 COMP. METAB OLIC PANEL BUN/creatini ne ratio 24 (calc ) 10-20 high Not Available [facility] [address] [place] [address], [address], 08/17/2024 10:25:19 08/18/19 25 08/17/2024 COMP. METAB OLIC PANEL sodium 145 mmol/ L 136-14 5 normal Not Available [facility] [address] [place] [address], [address], 08/17/2024 10:25:19 08/18/19 25 08/17/2024 COMP. METAB OLIC PANEL potassium 5.0 mmol/ L 3.4-5. 0 normal Not Available [facility] [address] [place] [address], [address], 08/17/2024 10:25:19 08/18/19 25 08/17/2024 COMP. METAB OLIC PANEL chloride 107 mmol/ L 98-107 normal Not Available [facility] [address] [place] [address], [address], 08/17/2024 10:25:19 08/18/19 25 08/17/2024 COMP. METAB OLIC PANEL carbon dioxide 29 mmol/ L 22-31 normal Not Available [facility] [address] [place] [address], [address], 08/17/2024 10:25:19 08/18/19 25 08/17/2024 COMP. METAB OLIC PANEL anion gap 9 (calc ) 7-25 normal Not Available [facility] [address] [place] [address], [address], 08/17/2024 10:25:19 08/18/19 25 08/17/2024 COMP. METAB OLIC PANEL calcium 10.0 mg/dL 8.6-10 .2 normal Not Available [facility] [address] [place] [address], [address], 08/17/2024 10:25:19 08/18/19 25 08/17/2024 COMP. METAB OLIC PANEL total protein 6.8 g/dL 6.4-8. 3 normal Not Available [facility] [address] [place] [address], [address], 08/17/2024 10:25:19 08/18/19 25 08/17/2024 COMP. METAB OLIC PANEL albumin 4.3 g/dL 3.5-5. 2 normal Not Available [facility] [address] [place] [address], [address], 08/17/2024 10:25:19 08/18/19 25 08/17/2024 COMP. METAB OLIC PANEL globulin 2.5 1.5-4. 5 normal Not Available [facility] [address] [place] [address], [address], 08/17/2024 10:25:19 08/18/19 25 08/17/2024 COMP. METAB OLIC PANEL albumin/glob ulin ratio 1.7 (calc ) 1.1-2. 5 normal Not Available [facility] [address] [place], [address], 08/17/2024 10:25:19 08/18/19 25 08/17/2024 COMP. METAB OLIC PANEL bilirubin, total 0.8 mg/dL 0.1-1. 2 normal Not Available [facility] [address] [place], [address], 08/17/2024 10:25:19 08/18/19 25 08/17/2024 COMP. METAB OLIC PANEL alkaline phosphatase 72 U/L 30-121 normal NOTE: NEW AZIZA L RANGE FOR SUSAN العراقي NTS (<19 YEARS ). Not Available [facility] [address] [place] [address], [address], 08/17/2024 10:25:19 08/18/19 25 08/17/2024 COMP. METAB OLIC PANEL AST 21 U/L 0-32 normal Not Available [facility] [address] [place] [address], [address], 08/17/2024 10:25:19 08/18/19 25 08/17/2024 COMP. METAB OLIC PANEL ALT 13 U/L 0-33 normal Not Available [facility] [address] [place] [address], [address], 08/17/2024 10:25:19 08/18/19 25 08/17/2024 COMP. METAB [...] s/KDO QI/gf r_cal culat orPed Not Available [facility] [address] [place] [address], [address], 08/17/2024 10:25:19 08/18/19 25 08/17/2024 C-PEP TIDE C-peptide 1.46 NG/mL 1.10-4 .40 normal Not Available [facility] [address] [place] [address], [address], 08/17/2024 10:31:07 08/18/19 25 08/17/2024 INSUL IN insulin 4.1 uu/mL 2.6-24 .9 normal Not Available [facility] [address] [place] [address], [address], 08/17/2024 10:31:08 08/18/19 25 08/17/2024 CORTI ARIAS cortisol 6.05 ug/dL 2.68-1 8.40 normal CORTI ARIAS AZIZA L RANGE S: 6 am to 10 am 6.02 - 18.4 ug/dL 4 pm to 8 pm 2.68 - 10.5 ug/dL . Not Available [facility] [address] [place] [address], [address], 08/17/2024 10:31:10 08/18/19 25 08/17/2024 TSH TSH 1.570 u[IU] /mL 0.270- 4.200 normal Not Available [facility] [address] [place] [address], [address], 08/17/2024 10:31:11 08/18/19 25 08/17/2024 GLUCO SE glucose 74 mg/dL 74-100 normal Not Available [facility] [address] [place] [address], [address], 08/17/2024 12:15:06 08/18/19 25 08/17/2024 C-PEP TIDE C-peptide 1.31 NG/mL 1.10-4 .40 normal Not Available [facility] [address] [place], [address], 08/17/2024 13:04:09 08/18/19 25 08/17/2024 INSUL IN insulin 4.6 uu/mL 2.6-24 .9 normal Not Available [facility] [address] [place], [address], 08/17/2024 13:04:11 09/04/19 25 09/03/2024 gluco se, finge rstic k, blood glucose, fingerstick 120 mg/dL 70 - 100 Not Available [facility] [address] [place], [address], 09/03/2024 13:41:54 04/16/20 25 04/15/2025 imagi ng/di agnos tic resul t No observ ation record ed. [facility] [address], [place], [address], 04/16/2025 12:10:08 Result Notes None recorded. Problems No Known Problems Procedures Surgical History Date Name Laterality Status Provider Name and Address Organization Details Recorded Time 10/05/19 25 MNT Initial Visit completed [address], [place] [address] [place], [address], [facility] 10/10/2024 16:23:23 09/04/19 25 MNT Initial Visit cancelled [address], [place] [address] [place], [address], [facility] 09/03/2024 08:19:01 06/08/19 23 Binocular Microscopy completed Kerline De Los Santos [facility] 06/08/2022 17:12:50 06/03/19 23 Binocular Microscopy completed Sanjuana Fritz [facility] 06/03/2022 15:55:19 05/02/19 19 appendectomy completed Caryl Becerra [facility] 06/03/2022 14:42:22 05/02/19 18 laparoscopic sleeve gastrectomy completed [facility] 06/03/2022 14:40:36 05/02/19 08 cholecystectomy completed [facility] 06/03/2022 14:44:36 05/02/18 91 Remove tonsils and adenoids completed [facility] 06/03/2022 14:39:49 Imaging Results None recorded. Procedure Notes None recorded. Medical Equipment None Reported. Allergies Allergen ID Allergen Name Allergen Category Reaction Reaction Severity Criticality Documentation Date Start Date Code Code System Note Provider Name and Address Organization Details Recorded Time 261481 Substance with sulfonami de structure and antibacte rial mechanism of action (substanc e) medicatio n Not available Not available Not available 08/15/2024 65606 8003 SNOMED [facility] 13:52:57 106989 hydrocodo ne Not available Not available Not available low 08/15/2024 5489 RxNorm [facility] 13:53:09 Medications Name Sig Start Date Stop [...] and Address Organization Details Last Updated DateTime 3 162.56 cm 23.5 kg/m2 31442.1 5 g 97.5 [degF] 54 /min 100/72 mm[Hg] Kerline De Los Santos [facility] 3 09:29:29 Date Recorded Body weight Body mass index (BMI) Body height Systolic And Diastolic Provider Name and Address Organization Details Last Updated DateTime 08/15/2024 45021.75 g 23.7 kg/m2 162.56 cm 112/74 mm[Hg] Roxane Headley [facility] 08/15/2024 13:55:36 Date Recorded Body height Body mass index (BMI) Body weight Heart rate Systolic And Diastolic Provider Name and Address Organization Details Last Updated DateTime 09/03/2024 162.56 cm 24.2 kg/m2 85837.52 g 74 /min 116/58 mm[Hg] Breanne Patel [facility] 09/03/2024 13:41:51 Date Recorded Body height Body mass index (BMI) Body weight Provider Name and Address Organization Details Last Updated DateTime 10/04/2024 162.56 cm 24 kg/m2 [address]188.[address], [place] [address] [place], [address], [facility] 10/04/2024 09:59:10 Date Recorded Body height Body mass index (BMI) Body weight Body temperature Provider Name and Address Organization Details Last Updated DateTime 01/20/2023 162.56 cm 23.2 kg/m2 57235.97 g 97.5 [degF] Juan Jose Dozier [facility] 01/20/2023 16:45:22 Date Recorded Heart rate Systolic And Diastolic Provider Name and Address Organization Details Last Updated DateTime 01/20/2023 58 /min 106/73 mm[Hg] Maggie Gaytan [facility] 01/20/2023 17:04:07 Social History None recorded. Functional Status Question Answer Note LastModified by Organizat ion Details LastModified Time What is your level of alcohol consumption? Occasional [email or web address] Information not available 06/03/2022 Mental Status None recorded. Family History Relationship Description Onset Age of this Age Resolved Age Notes LastModified by Organization Details LastModified Time Father Complication of anesthesia [email or web address] Not available 06/03 14:36:47 Father Hypertensive disorder [email or web address] Not available 2022 14:37:19 Father Heart disease Not available 2022 14:37:38 Mother Complication of anesthesia Not available 06/03 14:36:54 Daughter Asthma [email or web address] Not availabl e 06/03/2022 14:37:58 Maternal Grandfather Family history of stroke [email or web address] Not available 2022 14:38:29 Maternal Grandmother Family history of stroke [email or web address] Not available 2022 14:38:41 Medical History Condition Response Anxiety Disorder Y Diabetes N Bleeding Disorder N Cancer N Hypertension N Gynecological HistoryNo gynecological history recorded. Obstetrics History GPAL:G 0 P 0 0 0 0 Past Encounters Encounter ID Performer Location Encounter Start Date Encounter Closed Date Diagnosis/Indication Diagnosis SNOMED-CT Code Diagnosis ICD10 Code Diagnosis IMO Codes Diagnosis Note [id number] MD [address] [place] [address] 06/03/2022 14:12:37 06/03/2022 16:23:35 Dizziness 701528675 R42 Aspergillu s otomycosis 903245822 B44.89 -right ear Acute shaun al otitis externa 410343140 B36.9 Otalgia of right ear 880 0240638 H92.01 Ear pressu re sensation 363635898 H93.8X9 Anxiety 77803514 F41.9 [id number] ALICE GONZALEZ MD [facility] [address] [place] [address] 06/08/2022 15:55:27 06/09/2022 07:27:00 Dizziness 110852945 R42 Has a sore throat 837887 002 J02.9 Nausea 082010459 R11.0 Aspergillu s otomycosis 559403738 B44.89 -right ear Acute shaun al otitis externa 747566323 B36.9 Otalgia of right ear 506 8024928 H92.01 Ear pressu re sensation 468839468 H93.8X9 Anxiety 40226757 F41.9 Migraine 91815479 G43.90 9 Acute migraine [id number] ALICE GONZALEZ MD [facility] [address] [place] [address] 08/03/2022 09:19:29 08/03/2022 10:26:52 Otitis externa of right ear 7399268438 204972 H60.91 Aspergillu s otomycosis 345411704 B44.89 -right ear 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 Patient states that as time progresses they are worsening. She does report past medical history of gastric sleeve in 2018.Patie nt states she did receive Dexcom per PCP and with the below readings have been reviewed and scanned in chart:Time CGM active: 77%Average glucose: 83GMI: CATRACHITA>250= 0%181-250= 0%70-180= 87%54-69= 12%>54= 0% Recommenda tionReneell check the above below labs. Patient educated [...] no questions or concerns at this time. [id number] ELIF OWENS APRN [address] [place] [address] 09/03/2024 13:25:57 09/03/2024 14:06:40 Hypoglycemia 130022386 E16.2 Patient states she has been experienci [...] time as educated. She states understand ing. [id number] [address], LD [facility] [address] [place] [address] 10/04/2024 09:50:18 10/10/2024 16:24:29 Diet education 92933989 Z71.3 78327464 Hypoglycemia 420057933 E 16.2 54210 Health Concerns Section Related Observation LastModified by Organization Detai ls LastModified Time None Recorded Concern Status LastModified by Organization Details LastModified Time None Recorded Advance Directives Directive None Recorded Payers Insurance Date Sequence Insurance Name Policy Number Policy Cavazos Covered Member ID Cavazos Member ID Guarantor Name 04/05/2023 PAYMENT PLAN Mayela Ahn 10/11/2024 1 [place] [id number] Mayela Ahn [id number] Mayela Ahn Notes Date Note Type [...] dizziness and light headedness. ALICE GONZALEZ MD [address] [place] [address], [address], [facility] 08/03/2022 17:54:23 01/20/2023 text/html Mayela visits us in office today to follow up on her fungal otitis externa. She reports an increased in the itchiness of her ear canals. She believes she may have more fungus in her ears. She also is having some irritation in her nose. ALICE GONZALEZ MD [address] [place], [address], [facility] 01/24/2023 09:29:23 08/15/2024 text/html States he is [...] medical history also significant for anxiety/depression. ELIF OWENS APRN [address] [place], [address], [facility] 08/15/2024 14:34:30 09/03/2024 text/html ROS as noted in the HPI Mayela is a 49-year-old female presents office today for follow-up on hypoglycemia. Patient is still been unable to obtain labs needed to start treatment with a carbose or obtain radiology exam to rule out insulinoma. Patient does report that hypoglycemia has improved since starting diet of high protein small frequent meals. ELIF OWENS APRN [address] [place], [address], [facility] 09/03/2024 15:07:53 OBGyn Episode No OBEpisode recorded.
[2025-04-29 08:15] VITALS: BP 93/53; PULSE 58; RESP 18; TEMP 36.6; O2SAT 100
--- NOTE | 2025-05-01 12:20 | EXP.TILT ---
Findings:: TEST: Upright Tilt Table Test REQUESTING PHYSICIAN: Angle Gutierrez MD INDICATION: Dizziness, lightheaded MEDS: See H&P PRE-TEST VITAL SIGNS (SUPINE): BP 126/83 mmHg, HR 70, O2 sats 100% TEST SUMMARY: Patient was prepared per protocol. Patient was then tilted into the upright position at 75 degrees for a total of 15 minutes with the test being terminated due to near syncope symptoms. She complained of heart racing 10 min after being placed in the upright position. This proceeded to the feeling that she would pass out, HR noted to be 122 bpm. Test was terminated at that time (15 min). Her lowest BP was 116/77 mmHg and maximum BP was 126/94 mmHg. Minimum HR during test was 70 bpm and maximum HR was 122 bpm. Her heart rhythm was sinus rhythm throughout the test. O2 sats remained 95% or higher throughout the test. COMPLICATIONS: None CONCLUSION: This test is a positive tilt table test with increase in HR from 70 to 122 bpm with feeling of near syncope.
== END 2025-04-29 23:59 | disposition home or self-care (01) ==
LOC: RT 04-30 07:51
PROVIDERS: PCP Family Medicine; Visit Provider Specialist
DX: I95.89 Other hypotension (principal); I10 Essential (primary) hypertension; R00.0 Tachycardia, unspecified
CPT/HCPCS: 93660

== ENCOUNTER 2025-05-01 10:58 | Outpatient (RCR) | payer BC, SELFPAY ==
--- NOTE | 2025-05-01 12:03 | HMH.PTOPEV ---
PT Evaluation Rehab PT Outpatient Evaluation Start: 05/01/25 11:48 Freq: Status: Active Protocol: Document 05/01/25 11:49 PHORNE (Rec: 05/01/25 12:03 PHORNE [id number]) E-signed By Thai Ortiz, PT Outpatient Therapy Subjective History Subjective History This is the initial PT eval for Mayela Ahn, 50 yowf who presents with c/o dizziness for several years, but worse x ~ 8 mos. She reports she had the flu in June of this year and it exacerbated her dizziness. She reports her symptoms do occur in certain positions and last 30 seconds to 1 minute in duration, but she reports no vertigo at all. She describes her symptoms as visual disturbance in her R eye, My eye feels like it turns over, and feeling of her R side of her head moving even though it is stationary. She reports symptoms are always on the R side. She has difficulty being a passenger in a vehicle, but not driving and she has difficulty walking around in large crowds of people. She had CT scan which show some sinus issues on her R side. She had tilt-table test 2 days ago which she reports may point to some symptoms of POTS. She also has hx of a severe R ear fungal infection ~ 2-3 yrs ago with symptoms lasting for months before it was able to be treated appropriately. She has hx of Anxiety at baseline. Chief Complaint Other Symptoms Relieved By Rest/Positioning Symptom Description Intermittent,Activity Dependent Vertigo Eval Oculomotor Examination Smooth Pursuits: Normal Saccades: Normal Gaze-Evoked Absent Nystagmus: Vergence: Normal Vestibular-Ocular Reflex (VOR) VOR Horizontal: Symptomatic VOR Vertical: Symptomatic Head Thrust Test Positive Right: Head Thrust Test Negative Left: Comment: Significant symptoms with Head Impulse Test, worse on R side, worse with checkerboard background. Positional Testing Manish-Hallpike Right: Negative Manish-Hallpike Left: Negative Roll Test Right: Negative Roll Test Left: Negative Comment: Pt reports symptoms with R side testing during both Manish -Hallpike and Horizontal Roll, but no nystagmus noted in any position. This indicates she does not have BPPV Gait Assessment Assistive Device: None Gait Quality Normal Outpatient Therapy Assessment Impairments Problems/ Impaired Walking,Impaired Standing,Impaired Shower/ Impairmments Bathing,Impaired Household Care,Impaired Recreational Activities,Impaired Self Care/Self Management Prognosis Rehab Potential Good Comment Skilled therapy is indicated to improve patient vestibular function to prevent dizziness in all functional activities. She was given a HEP and wishes to treat her self independently at this time, but may need further skilled therapy treatments at a later time . 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 Outpatient Therapy Plan of Care Treatment Plan May Include Therapeutic Exercise Yes Including Home Exercise Program Manual Therapy Yes Techniques Neuromuscular Re- Yes education Therapeutic Yes Activities to Return to Previous Functional/Work Level ADL/Self Care Yes Education Eval/Re-Eval Yes Frequency Times per week 1 Duration Number of Weeks 6 Addendums This patient is a No candidate for social or vocational rehab ? Patient/Guardian Yes verbally acknowledges understanding of treatment program and consents to further treatment? Patient/Guardian Yes verbally acknowledges understanding of diagnosis, prognosis and goals for treatment? Eval Complexity PT Charges 41200 - Moderate Complexity Shoulder/Elbow Eval Shoulder Objective Measurements Elbow Objective Measurements PHYSICIAN CERTIFICATION: I certify the specified therapy services for Mayela Ahn are required, authorized, and reviewed every 30 days.
== END 2025-05-01 23:59 | disposition home or self-care (01) ==
LOC: PT 10:58
PROVIDERS: PCP Family Medicine; Visit Provider Specialist
DX: R42 Dizziness and giddiness (principal)
CPT/HCPCS: 97162